=== PATIENT | male | born 1935 | race Caucasian/White ===

== ENCOUNTER 2019-06-21 18:09 | Inpatient (IN) | payer MEDICARE, OTHER ==
[2019-06-21] MEDS ORDERED: Cefepime 2 GM VIAL ONE (19:15)
[2019-06-21] MEDS ORDERED: Vancomycin 1 GM/200 ML BAG ONE (19:53)
--- NOTE | 2019-06-21 20:12 | PDOC.HHP ---
Hospitalist HPI - History of Present Illness Wound issues History of Present Illness: Patient is an 84 year old male with PMH hyperlipidemia, CHF, AICD, T2DM, HTN, CAD, atrial fibrillation, chronic kidney disease, chronic back pain, cardiac stents who presents as [facility] transfer for AICD wound dehiscence. Patient had pacemaker placed in February, today wound became exposed with part of the scar opening up with exposure of the device and part of device visible. Pt denies pain, fever, discharge, or other complaints. No alleviating or aggravating factors. Patient went to PCP today then was sent to specialist office and referred to ED. ED physician at [facility] attempted to transfer pt to [place], where the original procedure was performed in February of this year, but pt refused, stating he would only consent to be transferred here. On interview patient repors aicd began to poke through skin sometime this week, cannot remember name of doctor, on keflex currently, no fevers/chest pain/sob/ nausea/vomiting. on coumadin for afib and amio, dig, other meds per [facility] Hospitalist ROS - Review of Systems Constitutional: denies: fever, chills, sweats, weakness, malaise, other Eyes: denies: pain, vision change, conjunctivae inflammation, eyelid inflammation, redness, other ENT: denies: ear pain, ear discharge, nose pain, nose discharge, nose congestion , mouth pain, mouth swelling, throat pain, throat swelling, other Respiratory: denies: cough, dry, shortness of breath, hemoptysis, SOB with excertion, pleuritic pain, sputum, wheezing, other Cardiovascular: denies: chest pain, palpitations, orthopnea, paroxysmal noc. dyspnea, edema, light headedness, other Gastrointestinal: denies: nausea, vomiting, abdominal pain, diarrhea, constipation, melena, hematochezia, other Genitourinary: denies: dysuria, frequency, incontinence, hematuria, retention, other Musculoskeletal: denies: neck pain, shoulder pain, arm pain, back pain, hand pain, leg pain, foot pain, other Skin: reports: other (open pacemaker wound). denies: rash, lesions, maribel, bruising Neurological: denies: weakness, numbness, incoordination, change in speech, confusion, seizures, other All other systems reviewed; all pertinent +/- noted in HPI/Subj Hospitalist History - Past Medical History Other Medical History: hyperlipidemia, CHF, AICD, T2DM, HTN, CAD, atrial fibrillation, chronic kidney disease, chronic back pain, cardiac stents - Past Surgical History Past Surgical History: reports: Appendectomy, CABG, Hernia Repair, Tonsillectomy Other Surgical History: sbo repair pacemaker lumbar surgery stents L shoulder surgery appendectomy tonsillectomy hernia repair - Family History Family History: reports: no pertinent history (Patient drinks every day, less than 5 drinks per day, Patient denies drug use, Patient has no smoking history.) - Social History Drugs: reports: none Other Social History: drinks leszs than 5 drinks a day - Exam General Appearance: NAD, awake alert Eye: PERRL, anicteric sclera ENT: normocephalic atraumatic, no oropharyngeal lesions, moist mucosa Neck: supple, symmetric, no JVD, no thyromegaly, no lymphadenopathy, no carotid bruit Heart: RRR, no murmur, no gallops, no rubs, normal peripheral pulses Heart - other findings: chest wall - open pacemaker wound corner minimal erythema and jeri Respiratory: CTAB, no wheezes, no rales, no ronchi, normal chest expansion, no tachypnea, normal percussion Gastrointestinal: soft, non-tender, non-distended, normal bowel sounds, no palpable masses, no hepatomegaly, no splenomegaly, no bruit Extremities: no cyanosis, no clubbing, no edema Skin: normal turgor, no lesions, no rashes Skin - other findings: as above under cv section Neurological: cranial nerve grossly intact, normal sensation to touch, no weakness, no focal deficits, no new deficit Musculoskeletal: normal tone, normal strength, no muscle wasting Psychiatric: normal affect, normal behavior, A&O x 3 Hospitalist Results - Labs Lab results: outside records reviewed Additional comment: VITAL SIGNS Sat June 21, 2019 18:18 GLORIA Martinez Laine BP: 162/67 Pulse: 73 Resp: 20 Temp: 98.3 (Oral) Pain: 0 O2 sat: 96 on (Room Air) Time: 06/21/2019 18:18. VITAL SIGNS Sat June 21, 2019 19:19 GLORIA Martinez Laine BP: 166/65 Pulse: 69 Resp: 20 Temp: 98.6 Pain: 0 O2 sat: 96 Time: 06/21/2019 19:19. VITAL SIGNS Sat June 21, 2019 19:59 GLORIA Martinez Laine BP: 162/104 Pulse: 70 Resp: 20 Temp: 98.1 (Oral) Pain: 0 O2 sat: 95 on (Room Air) Time: 06/21/2019 19:59. Hospitalist H&P A/P - Plan Plan: Patient is an 84 year old male with PMH hyperlipidemia, CHF, AICD, T2DM, HTN, CAD, atrial fibrillation, chronic kidney disease, chronic back pain, cardiac stents who presents as [facility] transfer for AICD wound dehiscence. # AICD wound dehiscence - patient did not want to go to [facility], which is where previous helminthologist is, instead was transferred here at patient request, in ED the MD discussed with Dr Chamorro who has agreed to follow along with us - admit to telemetry - empiric vancomycin, unasyn for ppx given high risk of infx - follow blood cultures - npo past midnight - consult cardiology # hyperlipidemia # CHF # T2DM # HTN # CAD # atrial fibrillation # chronic kidney disease # chronic back pain # cardiac stents - resume home medications - on coumadin chronically, check INR and consult pharmacy for dosing, may need to delay procedure if INR comes back high
[2019-06-21] MEDS ORDERED: hydrALAZINE 20 MG/ML VIAL SLOW IVP PRN (21:58)
[2019-06-21] MEDS ORDERED: Acetaminophen 325 MG TAB PO PRN (21:58)
[2019-06-21] MEDS ORDERED: Morphine 2 MG/ML SYRINGE SLOW IVP PRN (21:58)
[2019-06-21] MEDS ORDERED: HYDROcodone/Acetaminophen 5/325 mg Tablet PO PRN (21:58)
[2019-06-21] MEDS ORDERED: Ondansetron PF 4 MG/2 ML Vial IVP PRN (21:58)
[2019-06-21] MEDS ORDERED: cloNIDine 0.1 MG TAB PO PRN (21:58)
[2019-06-21] MEDS ORDERED: Promethazine HCl 12.5 MG in Sodium Chloride 0.9% 50 ML IVPB PRN (21:58)
[2019-06-21] MEDS ORDERED: Guaifenesin DM 100-10/5 ML UDCUP PO PRN (21:58)
[2019-06-21] MEDS ORDERED: Labetalol HCl 100 MG/20 ML VIAL SLOW IVP PRN (21:58)
[2019-06-21 22:39] LABS: INR-International Normal Ratio 3.1; Prothrombin Time 31.9 sec (12.0-14.7)
[2019-06-21 22:40] VITALS: BMI 28.6
[2019-06-21] MEDS ORDERED: Vancomycin HCl 500 MG in Sodium Chloride 0.9% 100 ML IVPB SCH (23:00)
[2019-06-21] MEDS: Ampicillin/Sulbactam 3 GM in Sodium Chloride 0.9% 100 ML IVPB SCH (23:14)
[2019-06-22] MEDS ORDERED: Melatonin 3 MG TAB PO SCH (00:15)
[2019-06-22 04:18] LABS: #Eosinphils 0.3 thou/uL (0.0-0.7); #Lymphocytes 0.8 thou/uL (1.20-3.40); #Monocytes 0.8 thou/uL (0.11-0.59); #Neutrophils 4.9 thou/uL (1.40-6.50); %Basophils 0.1 % (0.0-1.0); %Eosinophils 4.1 % (0.0-10.0); %Lymphocytes 12.3 % (21.0-51.0); %Monocytes 11.3 % (0.0-10.0); %Neutrophils 72.2 % (42.0-75.0); Mean Corpuscular HGB CONC 31.3 g/dL (32.0-36.0); Mean Corpuscular Hemoglobin 29.1 pg (27.0-31.0); Mean Corpuscular Volume 92.9 fL (78.0-98.0); Mean Platelet Volume 7.3 fL (7.4-10.4); Platelet Count 183 thou/uL (130-400); RBC Distribution Width 13.4 % (11.5-14.5); Red Blood Cell (RBC) Count 3.77 mill/uL (4.70-6.10); White Blood Cell (WBC) Count 6.8 thou/uL (4.8-10.8)
[2019-06-22 04:24] LABS: INR-International Normal Ratio 3.2; Prothrombin Time 32.6 sec (12.0-14.7)
[2019-06-22 04:38] LABS: Anion Gap 15 mmol/L (10-20); BUN (Urea Nitrogen) 23 mg/dL (8.4-25.7); Calc. Creatinine Clearance 27 mL/min (70-130); Calcium 8.4 mg/dL (7.8-10.44); Carbon Dioxide 27 mmol/L (23-31); Chloride 100 mmol/L (98-107); Estimated GFR-MDRD 25; Glucose 266 mg/dL (83-110); Magnesium 2.4 mg/dL (1.6-2.6); Potassium 3.8 mmol/L (3.5-5.1); Sodium 138 mmol/L (136-145)
[2019-06-22] MEDS: Ampicillin/Sulbactam 3 GM in Sodium Chloride 0.9% 100 ML IVPB SCH ×4 (06:05→23:16)
[2019-06-22] MEDS: Amiodarone 200 MG TAB PO SCH ×2 (08:22→20:11)
[2019-06-22] MEDS: Digoxin 0.125 MG TAB PO SCH (08:22)
[2019-06-22] MEDS: Glimepiride 4 MG TAB PO SCH ×2 (08:22→17:03)
[2019-06-22] MEDS: Polyethylene Glycol 3350 17 GM Packet PO SCH (08:23)
[2019-06-22] MEDS: Rosuvastatin 20 MG TAB PO SCH (08:23)
[2019-06-22] MEDS: Furosemide 40 MG TAB PO SCH ×2 (08:23→20:11)
[2019-06-22] MEDS: Insulin Glargine 10 UNITS in Pre-Filled Syringe 1 EACH SC SCH ×2 (08:23→21:10)
[2019-06-22] MEDS: Famotidine 20 MG TAB PO SCH (08:23)
[2019-06-22] MEDS ORDERED: Non-Formulary Item 1 EACH (Insulin Detemir [Levemir] 10 UNIT) SQ SCH (09:00)
[2019-06-22 09:26] LABS: Hemoglobin 11.9 g/dL (14.0-18.0); Platelet Count 175 thou/uL (130-400)
[2019-06-22] MEDS ORDERED: Dextrose 5% in Water 1,000 ML IV PRN (10:32)
[2019-06-22] MEDS ORDERED: Dextrose 50% Abboject 50 ML SYRINGE SLOW IVP PRN (10:32)
[2019-06-22] MEDS: HumaLOG 300 UNITS/3 ML VIAL SC PRN (11:50)
--- NOTE | 2019-06-22 12:40 | CON ---
DATE OF CONSULTATION: CONSULTING DOCTOR: Dr. Prater. HISTORY OF PRESENT ILLNESS: The patient is an 84-year-old gentleman with a history of coronary artery disease, and atrial fibrillation, who presents when he noted that the skin over his defibrillator became red and tender and it started protruding. The patient has a long history of an ischemic cardiomyopathy. This gentleman underwent coronary artery bypass surgery x3 in 2001. In 2009, the patient underwent placement of automatic implantable cardiac defibrillator. The patient also has history of paroxysmal atrial fibrillation and has been treated with Amiodarone. The patient recently switched cardiologists and has been seen by Dr. Reggie Valadez. The patient recently had a change of the generator of his AICD in February of this year. A few days ago, the patient started noticing that he had developed redness over the generator. It became slightly painful. The defibrillator appeared to be protruding out of the skin. The patient denies having any fevers or chills. The patient denies having any dyspnea. PAST MEDICAL HISTORY: 1. Cardiomyopathy. 2. Hypertension. 3. Atrial fibrillation. 4. Diabetes mellitus. 5. Chronic renal insufficiency. PAST SURGICAL HISTORY: Coronary artery bypass surgery, back surgery, appendectomy, hernia surgery, tonsillectomy, and bowel surgery. SOCIAL HISTORY: Nonsmoker. ALLERGIES: MORPHINE. MEDICATIONS: 1. Keflex 250 t.i.d. 2. Crestor 40 at bedtime. 3. Levemir 10 b.i.d. 4. Lasix 40 p.o. b.i.d. 5. Digoxin 0.125 daily. 6. Amiodarone 200 daily. 7. Metoprolol 25 daily. 8. Coumadin. FAMILY HISTORY: Positive family history of heart disease. REVIEW OF SYSTEMS: Ten-point system otherwise unremarkable. No history of easy bleeding or bright red blood per rectum. PHYSICAL EXAMINATION: GENERAL: This is a well-developed gentleman, in no acute distress. VITAL SIGNS: Blood pressure is 152/67. NECK: No jugular venous distention. LUNGS: Clear to auscultation. HEART: Regular rate and rhythm. Normal S1 and S2. No murmurs. ABDOMEN: Distended. EXTREMITIES: Showed trace edema. VASCULAR: Radial pulses are 2+. SKIN: The pacemaker is bandaged. There appears to be some mild erythema. LABORATORY DATA: Sodium 138, potassium 3.8, chloride 100, bicarbonate 27, BUN 23, and creatinine was 2.48. His white blood cell count was 6.8, hemoglobin 11.0, hematocrit 35.0, and platelets 183. INR was 3.2. EKG :electronic ventricular pacemaker. IMPRESSION: 1. Status post AICD generator replacement with possible subcutaneous infection. 2. History of ischemic cardiomyopathy. 3. History of coronary artery bypass surgery x3. 4. History of PTCA and stent placement. 5. Permanent atrial fibrillation. 6. Diabetes mellitus. 7. Renal insufficiency. This gentleman presents with a possibly infected AICD. I would recommend holding the patient's Coumadin. The patient will undergo EP consultation for best management and recommendations. We will follow this patient with you through his hospitalization. We will obtain records from his primary furnishings conservator. We will obtain an echocardiogram to re-evaluate his left ventricular function. Job ID: [id number] MTDD
--- NOTE | 2019-06-22 14:42 | PDOC.HOSPP ---
- Subjective Encounter Date: 06/22/19 Encounter Time: 09:00 Subjective: no overnight events. this morning, feeling well and has no complaints. Pending evaluation by EP for pacemaker replacement - Objective Vital Signs & Weight: Vital Signs (12 hours) Temp Pulse Resp BP Pulse Ox 06/22/19 11:50 98.4 F 63 14 159/71 H 94 L 06/22/19 07:45 98.1 F 69 14 152/67 H 93 L 06/22/19 03:17 98.2 F 70 18 157/70 H 94 L Weight Weight 182 lb 14.4 oz I&O: 06/21/19 06/22/19 06/23/19 06:59 06:59 06:59 Intake Total 540 Output Total 475 Balance 65 Result Diagrams: 06/22/19 09:17 06/22/19 03:50 Additional Labs: Accuchecks 06/22/19 06/22/19 06/21/19 11:13 05:54 22:20 POC Glucose 361 H 251 H 184 H Hospitalist ROS - Review of Systems Constitutional: denies: fever, chills, sweats, weakness, malaise, other Respiratory: denies: cough, dry, shortness of breath, hemoptysis, SOB with excertion, pleuritic pain, sputum, wheezing, other Cardiovascular: denies: chest pain, palpitations, orthopnea, paroxysmal noc. dyspnea, edema, light headedness, other Gastrointestinal: denies: nausea, vomiting, abdominal pain, diarrhea, constipation, melena, hematochezia, other Genitourinary: denies: dysuria, frequency, incontinence, hematuria, retention, other - Medication Medications: Active Medications Generic Name Dose Route Start Last Admin Trade Name Freq PRN Reason Stop Dose Admin Amiodarone HCl 200 mg 06/22/19 09:00 06/22/19 08:22 Cordarone PO 200 mg BID ANIYAH Administration Digoxin 0.125 mg 06/22/19 09:00 06/22/19 08:22 Lanoxin PO 0.125 mg DAILY ANIYAH Administration Famotidine 20 mg 06/22/19 09:00 06/22/19 08:23 Pepcid PO 20 mg DAILY ANIYAH Administration Furosemide 40 mg 06/22/19 09:00 06/22/19 08:23 Lasix PO 40 mg BID ANIYAH Administration Glimepiride 4 mg 06/22/19 07:30 06/22/19 08:22 Amaryl PO 4 mg BID-AC ANIYAH Administration Ampicillin Sodium/Sulbactam 100 mls @ 200 mls/hr 06/21/19 23:00 06/22/19 11: 50 Sodium 3 gm/ Sodium Chloride IVPB 100 mls 0500,1100,1700,2300 ANIYAH Administration Insulin Glargine 10 units/ 0.1 mls @ 0 mls/hr 06/22/19 09:00 06/22/19 08:23 Miscellaneous Medication SC 0.1 mls BID ANIYAH Administration Insulin Human Lispro 0 units 06/22/19 10:32 06/22/19 11:50 Humalog SC 6 unit .MILD SLIDING SCALE PRN Administration Mild Correctional Scale Metoprolol Succinate 25 mg 06/22/19 09:00 06/22/19 08:23 Toprol Xl PO 25 mg DAILY ANIYAH Administration Polyethylene Glycol 17 gm 06/22/19 09:00 06/22/19 08:23 Miralax PO 17 gm DAILY ANIYAH Administration Rosuvastatin Calcium 40 mg 06/22/19 09:00 06/22/19 08:23 Crestor PO 40 mg DAILY ANIYAH Administration Sodium Chloride 10 ml 06/21/19 21:00 06/22/19 08:23 Flush - Normal Saline IVF 10 ml Q12HR ANIYAH Administration - Exam General Appearance: NAD, awake alert Heart: RRR, no murmur, no gallops, no rubs Heart - other findings: left pacemaker with overlying dry dressing, minimal erythema and swelling Respiratory: CTAB, no wheezes, no rales, no ronchi Gastrointestinal: soft, non-tender, non-distended, normal bowel sounds Extremities: no edema Hosp A/P - Plan #infected AICD -continue vanc and unasyn -pending EP evaluation -holding warfarin rest of management unchanged
[2019-06-22] MEDS ORDERED: Warfarin Sodium 2 MG TAB PO SCH (17:00)
[2019-06-22] MEDS: Melatonin 3 MG TAB PO PRN (20:11)
[2019-06-22 20:52] LABS: Vancomycin, Random 12.1 ug/mL (See Comment)
[2019-06-22] MEDS ORDERED: Vancomycin HCl 750 MG in Sodium Chloride 0.9% 250 ML 250 ML IVPB SCH (21:00)
[2019-06-22] MEDS: Vancomycin HCl 750 MG in Sodium Chloride 0.9% 250 ML 250 ML IVPB SCH (22:00)
[2019-06-23] MEDS: Ampicillin/Sulbactam 3 GM in Sodium Chloride 0.9% 100 ML IVPB SCH ×4 (04:05→23:46)
[2019-06-23 04:52] LABS: Anion Gap 11 mmol/L (10-20); BUN (Urea Nitrogen) 20 mg/dL (8.4-25.7); Calc. Creatinine Clearance 27 mL/min (70-130); Calcium 8.3 mg/dL (7.8-10.44); Carbon Dioxide 29 mmol/L (23-31); Chloride 101 mmol/L (98-107); Estimated GFR-MDRD 25; Glucose 114 mg/dL (83-110); Magnesium 2.4 mg/dL (1.6-2.6); Potassium 3.6 mmol/L (3.5-5.1); Sodium 137 mmol/L (136-145)
[2019-06-23] MEDS: Furosemide 40 MG TAB PO SCH ×2 (09:20→20:16)
[2019-06-23] MEDS: Rosuvastatin 20 MG TAB PO SCH (09:20)
[2019-06-23] MEDS: Glimepiride 4 MG TAB PO SCH ×2 (09:20→16:00)
[2019-06-23] MEDS: Amiodarone 200 MG TAB PO SCH ×2 (09:20→20:16)
[2019-06-23] MEDS: Digoxin 0.125 MG TAB PO SCH (09:21)
[2019-06-23] MEDS: Famotidine 20 MG TAB PO SCH (09:21)
[2019-06-23] MEDS: Polyethylene Glycol 3350 17 GM Packet PO SCH (09:26)
[2019-06-23] MEDS: Insulin Glargine 10 UNITS in Pre-Filled Syringe 1 EACH SC SCH ×2 (09:27→20:43)
[2019-06-23] MEDS: HumaLOG 300 UNITS/3 ML VIAL SC PRN (11:36)
--- NOTE | 2019-06-23 13:57 | CON ---
DATE OF CONSULTATION: 06/23/2019 Dictated by Ariane Mzt, nurse practitioner, as a scribe for Dr. Ramon Kiser. REASON FOR CONSULTATION: ICD erosion and management. HISTORY OF PRESENT ILLNESS: Mr. Rizvi is an 84-year-old gentleman with a history of coronary artery disease with prior bypass in addition to atrial fibrillation, requiring amiodarone. He is on warfarin chronically for anticoagulation regarding his atrial fibrillation. He also has a long history of ischemic cardiomyopathy. In 2009, he underwent ICD implant and had a generator change in February of this year. He recently established with a burglar alarm assembler, named Dr. Reggie Clarke. A few weeks ago, Mr. Rizvi noticed that his skin overlying his ICD implant began to itch, thin and become red. The defibrillator began to protrude out of the skin and eventually dehisced. He denied any fevers, chills, and has been started on vancomycin. EP consult has been requested for ICD management and consideration of extraction. Mr. Rizvi does not remember the name of the doctor who did the generator change. REVIEW OF SYSTEMS: A 12-point review of systems is unremarkable except that listed above in HPI. PAST MEDICAL HISTORY: 1. Atrial fibrillation. 2. Type 2 diabetes. 3. Chronic renal insufficiency. 4. Hypertension. 5. Ischemic cardiomyopathy. 6. Coronary artery disease with 3-vessel bypass in 2001. SOCIAL HISTORY: Nonsmoker. ALLERGIES: MORPHINE. HOME MEDICATIONS: Include: 1. Crestor 40 mg daily. 2. Levemir 10 units subcutaneous b.i.d. 3. Amaryl 4 mg b.i.d. 4. Lasix 40 mg b.i.d. 5. Digoxin 125 mcg daily. 6. Vitamin D daily. 7. Amiodarone 200 mg b.i.d. 8. Metoprolol succinate 25 mg daily. 9. Warfarin as directed. FAMILY HISTORY: Positive for heart disease. Negative for sudden cardiac . OBJECTIVE: VITAL SIGNS: Temperature 98.1, pulse 62, blood pressure 142/67, respirations 18, and oxygen 95% on room air. GENERAL: The patient is alert and oriented. Speech is clear. Affect is appropriate. He is a fair historian. HEENT: He is normocephalic and atraumatic. Sclerae anicteric. EOMs are intact. Oral mucosa is moist and pink with adequate dentition. NECK: Supple without jugular venous distention. Thyroid is nonpalpable and trachea is midline. LUNGS: Clear to auscultation throughout. Respirations are even and unlabored. HEART: Rate is irregularly irregular with crisp S1 and S2. No significant murmur, rub, or gallop is appreciated. ABDOMEN: Distended. Hepatojugular reflux is negative. EXTREMITIES: Warm and dry to touch with trace edema bilaterally to the lower extremities. There is no clubbing or cyanosis. NEUROLOGIC: Grossly intact and nonfocal. Gait was not assessed. SKIN: ICD is a left precordial implant. There is a bandage overlying the device, which was removed temporarily for the exam. There is some mild erythema. The device has dehisced and is coming out of the pocket. It does not appear to have any areas of induration or pockets of infection, but the device will require explant. DATABASE: LABORATORY DATA: Hematology is unremarkable. Chemistry: Potassium 3.6, creatinine 2.45, and magnesium 2.4. Echocardiogram is ordered, but not yet performed. EKG shows sinus rhythm with demand pacing. IMPRESSION: 1. Implantable cardiac defibrillator generator erosion without systemic infection symptoms or signs. 2. Recent implantable cardiac defibrillator generator change in 02/2019, dual-chamber [employer], performed in the [place]. 3. Chronic RV pacing. 4. Paroxysmal atrial fibrillation, on amiodarone and anticoagulation. 5. Hyperlipidemia. 6. Chronic kidney disease. 7. Ischemic cardiomyopathy. 8. Prior bypass, 3 vessels. PLAN AND RECOMMENDATIONS: Mr. Villanueva ICD unfortunately has eroded through his pocket and is requiring explant. Fortunately, he does not exhibit any systemic signs of infection or sepsis. As this is a chronic ICD placed 10 years ago, he will require lead extraction, and thus, will require transfer to a facility that is equipped to handle this procedure. I am contacting . [facility] in the [place] for possible transfer later today pending their acceptance. He may benefit from Bi- V pacing when he can be reimplanted due to his high-grade RV pacing seen on this check. Thank you for allowing me to participate in the care of this patient. Job ID: [id number] [facility]
[2019-06-23] MEDS ORDERED: Warfarin Sodium 3 MG TAB PO SCH (17:00)
[2019-06-23] MEDS: Melatonin 3 MG TAB PO PRN (21:37)
[2019-06-23] MEDS: Vancomycin HCl 750 MG in Sodium Chloride 0.9% 250 ML 250 ML IVPB SCH (21:38)
[2019-06-23 21:47] LABS: Vancomycin, Trough 13.7 ug/mL
--- NOTE | 2019-06-23 22:54 | PDOC.HOSPP ---
- Subjective Encounter Date: 06/23/19 Encounter Time: 09:00 Subjective: no overnight events. This morning, feeling well and has no complaints. - Objective Vital Signs & Weight: Vital Signs (12 hours) Temp Pulse Resp BP BP BP Pulse Ox 06/23/19 20:09 99.2 F 60 18 134/62 95 06/23/19 15:24 98.5 F 65 20 153/67 H 97 06/23/19 11:26 98.1 F 62 20 139/65 92 L Weight Weight 182 lb 1.6 oz I&O: 06/22/19 06/23/19 06/24/19 06:59 06:59 06:59 Intake Total 540 1400 920 Output Total 475 1850 Balance 65 -450 920 Result Diagrams: 06/22/19 09:17 06/23/19 04:08 Additional Labs: Accuchecks 06/23/19 06/23/19 06/23/19 20:34 16:29 10:39 POC Glucose 206 H 130 H 307 H 06/23/19 05:41 POC Glucose 150 H Hospitalist ROS - Review of Systems Constitutional: denies: fever, chills, sweats, weakness, malaise, other Respiratory: denies: cough, dry, shortness of breath, hemoptysis, SOB with excertion, pleuritic pain, sputum, wheezing, other Cardiovascular: denies: chest pain, palpitations, orthopnea, paroxysmal noc. dyspnea, edema, light headedness, other Gastrointestinal: denies: nausea, vomiting, abdominal pain, diarrhea, constipation, melena, hematochezia, other - Medication Medications: Active Medications Generic Name Dose Route Start Last Admin Trade Name Freq PRN Reason Stop Dose Admin Amiodarone HCl 200 mg 06/22/19 09:00 06/23/19 20:16 Cordarone PO 200 mg BID ANIYAH Administration Cholecalciferol 1,000 units 06/23/19 09:00 06/23/19 09:20 Vitamin D3 PO 1,000 units DAILY ANIYAH Administration Digoxin 0.125 mg 06/22/19 09:00 06/23/19 09:21 Lanoxin PO 0.125 mg DAILY ANIYAH Administration Famotidine 20 mg 06/22/19 09:00 06/23/19 09:21 Pepcid PO 20 mg DAILY ANIYAH Administration Furosemide 40 mg 06/22/19 09:00 06/23/19 20:16 Lasix PO 40 mg BID ANIYAH Administration Glimepiride 4 mg 06/22/19 07:30 06/23/19 16:00 Amaryl PO 4 mg BID-AC ANIYAH Administration Ampicillin Sodium/Sulbactam 100 mls @ 200 mls/hr 06/21/19 23:00 06/23/19 16: 00 Sodium 3 gm/ Sodium Chloride IVPB 100 mls 0500,1100,1700,2300 ANIYAH Administration Insulin Glargine 10 units/ 0.1 mls @ 0 mls/hr 06/22/19 09:00 06/23/19 20:43 Miscellaneous Medication SC 0.1 mls BID ANIYAH Administration Vancomycin HCl 750 mg/ Sodium 250 mls @ 250 mls/hr 06/22/19 22:00 06/23/19 21 :38 Chloride IVPB 06/28/19 23:59 250 mls 2200 ANIYAH Administration Insulin Human Lispro 0 units 06/22/19 10:32 06/23/19 11:36 Humalog SC 5 unit .MILD SLIDING SCALE PRN Administration Mild Correctional Scale Melatonin 3 mg 06/22/19 00:04 06/23/19 21:37 Melatonin PO 3 mg HS PRN Administration Insomnia Metoprolol Succinate 25 mg 06/22/19 09:00 06/23/19 09:22 Toprol Xl PO 25 mg DAILY ANIYAH Administration Polyethylene Glycol 17 gm 06/22/19 09:00 06/23/19 09:26 Miralax PO Not Given DAILY ANIYAH Rosuvastatin Calcium 40 mg 06/22/19 09:00 06/23/19 09:20 Crestor PO 40 mg DAILY ANIYAH Administration Sodium Chloride 10 ml 06/21/19 21:00 06/23/19 20:16 Flush - Normal Saline IVF 10 ml Q12HR ANIYAH Administration - Exam General Appearance: NAD, awake alert Heart: RRR, no murmur, no gallops, no rubs, normal peripheral pulses Heart - other findings: right thorax pacemaker with overlying clean dressing and mild erythema Respiratory: CTAB, no wheezes, no rales, no ronchi, normal chest expansion, no tachypnea, normal percussion Gastrointestinal: soft, non-tender, non-distended, normal bowel sounds, no palpable masses, no hepatomegaly, no splenomegaly, no bruit Extremities: 1+ LE edema Psychiatric: normal affect, normal behavior, A&O x 3 Hosp A/P - Plan #infected AICD -continue vanc and unasyn -pending EP evaluation -holding warfarin #SILVIO/CKD -may be new baseline -continue to follow Disposition: Pending transfer to [facility] for removal of leads
[2019-06-24] MEDS: Ampicillin/Sulbactam 3 GM in Sodium Chloride 0.9% 100 ML IVPB SCH ×2 (05:11→10:27)
[2019-06-24 05:41] LABS: #Eosinphils 0.4 thou/uL (0.0-0.7); #Lymphocytes 1.3 thou/uL (1.20-3.40); #Monocytes 0.8 thou/uL (0.11-0.59); #Neutrophils 6.3 thou/uL (1.40-6.50); %Basophils 0.2 % (0.0-1.0); %Eosinophils 4.5 % (0.0-10.0); %Lymphocytes 14.2 % (21.0-51.0); %Monocytes 9.3 % (0.0-10.0); %Neutrophils 71.9 % (42.0-75.0); Hemoglobin 12.4 g/dL (14.0-18.0); Mean Corpuscular HGB CONC 31.1 g/dL (32.0-36.0); Mean Corpuscular Hemoglobin 28.9 pg (27.0-31.0); Mean Corpuscular Volume 92.8 fL (78.0-98.0); Mean Platelet Volume 7.6 fL (7.4-10.4); Platelet Count 206 thou/uL (130-400); RBC Distribution Width 13.5 % (11.5-14.5); Red Blood Cell (RBC) Count 4.29 mill/uL (4.70-6.10); White Blood Cell (WBC) Count 8.8 thou/uL (4.8-10.8)
[2019-06-24 06:01] LABS: Anion Gap 15 mmol/L (10-20); BUN (Urea Nitrogen) 20 mg/dL (8.4-25.7); Calc. Creatinine Clearance 26 mL/min (70-130); Calcium 8.7 mg/dL (7.8-10.44); Carbon Dioxide 25 mmol/L (23-31); Chloride 101 mmol/L (98-107); Estimated GFR-MDRD 24; Glucose 111 mg/dL (83-110); Potassium 3.8 mmol/L (3.5-5.1); Sodium 137 mmol/L (136-145)
[2019-06-24] MEDS: Glimepiride 4 MG TAB PO SCH (07:42)
[2019-06-24] MEDS: Polyethylene Glycol 3350 17 GM Packet PO SCH (09:29)
[2019-06-24] MEDS: Famotidine 20 MG TAB PO SCH (09:30)
[2019-06-24] MEDS: Furosemide 40 MG TAB PO SCH (09:30)
[2019-06-24] MEDS: Rosuvastatin 20 MG TAB PO SCH (09:30)
[2019-06-24] MEDS: Amiodarone 200 MG TAB PO SCH (09:30)
[2019-06-24] MEDS: Digoxin 0.125 MG TAB PO SCH (09:30)
[2019-06-24] MEDS: Insulin Glargine 10 UNITS in Pre-Filled Syringe 1 EACH SC SCH (09:36)
[2019-06-24] MEDS ORDERED: Acetaminophen 325 MG TAB PO SCH (10:15)
--- NOTE | 2019-06-24 10:32 | RAD ---
EXAM: XR Abdomen 1 View/KUB PROVIDED CLINICAL HISTORY: Abdominal distention shortness of breath. 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 Increased density is seen at the left lung base probably laterally extending into the left midlung zone. Findings may be related to loculated pleural fluid on the left. This would be better evaluated with chest x-ray. Dilatation and gaseous distention of loops of small bowel are seen in the abdomen. Small amount of ga s is present in the expected location of the rectum. No suspicious calcifications are seen. Degenerative changes are seen in the visualized thoracic and lumbar spine with laminectomy defect see n at the L4-5 level. IMPRESSION: Dilated gas-filled loops of small bowel in the abdomen. Findings may be related to ileus or partial s mall bowel obstruction. Pleural density lateral left midlung zone and left lung base which may be related to loculated pleura l fluid. This would be better evaluated with chest x-ray.
[2019-06-24 11:12] VITALS: BP 151/66; TEMP 98.1
--- NOTE | 2019-06-24 17:05 | PDOC.EP ---
- Subjective Date: 06/24/19 Time: 08:00 Interval History: Follow-up for ICD management. transfer to [place] is pending for laser lead extraction of his dehisced ICD. Anticipating transfer later today. patient feels well voices no complaints no suspicion of systemic infection or fever. - Review of Systems Constitutional: denies: chills, fever, malaise, sweats, weakness, other Respiratory: denies: cough, dry, hemoptysis, pleuritic pain, shortness of breath , SOB with excertion, sputum, wheezing, other Cardiology: denies: chest pain, edema, heart racing, light headedness, paroxysmal noc. dyspnea, orthopnea, palpitations, passing out, pleuritic pain, pressure, swelling, other - Objective Allergies/Adverse Reactions: Allergies Allergy/AdvReac Type Severity Reaction Status Date / Time morphine AdvReac Unknown ITCHING Verified 06/21/19 23:50 Vital Signs & Weight: Vital Signs Temp Pulse Resp BP Pulse Ox 06/24/19 11:06 98.1 F 68 17 151/66 H 98 06/24/19 07:35 97.6 F 66 19 154/70 H 94 L Weight 181 lb 9.6 oz I/O: I/O 06/23/19 06/24/19 06/25/19 06:59 06:59 06:59 Intake Total 1400 1070 Output Total 1850 600 Balance -450 470 - Quality Measures Condition: Atrial Fibrillation/Flutter (hx or current) CV meds: Warfarin: Yes ( on hold) - Physical Exam General: alert & oriented x3, appears well, no apparent distress, speech clear, affect appropriate HEENT: mucus membranes moist, normocephaly Neck: supple neck, midline trachea, no JVD/HJR, no masses, no bruit, no lymphadenopathy, no thromegaly Cardiology: regular rate and rhythm, no murmur, regular rate, regular rhythm, PMI nondisplaced Lungs: clear to auscultation, normal breath sounds, normal exam, no wheeze, rales, rhonchi, no wheezes, no rales, no rhonchi Neurology: cranial nerve 2-12 intact, grossly intact, motor function intact, sensory function intact, negative rhomberg, coordination normal, no lateralizing findings Skin: right sided device, other ( eroded ICD with bandage for covering) - Labs Result Diagrams: 06/24/19 05:00 06/24/19 05:00 - EKG Interpretation EKG Method: Telemetry EKG shows: Sinus rhythm - Device Device: dual, defibrillator ( not in [employer] registry likely serrano) - Assessment/Plan Assessment/Plan: 1. Dual chamber ICD - erroded - requires laser lead extraction as device was placed in 2009. pending transfer to [place] for this procedure - per [employer] rep, not in their registry and device was not interrogated. 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 PAF - continue amiodarone - warfarin on hold, INR 3.2 on 06/[address] Donovan Parra yesterday about laser lead extraction. Transfer is pending to [facility]. Warfarin on hold as INR comes down in anticipation of CV surgery. Continue amiodarone for arrhythmia suppression. Patient does not recall the type of ICD he has a does not have a card on him. It was not able to be interrogated by [employer] prior to him transferring. Possibly an S[employer]/ [employer] versus [employer] Pix[employer]
--- NOTE | 2019-06-25 12:50 | DIS ---
DATE OF ADMISSION: 06/21/2019 DATE OF DISCHARGE: 06/24/2019 HOSPITAL COURSE: Mr. Rizvi is an 84-year-old male with medical history of CHF, AICD, type 2 diabetes, hypertension, coronary artery disease, atrial fibrillation, CKD who presented as a [facility] transfer for AICD wound dehiscence. He was diagnosed with implantable cardiac defibrillator generator erosion without systemic infection. Considering the AICD was placed in 2009, this patient required transfer for laser lead extraction which is available in [place]. Prior to discharge, the patient complained about abdominal distention and inability to pass gas. The abdominal x-ray was taken, which showed dilated gas-filled loops of small bowel in the abdomen that may be related to ileus or partial small bowel obstruction, thus report was included with discharge papers to inform the accepting hospital in regard to the these findings. He was discharged hemodynamically stable with no complaints with the exception of the above-mentioned. Warfarin was held in anticipation for his cardiac surgery. Job ID: [id number]
== END 2019-06-24 11:50 | disposition short-term general hospital (02) | DRG 920 ==
LOC: ERS 18:09 → 2NO 20:59
PROVIDERS: ADMIT Internal Medicine; ATTEND Internal Medicine
DX: T81.31XA Disruption of external operation (surgical) wound, not elsewhere classified, initial encounter (principal); I13.0 Hypertensive heart and chronic kidney disease with heart failure and stage 1 through stage 4 chronic kidney disease, or unspecified chronic kidney disease; T82.897A Other specified complication of cardiac prosthetic devices, implants and grafts, initial encounter; I48.21 Permanent atrial fibrillation; N17.9 Acute kidney failure, unspecified; E78.5 Hyperlipidemia, unspecified; I25.10 Atherosclerotic heart disease of native coronary artery without angina pectoris; N18.9 Chronic kidney disease, unspecified; G89.29 Other chronic pain; M54.9 Dorsalgia, unspecified; E78.00 Pure hypercholesterolemia, unspecified; E11.22 Type 2 diabetes mellitus with diabetic chronic kidney disease; I25.5 Ischemic cardiomyopathy; I50.9 Heart failure, unspecified; Y83.1 Surgical operation with implant of artificial internal device as the cause of abnormal reaction of the patient, or of later complication, without mention of misadventure at the time of the procedure; Z95.5 Presence of coronary angioplasty implant and graft; Z95.810 Presence of automatic (implantable) cardiac defibrillator; Z90.49 Acquired absence of other specified parts of digestive tract; Z95.1 Presence of aortocoronary bypass graft; I25.2 Old myocardial infarction; Z98.1 Arthrodesis status; Z88.5 Allergy status to narcotic agent; Z79.899 Other long term (current) drug therapy; Z79.84 Long term (current) use of oral hypoglycemic drugs; Z79.01 Long term (current) use of anticoagulants
CPT/HCPCS: 36415; 36416; 74018; 80048; 80202; 83735; 85014; 85018; 85025; 85049; 85610; 96365; 96366; J0295; J0692; J1815; J3370; J3490; J7050

== ENCOUNTER 2019-07-23 13:20 | Inpatient (IN) | payer MEDICARE, OTHER ==
[2019-07-23 14:17] LABS: PTT 60.4 sec (22.9-36.1); Prothrombin Time 50.9 sec (12.0-14.7)
[2019-07-23 14:30] LABS: INR-International Normal Ratio 5.7
[2019-07-23 14:51] LABS: BUN (Urea Nitrogen) 34 mg/dL (8.4-25.7); Calc. Creatinine Clearance 0 mL/min (70-130); Calcium 7.5 mg/dL (7.8-10.44); Carbon Dioxide 20 mmol/L (23-31); Chloride 104 mmol/L (98-107); Estimated GFR-MDRD 22; Glucose 86 mg/dL (83-110); Potassium 4.8 mmol/L (3.5-5.1); Sodium 134 mmol/L (136-145)
[2019-07-23] MEDS ORDERED: Ondansetron PF 4 MG/2 ML Vial IVP PRN (14:55)
[2019-07-23] MEDS ORDERED: Acetaminophen 325 MG TAB PO PRN (14:55)
[2019-07-23] MEDS ORDERED: Dextrose 5% in Water 1,000 ML IV PRN (14:55)
[2019-07-23] MEDS ORDERED: Acetaminophen 650 MG Suppository PR PRN (14:55)
[2019-07-23] MEDS ORDERED: Bisacodyl 10 MG SUPP PR PRN (14:55)
[2019-07-23] MEDS ORDERED: Dextrose 50% Abboject 50 ML SYRINGE SLOW IVP PRN (14:55)
--- NOTE | 2019-07-23 15:06 | CT ---
CT THORAX NONCONTRAST: DATE: 07/23/2019 HISTORY: 84-year-old male with dyspnea. Abnormalities found on lung bases on CT of abdomen earlier today. COMPARISON: none FINDINGS: Small right pleural effusion at the dependent portion of right hemithoracic cavity, occupying approxi mately 10-15% volume of right hemithoracic cavity. Adjacent layer of broad, thin passive atelectasis at posterior aspect of right lower lobe. Contralateral left pleural effusion appears loculated, with mildly thickened visceral and parietal pl eural surfaces. The left pleural effusion occupies approximately 25-60% volume of left hemithoracic cavity, and occupies not only the posterior dependent portion of the left hemithoracic cavity, but re aches anteriorly to the level of the cardiac apex, and superiorly to the level of the aortic arch. Multifocal, ill-defined nodular infiltrates scattered throughout the right upper lobe, and in the upp er portion of the right middle lobe. In the left lower lobe, extending from the left hilum to the left base, there is a 3.5 x 5.5 x 11 cm masslike consolidation. Associated distortion of left lower lobe bronchial branches, with or acute appearance is suggestive of round atelectasis. Anterior to that in the lingula, there is a somewhat smaller region of consolidation. It is difficult to completely rule out the possibility of neoplastic tumor mass in these locations of consolidations. No consolidation at the apical segment of left upper lobe. There is a small region of aerated lung in the left lower lobe. Ectasia, tortuosity, and heavy atherosclerotic calcification of thoracic aorta without aneurysm. Ster notomy wires. Coronary artery bypass grafts visualized. Cardiomegaly with four-chamber dilation. No pericardial effusion. No pneumothorax. Mild stenosis of right mainstem bronchus. No high-grade stenos is of trachea or ria. DISH and high-grade degenerative disc disease throughout the thoracic spine and visualized lower levels of cervical spine. No vertebral body collapse. IMPRESSION: 1) moderate sized loculated left pleural effusion. 2.) Small right pleural effusion. 3) numerous nodular infiltrates throughout right upper lobe consistent with infectious/inflammatory p rocess, such as bronchopneumonia. 4) 2 consolidations in the left lung. The larger one in the left lower lobe is suggestive of round at electasis. (This does not necessarily exclude the presence of any neoplasm within either of these consolidations). 5) cardiomegaly with four-chamber dilation. 6) status post coronary artery bypass graft surgery 7) high-grade cervical and thoracic spondylosis.
[2019-07-23 15:12] LABS: Anion Gap 15 mmol/L (10-20)
[2019-07-23] MEDS ORDERED: Vancomycin HCl 1 GM in Sodium Chloride 0.9% 250 ML 300 ML IVPB SCH ×2 (15:15→21:00)
[2019-07-23] MEDS ORDERED: Dextrose 10% in Water 1,000 ML IV SCH (15:15)
[2019-07-23] MEDS ORDERED: Dextrose 50% Abboject 50 ML SYRINGE ONE ×2 (15:16→18:42)
[2019-07-23 15:17] LABS: Troponin I 0.029 ng/mL (< 0.028)
[2019-07-23] MEDS ORDERED: Benzocaine 20% Spray 60 ML CAN ONE (15:22)
[2019-07-23] MEDS ORDERED: Phytonadione 10 MG/ML AMP PO SCH ×2 (16:00→18:15)
--- NOTE | 2019-07-23 16:24 | HP ---
REASON FOR ADMISSION: Sepsis, persistent hypoglycemia, coagulopathy, CHF exacerbation, recent pneumonia with possible empyema. HISTORY OF PRESENTING ILLNESS: The patient was found unconscious this morning by . She summoned EMS. When EMS arrived, the patient's fingerstick glucose was in the 30s. He was started on D10 drip and taken to [facility]. He has had multiple workups done at [facility]. He was later transferred here for higher level of care. The patient states he was recently diagnosed with pneumonia and has finished antibiotics. He is also developing lower extremity swelling, which has been gradually progressing from last 2 to 3 weeks now. He was hospitalized in June at [facility] for extraction of his AICD, which was extruding out of his skin spontaneously per the patient. He has known history of coronary artery disease and CHF. PAST MEDICAL AND SURGICAL HISTORY: Known history of CAD, hypertension, diabetes mellitus type 2, chronic atrial fibrillation, coronary artery disease, CKD, chronic back pain, prior cardiac stents, recent AICD removal from left infrascapular area, appendectomy, CABG, hernia repair, and tonsillectomy. The patient also has had small-bowel obstruction with prior repair, AICD placement with removal last month, lumbar spine surgery, and left shoulder surgery. PERSONAL HISTORY: Drinks on social occasion, does not smoke or abuse drugs. Lives with his . He ambulates by himself. FAMILY HISTORY: No significant history of any inheritable disease that he will acquire at this age. CURRENT MEDICATIONS: The patient is on; 1. Amiodarone 200 mg twice daily. 2. Toprol-XL 25 mg daily. 3. Levemir 10 units subcu twice daily. 4. Amaryl 4 mg twice daily. 5. Lasix 40 mg twice daily. 6. Coumadin 3 and 4 mg p.o. daily as before. 7. Crestor 40 mg p.o. daily. ALLERGIES: TO MORPHINE. CODE STATUS: Full. 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 REVIEW OF SYSTEMS: CONSTITUTIONAL: Negative for weight loss or gain, ability to conduct usual activities. SKIN: Negative for rash, itching. EYES: Negative for double vision, pain. ENT/MOUTH: Negative for nose bleeding, neck stiffness, pain, tenderness. CARDIOVASCULAR: Negative for palpitations, dyspnea on exertion, orthopnea. RESPIRATORY: Negative for shortness of breath, wheezing, cough, hemoptysis, fever or night sweats. GASTROINTESTINAL: Negative for poor appetite, abdominal pain, heartburn, nausea, vomiting, constipation, or diarrhea. GENITOURINARY: Negative for urgency, frequency, dysuria, nocturia. MUSCULOSKELETAL: Negative for pain, swelling. NEUROLOGIC/PSYCHIATRIC: Negative for anxiety, depression. ALLERGY/IMMUNOLOGIC: Negative for skin rash, bleeding tendency. PHYSICAL EXAMINATION: GENERAL: The patient is an 84-year-old male, who is currently not in any acute distress. VITAL SIGNS: Blood pressure 140/60, pulse 66 per minute, respiratory rate 18 per minute, temperature 98.1 degrees Fahrenheit, and saturating 92% on room air and 97% on 2 L nasal cannula. NECK: Supple. There is mild elevation in JVD. HEENT: Eyes; extraocular muscles intact. Pupils are reacting to light. Oral cavity, mucous membranes are dry. No exudates or congestion. CARDIOVASCULAR SYSTEM: S1 and S2 heard. Regular rhythm. RESPIRATORY SYSTEM: Air entry 1+ bilateral with scattered rales. Decreased air entry in the left infrascapular area. ABDOMEN: Mildly distended. Mild tenderness on deep palpation. No rigidity or guarding. EXTREMITIES: There is 2+ peripheral edema. No calf tenderness. VASCULAR SYSTEM: Peripheral pulses are 1+ bilateral. No ischemic ulcerations or gangrene. CENTRAL NERVOUS SYSTEM: No gross focal deficits noted. The patient is currently awake and fairly oriented, but he is very hard of hearing. PSYCHIATRIC SYSTEM: No obvious hallucinations or delusions. LABORATORY DATA: White count of 10, H and H 10 and 32, platelet count is 216, MCV is 89 with 86% neutrophils, PT/INR 50 and 5.7, PTT 60. BUN 34, creatinine 2.7, serum bicarb 20, serum glucose 48, AST 160, ALT 258, and alkaline phosphatase is 178. BNP 1388. CRP is 1.64. Albumin is 3.4. EKG done shows sinus bradycardia. Repeat EKG done shows normal sinus rhythm here. There is poor R-wave progression. There is Q-wave seen in leads II, III, and aVF. CLINICAL IMPRESSION AND PLAN: The patient will be admitted to the telemetry for persistent hypoglycemia, pneumonia with likely empyema, partial small-bowel obstruction, acute congestive heart failure with exacerbation, possible sepsis with recent lead extraction, which was exposed, recent AICD extracted after being exposed. We will obtain blood cultures, sputum and urine cultures. We will also obtain COVID-19 PCR. He will be on droplet and airborne precautions. He is on D10 drip and will continue the same. The patient is moving all 4 extremities and is slowly coming around from his initial acute encephalopathy due to hypoglycemia. We will place him on cefepime, Levaquin, and vancomycin for now. He will be on Lasix 40 mg IV at 6 a.m. and 2 p.m. We will continue aspirin, amiodarone, small dose of carvedilol, and Crestor. We will continue to closely monitor him for any hemodynamic compromise. Job ID: [id number]
--- NOTE | 2019-07-23 16:29 | RAD ---
Exam: 1 view abdomen HISTORY: NG tube placement FINDINGS: 1. View abdomen demonstrates a nasogastric tube terminating in the epigastric region. There are sternotomy wires. There are pleural and parenchymal changes in the left hemithorax. IMPRESSION: Nasogastric tube terminating in the epigastric region, felt to be within the stomach. The re are pleural and parenchymal changes left hemithorax. Refer to chest CT for further detail
[2019-07-23] MEDS ORDERED: traMADol HCl 50 MG TAB PO PRN (18:33)
[2019-07-23] MEDS ORDERED: traMADol HCl 50 MG TAB ONE (18:42)
[2019-07-23] MEDS ORDERED: Morphine 4 MG/ML VIAL ONE (18:55)
[2019-07-23] MEDS ORDERED: Sterile Water Injection 714 ML in Dextrose 70% in Water 286 ML IV SCH (19:00)
[2019-07-23 19:03] LABS: Troponin I 0.041 ng/mL (< 0.028)
[2019-07-23 20:11] LABS: ALT (SGPT) 224 U/L (8-55); AST (SGOT) 128 U/L (5-34); Albumin 3.2 g/dL (3.4-4.8); Alkaline Phosphatase 170 U/L (40-110); Anion Gap 13 mmol/L (10-20); BUN (Urea Nitrogen) 32 mg/dL (8.4-25.7); Bilirubin, Total 0.4 mg/dL (0.2-1.2); Calc. Creatinine Clearance 0 mL/min (70-130); Calcium 8.2 mg/dL (7.8-10.44); Carbon Dioxide 25 mmol/L (23-31); Chloride 102 mmol/L (98-107); Estimated GFR-MDRD 22; Globulin 3.9 g/dL (2.4-3.5); Glucose 97 mg/dL (83-110); Potassium 4.5 mmol/L (3.5-5.1); Protein, Total 7.1 g/dL (5.8-8.1); Sodium 135 mmol/L (136-145)
--- NOTE | 2019-07-23 20:35 | CON ---
DATE OF CONSULTATION: 07/23/2019 CONSULTING PHYSICIAN: Eva Robbins MD REASON FOR CONSULTATION: Left-sided pleural effusion. HISTORY OF PRESENT ILLNESS: The patient is a pleasant 84-year-old, who came to the emergency room with shortness of breath. Dry cough, night sweats, and generally feeling bad for the last week or so. He was discharged from [facility] last week after having a left lower lobe pneumonia. He was told by his primary care doctor earlier this week that his chest had cleared up. PAST MEDICAL HISTORY: 1. Atrial fibrillation requiring chronic anticoagulation with warfarin. 2. Type 2 diabetes mellitus. 3. Chronic renal insufficiency. 4. Hypertension. 5. Ischemic cardiomyopathy. 6. Coronary artery disease. 7. Recent pneumonia. 8. Recent wound dehiscence of a defibrillator that subsequently resulted in removal of defibrillator. PAST SURGICAL HISTORY: 1. Defibrillator placement and subsequent removal. 2. Small bowel obstruction. 3. Hernia repair. 4. Looks like he had some sort of median sternotomy in the past. ALLERGIES: NONE. MEDICATIONS: Prior to admission; 1. Warfarin. 2. Crestor. 3. Metoprolol. 4. Insulin. 5. Amaryl. 6. Lasix. 7. Lanoxin. 8. Cholecalciferol. 9. Amiodarone. SOCIAL HISTORY: Does not smoke. Does not drink alcohol. REVIEW OF SYSTEMS: Remarkable for night sweats, fever, or chills. No chest pain. No nausea or vomiting. No hemoptysis. No hematochezia, hematuria, or dysuria. PHYSICAL EXAMINATION: VITAL SIGNS: Temperature 98.1, pulse 66, blood pressure 141/61, O2 saturation 92% on room air, and respiratory rate 17. He sitting up, appears in no acute distress. HEENT: Pupils reactive. Sclerae anicteric. Oropharynx clear. NECK: No adenopathy or JVD. LUNGS: He has slightly diminished breath sounds left base compared to right. CARDIOVASCULAR: S1 and S2. Irregularly irregular. ABDOMEN: Soft. He has a midline hernia, protuberant, easily reducible. EXTREMITIES: No clubbing, cyanosis, or edema. LABORATORY DATA: INR is 5.7 and PTT 60.4. Sodium 134, potassium 4.8, chloride 104, CO2 of 20, BUN 34, creatinine 2.7, and glucose 86. Troponin 0.029. White blood cell count 10, hematocrit 32.3, and platelet count 216, with 3% bands. CT of the chest was reviewed personally. He has a loculated left pleural effusion. Small right pleural effusion, consolidated effects in the left lung consistent with previous pneumonia. ASSESSMENT: 1. Left empyema/complex effusion. 2. Recent pneumonia. 3. Excessively anticoagulated on warfarin. 4. Chronic atrial fibrillation. 5. Hypoglycemia, which is likely secondary to his diabetic medications. PLAN: 1. I will go ahead and reverse his warfarin with FFP and vitamin K. 2. We will consult Dr. Onofre, Cardiothoracic Surgery for possible decortication. 3. Because of his need to go to the OR, he will have to have a COVID test, although I do not suspect he has a COVID infection. 4. Agree with cefepime, Levaquin, and vancomycin. 5. Cardiac and blood sugar management per Internal Medicine and Cardiology. Above encompassed a 70 minutes time, of that time, greater than 50% spent with the patient and/or the patient's unit in the hospital. Job ID: [id number]
[2019-07-23] MEDS ORDERED: Cefepime 1 GM in Sodium Chloride 0.9% 100 ML IVPB SCH (21:00)
[2019-07-23] MEDS: Carvedilol 3.125 MG TAB PO SCH (22:53)
[2019-07-23] MEDS: Amiodarone 200 MG TAB PO SCH (22:53)
[2019-07-24] MEDS ORDERED: Cefepime 1 GM in Sodium Chloride 0.9% 100 ML IVPB SCH (00:15)
--- NOTE | 2019-07-24 00:53 | CON ---
DATE OF CONSULTATION: 07/23/2019 HISTORY OF PRESENT ILLNESS: Mr. Rizvi is a pleasant 84-year-old gentleman, who was found unconscious this morning by his . He was brought in by EMS. He recently was diagnosed with pneumonia and had finished his antibiotics. He was found on CT scan of his chest to have a loculated left pleural fluid collection consistent with empyema. I have been asked to see him for further therapy. PAST MEDICAL HISTORY: 1. Coronary artery disease. 2. Hypertension. 3. Diabetes mellitus. 4. Chronic atrial fibrillation, on Coumadin with an INR of 5 today. 5. Coronary artery disease. 6. Chronic renal insufficiency. 7. Recent AICD removal for infection. PAST SURGICAL HISTORY: 1. Appendectomy. 2. Coronary artery bypass grafting. 3. Hernia repair. 4. Tonsillectomy. 5. Abdominal surgery for small bowel obstruction. SOCIAL HISTORY: He drinks alcohol occasionally. He has not used tobacco. CURRENT MEDICATIONS: Noted. ALLERGIES: MORPHINE. PHYSICAL EXAMINATION: GENERAL: This is an elderly gentleman, resting comfortably in the emergency department. VITAL SIGNS: His temperature is 98.1, pulse is 70 and regular, blood pressure is 140/60. LUNGS: Clear bilaterally with diminished breath sounds over the left. HEART: Rhythm is regular. ABDOMEN: Distended and soft. He has an NG tube in place. EXTREMITIES: There is mild edema. LABORATORY DATA: His white blood cell count is 10.1, hemoglobin is 13, potassium is 4.8, creatinine is 2.79. His INR is 5.7. ASSESSMENT AND PLAN: This is an unfortunate gentleman with left-sided empyema. I have discussed left thoracoscopy with decortication with him and he is agreeable. We will make plans for tomorrow. He is going to get FFP and vitamin K this evening. We will recheck his INR in the morning and proceed as appropriate. Job ID: [id number]
[2019-07-24] MEDS ORDERED: Vancomycin 1.5 GRAM/300 ML BAG 1.5 GM in Premix Bag 1 BAG IVPB SCH (01:00)
[2019-07-24] MEDS: Furosemide 40 MG/4 ML VIAL SLOW IVP SCH ×2 (02:58→21:07)
[2019-07-24 04:26] LABS: #Eosinphils 0.5 thou/uL (0.0-0.7); #Monocytes 1.3 thou/uL (0.11-0.59); #Neutrophils 15.7 thou/uL (1.40-6.50); %Basophils 0.1 % (0.0-1.0); %Eosinophils 2.6 % (0.0-10.0); %Lymphocytes 5.1 % (21.0-51.0); %Monocytes 7.1 % (0.0-10.0); Hemoglobin 10.1 g/dL (14.0-18.0); Mean Corpuscular HGB CONC 30.8 g/dL (32.0-36.0); Mean Corpuscular Hemoglobin 27.8 pg (27.0-31.0); Mean Corpuscular Volume 90.4 fL (78.0-98.0); Mean Platelet Volume 7.3 fL (7.4-10.4); Platelet Count 268 thou/uL (130-400); RBC Distribution Width 14.4 % (11.5-14.5); Red Blood Cell (RBC) Count 3.64 mill/uL (4.70-6.10); White Blood Cell (WBC) Count 18.5 thou/uL (4.8-10.8)
[2019-07-24 04:30] LABS: INR-International Normal Ratio 2.6; PTT 51.4 sec (22.9-36.1); Prothrombin Time 27.4 sec (12.0-14.7)
[2019-07-24] MEDS ORDERED: Furosemide 20 MG/2 ML VIAL SLOW IVP SCH (04:30)
[2019-07-24 04:45] LABS: ALT (SGPT) 199 U/L (8-55); AST (SGOT) 114 U/L (5-34); Albumin 3.4 g/dL (3.4-4.8); Alkaline Phosphatase 162 U/L (40-110); Anion Gap 12 mmol/L (10-20); BUN (Urea Nitrogen) 30 mg/dL (8.4-25.7); Bilirubin, Total 0.4 mg/dL (0.2-1.2); Calc. Creatinine Clearance 25 mL/min (70-130); Calcium 8.4 mg/dL (7.8-10.44); Carbon Dioxide 27 mmol/L (23-31); Chloride 99 mmol/L (98-107); Estimated GFR-MDRD 23; Globulin 3.8 g/dL (2.4-3.5); Glucose 148 mg/dL (83-110); Potassium 4.6 mmol/L (3.5-5.1); Protein, Total 7.2 g/dL (5.8-8.1); Sodium 133 mmol/L (136-145)
[2019-07-24] MEDS: Amiodarone 200 MG TAB PO SCH ×3 (08:25→10:05)
[2019-07-24] MEDS: Carvedilol 3.125 MG TAB PO SCH ×3 (08:25→20:52)
--- NOTE | 2019-07-24 08:30 | RAD ---
PORTABLE CHEST: Date: 07/24/2019 PROVIDED CLINICAL HISTORY: Shortness of breath. FINDINGS: Comparison is made with the study dated 07/23/2019. Cardiac silhouette remains enlarged as visualized. Median sternotomy changes and atherosclerosis are again seen. Opacification of the inferior approximately 1/2 of the left hemithorax due to left pleura l fluid and adjacent atelectasis or infiltrate redemonstrated. There is interval increase in conspicu ity to patchy diffuse air space disease involving the right lung. A catheter/tube overlies the neck a nd superior chest, the caudal extent of which is not certain. There is no evidence for pneumothorax. IMPRESSION: Persistent left hemithoracic pleural parenchymal opacity and worsening right hemithoracic air space d isease. POS: GRACIA
[2019-07-24] MEDS ORDERED: Aspirin Chewable 81 MG TAB PO SCH (09:00)
[2019-07-24] MEDS ORDERED: Enoxaparin Sodium 40 MG/0.4 ML SYRINGE SC SCH (09:00)
[2019-07-24] MEDS ORDERED: Prevnar 13-Val Conj/PF 0.5 ML SYRINGE IM ONE (09:00)
[2019-07-24] MEDS ORDERED: Digoxin 0.125 MG TAB PO SCH (09:00)
[2019-07-24] MEDS ORDERED: Dextrose 5 %-0.45 % NaCl 1,000 ML IV SCH (09:30)
--- NOTE | 2019-07-24 09:39 | PRG ---
DATE OF SERVICE: 07/24/2019 SUBJECTIVE: Mr. Rizvi had a rough night and in terms getting fluid overloaded with his FFP that he was taken anticoagulation for surgery this morning. He is currently off the BiPAP, feels a little better. OBJECTIVE: VITAL SIGNS: On exam, temperature is 98.0, pulse 76, blood pressure 152/58, and O2 saturation 100%. A 24-hour intake 1568, output 1150. HEENT: Unremarkable. NECK: No JVD. LUNGS: Inspiratory crackles in both bases. CARDIAC: S1 and S2. Regular. ABDOMEN: Soft. EXTREMITIES: No edema. LABORATORY DATA: Sodium 133, potassium 4.6, chloride 99, CO2 of 27, BUN 30, creatinine 2.6, and glucose 148. White blood cell count 18.5, hematocrit 32.9, and platelet count 268. INR is down to 2.6. He is also receiving some more FFP this morning. ASSESSMENT: 1. Left-sided empyema. 2. Cardiomyopathy. 3. Hypoglycemia. 4. Supratherapeutic INR. PLAN: He will have decortication by thoracoscopy for the empyema later today. I have taken him off the D20, put on D5 since the blood sugar seems to be corrected. We will withhold his oral hypoglycemics. He may end up in the ICU on the ventilator after surgery. In such case, we will write out mechanical ventilation for as long as he needs it. Job ID: [id number]
--- NOTE | 2019-07-24 10:15 | CON ---
DATE OF CONSULTATION: HISTORY OF PRESENT ILLNESS: The patient is an 84-year-old gentleman, who presented with increasing weakness and dyspnea. The patient has a long history of coronary artery disease. The patient has a history of coronary artery bypass graft surgery x3 in 2001. He also has a history of cardiomyopathy and has had placement of an automatic implantable cardiac defibrillator. The patient presented recently and was admitted with infected pacemaker lead. He was transferred to [place], where the lead was extracted. The patient, who has been home for several days and he presented with increasing dyspnea and weakness. PAST MEDICAL HISTORY: 1. Cardiomyopathy. 2. Coronary artery disease. 3. Hypertension. 4. History of atrial fibrillation. 5. Diabetes mellitus. 6. Chronic renal insufficiency. PAST SURGICAL HISTORY: Back surgery, appendectomy, hernia surgery, tonsillectomy, bowel surgery, and coronary artery bypass graft surgery. SOCIAL HISTORY: Nonsmoker ALLERGIES: MORPHINE. MEDICATIONS: 1. Coumadin 3 at bedtime. 2. Klonopin 0.1 t.i.d. 3. Protonix 40 daily. 4. Coreg 25 b.i.d. 5. Crestor 40 at bedtime. 6. Amaryl 4 daily. 7. Lasix 40 daily. 8. Amiodarone 200 b.i.d. REVIEW OF SYSTEMS: Ten-point system otherwise unremarkable. PHYSICAL EXAMINATION: GENERAL: Ill-appearing gentleman, in mild respiratory distress. VITAL SIGNS: Blood pressure 152/58. NECK: Showed no jugular venous distention. LUNGS: Decreased breath sounds in both bases. HEART: Regular rate and rhythm with normal S1 and S2. EXTREMITIES: Showed no edema. VASCULAR: Radial pulse 2+. LABORATORY DATA: White blood cell count 18.5, hemoglobin 10.1, hematocrit 32.9 , and his platelets are 268. Sodium 133, potassium 4.6, chloride 99, bicarbonate 27, BUN 30, and creatinine was 0.265. His AST is 114, ALT 199. INR is 2.6. IMAGING DATA: EKG sinus rhythm with first-degree AV block. IMPRESSION: 1. Empyema. 2. History of ischemic cardiomyopathy. 3. History of coronary artery bypass graft surgery. 4. Congestive heart failure. 5. History of automatic implantable cardioverter-defibrillator placement. 6. Hypertension. PLAN: This gentleman presents with empyema. He will undergo surgery today. From a cardiac standpoint, he is on appropriate medication. We will continue amiodarone. We will follow this patient with you through his hospitalization. I would recommend he discontinue digoxin as he has a prolonged first-degree AV block and continue amiodarone unless his LFTs remain elevated. Job ID: [id number]
[2019-07-24] MEDS ORDERED: Bupivacaine PF 0.5% 30 ML VIAL ONE (11:31)
[2019-07-24] MEDS ORDERED: EPINEPHrine 1 MG/ML AMP ONE (11:31)
[2019-07-24] MEDS ORDERED: Fentanyl 250 MCG/5 ML VIAL ONE (11:49)
--- NOTE | 2019-07-24 14:48 | PDOC.HOSPP ---
- Subjective Encounter Date: 07/24/19 Encounter Time: 12:00 Subjective: awake, oriented well no sob or abd pain - Objective Vital Signs & Weight: Vital Signs (12 hours) Temp Pulse Resp Pulse Ox 07/24/19 08:00 100 07/24/19 07:35 98.0 F 07/24/19 04:31 69 29 H 93 L 07/24/19 04:10 97.6 F Weight Weight 183 lb Most Recent Monitor Data Heart Rate from ECG 75 NIBP 160/63 NIBP BP-Mean 95 Respiration from ECG 18 SpO2 100 I&O: 07/23/19 07/24/19 07/25/19 06:59 06:59 06:59 Intake Total 1568 240 Output Total 1150 500 Balance 418 -260 Result Diagrams: 07/24/19 04:15 07/24/19 04:15 Additional Labs: Accuchecks 07/24/19 07/24/19 07/24/19 09:11 06:03 04:08 POC Glucose 212 H 193 H 145 H 07/24/19 07/24/19 07/23/19 03:29 03:08 23:50 POC Glucose 174 H 59 L* 78 07/23/19 07/23/19 07/23/19 20:47 19:32 18:40 POC Glucose 92 100 36 L* 07/23/19 15:17 POC Glucose Less than 35 L* Hospitalist ROS - Medication Medications: Active Medications Generic Name Dose Route Start Last Admin Trade Name Freq PRN Reason Stop Dose Admin Amiodarone HCl 200 mg 07/24/19 09:00 07/24/19 10:05 Cordarone PO 200 mg DAILY ANIYAH Administration Carvedilol 3.125 mg 07/23/19 21:00 07/24/19 10:05 Coreg PO 3.125 mg BID ANIYAH Administration Dextrose/Water 25 gm 07/23/19 14:55 07/24/19 03:06 Dextrose 50% SLOW IVP 25 gm PRN PRN Administration Hypoglycemia Furosemide 40 mg 07/24/19 06:00 07/24/19 02:58 Lasix SLOW IVP 40 mg 0600,1400 ANIYAH Administration Levofloxacin 250 mg/ Device 50 mls @ 50 mls/hr 07/23/19 17:00 07/23/19 22:14 IVPB 50 mls 1700 ANIYAH Administration Dextrose/Sodium Chloride 1,000 mls @ 50 mls/hr 07/24/19 09:30 07/24/19 10:06 D5 1/2 Ns IV 1,000 mls .Q20H ANIYAH Administration Tramadol HCl 50 mg 07/23/19 18:33 07/23/19 22:53 Ultram PO 50 mg Q6H PRN Administration Moderate Pain (4-6) - Exam General Appearance: awake alert Eye: PERRL, anicteric sclera ENT: no oropharyngeal lesions, dry oral mucosa Neck: supple, symmetric Heart: RRR, no murmur Respiratory: no wheezes, no rales Gastrointestinal: soft, non-tender, non-distended, normal bowel sounds, no guarding, no rigidity Extremities: no cyanosis, no edema Neurological: cranial nerve grossly intact, no focal deficits Psychiatric: A&O x 3 Hosp A/P (1) Hypoglycemia Code(s): E16.2 - HYPOGLYCEMIA, UNSPECIFIED Status: Acute (2) SILVIO (acute kidney injury) Code(s): N17.9 - ACUTE KIDNEY FAILURE, UNSPECIFIED Status: Acute (3) Sepsis Code(s): A41.9 - SEPSIS, UNSPECIFIED ORGANISM Status: Acute Qualifiers: Sepsis type: sepsis due to unspecified organism Sepsis acute organ dysfunction status: with acute organ dysfunction Severe sepsis acute organ dysfunction type: acute renal failure Acute renal failure type: unspecified Severe sepsis shock status: without septic shock Qualified Code(s): A41.9 - Sepsis, unspecified organism; R65.20 - Severe sepsis without septic shock; N17.9 - Acute kidney failure, unspecified (4) Empyema lung Code(s): J86.9 - PYOTHORAX WITHOUT FISTULA Status: Suspected (5) CAD (coronary artery disease) Code(s): I25.10 - ATHSCL HEART DISEASE OF [place] CORONARY ARTERY W/O ANG PCTRS Status: Chronic Qualifiers: Coronary Disease-Associated Artery/Lesion type: bypass graft [place] vs. transplanted heart: [place] heart Associated angina: without angina Qualified Code(s): I25.810 - Atherosclerosis of coronary artery bypass graft(s) without angina pectoris (6) Afib Code(s): I48.91 - UNSPECIFIED ATRIAL FIBRILLATION Status: Chronic Qualifiers: Atrial fibrillation type: paroxysmal Qualified Code(s): I48.0 - Paroxysmal atrial fibrillation (7) DM type 2 (diabetes mellitus, type 2) Status: Chronic Qualifiers: Diabetes mellitus senior care insulin use: with senior care use Diabetes mellitus complication status: with other specified complication Qualified Code (s): E11.69 - Type 2 diabetes mellitus with other specified complication; Z79.4 - content strategy lead (current) use of insulin (8) Coagulopathy Status: Acute (9) HTN (hypertension) Code(s): I10 - ESSENTIAL (PRIMARY) HYPERTENSION Status: Chronic Qualifiers: Hypertension type: essential hypertension Qualified Code(s): I10 - Essential (primary) hypertension (10) Dyslipidemia Code(s): E78.5 - HYPERLIPIDEMIA, UNSPECIFIED Status: Chronic - Plan for decortication today covid 19 pcr was not done yesterday, he is being swabbed today on amiodarone, coreg, lasix, crestor, cefepime, levaquin and vanc await culture results may dc lasix, watch for renal function hypoglycemia is resolving, he is switched from D20 to D5ns now d/w , pt has post op distention of small bowel at prior surgical site and is normal, clinically no nausea or abd pain now Appreciate help from , prognosis guarded will need early ambulation post procedure
[2019-07-24] MEDS ORDERED: Fentanyl 100 MCG/2 ML VIAL ONE (15:27)
--- NOTE | 2019-07-24 15:41 | RAD ---
RADIOGRAPH CHEST 1 VIEW: DATE: 07/24/2019 TIME: 3:33 PM HISTORY: 84-year-old male in respiratory failure, status post thoracotomy COMPARISON: 07/24/2019 4:28 AM FINDINGS: Interval placement of left-sided chest tube with distal tip near apex. Interval drainage of significa nt volume component of the basilar component of the loculated left pleural effusion. Loculated left pleural effusion component remains at the lateral aspect of left hemithoracic cavity, from left midlu ng zone to almost the apex. Hyperlucency at left lateral base suggestive of pneumothorax. Interval development of airspace disease at apex of left upper lobe. Endotracheal tube distal tip 1.5 cm superior to ria. New right subclavian central venous catheter with distal tip deep in right atrium. No significant interval change in multifocal patchy moderately severe alveolar infiltrates throughout right upper, mid, and lower lung zones. IMPRESSION: 1) interval left thoracotomy with drainage of some of the loculated left pleural effusion. 2) loculated left basilar small pneumothorax component 3) new left-sided chest tube. 4.) Multifocal infiltrates throughout right lung represents right-sided pneumonia, unchanged 5) new airspace opacities at left apex
[2019-07-24] MEDS ORDERED: Lidocaine 1% PF 5 ML VIAL ONE (15:54)
[2019-07-24] MEDS ORDERED: EPHEDRINE 25 MG/5 ML SYRINGE ONE (15:54)
[2019-07-24] MEDS ORDERED: PROPOFOL 200 MG/20 ML VIAL ONE (15:54)
[2019-07-24] MEDS ORDERED: PHENYLEPHRINE-NS 100 MCG/ML 10 ML SYRINGE ONE (15:54)
[2019-07-24] MEDS ORDERED: Rocuronium Bromide 10 MG/ML (10ML VIAL) ONE (15:54)
[2019-07-24 16:06] LABS: Actual Bicarbonate (HCO3a) 24.2 mEq/L (22-28); Base Excess (BEa) -2.6 mEq/L (-2.0 to +3.0); CO2 Tension 51.4 mmHg (35.0-45.0); Calcium, Ionized (arterial) 1.11 mmol/L (1.12-1.30); Hemoglobin (Hb) 9.5 g/dL (14.0-18.0); Potassium - ABG Lab 4.97 mmol/L (3.70-5.30); pH, Arterial 7.29 (7.35-7.45)
[2019-07-24 16:23] LABS: Puncture Site LRA
[2019-07-24] MEDS ORDERED: Propofol 1,000 MG/100 ML VIAL IV ONE (16:32)
--- NOTE | 2019-07-24 16:57 | PRG ---
DATE OF SERVICE: 07/24/2019 SUBJECTIVE: The patient was seen this morning with Dr. Carter and myself after a consult was placed for possible partial small bowel obstruction. The patient originally was admitted earlier after being found down for sepsis, hypoglycemia , CHF exacerbation, and pneumonia. The patient going today to the OR with CT Surgery due to an empyema. At the time of our evaluation, the patient's NG tube output was low and clear. There was no bilious output. The patient had reported very minimal abdominal tenderness. No peritonitis. Reporting heavy bowel movement earlier yesterday, which was normal for him passing gas this morning. The patient reports no nausea or vomiting at the time MRI evaluation. Dr. Carter at bedside removed the NG tube. Reported to the nurse that the patient was ready to start a clear liquid diet and advance as tolerated in accordance with the patient's primary team and after surgery today that there was no concern for a small bowel obstruction. OBJECTIVE: VITAL SIGNS: Temperature 99.4, pulse 74, respirations 21, oxygen saturation 100% on Ventimask, blood pressure 164/69. GENERAL: Elderly male, sitting up in bed with some mild pulmonary distress on a Ventimask. PULMONARY: Equal chest rise and fall. No signs of acute respiratory distress. CARDIAC: Regular rate and rhythm. GI: Abdomen is soft, minimally tender throughout to palpation. Nondistended. EXTREMITIES: 2+ pulses in all extremities. Gross motor and sensation are intact. No significant swelling noted. NEURO: GCS is 15. LABORATORY FINDINGS: White count 18.5, hemoglobin 10.1, hematocrit 32.9, platelets 268. Sodium 133, potassium 4.6, chloride 99, bicarb 27, BUN 30, creatinine 2.69 , glucose 148, total bilirubin 0.4, AST 111, ALT 199, alkaline phosphatase 162. DIAGNOSTIC FINDINGS: X-ray of the abdomen completed yesterday demonstrates nasogastric in the epigastric region felt to be within the stomach. There are pleural and parenchymal changes in the left hemothorax. Referred to CT chest for further details. RECOMMENDATIONS: There is no concern for partial or complete small-bowel obstruction. There is no surgical indication at this time. Nursing can start the patient on a clear liquid diet and advance as tolerated once approved by the Primary Team. There is no surgical indication at this time. Surgery will sign off. If there is new concerns, please reconsult. The patient was seen and evaluated by Dr. Carter and myself this morning during rounds. Job ID: [id number] MTDD
--- NOTE | 2019-07-24 18:39 | OP ---
DATE OF PROCEDURE: 07/24/2019 PREOPERATIVE DIAGNOSIS: Left empyema. POSTOPERATIVE DIAGNOSIS: Left empyema. PROCEDURES PERFORMED: 1. Right subclavian central line. 2. Left thoracotomy with total pulmonary decortication. ANESTHESIA: General endotracheal. ESTIMATED BLOOD LOSS: 200. DRAINS: 32-Chinese chest tubes x2. SPECIMENS: 1. Pleura for pathology. 2. Pleural fluid for cytology and culture. DESCRIPTION OF PROCEDURE: After consent was obtained, the patient was brought to the operating room, placed in supine position on operating table. Appropriate central line and monitors were placed. General endotracheal anesthesia was induced. Right subclavian central line was placed by modified Seldinger technique. Sterile dressing was applied. The patient was placed in the right decubitus position. Joints were appropriately padded. SCDs were used. Left chest wall was prepped and draped in usual sterile fashion. Two port sites were made and the thoracoscope inserted. It was obvious initially that there was thick pleura peel both parietal and visceral. Therefore, we converted to thoracotomy. After performing thoracotomy through the 6th interspace, the ribs were spread. The parietal pleura easily was removed from the chest wall laterally. The visceral pleura was very difficult to dissect off the diaphragm and lung. Eventually, we were able to free up the upper lobe completely. The lower lobe was freed and expanded to about 75% of its usual volume. Chest was irrigated. 32-Chinese chest tubes x2 were placed. The ribs reapproximated with #1 Vicryl. Wounds were then irrigated and closed in layers. Dermabond was applied to the skin. The patient tolerated the procedure well and was transferred to the intensive care unit in stable, but critical condition. Needle, sponge, and instrument counts were all reported as correct. Job ID: [id number]
[2019-07-24] MEDS ORDERED: Morphine 2 MG/ML SYRINGE SLOW IVP PRN ×2 (19:48→19:57)
[2019-07-24] MEDS ORDERED: Morphine 4 MG/ML VIAL SLOW IVP PRN (19:48)
[2019-07-24] MEDS ORDERED: Ventilator Sedation Protocol 1 EACH FS ONE (19:48)
[2019-07-24] MEDS ORDERED: Promethazine HCl 25 MG/ML VIAL IM PRN (19:48)
[2019-07-24] MEDS ORDERED: Nitroglycerin 50 MG/250 ML BOT 250 ML IVPB PRN (19:48)
[2019-07-24] MEDS ORDERED: Ondansetron PF 4 MG/2 ML Vial IVP PRN (19:48)
[2019-07-24] MEDS ORDERED: DISCONTINUE PREVIOUS NARCOTIC PAIN MEDICATIONS AND BENZODIAZEPINES FS SCH (19:57)
[2019-07-24] MEDS ORDERED: Fentanyl BOLUS 250 ML IVPB PRN (19:57)
[2019-07-24] MEDS ORDERED: Propofol BOLUS 1,000 MG/100 ML VIAL IV PRN (19:57)
[2019-07-24] MEDS: Sodium Chloride 0.9% 1,000 ML IV SCH (20:45)
[2019-07-24] MEDS: Cefepime 0.5 GM, Admixture Fee 1 EACH in Sodium Chloride 0.9% 100 ML IVPB SCH (20:52)
[2019-07-24] MEDS: Rosuvastatin 20 MG TAB PO SCH (20:53)
[2019-07-25] MEDS: fentaNYL Citrate/PF 2,000 MCG in Sodium Chloride 0.9% 60 ML IV SCH ×2 (01:01→21:59)
[2019-07-25] MEDS: Norepinephrine 8 MG/0.9% NS 250 ML IVPB PRN (04:49)
[2019-07-25 04:51] LABS: INR-International Normal Ratio 2.5; Prothrombin Time 26.9 sec (12.0-14.7)
[2019-07-25 05:08] LABS: #Lymphocytes 0.6 thou/uL (1.20-3.40); #Monocytes 0.8 thou/uL (0.11-0.59); #Neutrophils 10.8 thou/uL (1.40-6.50); %Eosinophils 0.1 % (0.0-10.0); %Lymphocytes 4.6 % (21.0-51.0); %Monocytes 6.2 % (0.0-10.0); %Neutrophils 89.1 % (42.0-75.0); Hemoglobin 6.3 g/dL (14.0-18.0); Mean Corpuscular HGB CONC 31.2 g/dL (32.0-36.0); Mean Corpuscular Hemoglobin 28.2 pg (27.0-31.0); Mean Corpuscular Volume 90.3 fL (78.0-98.0); Mean Platelet Volume 7.9 fL (7.4-10.4); Platelet Count 153 thou/uL (130-400); RBC Distribution Width 14.6 % (11.5-14.5); Red Blood Cell (RBC) Count 2.23 mill/uL (4.70-6.10); White Blood Cell (WBC) Count 12.1 thou/uL (4.8-10.8)
[2019-07-25 05:36] LABS: Anion Gap 11 mmol/L (10-20); BUN (Urea Nitrogen) 42 mg/dL (8.4-25.7); Calc. Creatinine Clearance 21 mL/min (70-130); Calcium 7.5 mg/dL (7.8-10.44); Carbon Dioxide 26 mmol/L (23-31); Chloride 103 mmol/L (98-107); Estimated GFR-MDRD 18; Glucose 234 mg/dL (83-110); Sodium 135 mmol/L (136-145)
[2019-07-25] MEDS: Insulin Regular 300 UNITS/3 ML VIAL SC PRN ×2 (06:03→11:34)
--- NOTE | 2019-07-25 07:54 | RAD ---
XR Chest 1 View Portable History: Thoracotomy Comparison: Radiograph prior day Findings: Worsening left lung aeration with complete whiteout of the left hemithorax. Left-sided thor acostomy tube is similar. There is leftward mediastinal shift indicating volume loss. Endotracheal tube tip just above the ria 1.5 cm. Volume loss at the right lung with extensive multifocal airspace opacities. Left basilar thoracostomy tube is similar. Impression: 1. New near-complete whiteout left hemithorax with leftward mediastinal shift indicating volume loss and atelectasis which could be sequelae of mucus plugging. 2. Similar appearance of the multifocal airspace opacities of the right lung. 3. Endotracheal tube tip above the ria 1.5 cm.
--- NOTE | 2019-07-25 08:03 | RAD ---
Exam: Chest one view HISTORY:Status post thoracotomy Comparison: 07/24/2019 FINDINGS: Lines and tubes: Redemonstration of endotracheal tube, 2 left-sided chest tubes and a right-sided vas cular catheter. Interval placement of a nasogastric tube which extends beyond the diaphragm Cardiac silhouette:Cardiomegaly. Stable sternotomy wires Aorta: Atherosclerosis Pulmonary vessels: Normal Costophrenic angles: Persistent left-sided pleural effusion with probable component of loculated pleu ral fluid. LUNGS: Stable opacification of the lung parenchyma. Slightly improved aeration left lung. Pneumothorax: None Osseous abnormalities: None IMPRESSION: Findings compatible with a left sided thoracotomy.
--- NOTE | 2019-07-25 08:03 | OP ---
DATE OF PROCEDURE: 07/25/2019 PROCEDURE PERFORMED: Bronchoscopy. PREOPERATIVE DIAGNOSIS: Left lung atelectasis. POSTOPERATIVE DIAGNOSES: Left lung atelectasis, left mainstem bloody mucus plug. ANESTHESIA: The patient was on conscious sedation with propofol during the procedure and he was intubated on mechanical ventilation following yesterday's trip to the OR. DESCRIPTION OF PROCEDURE: The patient received a gentle bolus of propofol to achieve deep sedation. An Ambu bronchoscope size 2.7 was placed through adapter into the patient's size 8.5 endotracheal tube while he was on volume-cycled ventilation. The ET tube was clear down to the point of the ria and there was a large bloody mucus plug present in the left mainstem bronchus. With great deal of difficulty, this was suctioned and extracted to completion. The remainder of the airways were surveying bilaterally. There were some scant bloody secretions present in left lower lobe. Otherwise, airways were clear. He tolerated the procedure well. Job ID: [id number]
--- NOTE | 2019-07-25 08:12 | PRG ---
DATE OF SERVICE: 07/25/2019 TIME SPENT: 35 minutes of critical care time. SUBJECTIVE: The patient remains intubated post decortication yesterday for a left empyema. OBJECTIVE: VITAL SIGNS: Temperature 97.8, pulse 71, blood pressure 131/42, and O2 saturation 99%. A 24-hour intake 1457, output 1485. HEENT: Unremarkable. NECK: No adenopathy or JVD. LUNGS: Diminished breath sounds at left base, left compared to right. CARDIAC: S1 and S2. Regular. ABDOMEN: Soft. EXTREMITIES: No edema. LABORATORY DATA: INR is 2.5. White blood cell count 12, hemoglobin 6.3, hematocrit 20.2, and platelet count 153. ABG pending. Sodium 135, potassium 5, chloride 103, CO2 of 26, BUN 42, creatinine 3.2, and glucose 234. Chest x-ray showed left lung atelectasis. ASSESSMENT: 1. Left lung atelectasis from large mucus plug. 2. Significant anemia post surgery, possibly due to interoperative blood loss. 3. Chronic kidney disease with worsening creatinine. 4. Left lung empyema. 5. Cardiomyopathy. 6. Hypoglycemia at the time of admission. 7. Chronically anticoagulated. PLAN: 1. I will go ahead and give the patient some more fresh frozen plasma in addition to the blood Dr. Onofre is giving him. 2. Bronchoscopy was performed and large mucus plug was extracted from left mainstem bronchus. Previous x-ray afterwards and see if his x-ray is improved. If not, then he may require further operative therapy. 3. Hopefully, his urine output will improve with the transfusion of FFP. We will monitor that closely. 4. I am going to defer extubation until we have a better idea of how the patient is going to do. Job ID: [id number]
[2019-07-25] MEDS: Sodium Chloride 0.9% 1,000 ML IV SCH ×2 (09:51→12:00)
[2019-07-25] MEDS: Amiodarone 200 MG TAB PO SCH (09:51)
[2019-07-25] MEDS: Carvedilol 3.125 MG TAB PO SCH ×2 (09:52→20:50)
[2019-07-25] MEDS: diphenhydrAMINE 50 MG/ML VIAL IVP PRN (11:34)
[2019-07-25] MEDS: Propofol 1,000 MG/100 ML VIAL IV PRN ×2 (11:46→21:07)
[2019-07-25 14:26] LABS: SARS-CoV-2 MS2 Positive; SARS-CoV-2 N Gene Negative; SARS-CoV-2 S Gene Negative; SARS-CoV-2 orf1ab Negative
[2019-07-25] MEDS ORDERED: Furosemide 40 MG/4 ML VIAL SLOW IVP SCH (16:45)
--- NOTE | 2019-07-25 18:55 | PDOC.HOSPP ---
- Subjective Encounter Date: 07/25/19 non-verbal (Intubated.) - Objective Vital Signs & Weight: Vital Signs (12 hours) Temp Pulse Pulse Resp BP Pulse Ox 07/25/19 18:48 67 14 96 07/25/19 18:47 69 07/25/19 18:00 14 07/25/19 16:30 97.5 F L 58 L 14 119/46 L 95 07/25/19 16:00 97.1 F L 14 07/25/19 15:47 97.5 F L 59 L 14 116/46 L 96 07/25/19 14:57 59 L 07/25/19 14:00 14 07/25/19 12:00 98.5 F 14 07/25/19 11:31 62 14 100 07/25/19 10:00 14 07/25/19 08:15 75 07/25/19 08:00 98.1 F 14 Weight Admit Weight 188 lb Weight 188 lb 4.396 oz Most Recent Monitor Data Heart Rate from ECG 70 NIBP 129/48 NIBP BP-Mean 75 Respiration from ECG 10 SpO2 96 I&O: 07/24/19 07/25/19 07/26/19 06:59 06:59 06:59 Intake Total 1568 1457 2481 Output Total 1150 1485 262 Balance 418 -19 5523 Result Diagrams: 07/25/19 04:30 07/25/19 04:30 Additional Labs: Accuchecks 07/25/19 07/25/19 16:57 11:27 POC Glucose 108 192 H Hospitalist ROS - Medication Medications: Active Medications Generic Name Dose Route Start Last Admin Trade Name Freq PRN Reason Stop Dose Admin Albuterol/Ipratropium 3 ml 07/25/19 13:00 07/25/19 18:48 Duoneb NEB 3 ml [id number] ANIYAH Administration Amiodarone HCl 200 mg 07/24/19 09:00 07/25/19 09:51 Cordarone PO 200 mg DAILY ANIYAH Administration Carvedilol 3.125 mg 07/23/19 21:00 07/25/19 09:52 Coreg PO Not Given BID ANIYAH Diphenhydramine HCl 25 mg 07/25/19 11:29 07/25/19 11:34 Benadryl IVP 25 mg Q6H PRN Administration Itching Cefepime HCl 0.5 gm/ 100 mls @ 200 mls/hr 07/24/19 21:00 07/24/19 20:52 Miscellaneous Medication 1 IVPB 100 mls each/ Sodium Chloride HS ANIYAH Administration Norepinephrine Bitartrate 250 mls @ 0 mls/hr 07/24/19 19:48 07/25/19 04:49 Levophed IVPB 250 mls PRN PRN Administration To Keep SBP > 90 mmHG Protocol Titrate Sodium Chloride 1,000 mls @ 100 mls/hr 07/24/19 19:48 07/25/19 12:00 Normal Saline 0.9% IV 1,000 mls .Q10H ANIYAH Administration Fentanyl Citrate 2,000 mcg/ 100 mls @ 0 mls/hr 07/24/19 19:57 07/25/19 01:01 Sodium Chloride IV 08/23/19 19:57 100 mls INF ANIYAH Administration Protocol Per Protocol Insulin Human Regular 0 units 07/24/19 19:48 07/25/19 11:34 Humulin R SC 2 units .MILD SLIDING SCALE PRN Administration Mild Correctional Scale Propofol 1,000 mg 07/24/19 19:57 07/25/19 11:46 Diprivan IV 08/23/19 19:57 1,000 mg INF PRN Administration TO ACHIEVE GOAL RASS Protocol Rosuvastatin Calcium 40 mg 07/24/19 21:00 07/24/19 20:53 Crestor PO Not Given HS ANIYAH - Exam ENT: normocephalic atraumatic Neck: supple Heart: RRR Respiratory - other findings: Deminished breath sounds on the left Gastrointestinal: soft Hosp A/P - Plan Hosp A/P (1) Hypoglycemia Code(s): E16.2 - HYPOGLYCEMIA, UNSPECIFIED Status: Acute (2) SILVIO (acute kidney injury) Code(s): N17.9 - ACUTE KIDNEY FAILURE, UNSPECIFIED Status: Acute (3) Sepsis Code(s): A41.9 - SEPSIS, UNSPECIFIED ORGANISM Status: Acute Qualifiers: Sepsis type: sepsis due to unspecified organism Sepsis acute organ dysfunction status: with acute organ dysfunction Severe sepsis acute organ dysfunction type: acute renal failure Acute renal failure type: unspecified Severe sepsis shock status: without septic shock Qualified Code(s): A41.9 - Sepsis, unspecified organism; R65.20 - Severe sepsis without septic shock; N17.9 - Acute kidney failure, unspecified (4) Empyema lung Code(s): J86.9 - PYOTHORAX WITHOUT FISTULA Status: Suspected (5) CAD (coronary artery disease) Code(s): I25.10 - ATHSCL HEART DISEASE OF [place] CORONARY ARTERY W/O ANG PCTRS Status: Chronic Qualifiers: Coronary Disease-Associated Artery/Lesion type: bypass graft [place] vs. transplanted heart: [place] heart Associated angina: without angina Qualified Code(s): I25.810 - Atherosclerosis of coronary artery bypass graft(s) without angina pectoris (6) Afib Code(s): I48.91 - UNSPECIFIED ATRIAL FIBRILLATION Status: Chronic Qualifiers: Atrial fibrillation type: paroxysmal Qualified Code(s): I48.0 - Paroxysmal atrial fibrillation (7) DM type 2 (diabetes mellitus, type 2) Status: Chronic Qualifiers: Diabetes mellitus superintendent [employer] insulin use: with senior living use Diabetes mellitus complication status: with other specified complication Qualified Code (s): E11.69 - Type 2 diabetes mellitus with other specified complication; Z79.4 - intermodal customer service (current) use of insulin (8) Coagulopathy Status: Acute (9) HTN (hypertension) Code(s): I10 - ESSENTIAL (PRIMARY) HYPERTENSION Status: Chronic Qualifiers: Hypertension type: essential hypertension Qualified Code(s): I10 - Essential (primary) hypertension (10) Dyslipidemia Code(s): E78.5 - HYPERLIPIDEMIA, UNSPECIFIED Status: Chronic - Plan Status post decortication. Follow culture results. Continue IV Cefepime, Vancomycin, and Levofloxacin. Mucous plug: Causing hypoxia and atelectasis of the left lung status post bronchoscopy and removal of the blood. Continue management per pulmonology and cardiothoracic surgery.
[2019-07-25] MEDS: Rosuvastatin 20 MG TAB PO SCH (20:50)
[2019-07-25] MEDS: Cefepime 0.5 GM, Admixture Fee 1 EACH in Sodium Chloride 0.9% 100 ML IVPB SCH (20:50)
[2019-07-26] MEDS: Sodium Chloride 0.9% 1,000 ML IV SCH
[2019-07-26] MEDS: Vancomycin HCl 750 MG in Sodium Chloride 0.9% 250 ML 250 ML IVPB SCH (00:32)
[2019-07-26 04:28] LABS: #Basophils 0.1 thou/uL (0.0-0.2); #Eosinphils 0.5 thou/uL (0.0-0.7); #Lymphocytes 0.7 thou/uL (1.20-3.40); #Monocytes 1.1 thou/uL (0.11-0.59); %Basophils 0.4 % (0.0-1.0); %Eosinophils 3.7 % (0.0-10.0); %Monocytes 8.5 % (0.0-10.0); %Neutrophils 82.4 % (42.0-75.0); Hemoglobin 8.3 g/dL (14.0-18.0); Mean Corpuscular HGB CONC 33.4 g/dL (32.0-36.0); Mean Corpuscular Hemoglobin 30.1 pg (27.0-31.0); Mean Corpuscular Volume 90.3 fL (78.0-98.0); Mean Platelet Volume 7.3 fL (7.4-10.4); Platelet Count 123 thou/uL (130-400); RBC Distribution Width 14.2 % (11.5-14.5); Red Blood Cell (RBC) Count 2.75 mill/uL (4.70-6.10); White Blood Cell (WBC) Count 13.4 thou/uL (4.8-10.8)
[2019-07-26 04:39] LABS: INR-International Normal Ratio 1.8; Prothrombin Time 21.2 sec (12.0-14.7)
[2019-07-26 04:46] LABS: Anion Gap 13 mmol/L (10-20); BUN (Urea Nitrogen) 52 mg/dL (8.4-25.7); Calc. Creatinine Clearance 19 mL/min (70-130); Calcium 7.4 mg/dL (7.8-10.44); Carbon Dioxide 22 mmol/L (23-31); Chloride 107 mmol/L (98-107); Estimated GFR-MDRD 16; Potassium 4.5 mmol/L (3.5-5.1); Sodium 137 mmol/L (136-145)
[2019-07-26 04:49] LABS: Glucose 23 mg/dL (83-110)
[2019-07-26] MEDS ORDERED: Dextrose 5% in Water 1,000 ML IV PRN (05:10)
[2019-07-26] MEDS ORDERED: Dextrose 10% in Water 1,000 ML IV SCH (05:15)
[2019-07-26] MEDS: Propofol 1,000 MG/100 ML VIAL IV PRN ×3 (05:39→20:43)
[2019-07-26] MEDS ORDERED: Dextrose 50% Abboject 50 ML SYRINGE ONE ×2 (06:06→20:29)
[2019-07-26 07:07] LABS: Actual Bicarbonate (HCO3a) 20.4 mEq/L (22-28); Base Excess (BEa) -5.2 mEq/L (-2.0 to +3.0); CO2 Tension 40.5 mmHg (35.0-45.0); Calcium, Ionized (arterial) 1.06 mmol/L (1.12-1.30); Carboxyhemoglobin (COHb) 1.9 gm% (0.0-3.0); Hemoglobin (Hb) 8.6 g/dL (14.0-18.0); Potassium - ABG Lab 4.47 mmol/L (3.70-5.30); pH, Arterial 7.32 (7.35-7.45)
[2019-07-26 07:36] LABS: O2 Tension (PaO2), arterial 57.3 mmHg (> 60.0); Puncture Site RRAD
[2019-07-26 07:37] LABS: ALV-art Gradient 177.275 (0-20)
--- NOTE | 2019-07-26 07:51 | RAD ---
SINGLE VIEW CHEST: Date: 07/26/2019 COMPARISON: 07/25/2019. HISTORY: Status post thoracotomy. FINDINGS: Single view of the chest shows an enlarged but stable cardiomediastinal silhouette. The patient is st atus post sternotomy. Lines and tubes are unchanged in position. There is a left pleural effusion and pleural thickening along the lateral aspect of the left thorax, unchanged. IMPRESSION: Stable exam. POS: EAA
[2019-07-26] MEDS ORDERED: Furosemide 40 MG/4 ML VIAL SLOW IVP SCH (08:00)
--- NOTE | 2019-07-26 08:17 | PRG ---
DATE OF SERVICE: 07/26/2019 35 minutes of critical care time. SUBJECTIVE: This patient remains intubated on mechanical ventilation without acute change overnight. He will wake up, follow commands. OBJECTIVE: VITAL SIGNS: Temperature 97.5, pulse 59, blood pressure 114/40. Currently, Levophed drip at 5 mcg/minute. 24-hour intake 4135, output 602. HEENT: Unremarkable. NECK: No adenopathy or JVD. LUNGS: Fairly clear anteriorly. Chest tube in the left. CARDIAC: S1, S2 regular. ABDOMEN: Soft and nontender. EXTREMITIES: No edema. LABORATORY DATA: PH 7.32, pCO2 40, PO2 57 on SIMV rate 14, tidal volume 500, PEEP 5, pressure support 10, FiO2 40%. INR is 1.8. White blood count 13.4, hematocrit 24.8, and platelet count 123. Sodium 137, potassium 4.5, chloride 107, CO2 of 22, BUN 52, creatinine 3.6. Glucose was measured at 23 earlier today. I am not sure, if that has been rechecked. IMAGING DATA: Chest x-ray shows no acute changes. Left atelectasis is resolved. Still has parenchymal density on the left from decortication. ET tube is in good position. ASSESSMENT: 1. Status post decortication for left-sided empyema. 2. Acute respiratory failure, requiring mechanical ventilation. 3. Status post left lung atelectasis from a large mucus plug. 4. Chronic kidney disease with probable underlying acute tubular necrosis from extensive blood loss. 5. Anemia due to blood loss, corrected with transfusion. 6. Cardiomyopathy. 7. Hypoglycemia, which is still a problem despite oral hypoglycemics being stopped. PLAN: 1. He actually looks good enough to entertain a wean trial. I have placed him on CPAP pressure support ventilation. 2. I will give him another dose of diuretics and stop the normal saline since he is now on D10 drip for his . 3. We probably need to monitor his Accu-Cheks more closely. I will change them to every 2 hours. 4. Continuing antibiotics. Job ID: [id number]
[2019-07-26] MEDS: Amiodarone 200 MG TAB PO SCH (08:28)
[2019-07-26] MEDS: Carvedilol 3.125 MG TAB PO SCH ×2 (08:28→20:42)
[2019-07-26] MEDS: Dextrose 5 %-0.45 % NaCl 1,000 ML IV SCH ×2 (11:07→20:42)
[2019-07-26 12:04] LABS: Actual Bicarbonate (HCO3a) 20.4 mEq/L (22-28); Base Excess (BEa) -4.8 mEq/L (-2.0 to +3.0); CO2 Tension 38.1 mmHg (35.0-45.0); Calcium, Ionized (arterial) 1.05 mmol/L (1.12-1.30); Carboxyhemoglobin (COHb) 1.3 gm% (0.0-3.0); Hemoglobin (Hb) 8.8 g/dL (14.0-18.0); O2 Tension (PaO2), arterial 86.9 mmHg (> 60.0); Potassium - ABG Lab 4.42 mmol/L (3.70-5.30); pH, Arterial 7.35 (7.35-7.45)
[2019-07-26 12:05] LABS: ALV-art Gradient 293.275 (0-20); Puncture Site RBRACH
[2019-07-26] MEDS: Rosuvastatin 20 MG TAB PO SCH (20:42)
[2019-07-26] MEDS: Cefepime 0.5 GM, Admixture Fee 1 EACH in Sodium Chloride 0.9% 100 ML IVPB SCH (20:43)
--- NOTE | 2019-07-26 21:58 | PDOC.HOSPP ---
- Subjective Encounter Date: 07/26/19 Encounter Time: 10:00 non-verbal (intubated) - Objective Vital Signs & Weight: Vital Signs (12 hours) Temp Pulse Resp Pulse Ox 07/26/19 20:00 15 07/26/19 19:43 97 07/26/19 19:00 99.3 F 07/26/19 18:33 83 16 98 07/26/19 18:30 83 07/26/19 18:00 99.8 F H 17 07/26/19 17:38 99.8 F H 07/26/19 16:00 98.9 F 19 07/26/19 15:30 99.8 F H 07/26/19 15:15 100.1 F H 07/26/19 15:00 100.1 F H 07/26/19 14:46 86 07/26/19 14:00 10 L 07/26/19 13:18 76 13 100 07/26/19 12:00 99.5 F 14 07/26/19 10:28 70 Weight Admit Weight 188 lb Weight 190 lb 14.725 oz Most Recent Monitor Data Heart Rate from ECG 86 NIBP 106/42 NIBP BP-Mean 63 Respiration from ECG 20 SpO2 100 I&O: 07/25/19 07/26/19 07/27/19 06:59 06:59 06:59 Intake Total 1457 4135.2 1663.5 Output Total 1485 602 915 Balance -28 3533.2 748.5 Result Diagrams: 07/26/19 04:00 07/26/19 04:00 Additional Labs: Accuchecks 07/26/19 07/26/19 07/26/19 08:42 07:31 06:07 POC Glucose 156 H 138 H 54 L* 07/25/19 07/24/19 22:56 23:44 POC Glucose 72 268 H Hospitalist ROS - Medication Medications: Active Medications Generic Name Dose Route Start Last Admin Trade Name Freq PRN Reason Stop Dose Admin Albuterol/Ipratropium 3 ml 07/25/19 13:00 07/26/19 18:33 Duoneb NEB 3 ml [id number] ANIYAH Administration Amiodarone HCl 200 mg 07/24/19 09:00 07/26/19 08:28 Cordarone PO 200 mg DAILY ANIYAH Administration Carvedilol 3.125 mg 07/23/19 21:00 07/26/19 20:42 Coreg PO 3.125 mg BID ANIYAH Administration Diphenhydramine HCl 25 mg 07/25/19 11:29 07/25/19 11:34 Benadryl IVP 25 mg Q6H PRN Administration Itching Cefepime HCl 0.5 gm/ 100 mls @ 200 mls/hr 07/24/19 21:00 07/26/19 20:43 Miscellaneous Medication 1 IVPB 100 mls each/ Sodium Chloride HS ANIYAH Administration Vancomycin HCl 750 mg/ Sodium 250 mls @ 250 mls/hr 07/26/19 01:00 07/26/19 00 :32 Chloride IVPB 250 mls Q2D ANIYAH Administration Norepinephrine Bitartrate 250 mls @ 0 mls/hr 07/24/19 19:48 07/25/19 04:49 Levophed IVPB 250 mls PRN PRN Administration To Keep SBP > 90 mmHG Protocol Titrate Fentanyl Citrate 2,000 mcg/ 100 mls @ 0 mls/hr 07/24/19 19:57 07/25/19 21:59 Sodium Chloride IV 08/23/19 19:57 100 mls INF ANIYAH Administration Protocol Per Protocol Dextrose/Sodium Chloride 1,000 mls @ 125 mls/hr 07/26/19 10:30 07/26/19 20:42 D5 1/2 Ns IV 1,000 mls .Q8H ANIYAH Administration Insulin Human Regular 0 units 07/24/19 19:48 07/25/19 11:34 Humulin R SC 2 units .MILD SLIDING SCALE PRN Administration Mild Correctional Scale Propofol 1,000 mg 07/24/19 19:57 07/26/19 20:43 Diprivan IV 08/23/19 19:57 1,000 mg INF PRN Administration TO ACHIEVE GOAL RASS Protocol Rosuvastatin Calcium 40 mg 07/24/19 21:00 07/26/19 20:42 Crestor PO 40 mg HS ANIYAH Administration - Exam General - other findings: Intubated and sedated ENT: normocephalic atraumatic Neck: supple Heart: RRR Respiratory: normal chest expansion, no tachypnea Respiratory - other findings: Crackles bilaterally Neurological: cranial nerve grossly intact, no focal deficits Hosp A/P - Plan Hosp A/P (1) Hypoglycemia Code(s): E16.2 - HYPOGLYCEMIA, UNSPECIFIED Status: Acute (2) SILVIO (acute kidney injury) Code(s): N17.9 - ACUTE KIDNEY FAILURE, UNSPECIFIED Status: Acute (3) Sepsis Code(s): A41.9 - SEPSIS, UNSPECIFIED ORGANISM Status: Acute Qualifiers: Sepsis type: sepsis due to unspecified organism Sepsis acute organ dysfunction status: with acute organ dysfunction Severe sepsis acute organ dysfunction type: acute renal failure Acute renal failure type: unspecified Severe sepsis shock status: without septic shock Qualified Code(s): A41.9 - Sepsis, unspecified organism; R65.20 - Severe sepsis without septic shock; N17.9 - Acute kidney failure, unspecified (4) Empyema lung Code(s): J86.9 - PYOTHORAX WITHOUT FISTULA Status: Suspected (5) CAD (coronary artery disease) Code(s): I25.10 - ATHSCL HEART DISEASE OF [place] CORONARY ARTERY W/O ANG PCTRS Status: Chronic Qualifiers: Coronary Disease-Associated Artery/Lesion type: bypass graft [place] vs. transplanted heart: [place] heart Associated angina: without angina Qualified Code(s): I25.810 - Atherosclerosis of coronary artery bypass graft(s) without angina pectoris (6) Afib Code(s): I48.91 - UNSPECIFIED ATRIAL FIBRILLATION Status: Chronic Qualifiers: Atrial fibrillation type: paroxysmal Qualified Code(s): I48.0 - Paroxysmal atrial fibrillation (7) DM type 2 (diabetes mellitus, type 2) Status: Chronic Qualifiers: Diabetes mellitus assisted insulin use: with termite control technician use Diabetes mellitus complication status: with other specified complication Qualified Code (s): E11.69 - Type 2 diabetes mellitus with other specified complication; Z79.4 - correction (current) use of insulin (8) Coagulopathy Status: Acute (9) HTN (hypertension) Code(s): I10 - ESSENTIAL (PRIMARY) HYPERTENSION Status: Chronic Qualifiers: Hypertension type: essential hypertension Qualified Code(s): I10 - Essential (primary) hypertension (10) Dyslipidemia Code(s): E78.5 - HYPERLIPIDEMIA, UNSPECIFIED Status: Chronic - Plan Status post decortication. Follow culture results. Chest x-ray revealing better aeration of his left lung. Diuretics has been initiated. Continue IV Cefepime, Vancomycin, and Levofloxacin. Mucous plug: Causing hypoxia and atelectasis of the left lung status post bronchoscopy and removal of the blood. Continue management per pulmonology and cardiothoracic surgery.
[2019-07-27] MEDS: Norepinephrine 8 MG/0.9% NS 250 ML IVPB PRN ×3 (00:24→17:01)
[2019-07-27] MEDS ORDERED: Dextrose 50% Abboject 50 ML SYRINGE ONE ×3 (00:34→06:25)
[2019-07-27] MEDS: Dextrose 10% in Water 1,000 ML IV SCH ×2 (00:54→12:28)
[2019-07-27] MEDS: fentaNYL Citrate/PF 2,000 MCG in Sodium Chloride 0.9% 60 ML IV SCH (01:29)
[2019-07-27] MEDS: Dextrose 5 %-0.45 % NaCl 1,000 ML IV SCH (02:16)
[2019-07-27 04:08] LABS: #Eosinphils 0.5 thou/uL (0.0-0.7); #Lymphocytes 0.5 thou/uL (1.20-3.40); #Monocytes 0.8 thou/uL (0.11-0.59); #Neutrophils 9.2 thou/uL (1.40-6.50); %Basophils 0.2 % (0.0-1.0); %Eosinophils 4.2 % (0.0-10.0); %Lymphocytes 4.9 % (21.0-51.0); %Monocytes 6.9 % (0.0-10.0); %Neutrophils 83.8 % (42.0-75.0); Hemoglobin 9.6 g/dL (14.0-18.0); Mean Corpuscular HGB CONC 33.8 g/dL (32.0-36.0); Mean Corpuscular Hemoglobin 30.6 pg (27.0-31.0); Mean Corpuscular Volume 90.6 fL (78.0-98.0); Mean Platelet Volume 8.1 fL (7.4-10.4); Platelet Count 99 thou/uL (130-400); RBC Distribution Width 14.9 % (11.5-14.5); Red Blood Cell (RBC) Count 3.12 mill/uL (4.70-6.10)
[2019-07-27 04:19] LABS: INR-International Normal Ratio 1.8; Prothrombin Time 21.1 sec (12.0-14.7)
[2019-07-27 04:28] LABS: Anion Gap 12 mmol/L (10-20); BUN (Urea Nitrogen) 53 mg/dL (8.4-25.7); Calc. Creatinine Clearance 17 mL/min (70-130); Calcium 7.2 mg/dL (7.8-10.44); Carbon Dioxide 20 mmol/L (23-31); Chloride 104 mmol/L (98-107); Estimated GFR-MDRD 14; Potassium 4.4 mmol/L (3.5-5.1); Sodium 132 mmol/L (136-145)
[2019-07-27] MEDS: Propofol 1,000 MG/100 ML VIAL IV PRN ×3 (04:35→20:44)
[2019-07-27 04:43] LABS: Glucose 31 mg/dL (83-110)
[2019-07-27] MEDS: Dextrose 50% Abboject 50 ML SYRINGE IVP PRN ×2 (04:47→10:29)
[2019-07-27 07:10] LABS: Actual Bicarbonate (HCO3a) 18.9 mEq/L (22-28); Base Excess (BEa) -7.2 mEq/L (-2.0 to +3.0); CO2 Tension 40.1 mmHg (35.0-45.0); Calcium, Ionized (arterial) 1.03 mmol/L (1.12-1.30); Carboxyhemoglobin (COHb) 1.4 gm% (0.0-3.0); Hemoglobin (Hb) 11.1 g/dL (14.0-18.0); Potassium - ABG Lab 4.28 mmol/L (3.70-5.30); pH, Arterial 7.29 (7.35-7.45)
[2019-07-27 07:15] LABS: ALV-art Gradient 180.975 (0-20); O2 Tension (PaO2), arterial 54.1 mmHg (> 60.0); Puncture Site RBRACH
[2019-07-27] MEDS ORDERED: Hydrocortisone Sod Succ/PF 100 mg/2 ml Vial IVP STA (08:28)
[2019-07-27] MEDS ORDERED: Furosemide 40 MG/4 ML VIAL SLOW IVP SCH (08:30)
--- NOTE | 2019-07-27 09:00 | PRG ---
DATE OF SERVICE: 07/27/2019 TIME SPENT: 35 minutes of critical care time. SUBJECTIVE: The patient remains intubated on mechanical ventilation. There has been no improvement in his oxygenation overnight. OBJECTIVE: VITAL SIGNS: Temperature 98.8, pulse 71, blood pressure 119/41, and O2 saturations 97%. 24-hour intake 9 and output 1165. HEENT: Unremarkable. NECK: No JVD. LUNGS: Coarse rhonchi. CARDIOVASCULAR: S1 and S2. Regular. ABDOMEN: Soft. EXTREMITIES: No edema. LABORATORY DATA: INR is 1.8. White blood cell count 11, hematocrit 28.3, and platelet count 99. PH of 7.29, pCO2 of 40, pO2 of 54 on CPAP 5, pressure support 10, and FiO2 of 40%. Sodium 132, potassium 4.4, chloride 104, CO2 of 20, BUN 53, creatinine 4.1, and glucose 31. Cortisol is 11.9. ASSESSMENT: 1. This patient has worsening of his respiratory failure with bilateral pulmonary infiltrates, probably indicative of fluid overload. 2. Chronic kidney disease with probable acute tubular necrosis from extensive blood loss. 3. Status post left lung decortication for empyema. 4. History of cardiomyopathy. 5. Hypoglycemia with continued low blood sugars despite glucose being stopped. 6. Relative adrenal insufficiency. PLAN: 1. We will go ahead and start him on Solu-Cortef. 2. Try to diurese. 3. Likely, we will need a Nephrology consult soon. Job ID: [id number]
[2019-07-27] MEDS: Amiodarone 200 MG TAB PO SCH (10:08)
[2019-07-27] MEDS: Carvedilol 3.125 MG TAB PO SCH ×2 (10:09→20:43)
[2019-07-27] MEDS: Lorazepam 2 MG/ML VIAL SLOW IVP PRN ×2 (10:20→16:10)
--- NOTE | 2019-07-27 10:32 | RAD ---
EXAM: Single view of the abdomen HISTORY: NG tube placement COMPARISON: 07/23/2019 FINDINGS: Single view of the abdomen shows a nonspecific, nonobstructive bowel gas pattern. An NG tub e is seen in the stomach. Left-sided chest tubes are seen. No suspicious calcifications are seen. Degenerative changes are seen in the spine. IMPRESSION: NG tube located in the stomach
--- NOTE | 2019-07-27 11:27 | RAD ---
SINGLE VIEW CHEST: HISTORY: Status post thoracotomy. COMPARISON: 07/26/19 FINDINGS: A single view of the chest shows an enlarged but stable cardiomediastinal silhouette. The patient is status post sternotomy. Lines and tubes are unchanged in position. Peripheral opacities are still see n in the left thorax, which likely represent a left pleural effusion. Opacity in the right lung base may represent a pleural effusion and/or adjacent atelectasis versus infiltrate. IMPRESSION: Stable examination. POS: EAA
[2019-07-27] MEDS ORDERED: methylPREDNISolone Sod Succ 40 MG VIAL IVP SCH (12:00)
[2019-07-27] MEDS: Hydrocortisone Sod Succ/PF 100 mg/2 ml Vial IVP SCH ×3 (12:37→23:13)
[2019-07-27] MEDS: Warfarin Sodium 1 MG TAB PER TUBE SCH (17:01)
[2019-07-27] MEDS: Rosuvastatin 20 MG TAB PO SCH (20:43)
--- NOTE | 2019-07-27 21:05 | PDOC.HOSPP ---
- Subjective Encounter Date: 07/27/19 Subjective: Remains intubated. - Objective Vital Signs & Weight: Vital Signs (12 hours) Temp Pulse Resp Pulse Ox 07/27/19 20:00 19 07/27/19 19:45 100 07/27/19 18:55 59 L 07/27/19 18:54 59 L 13 100 07/27/19 18:00 13 07/27/19 16:00 99 F 18 07/27/19 14:52 71 07/27/19 14:00 14 07/27/19 13:20 66 22 H 98 07/27/19 12:00 98.9 F 14 07/27/19 11:38 67 07/27/19 10:00 15 Weight Admit Weight 188 lb Weight 192 lb 7.417 oz Most Recent Monitor Data Heart Rate from ECG 71 NIBP 132/61 NIBP BP-Mean 84 Respiration from ECG 22 SpO2 97 I&O: 07/26/19 07/27/19 07/28/19 06:59 06:59 06:59 Intake Total 4135.2 2899.5 1502.4 Output Total 602 1165 170 Balance 3533.2 1734.5 1332.4 Result Diagrams: 07/27/19 03:21 07/27/19 03:21 Additional Labs: Accuchecks 07/27/19 07/26/19 07/26/19 00:35 22:10 21:15 POC Glucose 35 L* 75 118 H 07/26/19 07/26/19 07/26/19 20:26 18:36 16:18 POC Glucose 50 L* 78 87 07/26/19 07/26/19 07/26/19 14:14 12:03 11:06 POC Glucose 105 147 H 137 H Hospitalist ROS - Medication Medications: Active Medications Generic Name Dose Route Start Last Admin Trade Name Freq PRN Reason Stop Dose Admin Albuterol/Ipratropium 3 ml 07/25/19 13:00 07/27/19 18:54 Duoneb NEB 3 ml [id number] ANIYAH Administration Amiodarone HCl 200 mg 07/24/19 09:00 07/27/19 10:08 Cordarone PO 200 mg DAILY ANIYAH Administration Carvedilol 3.125 mg 07/23/19 21:00 07/27/19 20:43 Coreg PO 3.125 mg BID ANIYAH Administration Dextrose/Water 25 gm 07/26/19 05:10 07/27/19 10:29 Dextrose 50% IVP 25 gm PRN PRN Administration HYPOGLYCEMIA PROTOCOL Diphenhydramine HCl 25 mg 07/25/19 11:29 07/25/19 11:34 Benadryl IVP 25 mg Q6H PRN Administration Itching Hydrocortisone Sodium Succinate 50 mg 07/27/19 12:00 07/27/19 17:02 Solu-Cortef IVP 08/03/19 12:01 50 mg Q6HR ANIYAH Administration Cefepime HCl 0.5 gm/ 100 mls @ 200 mls/hr 07/24/19 21:00 07/26/19 20:43 Miscellaneous Medication 1 IVPB 100 mls each/ Sodium Chloride HS ANIYAH Administration Vancomycin HCl 750 mg/ Sodium 250 mls @ 250 mls/hr 07/26/19 01:00 07/26/19 00 :32 Chloride IVPB 250 mls Q2D ANIYAH Administration Norepinephrine Bitartrate 250 mls @ 0 mls/hr 07/24/19 19:48 07/27/19 17:01 Levophed IVPB 250 mls PRN PRN Administration To Keep SBP > 90 mmHG Protocol Titrate Fentanyl Citrate 2,000 mcg/ 100 mls @ 0 mls/hr 07/24/19 19:57 07/27/19 01:29 Sodium Chloride IV 08/23/19 19:57 100 mls INF ANIYAH Administration Protocol Per Protocol Dextrose/Water 1,000 mls @ 50 mls/hr 07/27/19 01:00 07/27/19 12:28 Dextrose 10% In Water IV 1,000 mls .Q20H ANIYAH Administration Insulin Human Regular 0 units 07/24/19 19:48 07/25/19 11:34 Humulin R SC 2 units .MILD SLIDING SCALE PRN Administration Mild Correctional Scale Lorazepam 2 mg 07/24/19 19:57 07/27/19 16:10 Ativan SLOW IVP 08/23/19 19:57 2 mg Q1H PRN Administration Breakthrough agitation Propofol 1,000 mg 07/24/19 19:57 07/27/19 20:44 Diprivan IV 08/23/19 19:57 1,000 mg INF PRN Administration TO ACHIEVE GOAL RASS Protocol Rosuvastatin Calcium 40 mg 07/24/19 21:00 07/27/19 20:43 Crestor PO 40 mg HS ANIYAH Administration Warfarin Sodium 1 mg 07/27/19 17:00 07/27/19 17:01 Coumadin PER TUBE 1 mg 1700 ANIYAH Administration - Exam ENT: normocephalic atraumatic Neck: supple Heart: RRR Respiratory: normal chest expansion, no tachypnea Gastrointestinal: soft Hosp A/P - Plan Hosp A/P (1) Hypoglycemia Code(s): E16.2 - HYPOGLYCEMIA, UNSPECIFIED Status: Acute (2) SILVIO (acute kidney injury) Code(s): N17.9 - ACUTE KIDNEY FAILURE, UNSPECIFIED Status: Acute (3) Sepsis Code(s): A41.9 - SEPSIS, UNSPECIFIED ORGANISM Status: Acute Qualifiers: Sepsis type: sepsis due to unspecified organism Sepsis acute organ dysfunction status: with acute organ dysfunction Severe sepsis acute organ dysfunction type: acute renal failure Acute renal failure type: unspecified Severe sepsis shock status: without septic shock Qualified Code(s): A41.9 - Sepsis, unspecified organism; R65.20 - Severe sepsis without septic shock; N17.9 - Acute kidney failure, unspecified (4) Empyema lung Code(s): J86.9 - PYOTHORAX WITHOUT FISTULA Status: Suspected (5) CAD (coronary artery disease) Code(s): I25.10 - ATHSCL HEART DISEASE OF [place] CORONARY ARTERY W/O ANG PCTRS Status: Chronic Qualifiers: Coronary Disease-Associated Artery/Lesion type: bypass graft [place] vs. transplanted heart: [place] heart Associated angina: without angina Qualified Code(s): I25.810 - Atherosclerosis of coronary artery bypass graft(s) without angina pectoris (6) Afib Code(s): I48.91 - UNSPECIFIED ATRIAL FIBRILLATION Status: Chronic Qualifiers: Atrial fibrillation type: paroxysmal Qualified Code(s): I48.0 - Paroxysmal atrial fibrillation (7) DM type 2 (diabetes mellitus, type 2) Status: Chronic Qualifiers: Diabetes mellitus continuous churn buttermaker insulin use: with continuous churn buttermaker use Diabetes mellitus complication status: with other specified complication Qualified Code (s): E11.69 - Type 2 diabetes mellitus with other specified complication; Z79.4 - retirement (current) use of insulin (8) Coagulopathy Status: Acute (9) HTN (hypertension) Code(s): I10 - ESSENTIAL (PRIMARY) HYPERTENSION Status: Chronic Qualifiers: Hypertension type: essential hypertension Qualified Code(s): I10 - Essential (primary) hypertension (10) Dyslipidemia Code(s): E78.5 - HYPERLIPIDEMIA, UNSPECIFIED Status: Chronic - Plan Status post decortication. Follow final culture results. Chest x-ray revealing better aeration and bilateral infiltrates. Continue diuresis and broad spectrum antibiotics.. Mucous plug: Causing hypoxia and atelectasis of the left lung status post bronchoscopy. Persistent hypoglycemia noted overnight. Hydrocortisone initiated. Continue management per pulmonology and cardiothoracic surgery.
[2019-07-27] MEDS: Cefepime 0.5 GM, Admixture Fee 1 EACH in Sodium Chloride 0.9% 100 ML IVPB SCH (21:26)
[2019-07-28 00:35] LABS: Vancomycin, Trough 14.5 ug/mL
[2019-07-28] MEDS: Vancomycin HCl 750 MG in Sodium Chloride 0.9% 250 ML 250 ML IVPB SCH (01:13)
[2019-07-28 03:53] LABS: Prothrombin Time 22.3 sec (12.0-14.7)
[2019-07-28 04:05] LABS: Anion Gap 15 mmol/L (10-20); BUN (Urea Nitrogen) 63 mg/dL (8.4-25.7); Calc. Creatinine Clearance 14 mL/min (70-130); Calcium 7.1 mg/dL (7.8-10.44); Carbon Dioxide 18 mmol/L (23-31); Chloride 99 mmol/L (98-107); Estimated GFR-MDRD 11; Glucose 150 mg/dL (83-110); Potassium 5.2 mmol/L (3.5-5.1); Sodium 127 mmol/L (136-145)
[2019-07-28] MEDS: Norepinephrine 8 MG/0.9% NS 250 ML IVPB PRN ×3 (04:48→20:16)
[2019-07-28] MEDS: Propofol 1,000 MG/100 ML VIAL IV PRN ×2 (04:48→20:15)
[2019-07-28] MEDS: Hydrocortisone Sod Succ/PF 100 mg/2 ml Vial IVP SCH (05:29)
[2019-07-28 05:43] LABS: #Lymphocytes 0.1 thou/uL (1.20-3.40); #Monocytes 0.4 thou/uL (0.11-0.59); #Neutrophils 7.3 thou/uL (1.40-6.50); %Basophils 0.5 % (0.0-1.0); %Eosinophils 0.3 % (0.0-10.0); %Lymphocytes 1.8 % (21.0-51.0); %Monocytes 5.3 % (0.0-10.0); %Neutrophils 92.1 % (42.0-75.0); Hemoglobin 9.5 g/dL (14.0-18.0); Mean Corpuscular Hemoglobin 30.2 pg (27.0-31.0); Mean Corpuscular Volume 91.7 fL (78.0-98.0); Mean Platelet Volume 8.1 fL (7.4-10.4); Platelet Count 98 thou/uL (130-400); RBC Distribution Width 15.1 % (11.5-14.5); Red Blood Cell (RBC) Count 3.13 mill/uL (4.70-6.10); White Blood Cell (WBC) Count 7.9 thou/uL (4.8-10.8)
[2019-07-28 07:19] LABS: Actual Bicarbonate (HCO3a) 16.8 mEq/L (22-28); Analyzer IN Cardio OR; Base Excess (BEa) -9.6 mEq/L (-2.0 to +3.0); CO2 Tension 38.5 mmHg (35.0-45.0); Calcium, Ionized (arterial) 0.99 mmol/L (1.12-1.30); Carboxyhemoglobin (COHb) 0.7 gm% (0.0-3.0); Hemoglobin (Hb) 9.9 g/dL (14.0-18.0); O2 Tension (PaO2), arterial 79.1 mmHg (> 60.0); pH, Arterial 7.26 (7.35-7.45)
[2019-07-28 07:28] LABS: ALV-art Gradient 229.275 (0-20); Puncture Site RRA
[2019-07-28] MEDS ORDERED: Heparin 10,000 UNITS/ 10 ML VIAL ONE (09:03)
--- NOTE | 2019-07-28 09:19 | PDOC.HOSPP ---
- Subjective Encounter Date: 07/28/19 Encounter Time: 11:30 non-verbal Subjective: Patient without changes overnight. Dr. Martinez discussing dialysis with family. - Objective Vital Signs & Weight: Vital Signs (12 hours) Pulse Resp BP Pulse Ox 07/28/19 06:54 72 106/64 07/28/19 06:53 71 18 98 07/28/19 06:00 15 07/28/19 04:00 18 07/28/19 02:00 15 07/28/19 00:33 60 12 100 07/28/19 00:30 62 07/27/19 23:53 12 07/27/19 22:00 12 Weight Admit Weight 188 lb Weight 194 lb 0.108 oz Most Recent Monitor Data Heart Rate from ECG 72 NIBP 115/40 NIBP BP-Mean 65 Respiration from ECG 23 SpO2 100 I&O: 07/27/19 07/28/19 07/29/19 06:59 06:59 06:59 Intake Total 2899.5 2251.6 Output Total 1165 180 Balance 1734.5 2071.6 Result Diagrams: 07/28/19 03:00 07/28/19 03:00 Additional Labs: Accuchecks 07/28/19 07/28/19 07/27/19 06:10 02:52 23:53 POC Glucose 152 H 136 H 144 H 07/27/19 07/27/19 07/27/19 22:43 20:45 18:16 POC Glucose 159 H 136 H 126 H 07/27/19 07/27/19 07/27/19 16:23 14:17 12:44 POC Glucose 131 H 97 97 07/27/19 07/27/19 07/27/19 10:31 08:04 06:28 POC Glucose 55 L* 71 39 L* 07/27/19 02:18 POC Glucose 62 L Hospitalist ROS - Review of Systems ROS unobtainable: due to endotracheal tube - Medication Medications: Active Medications Generic Name Dose Route Start Last Admin Trade Name Freq PRN Reason Stop Dose Admin Albuterol/Ipratropium 3 ml 07/25/19 13:00 07/28/19 06:53 Duoneb NEB 3 ml [id number] ANIYAH Administration Amiodarone HCl 200 mg 07/24/19 09:00 07/27/19 10:08 Cordarone PO 200 mg DAILY ANIYAH Administration Carvedilol 3.125 mg 07/23/19 21:00 07/27/19 20:43 Coreg PO 3.125 mg BID ANIYAH Administration Dextrose/Water 25 gm 07/26/19 05:10 07/27/19 10:29 Dextrose 50% IVP 25 gm PRN PRN Administration HYPOGLYCEMIA PROTOCOL Diphenhydramine HCl 25 mg 07/25/19 11:29 07/25/19 11:34 Benadryl IVP 25 mg Q6H PRN Administration Itching Hydrocortisone Sodium Succinate 50 mg 07/27/19 12:00 07/28/19 05:29 Solu-Cortef IVP 08/03/19 12:01 50 mg Q6HR ANIYAH Administration Cefepime HCl 0.5 gm/ 100 mls @ 200 mls/hr 07/24/19 21:00 07/27/19 21:26 Miscellaneous Medication 1 IVPB 100 mls each/ Sodium Chloride HS ANIYAH Administration Vancomycin HCl 750 mg/ Sodium 250 mls @ 250 mls/hr 07/26/19 01:00 07/28/19 01 :13 Chloride IVPB 250 mls Q2D ANIYAH Administration Norepinephrine Bitartrate 250 mls @ 0 mls/hr 07/24/19 19:48 07/28/19 04:48 Levophed IVPB 250 mls PRN PRN Administration To Keep SBP > 90 mmHG Protocol Titrate Fentanyl Citrate 2,000 mcg/ 100 mls @ 0 mls/hr 07/24/19 19:57 07/27/19 01:29 Sodium Chloride IV 08/23/19 19:57 100 mls INF ANIYAH Administration Protocol Per Protocol Dextrose/Water 1,000 mls @ 50 mls/hr 07/27/19 01:00 07/27/19 12:28 Dextrose 10% In Water IV 1,000 mls .Q20H ANIYAH Administration Insulin Human Regular 0 units 07/24/19 19:48 07/25/19 11:34 Humulin R SC 2 units .MILD SLIDING SCALE PRN Administration Mild Correctional Scale Lorazepam 2 mg 07/24/19 19:57 07/27/19 16:10 Ativan SLOW IVP 08/23/19 19:57 2 mg Q1H PRN Administration Breakthrough agitation Propofol 1,000 mg 07/24/19 19:57 07/28/19 04:48 Diprivan IV 08/23/19 19:57 1,000 mg INF PRN Administration TO ACHIEVE GOAL RASS Protocol Rosuvastatin Calcium 40 mg 07/24/19 21:00 07/27/19 20:43 Crestor PO 40 mg HS ANIYAH Administration Warfarin Sodium 1 mg 07/27/19 17:00 07/27/19 17:01 Coumadin PER TUBE 1 mg 1700 ANIYAH Administration - Exam General - other findings: intubated and sedated ENT: moist mucosa Heart: RRR, no murmur, no gallops, no rubs Respiratory: no wheezes, no rales, no ronchi Respiratory - other findings: chest tubes in place Gastrointestinal: soft, non-distended, normal bowel sounds Psychiatric - other findings: sedated on vent Hosp A/P (1) Sepsis Code(s): A41.9 - SEPSIS, UNSPECIFIED ORGANISM Status: Acute Qualifiers: Sepsis type: sepsis due to unspecified organism Sepsis acute organ dysfunction status: with acute organ dysfunction Severe sepsis acute organ dysfunction type: acute renal failure Acute renal failure type: unspecified Severe sepsis shock status: without septic shock Qualified Code(s): A41.9 - Sepsis, unspecified organism; R65.20 - Severe sepsis without septic shock; N17.9 - Acute kidney failure, unspecified (2) Empyema lung Code(s): J86.9 - PYOTHORAX WITHOUT FISTULA Status: Suspected (3) Acute respiratory failure Code(s): J96.00 - ACUTE RESPIRATORY FAILURE, UNSP W HYPOXIA OR HYPERCAPNIA Status: Acute Qualifiers: Respiratory failure complication: hypoxia Qualified Code(s): J96.01 - Acute respiratory failure with hypoxia (4) SILVIO (acute kidney injury) Code(s): N17.9 - ACUTE KIDNEY FAILURE, UNSPECIFIED Status: Acute (5) Hypoglycemia Code(s): E16.2 - HYPOGLYCEMIA, UNSPECIFIED Status: Acute (6) Afib Code(s): I48.91 - UNSPECIFIED ATRIAL FIBRILLATION Status: Chronic Qualifiers: Atrial fibrillation type: paroxysmal Qualified Code(s): I48.0 - Paroxysmal atrial fibrillation (7) CAD (coronary artery disease) Code(s): I25.10 - ATHSCL HEART DISEASE OF [place] CORONARY ARTERY W/O ANG PCTRS Status: Chronic Qualifiers: Coronary Disease-Associated Artery/Lesion type: bypass graft [place] vs. transplanted heart: [place] heart Associated angina: without angina Qualified Code(s): I25.810 - Atherosclerosis of coronary artery bypass graft(s) without angina pectoris (8) DM type 2 (diabetes mellitus, type 2) Status: Chronic Qualifiers: Diabetes mellitus correction insulin use: with correction use Diabetes mellitus complication status: with other specified complication Qualified Code (s): E11.69 - Type 2 diabetes mellitus with other specified complication; Z79.4 - assistant terminal manager (current) use of insulin (9) Dyslipidemia Code(s): E78.5 - HYPERLIPIDEMIA, UNSPECIFIED Status: Chronic (10) HTN (hypertension) Code(s): I10 - ESSENTIAL (PRIMARY) HYPERTENSION Status: Chronic Qualifiers: Hypertension type: essential hypertension Qualified Code(s): I10 - Essential (primary) hypertension - Plan Status post decortication. Follow final culture results. Chest x-ray revealing better aeration and bilateral infiltrates. Continue diuresis and broad spectrum antibiotics. Mucous plug: Causing hypoxia and atelectasis of the left lung status post bronchoscopy. Persistent hypoglycemia noted overnight. Hydrocortisone initiated. Improved today. Mild Hyperkalemia today, will recheck. Continue management per pulmonology and cardiothoracic surgery. Plan to dialyze to allow weaning off the vent
[2019-07-28] MEDS: Carvedilol 3.125 MG TAB PO SCH ×2 (09:27→20:15)
[2019-07-28] MEDS: Amiodarone 200 MG TAB PO SCH (09:27)
[2019-07-28] MEDS: Dextrose 10% in Water 1,000 ML IV SCH (09:28)
--- NOTE | 2019-07-28 10:26 | PRG ---
DATE OF SERVICE: 07/28/2019 TIME SPENT: 35 minutes of critical care time. SUBJECTIVE: The patient remains intubated, on mechanical ventilation. He will wake up. His is at the bedside. OBJECTIVE: VITAL SIGNS: Temperature is 99.3, pulse 72, blood pressure 115/40, O2 saturation 100%. 24-hour intake . HEENT: Unremarkable. NECK: No adenopathy or JVD. CHEST: Fairly clear anteriorly. CARDIAC: S1 and S2, regular. ABDOMEN: Soft. EXTREMITIES: Edematous throughout. LABORATORY DATA: Sodium 127, potassium 5.2, chloride 99, CO2 of 18, BUN 63, creatinine 4.9, glucose 115. PH 7.26, pCO2 of 38, pO2 of 79, on SIMV rate of 12, tidal volume 550, PEEP 10, pressure support 10, and FiO2 of 50%. INR is 2.0. White blood cell count 7.9, hematocrit 28.6, and platelet count 98. ASSESSMENT: 1. Status post left lung decortication. 2. Acute tubular necrosis with [id number] renal failure. 3. Hypoglycemia, which I think is probably secondary to sulfonylurea use in the face of declining renal function. 4. Chronically anticoagulated. 5. Relative adrenal insufficiency. 6. Improved hypoglycemia with use of steroids. PLAN: 1. Decrease Solu-Cortef dose. 2. I have consulted Dr. Martinez from Nephrology as he has seen him in the past. I assume the patient will probably need temporary dialysis. 3. I will increase respiratory rate on the vent to help compensate for his metabolic acidosis. 4. Continue IV antibiotics with the exception of vancomycin, which will be stopped as nothing has grown out that warrants Staphylococcal coverage. Job ID: [id number]
--- NOTE | 2019-07-28 11:56 | RAD ---
CHEST 1 VIEW: INDICATION: History of thoracotomy. COMPARISON: Prior exam dated 07/27/2019. FINDINGS: The patient remains intubated with gastric catheter placement. There is left-sided thoracostomy tube that is stable-appearing. Right subclavian central venous catheter is similar-appearing. Cardiomeg espinoza persists. There is improvement in the central edema pattern. Bilateral airspace disease suspici ous for edema persists. Left-sided loculated pleural effusion is similar-appearing. No pneumothorax is evident. IMPRESSION: 1. Some interval improvement of the central edema pattern seen from the comparison examination. Vladislav ateral airspace disease remains, however. Continued followup is recommended. 2. Stable loculated left-sided pleural effusion. 3. Stable tubes and lines. POS: BH
[2019-07-28] MEDS: Insulin Regular 300 UNITS/3 ML VIAL SC PRN (12:06)
[2019-07-28] MEDS ORDERED: Lidocaine 1% (PF) 30 ML VIAL ONE (13:39)
--- NOTE | 2019-07-28 14:11 | CON ---
DATE OF CONSULTATION: HISTORY OF PRESENT ILLNESS: Mr. Rizvi is an 84-year-old white male, who was recently admitted for hypoglycemia/sepsis. He was found to have pneumonia with empyema. He has undergone a thoracotomy with pulmonary decortication under Dr. Onofre. This hospitalization has been marked by his acute respiratory failure, difficulty to be weaned off as well as progressive azotemia and currently hyperkalemia. We are now being consulted for further management of this worsening renal dysfunction. Please note, the patient was seen several years ago by the Renal Service for an acute kidney injury/chronic renal failure. Please note, this patient has underlying diabetic nephropathy. REVIEW OF SYSTEMS: Not obtainable since the patient is sedated and intubated. MEDICATIONS: 1. DuoNeb q.6. 2. Amiodarone 200 mg daily. 3. Coreg 3.125 mg p.o. b.i.d. 4. Cefepime 0.5 g IV at bedtime. 5. Fentanyl drip. 6. Solu-Cortef 50 mg IV q.12. 7. Levophed drip, titrating BP. 8. Diprivan drip. 9. Crestor 40 mg at bedtime. 10. Coumadin as directed. PAST MEDICAL HISTORY: 1. Chronic renal failure from diabetic nephropathy. 2. Type 2 diabetes mellitus. 3. Ischemic cardiomyopathy. 4. Atrial fibrillation, currently on chronic anticoagulation. 5. Hypertension. 6. Recently status post pneumonia with empyema. 7. Recent wound dehiscence from surgical site. PAST SURGICAL HISTORY: Status post decortication for the pulmonary empyema, status post AICD placement with subsequent removal, status post exploratory laparotomy for small bowel obstruction, status post hernia repair, status post colonoscopy, status post upper GI endoscopy, status post cardiac cath, status post CABG, and status post left shoulder surgery. SOCIAL HISTORY: The patient lives in [place]. He is , 3 children. 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 Education - some college. Alcohol, none. Currently, not smoking. Status post blood transfusion. ALLERGIES: NONE. TRAUMA: Status post left shoulder fracture with left rotator cuff injury and left clavicular fracture. IMMUNIZATIONS: Up-to-date. HOSPITALIZATIONS: Please see past medical history. FAMILY HISTORY: No family history of ESRD. PHYSICAL EXAMINATION: VITAL SIGNS: Blood pressure is noted at 83/31, heart rate 66, FiO2 of 50%. GENERAL: Sedated, intubated, on ventilator support. SKIN: Adequate turgor. HEENT: He has slightly pale conjunctivae. Anicteric sclerae. NECK: No neck mass. No carotid bruits. No JVD. CHEST: No deformities. LUNGS: Decreased breath sounds. HEART: Irregular. No murmur. No gallops. No rubs. ABDOMEN: Globular, soft, and nontender. No masses. EXTREMITIES: Positive for edema. LABORATORY DATA: Laboratories of July 28, 2019; sodium 127, potassium 5.2, chloride 99, carbon dioxide 18, BUN 63, creatinine 4.93, glucose 150, and calcium 7.1. Creatinine of July 27, 2019, 4.07; on July 26, 2019, 3.68; on July 25, 2019, 3.27; on July 23, 2019, 3.09. On June 24, 2019, creatinine 2.57. Urinalysis of July 23, 2019, specific gravity 1.020, protein is 100, no red cells, no white cells. ASSESSMENT AND PLAN: 1. Acute kidney injury on top of his chronic renal failure - in spite of optimization of his hemodynamics - fluid and pressor support, renal function continues to worsen. This makes me think that he may have a superimposed acute tubular necrosis. Due to the progressive azotemia and volume overload, we will proceed with dialysis. Case discussed at length with the and his daughter. They have agreed to proceed with dialysis. Surgical consult will be done for placement of a temporary femoral dialysis catheter. We will then do a 1-hour hemodialysis today and do daily dialysis with fluid removal only as tolerated. 2. Hypertension, on pressor support. Start albumin 25 g IV q.6 hours for 4 doses. 3. Hypertension. Supportive care. Continue pressor support. Overall, prognosis remains guarded. Job ID: [id number] MTDD
--- NOTE | 2019-07-28 14:45 | OP ---
DATE OF PROCEDURE: 07/28/2019 PREOPERATIVE DIAGNOSIS: Acute renal failure. POSTOPERATIVE DIAGNOSIS: Acute renal failure. PROCEDURE PERFORMED: Placement of left femoral Trialysis catheter for hemodialysis. INDICATIONS FOR PROCEDURE: An 84-year-old man admitted to intensive care unit. The patient developed worsening acute renal failure, requiring hemodialysis. I was asked to place a temporary dialysis access to facilitate this process. DESCRIPTION OF PROCEDURE: Informed consent was obtained from the patient's power of director medical. The patient was placed in supine position. The right femoral artery was not quite palpable. I turned my attention to the left groin, where the left femoral artery was readily palpable. The skin medial to this was anesthetized with 1% lidocaine. Left femoral vein was cannulated with an 18-gauge introducer needle, returning dark venous blood. Needle was passed through the needle and advanced into the left femoral vein without resistance. Needle was withdrawn over the guidewire. A stab incision was made adjacent to the guidewire using 11 scalpel. A dilator was passed over the guidewire, dilating the subcutaneous tissues. Dilator was removed and triple-lumen Trialysis catheter was advanced over the guidewire and placed in the left femoral vein without resistance down to the hub. The guidewire was removed. Dark venous blood was aspirated from all 3 ports, which were flushed with saline followed by heparin. The catheter was secured to the left groin using 3-0 nylon suture at 2 points. Sterile dressings were applied. The patient tolerated this procedure without any apparent complication and remained hemodynamically stable following completion of procedure. Job ID: [id number]
[2019-07-28] MEDS: fentaNYL Citrate/PF 2,000 MCG in Sodium Chloride 0.9% 60 ML IV SCH (17:43)
[2019-07-28] MEDS: Warfarin Sodium 1 MG TAB PER TUBE SCH (17:44)
[2019-07-28 19:31] LABS: HBSAg Index 0.22 S/CO (0-0.99); Hep B Surf Ag Non-Reactive S/CO (NonReactive)
[2019-07-28] MEDS: Cefepime 0.5 GM, Admixture Fee 1 EACH in Sodium Chloride 0.9% 100 ML IVPB SCH (20:14)
[2019-07-28] MEDS: Rosuvastatin 20 MG TAB PO SCH (20:15)
[2019-07-28] MEDS ORDERED: Hydrocortisone Sod Succ/PF 100 mg/2 ml Vial IVP SCH (21:00)
[2019-07-29] MEDS: Insulin Regular 300 UNITS/3 ML VIAL SC PRN ×2 (00:50→09:09)
[2019-07-29 04:42] LABS: #Lymphocytes 0.1 thou/uL (1.20-3.40); #Monocytes 0.3 thou/uL (0.11-0.59); %Basophils 0.6 % (0.0-1.0); %Eosinophils 0.5 % (0.0-10.0); %Lymphocytes 1.5 % (21.0-51.0); %Monocytes 4.2 % (0.0-10.0); %Neutrophils 93.3 % (42.0-75.0); Hemoglobin 9.1 g/dL (14.0-18.0); Mean Corpuscular HGB CONC 33.7 g/dL (32.0-36.0); Mean Corpuscular Hemoglobin 30.4 pg (27.0-31.0); Mean Corpuscular Volume 90.3 fL (78.0-98.0); Mean Platelet Volume 7.5 fL (7.4-10.4); Platelet Count 135 thou/uL (130-400); RBC Distribution Width 15.2 % (11.5-14.5); Red Blood Cell (RBC) Count 2.99 mill/uL (4.70-6.10); White Blood Cell (WBC) Count 7.6 thou/uL (4.8-10.8)
[2019-07-29 04:45] LABS: Prothrombin Time 22.9 sec (12.0-14.7)
[2019-07-29] MEDS: Dextrose 10% in Water 1,000 ML IV SCH (04:53)
[2019-07-29 05:18] LABS: Anion Gap 17 mmol/L (10-20); BUN (Urea Nitrogen) 68 mg/dL (8.4-25.7); Calc. Creatinine Clearance 14 mL/min (70-130); Calcium 7.1 mg/dL (7.8-10.44); Carbon Dioxide 17 mmol/L (23-31); Chloride 98 mmol/L (98-107); Estimated GFR-MDRD 11; Glucose 170 mg/dL (83-110); Sodium 127 mmol/L (136-145)
--- NOTE | 2019-07-29 07:56 | RAD ---
CHEST 1 VIEW: INDICATION: History of thoracotomy. COMPARISON: Prior exam dated 07/28/2019. IMPRESSION: Left-sided thoracostomy tube, right subclavian central venous catheter, endotracheal tube, gastric ca theter, and midline sternotomy changes are similar-appearing. The pulmonary vascular congestion and perihilar airspace disease persists. Bilateral pleural effusio ns with a loculated left-sided pleural effusion is similar-appearing. Osseous structures appear unchanged from the comparison. POS: BH
[2019-07-29 08:25] LABS: Actual Bicarbonate (HCO3a) 17.1 mEq/L (22-28); Base Excess (BEa) -6.1 mEq/L (-2.0 to +3.0); CO2 Tension 26.4 mmHg (35.0-45.0); Calcium, Ionized (arterial) 0.95 mmol/L (1.12-1.30); Hemoglobin (Hb) 9.6 g/dL (14.0-18.0); O2 Tension (PaO2), arterial 101.6 mmHg (> 60.0); Potassium - ABG Lab 4.83 mmol/L (3.70-5.30); pH, Arterial 7.43 (7.35-7.45)
--- NOTE | 2019-07-29 08:26 | PDOC.HOSPP ---
- Subjective Encounter Date: 07/29/19 Encounter Time: 10:00 Subjective: Patient without changes overnight. Blood pressure maintained on pressors. Sating well on the vent. Initiating hemodialysis to remove fluid. - Objective Vital Signs & Weight: Vital Signs (12 hours) Temp Pulse Resp Pulse Ox 07/29/19 07:00 98.7 F 07/29/19 06:00 22 H 07/29/19 05:00 98.5 F 07/29/19 04:00 20 07/29/19 02:00 20 07/29/19 01:00 98.2 F 07/29/19 00:00 22 H 07/28/19 23:20 71 20 100 07/28/19 22:00 20 07/28/19 21:00 98.6 F Weight Admit Weight 188 lb Weight 196 lb 3.382 oz Most Recent Monitor Data Heart Rate from ECG 75 NIBP 117/54 NIBP BP-Mean 75 Respiration from ECG 20 SpO2 98 I&O: 07/28/19 07/29/19 07/30/19 06:59 06:59 06:59 Intake Total 2251.6 984.9 Output Total 180 120 5 Balance 2071.6 864.9 -5 Result Diagrams: 07/29/19 04:00 07/29/19 04:00 Additional Labs: Accuchecks 07/29/19 07/28/19 07/28/19 00:53 20:59 14:45 POC Glucose 201 H 165 H 181 H 07/28/19 07/28/19 11:26 09:26 POC Glucose 221 H 197 H Hospitalist ROS - Review of Systems ROS unobtainable: due to endotracheal tube - Medication Medications: Active Medications Generic Name Dose Route Start Last Admin Trade Name Freq PRN Reason Stop Dose Admin Albuterol/Ipratropium 3 ml 07/25/19 13:00 07/29/19 08:23 Duoneb NEB 3 ml [id number] ANIYAH Administration Amiodarone HCl 200 mg 07/24/19 09:00 07/28/19 09:27 Cordarone PO 200 mg DAILY ANIYAH Administration Carvedilol 3.125 mg 07/23/19 21:00 07/28/19 20:15 Coreg PO 3.125 mg BID ANIYAH Administration Dextrose/Water 25 gm 07/26/19 05:10 07/27/19 10:29 Dextrose 50% IVP 25 gm PRN PRN Administration HYPOGLYCEMIA PROTOCOL Diphenhydramine HCl 25 mg 07/25/19 11:29 07/25/19 11:34 Benadryl IVP 25 mg Q6H PRN Administration Itching Hydrocortisone Sodium Succinate 50 mg 07/28/19 21:00 07/28/19 20:15 Solu-Cortef IVP 08/04/19 10:00 50 mg Q12HR ANIYAH Administration Cefepime HCl 0.5 gm/ 100 mls @ 200 mls/hr 07/24/19 21:00 07/28/19 20:14 Miscellaneous Medication 1 IVPB 100 mls each/ Sodium Chloride HS ANIYAH Administration Norepinephrine Bitartrate 250 mls @ 0 mls/hr 07/24/19 19:48 07/28/19 20:16 Levophed IVPB 250 mls PRN PRN Administration To Keep SBP > 90 mmHG Protocol Titrate Fentanyl Citrate 2,000 mcg/ 100 mls @ 0 mls/hr 07/24/19 19:57 07/28/19 17:43 Sodium Chloride IV 08/23/19 19:57 100 mls INF ANIYAH Administration Protocol Per Protocol Dextrose/Water 1,000 mls @ 50 mls/hr 07/27/19 01:00 07/29/19 04:53 Dextrose 10% In Water IV Not Given .Q20H ANIYAH Insulin Human Regular 0 units 07/24/19 19:48 07/29/19 00:50 Humulin R SC 3 units .MILD SLIDING SCALE PRN Administration Mild Correctional Scale Lorazepam 2 mg 07/24/19 19:57 07/27/19 16:10 Ativan SLOW IVP 08/23/19 19:57 2 mg Q1H PRN Administration Breakthrough agitation Propofol 1,000 mg 07/24/19 19:57 07/28/19 20:15 Diprivan IV 08/23/19 19:57 1,000 mg INF PRN Administration TO ACHIEVE GOAL RASS Protocol Rosuvastatin Calcium 40 mg 07/24/19 21:00 07/28/19 20:15 Crestor PO 40 mg HS ANIYAH Administration Warfarin Sodium 1 mg 07/27/19 17:00 07/28/19 17:44 Coumadin PER TUBE 1 mg 1700 ANIYAH Administration - Exam General Appearance: NAD ENT: moist mucosa Heart: RRR, no murmur, no gallops, no rubs Respiratory: no wheezes, no ronchi Respiratory - other findings: some coarse crackles in right lung Gastrointestinal: soft, non-tender, non-distended, normal bowel sounds Psychiatric - other findings: sedated on vent Hosp A/P (1) Sepsis Code(s): A41.9 - SEPSIS, UNSPECIFIED ORGANISM Status: Acute Qualifiers: Sepsis type: sepsis due to unspecified organism Sepsis acute organ dysfunction status: with acute organ dysfunction Severe sepsis acute organ dysfunction type: acute renal failure Acute renal failure type: unspecified Severe sepsis shock status: without septic shock Qualified Code(s): A41.9 - Sepsis, unspecified organism; R65.20 - Severe sepsis without septic shock; N17.9 - Acute kidney failure, unspecified (2) Empyema lung Code(s): J86.9 - PYOTHORAX WITHOUT FISTULA Status: Suspected (3) Acute respiratory failure Code(s): J96.00 - ACUTE RESPIRATORY FAILURE, UNSP W HYPOXIA OR HYPERCAPNIA Status: Acute Qualifiers: Respiratory failure complication: hypoxia Qualified Code(s): J96.01 - Acute respiratory failure with hypoxia (4) SILVIO (acute kidney injury) Code(s): N17.9 - ACUTE KIDNEY FAILURE, UNSPECIFIED Status: Acute Plan: due to acute tubular necrosis (5) Hypoglycemia Code(s): E16.2 - HYPOGLYCEMIA, UNSPECIFIED Status: Acute (6) Afib Code(s): I48.91 - UNSPECIFIED ATRIAL FIBRILLATION Status: Chronic Qualifiers: Atrial fibrillation type: paroxysmal Qualified Code(s): I48.0 - Paroxysmal atrial fibrillation (7) CAD (coronary artery disease) Code(s): I25.10 - ATHSCL HEART DISEASE OF [place] CORONARY ARTERY W/O ANG PCTRS Status: Chronic Qualifiers: Coronary Disease-Associated Artery/Lesion type: bypass graft [place] vs. 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 Follow final culture results- all no growth Chest x-ray revealing better aeration and bilateral infiltrates. Continue diuresis and broad spectrum antibiotics. Mucous plug: Causing hypoxia and atelectasis of the left lung status post bronchoscopy. Persistent hypoglycemia resolved with hydrocortisone. Continue management per pulmonology and cardiothoracic surgery. Plan to dialyze to allow weaning off the vent, trialysis catheter placed yesterday Per pharmacy recommendations will decrease patient's Crestor to 5mg daily until renal function improves
[2019-07-29 08:28] LABS: Puncture Site RRA
--- NOTE | 2019-07-29 08:53 | PRG ---
DATE OF SERVICE: 07/29/2019 TIME SPENT: This is 35 minutes of critical care time. SUBJECTIVE: This patient remains intubated on mechanical ventilation and did start dialysis yesterday. OBJECTIVE: VITAL SIGNS: His temperature is 98.5, pulse 75, blood pressure 117/54, currently on Levophed at 12 mcg/minute. He is also on propofol and fentanyl. 24-hour intake was 949, output almost no urine, I am not sure how much they got off by dialysis yesterday. HEENT: Unremarkable. NECK: No JVD. LUNGS: Coarse rhonchi. CARDIOVASCULAR: S1 and S2, regular. ABDOMEN: Soft and nontender. EXTREMITIES: Edematous throughout. LABORATORY DATA: White blood cell count 7.6, hematocrit 27, and platelet count 135. INR is 2.0. PH of 7.43, pCO2 of 26, PO2 101, SIMV rate 20, tidal volume 550, PEEP 10, pressure support 10, FiO2 40%. Sodium 127, potassium 5, chloride 98, CO2 of 17, BUN 68, creatinine 5.1, glucose 170. ASSESSMENT: 1. Acute renal failure. 2. Acute respiratory failure related to left empyema. 3. Status post decortication. 4. Chronically anticoagulated for valve. 5. Paroxysmal atrial fibrillation. 6. Relative adrenal insufficiency. 7. Hypoglycemia, which has been improved with steroids. I think most likely this was situation where sulfonylureas had not been metabolized adequately in his system. PLAN: 1. He is not weanable at this time. I have turned down his respiratory rate and his PEEP. 2. Needs several more sessions of dialysis. 3. Continue antibiotics. 4. Continue tube feeding. Job ID: [id number]
[2019-07-29] MEDS: Amiodarone 200 MG TAB PO SCH (09:09)
[2019-07-29] MEDS: Pantoprazole 40 MG VIAL IVP SCH (09:09)
--- NOTE | 2019-07-29 09:12 | PRG ---
DATE OF SERVICE: 07/29/2019 SUBJECTIVE: Mr. Rizvi is an 84-year-old white male, who was admitted for pneumonia with empyema and has undergone pulmonary decortication with left-sided thoracostomy tube placed. We are seeing him in for his worsening renal dysfunction secondary to a presumed acute tubular necrosis. Chest x-ray also suggests CHF. Hemodialysis was done yesterday for 1 hour. Our plan is to do another 2-hour hemodialysis due to the volume overload. OBJECTIVE: VITAL SIGNS: Blood pressure 119/43, heart rate 69, respiratory rate 17, O2 saturation 97%. GENERAL: The patient is sedated and intubated, on ventilator support. SKIN: Adequate turgor. HEENT: Pinkish conjunctivae. Anicteric sclerae. No neck mass. No carotid bruits. No JVD. CHEST: No deformities. LUNGS: Decreased breath sounds. HEART: Normal sinus rhythm. No murmurs. No gallops. No rubs. ABDOMEN: Globular, soft, and nontender. EXTREMITIES: No edema. No deformities. MEDICATIONS: Medications of July 29, 2019, were reviewed. LABORATORY DATA: Laboratories of July 29, 2019: White count 7.6, hemoglobin 9.1. Sodium 127, potassium 5, chloride 98, carbon dioxide 17, BUN 68, creatinine 5.14, glucose 170, and calcium 7.1. ASSESSMENT AND PLAN: 1. Acute kidney injury - secondary to a presumed acute tubular necrosis. Continue daily hemodialysis. Fluid removal as tolerated. He tolerated the first treatment yesterday. I have discussed the case with the dialysis nurse. A 2-hour dialysis will be done today. 2. Sepsis/status post empyema - the patient has undergone pulmonary decortication with chest tube placement. Continue supportive care. 3. The patient is currently receiving IV antibiotics. Agree with current management. Job ID: [id number]
[2019-07-29 11:19] LABS: Bilirubin Moderate (Negative); Blood, Urine Large (Negative); Glucose, Urine (Dipstick) Negative (Negative); Ketone, Urine Trace mg/dL (Negative); Leukocyte Small (Negative); Nitrite Negative (Negative); Protein, Urine (Dipstick) > or equal to 300 mg/dL (Neg-Trace); Specific Gravity, Urine 1.025 (1.005-1.030); Urobilinogen 0.2 mg/dL (Less than 2)
[2019-07-29 11:26] LABS: Clarity Turbid (Clear)
[2019-07-29 11:27] LABS: Bacteria/HPF 4+ HPF (None Seen); Yeast-Budding 3+ HPF (None Seen)
[2019-07-29 11:28] LABS: Squamous Epithelial 0-3 HPF (0-3)
[2019-07-29] MEDS ORDERED: Rosuvastatin 20 MG TAB PO SCH (11:37)
[2019-07-29] MEDS: Hydrocortisone Sod Succ/PF 100 mg/2 ml Vial IVP SCH ×3 (12:11→23:37)
[2019-07-29] MEDS: Norepinephrine 8 MG/0.9% NS 250 ML IVPB PRN (15:03)
--- NOTE | 2019-07-29 17:01 | PQF ---
DATE: 07-29-19 ATTN: DR. CHAIM GARZA Please exercise your independent, professional judgment in responding to the clarification form. Clinical indicators are provided on the bottom of this form for your review Please check appropriate box(s): HEART FAILURE: A. ACUITY [ ] Acute [ X ] Acute on Chronic [ ] Chronic B. TYPE [ ] Systolic / HFrEF [ ] Diastolic / HFpEF [ ] Combined Systolic / Diastolic [ ] Other diagnosis [ X ] Unable to determine In addition, please specify: Present on Admission (POA): [ X ] Yes [ ] No [ ] Unable to determine For continuity of documentation, please document condition throughout progress notes and discharge summary. Thank You. CLINICAL INDICATORS - SIGNS / SYMPTOMS / LABS / RESULTS AND LOCATION IN EMR: H&P: 07-23-19: REASON FOR ADMISSION: SEPSIS, PERSISTENT HYPOGLYCEMIA, COAGULOPATHY, CHF EXACERBATION, RECENT PNEUMONIA WITH POSSIBLE EMPYEMA H&P: 07-23-19: CLINICAL IMPRESSION AND PLAN: PERSISTENT HYPOGLYCEMIA, PNEUMONIA WITH POSSIBLE EMPYEMA, PARTIAL SMALL BOWEL OBSTRUCTION, ACUTE CONGESTIVE HEART FAILURE WITH EXACERBATION, POSSIBLE SEPSIS WITH LEAD EXTRACTION , WHICH WAS EXPOSED, RECENT AICD EXTRACTED AFTER BEING EXPOSED. H&P: 07-23-19: WE WILL BE ON LASIX 40MG IV AT 6AM AND 2PM. WE WILL CONTINUE ASA, AMIODARONE, SMALL DOSE OF CARVEDILOL AND CRESTOR. MAR: 07-24-19: COREG PN DR. MOORE 07-23-19: JUNE D/C LASIX, WATCH FOR RENAL FUNCTION CONSULT NOTE DR. ARGUELLO 07-24-19: EMPYEMA, HX ISCHEMIC SCREW DOWN, HX CABG, CONGESTIVE HEART FAILURE, HX AICD, HTN CONSULT NOTE DR. DOMINGO 07-29-19: CHEST XRAY ALSO SUGGEST CHF. RISKS FACTORS / RESULTS AND LOCATION IN EMR: ER NOTES 07-24-19: HX CHF, NM, CAD, AFIB, CKD, HTN TREATMENTS / RESULTS AND LOCATION IN EMR: H&P: 07-23-19: WE WILL BE ON LASIX 40MG IV AT 6AM AND 2PM. WE WILL CONTINUE ASA, AMIODARONE, SMALL DOSE OF CARVEDILOL AND CRESTOR. ICU MONITORING CARDIAC CONSULT 07-24-19 (This form is maintained as a part of the permanent medical record) 2014 [employer]. All Rights Reserved [email or web address]
[2019-07-29] MEDS: Warfarin Sodium 1 MG TAB PER TUBE SCH (17:16)
[2019-07-29] MEDS: Cefepime 0.5 GM, Admixture Fee 1 EACH in Sodium Chloride 0.9% 100 ML IVPB SCH (20:42)
[2019-07-29] MEDS: Rosuvastatin 5 MG TAB PO SCH (20:42)
[2019-07-29] MEDS: Propofol 1,000 MG/100 ML VIAL IV PRN (22:21)
[2019-07-30] MEDS: Dextrose 10% in Water 1,000 ML IV SCH ×2 (00:05→20:32)
[2019-07-30 04:36] LABS: INR-International Normal Ratio 2.1; Prothrombin Time 23.5 sec (12.0-14.7)
[2019-07-30 04:45] LABS: Anion Gap 15 mmol/L (10-20); BUN (Urea Nitrogen) 65 mg/dL (8.4-25.7); Calc. Creatinine Clearance 16 mL/min (70-130); Calcium 7.3 mg/dL (7.8-10.44); Carbon Dioxide 21 mmol/L (23-31); Chloride 97 mmol/L (98-107); Estimated GFR-MDRD 12; Glucose 181 mg/dL (83-110); Potassium 4.5 mmol/L (3.5-5.1); Sodium 128 mmol/L (136-145)
[2019-07-30] MEDS: fentaNYL Citrate/PF 2,000 MCG in Sodium Chloride 0.9% 60 ML IV SCH (05:02)
[2019-07-30 05:40] LABS: Band 11 % (5-11); Hemoglobin 8.8 g/dL (14.0-18.0); Lymphocytes 5 % (21-51); MDiff Complete? YES; Mean Corpuscular HGB CONC 36.1 g/dL (32.0-36.0); Mean Corpuscular Volume 88.5 fL (78.0-98.0); Mean Platelet Volume 7.7 fL (7.4-10.4); Monocytes 3 % (0-10); Neutrophil 81 % (42-75); Platelet Count 122 thou/uL (130-400); Red Blood Cell (RBC) Count 2.76 mill/uL (4.70-6.10); White Blood Cell (WBC) Count 4.6 thou/uL (4.8-10.8)
[2019-07-30] MEDS: Propofol 1,000 MG/100 ML VIAL IV PRN ×2 (06:24→15:11)
[2019-07-30] MEDS: Hydrocortisone Sod Succ/PF 100 mg/2 ml Vial IVP SCH (06:24)
--- NOTE | 2019-07-30 07:13 | RAD ---
CHEST 1 VIEW: INDICATION: History of thoracotomy. COMPARISON: Prior study dated 07/29/2019. FINDINGS: Left-sided thoracostomy tube unchanged. The patient remains intubated with gastric catheter placemen t. Right subclavian central venous catheter is unchanged. Cardiomegaly is similar-appearing. Pulmo nary vascular congestion and perihilar airspace opacities persist. Bilateral pleural effusions, left greater than right, are similar-appearing. Loculated left-sided effusion is similar-appearing. Oss eous structures unchanged. IMPRESSION: Stable exam. POS:
[2019-07-30 08:23] LABS: Analyzer IN Cardio OR; Base Excess (BEa) -4.2 mEq/L (-2.0 to +3.0); CO2 Tension 32.8 mmHg (35.0-45.0); Calcium, Ionized (arterial) 0.98 mmol/L (1.12-1.30); Carboxyhemoglobin (COHb) 0.1 gm% (0.0-3.0); Hemoglobin (Hb) 9.2 g/dL (14.0-18.0); Potassium - ABG Lab 4.46 mmol/L (3.70-5.30)
[2019-07-30 08:38] LABS: Puncture Site RB
--- NOTE | 2019-07-30 08:47 | PRG ---
DATE OF SERVICE: 07/30/2019 TIME SPENT: 35 minutes of critical care time. SUBJECTIVE: The patient remains in the CCU on mechanical ventilation. He is currently undergoing dialysis as I do this dictation. OBJECTIVE: VITAL SIGNS: Temperature 99.0, pulse 53, and blood pressure 118/46. Currently on norepinephrine at 2.5 mcg/minute. HEENT: Unremarkable. NECK: No adenopathy or JVD. CHEST: Coarse breath sounds. CARDIAC: S1 and S2. Regular. ABDOMEN: Soft and nontender. EXTREMITIES: No clubbing or cyanosis. Trace edema throughout. LABORATORY DATA: His chest radiograph demonstrates post decortication changes on the left, generalized pulmonary edema throughout. His white blood cell count is 4.6, hematocrit 24.4, and platelet count 122. INR 2.1. PH of 7.43, pCO2 of 26, pO2 of 101, SIMV rate 20, tidal volume 550, PEEP 10, pressure support 10, and FiO2 of 40%. Sodium 128, potassium 4.5, chloride 97, CO2 of 21, BUN 65, creatinine 4.5, and glucose 181. ASSESSMENT: 1. Acute respiratory failure, requiring mechanical ventilation. 2. Status post decortication for left empyema. 3. Acute renal failure. 4. Chronically anticoagulated for valve. 5. Paroxysmal atrial fibrillation. 6. Relative adrenal insufficiency. 7. Hypoglycemia that has improved with steroids and is probably secondary to the lasting effects of sulfonylureas in the phase of chronic renal failure. PLAN: 1. Decrease respiratory rate on vent. 2. Discontinue hydrocortisone. 3. Wean mechanical ventilation as tolerated. Job ID: [id number]
[2019-07-30] MEDS: Amiodarone 200 MG TAB PO SCH (08:59)
[2019-07-30] MEDS: Pantoprazole 40 MG VIAL IVP SCH (08:59)
--- NOTE | 2019-07-30 09:06 | PRG ---
DATE OF SERVICE: 07/30/2019 DISCUSSION: Mr. Rizvi is an 84-year-old white male, who was seen by the Renal Service for an acute kidney injury secondary to a presumed acute tubular necrosis. He has been initiated on dialysis. He is currently undergoing hemodialysis. We are attempting to remove 3 L as tolerated by the patient. Please note that a chest x-ray on July 30, 2019, was done. Pulmonary vascular congestion was noted. He had also bilateral pleural effusions. OBJECTIVE: VITAL SIGNS: Blood pressure 121/49, heart rate 56, respiratory rate 17, and O2 sat 100%. GENERAL: Sedated, intubated on ventilator support. SKIN: Adequate turgor. HEENT: Slightly pale conjunctivae. Anicteric sclerae. NECK: No neck mass. No carotid bruits. No JVD. CHEST: No deformities. LUNGS: Decreased breath sounds. HEART: Normal sinus rhythm. No murmur. No gallops. No rubs. ABDOMEN: Globular and soft. EXTREMITIES: Positive for edema. MEDICATIONS: Medications of July 30, 2019, were reviewed. LABORATORY DATA: July 30, 2019; sodium 128, potassium 4.5, chloride 97, carbon dioxide 21, BUN 65, creatinine 4.55, and calcium 7.3. White count 4.6 and hemoglobin 8.8. Urinalysis of July 29, 2019, showed protein greater than 300, rbc's 7 to 10, wbc's 7 to 10, and positive for yeast. ASSESSMENT AND PLAN: 1. Acute kidney injury - secondary to presumed acute tubular necrosis. Continuing current hemodialysis regimen. So far, he is tolerating said treatment. 2. Pneumonia - the patient is status post empyema - status post pulmonary decortication. Continue supportive care. Receiving IV antibiotics. 3. Overall prognosis remains guarded. Job ID: [id number]
[2019-07-30] MEDS ORDERED: Heparin 10,000 UNITS/ 10 ML VIAL ONE (10:07)
[2019-07-30] MEDS: Norepinephrine 8 MG/0.9% NS 250 ML IVPB PRN (11:41)
--- NOTE | 2019-07-30 14:41 | PDOC.HOSPP ---
- Subjective Encounter Date: 07/30/19 Encounter Time: 11:00 non-verbal Subjective: Levophed weaned down and steroids discontinued. Getting dialysis. No events overnight. - Objective Vital Signs & Weight: Vital Signs (12 hours) Temp Pulse Pulse Resp BP BP Pulse Ox 07/30/19 14:23 56 L 127/48 L 07/30/19 12:36 60 20 100 07/30/19 12:00 97.8 F 23 H 07/30/19 11:54 72 123/76 07/30/19 11:46 60 127/57 L 07/30/19 11:03 61 125/55 L 07/30/19 10:00 17 07/30/19 08:00 98.1 F 18 07/30/19 07:56 55 L 121/49 L 07/30/19 07:54 56 L 17 100 07/30/19 06:00 16 07/30/19 04:00 99.0 F 16 Pulse Ox 07/30/19 14:23 07/30/19 12:36 07/30/19 12:00 07/30/19 11:54 99 07/30/19 11:46 100 07/30/19 11:03 07/30/19 10:00 07/30/19 08:00 07/30/19 07:56 07/30/19 07:54 07/30/19 06:00 07/30/19 04:00 Weight Admit Weight 188 lb Weight 195 lb 5.273 oz Most Recent Monitor Data Heart Rate from ECG 56 NIBP 128/50 NIBP BP-Mean 76 Respiration from ECG 15 SpO2 100 I&O: 07/29/19 07/30/19 07/31/19 06:59 06:59 06:59 Intake Total 984.9 1450 Output Total 120 105 15 Balance 864.9 1345 -15 Result Diagrams: 07/30/19 04:02 07/30/19 04:02 Additional Labs: Accuchecks 07/30/19 07/30/19 07/29/19 13:22 04:11 23:42 POC Glucose 125 H 185 H 204 H 07/29/19 07/29/19 20:46 16:41 POC Glucose 176 H 136 H Hospitalist ROS - Review of Systems ROS unobtainable: due to endotracheal tube - Medication Medications: Active Medications Generic Name Dose Route Start Last Admin Trade Name Freq PRN Reason Stop Dose Admin Albuterol/Ipratropium 3 ml 07/25/19 13:00 07/30/19 12:36 Duoneb NEB 3 ml [id number] ANIYAH Administration Amiodarone HCl 200 mg 07/24/19 09:00 07/30/19 08:59 Cordarone PO 200 mg DAILY ANIYAH Administration Dextrose/Water 25 gm 07/26/19 05:10 07/27/19 10:29 Dextrose 50% IVP 25 gm PRN PRN Administration HYPOGLYCEMIA PROTOCOL Diphenhydramine HCl 25 mg 07/25/19 11:29 07/25/19 11:34 Benadryl IVP 25 mg Q6H PRN Administration Itching Cefepime HCl 0.5 gm/ 100 mls @ 200 mls/hr 07/24/19 21:00 07/29/19 20:42 Miscellaneous Medication 1 IVPB 100 mls each/ Sodium Chloride HS ANIYAH Administration Norepinephrine Bitartrate 250 mls @ 0 mls/hr 07/24/19 19:48 07/30/19 11:41 Levophed IVPB 250 mls PRN PRN Administration To Keep SBP > 90 mmHG Protocol Titrate Fentanyl Citrate 2,000 mcg/ 100 mls @ 0 mls/hr 07/24/19 19:57 07/30/19 05:02 Sodium Chloride IV 08/23/19 19:57 100 mls INF ANIYAH Administration Protocol Per Protocol Dextrose/Water 1,000 mls @ 50 mls/hr 07/27/19 01:00 07/30/19 00:05 Dextrose 10% In Water IV Not Given .Q20H ANIYAH Insulin Human Regular 0 units 07/24/19 19:48 07/29/19 09:09 Humulin R SC 2 units .MILD SLIDING SCALE PRN Administration Mild Correctional Scale Lorazepam 2 mg 07/24/19 19:57 07/27/19 16:10 Ativan SLOW IVP 08/23/19 19:57 2 mg Q1H PRN Administration Breakthrough agitation Pantoprazole Sodium 40 mg 07/29/19 09:00 07/30/19 08:59 Protonix IVP 40 mg DAILY ANIYAH Administration Propofol 1,000 mg 07/24/19 19:57 07/30/19 06:24 Diprivan IV 08/23/19 19:57 1,000 mg INF PRN Administration TO ACHIEVE GOAL RASS Protocol Rosuvastatin Calcium 5 mg 07/29/19 21:00 07/29/19 20:42 Crestor PO 5 mg HS ANIYAH Administration Warfarin Sodium 1 mg 07/27/19 17:00 07/29/19 17:16 Coumadin PER TUBE 1 mg 1700 ANIYAH Administration - Exam General Appearance: NAD ENT: moist mucosa Heart: RRR, no murmur, no gallops, no rubs Respiratory: CTAB, no wheezes, no rales, no ronchi Gastrointestinal: soft, non-tender, normal bowel sounds Psychiatric - other findings: sedated on the vent Hosp A/P (1) Sepsis Code(s): A41.9 - SEPSIS, UNSPECIFIED ORGANISM Status: Acute Qualifiers: Sepsis type: sepsis due to unspecified organism Sepsis acute organ dysfunction status: with acute organ dysfunction Severe sepsis acute organ dysfunction type: acute renal failure Acute renal failure type: unspecified Severe sepsis shock status: without septic shock Qualified Code(s): A41.9 - Sepsis, unspecified organism; R65.20 - Severe sepsis without septic shock; N17.9 - Acute kidney failure, unspecified (2) Empyema lung Code(s): J86.9 - PYOTHORAX WITHOUT FISTULA Status: Suspected (3) Acute respiratory failure Code(s): J96.00 - ACUTE RESPIRATORY FAILURE, UNSP W HYPOXIA OR HYPERCAPNIA Status: Acute Qualifiers: Respiratory failure complication: hypoxia Qualified Code(s): J96.01 - Acute respiratory failure with hypoxia (4) SILVIO (acute kidney injury) Code(s): N17.9 - ACUTE KIDNEY FAILURE, UNSPECIFIED Status: Acute (5) Hypoglycemia Code(s): E16.2 - HYPOGLYCEMIA, UNSPECIFIED Status: Acute (6) Afib Code(s): I48.91 - UNSPECIFIED ATRIAL FIBRILLATION Status: Chronic Qualifiers: Atrial fibrillation type: paroxysmal Qualified Code(s): I48.0 - Paroxysmal atrial fibrillation (7) CAD (coronary artery disease) Code(s): I25.10 - ATHSCL HEART DISEASE OF [place] CORONARY ARTERY W/O ANG PCTRS Status: Chronic Qualifiers: Coronary Disease-Associated Artery/Lesion type: bypass graft [place] vs. transplanted heart: [place] heart Associated angina: without angina Qualified Code(s): I25.810 - Atherosclerosis of coronary artery bypass graft(s) without angina pectoris (8) DM type 2 (diabetes mellitus, type 2) Status: Chronic Qualifiers: Diabetes mellitus medical terminologist insulin use: with snf use Diabetes mellitus complication status: with other specified complication Qualified Code (s): E11.69 - Type 2 diabetes mellitus with other specified complication; Z79.4 - termite exterminator (current) use of insulin (9) Dyslipidemia Code(s): E78.5 - HYPERLIPIDEMIA, UNSPECIFIED Status: Chronic (10) HTN (hypertension) Code(s): I10 - ESSENTIAL (PRIMARY) HYPERTENSION Status: Chronic Qualifiers: Hypertension type: essential hypertension Qualified Code(s): I10 - Essential (primary) hypertension - Plan Status post decortication. Follow final culture results- all no growth Chest x-ray revealing better aeration and bilateral infiltrates. Continue diuresis and broad spectrum antibiotics. Mucous plug: Causing hypoxia and atelectasis of the left lung status post bronchoscopy. Persistent hypoglycemia resolved with hydrocortisone. Continue management per pulmonology and cardiothoracic surgery. Plan to continue to dialyze to allow weaning off the vent Per pharmacy recommendations will decrease patient's Crestor to 5mg daily until renal function improves
[2019-07-30] MEDS: Warfarin Sodium 1 MG TAB PER TUBE SCH (17:30)
[2019-07-30] MEDS: Cefepime 0.5 GM, Admixture Fee 1 EACH in Sodium Chloride 0.9% 100 ML IVPB SCH (20:32)
[2019-07-30] MEDS: Rosuvastatin 5 MG TAB PO SCH (20:32)
[2019-07-31] MEDS: Propofol 1,000 MG/100 ML VIAL IV PRN (00:39)
[2019-07-31] MEDS: Dextrose 50% Abboject 50 ML SYRINGE IVP PRN (04:07)
[2019-07-31 04:47] LABS: #Eosinphils 0.2 thou/uL (0.0-0.7); #Lymphocytes 0.4 thou/uL (1.20-3.40); #Monocytes 0.6 thou/uL (0.11-0.59); #Neutrophils 4.9 thou/uL (1.40-6.50); %Eosinophils 2.8 % (0.0-10.0); %Lymphocytes 7.2 % (21.0-51.0); %Monocytes 9.9 % (0.0-10.0); %Neutrophils 80.1 % (42.0-75.0); Hemoglobin 9.3 g/dL (14.0-18.0); Mean Corpuscular HGB CONC 34.6 g/dL (32.0-36.0); Mean Corpuscular Hemoglobin 30.9 pg (27.0-31.0); Mean Corpuscular Volume 89.4 fL (78.0-98.0); Mean Platelet Volume 7.9 fL (7.4-10.4); Platelet Count 139 thou/uL (130-400); RBC Distribution Width 15.1 % (11.5-14.5); Red Blood Cell (RBC) Count 3.01 mill/uL (4.70-6.10); White Blood Cell (WBC) Count 6.2 thou/uL (4.8-10.8)
[2019-07-31 04:50] LABS: INR-International Normal Ratio 1.6; Prothrombin Time 19.3 sec (12.0-14.7)
[2019-07-31 05:06] LABS: Anion Gap 13 mmol/L (10-20); Calc. Creatinine Clearance 20 mL/min (70-130); Calcium 7.7 mg/dL (7.8-10.44); Carbon Dioxide 26 mmol/L (23-31); Chloride 98 mmol/L (98-107); Estimated GFR-MDRD 16; Potassium 3.6 mmol/L (3.5-5.1); Sodium 133 mmol/L (136-145)
[2019-07-31 05:10] LABS: Glucose 34 mg/dL (83-110)
[2019-07-31 05:12] LABS: BUN (Urea Nitrogen) 30 mg/dL (8.4-25.7)
--- NOTE | 2019-07-31 07:56 | RAD ---
RADIOGRAPH CHEST 1 VIEW: DATE: 07/31/2019 TIME: 5:04 AM HISTORY: 84-year-old male status post thoracotomy COMPARISON: 07/30/2019 FINDINGS: No change in life support lines. No change in loculated peripheral left pleural effusion. No pneumoth orax. Diffuse interstitial infiltrates throughout the right lung are slowly worsening compared to 07/29/2019 and 07/30/2019, developing into alveolar infiltrates in some regions. IMPRESSION: Interval worsening of diffuse infiltrates throughout the right lung.
[2019-07-31 08:26] LABS: Actual Bicarbonate (HCO3a) 23.7 mEq/L (22-28); Base Excess (BEa) 0.1 mEq/L (-2.0 to +3.0); CO2 Tension 34.6 mmHg (35.0-45.0); Calcium, Ionized (arterial) 1.07 mmol/L (1.12-1.30); Carboxyhemoglobin (COHb) 0.4 gm% (0.0-3.0); Hemoglobin (Hb) 10.3 g/dL (14.0-18.0); O2 Tension (PaO2), arterial 72.2 mmHg (> 60.0); Potassium - ABG Lab 3.73 mmol/L (3.70-5.30); Puncture Site LR; pH, Arterial 7.45 (7.35-7.45)
[2019-07-31] MEDS ORDERED: Warfarin Sodium 2 MG TAB PER TUBE SCH (08:28)
--- NOTE | 2019-07-31 08:53 | PRG ---
DATE OF SERVICE: 07/31/2019 A 35 minutes of critical care time. SUBJECTIVE: The patient remains intubated on mechanical ventilation. He will awake and follow commands. OBJECTIVE: VITAL SIGNS: Temperature 98.7, pulse 62, blood pressure 132/52. A 24-hour intake 1304 and output 65. He also had 2900 removed by dialysis yesterday. HEENT: Unremarkable. NECK: No JVD. LUNGS: Clear anteriorly. CARDIOVASCULAR: S1 and S2. Regular. ABDOMEN: Soft. EXTREMITIES: Less edema. LABORATORY DATA: ABG; pH of 7.45, pCO2 of 34, and pO2 of 72 on SIMV rate 12, tidal volume 550, PEEP 5, pressure support 10, and FiO2 of 40%. White blood cell count 6.2, hematocrit 26.9, and platelet count 139. INR 1.6. Sodium 133, potassium 3.6, chloride 98, CO2 of 26, BUN 30, creatinine 3.5, and glucose . X-ray shows stable changes. ASSESSMENT: 1. Status post decortication of left empyema. 2. Postop respiratory failure requiring mechanical ventilation. 3. Acute renal failure. 4. Chronically anticoagulated for a valve. 5. Paroxysmal atrial fibrillation. 6. Relative adrenal insufficiency. 7. Hypoglycemia that has returned after discontinuation of steroids yesterday. PLAN: 1. Spontaneous breathing trial. 2. Restart hydrocortisone. 3. Check C-peptide level. 4. Dialysis today. 5. Hopefully extubate if he passes his weaning trial. Job ID: [id number]
--- NOTE | 2019-07-31 09:07 | PRG ---
DATE OF SERVICE: 07/31/2019 SUBJECTIVE: Mr. Rizvi is an 84-year-old white male, who was initially admitted for pneumonia, developed empyema and has undergone pulmonary decortication. We are following up this patient for his acute kidney injury secondary to presumed acute tubular necrosis. Chest x-ray done on July 31, 2019, showed an interval worsening of diffuse infiltrates throughout the right lung. OBJECTIVE: VITAL SIGNS: Blood pressure is 132/52, heart rate 61, respiratory rate 20, O2 saturation 99%. GENERAL: The patient is arousable, intubated, and on ventilator support. SKIN: Adequate turgor. HEENT: Pinkish conjunctivae. Anicteric sclerae. NECK: No neck mass. No carotid bruits. No JVD. CHEST: Showed no deformities. LUNGS: Decreased breath sounds. No wheezing. Occasional crackles. HEART: Normal sinus rhythm. No murmurs. No gallops. No rubs. ABDOMEN: Globular, soft, and nontender. No masses. EXTREMITIES: Trace edema. MEDICATIONS: Medications of July 31, 2019, reviewed. LABORATORY STUDIES: Laboratories of July 31, 2019: White count 6.2, hemoglobin 9.3. Sodium 133, potassium 3.6, chloride 98, carbon dioxide 26, BUN 30, creatinine 3.58, calcium 7.7, and glucose 117. ASSESSMENT AND PLAN: 1. Acute kidney injury secondary to presumed ischemic acute tubular necrosis. Continuing supportive care. Continuing hemodialysis regimen. Again, fluid removal only as tolerated by the patient. 2. Status post empyema - the patient is status post pulmonary decortication, Surgery is following. 3. The patient's overall prognosis remains guarded. Continue supportive care. Job ID: [id number]
[2019-07-31] MEDS: Hydrocortisone Sod Succ/PF 100 mg/2 ml Vial IVP SCH ×2 (09:16→22:09)
[2019-07-31] MEDS: Amiodarone 200 MG TAB PO SCH (09:17)
[2019-07-31] MEDS: Pantoprazole 40 MG VIAL IVP SCH (09:17)
[2019-07-31] MEDS ORDERED: Heparin 10,000 UNITS/ 10 ML VIAL ONE (10:14)
[2019-07-31] MEDS: Norepinephrine 8 MG/0.9% NS 250 ML IVPB PRN (12:14)
--- NOTE | 2019-07-31 15:08 | PDOC.HOSPP ---
- Subjective Encounter Date: 07/31/19 Encounter Time: 11:20 Subjective: still on levophed, intubated, talk to RN; BG better. - Objective Vital Signs & Weight: Vital Signs (12 hours) Temp Pulse Resp BP Pulse Ox 07/31/19 14:42 59 L 142/54 H 07/31/19 14:00 17 07/31/19 13:13 57 L 20 94 L 07/31/19 12:00 16 07/31/19 11:00 98.7 F 07/31/19 10:52 64 123/60 07/31/19 10:00 24 H 07/31/19 08:00 16 98 07/31/19 07:33 61 20 99 07/31/19 07:29 61 132/52 L 07/31/19 07:00 98.7 F 07/31/19 06:00 14 07/31/19 04:00 98.1 F 20 Weight Admit Weight 188 lb Weight 194 lb 0.108 oz Most Recent Monitor Data Heart Rate from ECG 58 NIBP 142/54 NIBP BP-Mean 83 Respiration from ECG 22 SpO2 94 I&O: 07/30/19 07/31/19 08/01/19 06:59 06:59 06:59 Intake Total 1450 1304.1 128.8 Output Total 105 65 Balance 1345 1239.1 128.8 Result Diagrams: 07/31/19 03:56 07/31/19 03:56 Additional Labs: Accuchecks 07/31/19 07/31/19 07/31/19 12:10 08:54 04:37 POC Glucose 84 65 L 117 H 07/31/19 07/30/19 07/30/19 04:06 23:41 21:46 POC Glucose 38 L* 72 99 07/30/19 07/30/19 07/30/19 17:30 16:18 11:11 POC Glucose 270 H 114 H 114 H 07/29/19 07/29/19 07/28/19 12:22 08:45 16:07 POC Glucose 137 H 189 H 164 H Hospitalist ROS - Medication Medications: Active Medications Generic Name Dose Route Start Last Admin Trade Name Freq PRN Reason Stop Dose Admin Albuterol/Ipratropium 3 ml 07/25/19 13:00 07/31/19 13:13 Duoneb NEB 3 ml [id number] ANIYAH Administration Amiodarone HCl 200 mg 07/24/19 09:00 07/31/19 09:17 Cordarone PO 200 mg DAILY ANIYAH Administration Dextrose/Water 25 gm 07/26/19 05:10 07/31/19 04:07 Dextrose 50% IVP 25 gm PRN PRN Administration HYPOGLYCEMIA PROTOCOL Diphenhydramine HCl 25 mg 07/25/19 11:29 07/25/19 11:34 Benadryl IVP 25 mg Q6H PRN Administration Itching Hydrocortisone Sodium Succinate 50 mg 07/31/19 09:00 07/31/19 09:16 Solu-Cortef IVP 50 mg BID ANIYAH Administration Cefepime HCl 0.5 gm/ 100 mls @ 200 mls/hr 07/24/19 21:00 07/30/19 20:32 Miscellaneous Medication 1 IVPB 100 mls each/ Sodium Chloride HS ANIYAH Administration Norepinephrine Bitartrate 250 mls @ 0 mls/hr 07/24/19 19:48 07/31/19 12:14 Levophed IVPB 250 mls PRN PRN Administration To Keep SBP > 90 mmHG Protocol Titrate Fentanyl Citrate 2,000 mcg/ 100 mls @ 0 mls/hr 07/24/19 19:57 07/30/19 05:02 Sodium Chloride IV 08/23/19 19:57 100 mls INF ANIYAH Administration Protocol Per Protocol Dextrose/Water 1,000 mls @ 50 mls/hr 07/27/19 01:00 07/30/19 20:32 Dextrose 10% In Water IV Not Given .Q20H ANIYAH Insulin Human Regular 0 units 07/24/19 19:48 07/29/19 09:09 Humulin R SC 2 units .MILD SLIDING SCALE PRN Administration Mild Correctional Scale Lorazepam 2 mg 07/24/19 19:57 07/27/19 16:10 Ativan SLOW IVP 08/23/19 19:57 2 mg Q1H PRN Administration Breakthrough agitation Pantoprazole Sodium 40 mg 07/29/19 09:00 07/31/19 09:17 Protonix IVP 40 mg DAILY ANIYAH Administration Propofol 1,000 mg 07/24/19 19:57 07/31/19 00:39 Diprivan IV 08/23/19 19:57 1,000 mg INF PRN Administration TO ACHIEVE GOAL RASS Protocol Rosuvastatin Calcium 5 mg 07/29/19 21:00 07/30/19 20:32 Crestor PO 5 mg HS ANIYAH Administration - Exam General - other findings: on vent Eye: PERRL Heart: RRR Respiratory: normal chest expansion, rales, rhonchi Gastrointestinal: soft, normal bowel sounds Extremities: 1+ LE edema Neurological: no focal deficits Psychiatric: not oriented Hosp A/P - Plan (1) Sepsis Code(s): A41.9 - SEPSIS, UNSPECIFIED ORGANISM Status: Acute Qualifiers: Sepsis type: sepsis due to unspecified organism Sepsis acute organ dysfunction status: with acute organ dysfunction Severe sepsis acute organ dysfunction type: acute renal failure Acute renal failure type: unspecified Severe sepsis shock status: without septic shock Qualified Code(s): A41.9 - Sepsis, unspecified organism; R65.20 - Severe sepsis without septic shock; N17.9 - Acute kidney failure, unspecified (2) Code(s): J86.9 - PYOTHORAX WITHOUT FISTULA Status: Suspected (3) Acute respiratory failure Code(s): J96.00 - ACUTE RESPIRATORY FAILURE, UNSP W HYPOXIA OR HYPERCAPNIA Status: Acute Qualifiers: Respiratory failure complication: hypoxia Qualified Code(s): J96.01 - Acute respiratory failure with hypoxia (4) SILVIO (acute kidney injury) Code(s): N17.9 - ACUTE KIDNEY FAILURE, UNSPECIFIED Status: Acute (5) Hypoglycemia Code(s): E16.2 - HYPOGLYCEMIA, UNSPECIFIED Status: Acute (6) Afib Code(s): I48.91 - UNSPECIFIED ATRIAL FIBRILLATION Status: Chronic Qualifiers: Atrial fibrillation type: paroxysmal Qualified Code(s): I48.0 - Paroxysmal atrial fibrillation (7) CAD (coronary artery disease) Code(s): I25.10 - ATHSCL HEART DISEASE OF [place] CORONARY ARTERY W/O ANG PCTRS Status: Chronic Qualifiers: Coronary Disease-Associated Artery/Lesion type: bypass graft [place] vs. transplanted heart: [place] heart Associated angina: without angina Qualified Code(s): I25.810 - Atherosclerosis of coronary artery bypass graft(s) without angina pectoris (8) DM type 2 (diabetes mellitus, type 2) Status: Chronic Qualifiers: Diabetes mellitus fci insulin use: with fci use Diabetes mellitus complication status: with other specified complication Qualified Code (s): E11.69 - Type 2 diabetes mellitus with other specified complication; Z79.4 - care home (current) use of insulin (9) Dyslipidemia Code(s): E78.5 - HYPERLIPIDEMIA, UNSPECIFIED Status: Chronic (10) HTN (hypertension) Code(s): I10 - ESSENTIAL (PRIMARY) HYPERTENSION Status: Chronic Qualifiers: Hypertension type: essential hypertension Qualified Code(s): I10 - Essential (primary) hypertension relative adrenal insuff -on solu-cortef/ hydrocortisone Persistent hypoglycemia resolved with hydrocortisone. Empyema lung Status post decortication. Mucous plug: Causing hypoxia and atelectasis of the left lung status post bronchoscopy. - on cefepime - Follow final culture results- all no growth -Chest x-ray revealing better aeration and bilateral infiltrates. afib -rate cont'd w.. amiodarone and on courmain Full code
[2019-07-31] MEDS: Cefepime 0.5 GM, Admixture Fee 1 EACH in Sodium Chloride 0.9% 100 ML IVPB SCH (22:08)
[2019-07-31] MEDS: Insulin Regular 300 UNITS/3 ML VIAL SC PRN (22:09)
[2019-07-31] MEDS: Rosuvastatin 5 MG TAB PO SCH (22:16)
[2019-08-01 04:53] LABS: #Lymphocytes 0.4 thou/uL (1.20-3.40); #Monocytes 0.5 thou/uL (0.11-0.59); %Eosinophils 0.5 % (0.0-10.0); %Neutrophils 85.5 % (42.0-75.0); Hemoglobin 9.4 g/dL (14.0-18.0); Mean Corpuscular HGB CONC 32.6 g/dL (32.0-36.0); Mean Corpuscular Hemoglobin 29.3 pg (27.0-31.0); Mean Corpuscular Volume 89.8 fL (78.0-98.0); Mean Platelet Volume 8.3 fL (7.4-10.4); Platelet Count 98 thou/uL (130-400); RBC Distribution Width 15.1 % (11.5-14.5); Red Blood Cell (RBC) Count 3.21 mill/uL (4.70-6.10); White Blood Cell (WBC) Count 5.8 thou/uL (4.8-10.8)
[2019-08-01 05:00] LABS: INR-International Normal Ratio 1.8; Prothrombin Time 20.9 sec (12.0-14.7)
[2019-08-01 06:09] LABS: Calcium 7.6 mg/dL (7.8-10.44); Chloride 101 mmol/L (98-107); Potassium 4.5 mmol/L (3.5-5.1); Sodium 134 mmol/L (136-145)
[2019-08-01 06:10] LABS: Glucose 114 mg/dL (83-110)
[2019-08-01 06:11] LABS: Anion Gap 15 mmol/L (10-20); Carbon Dioxide 23 mmol/L (23-31)
[2019-08-01 06:13] LABS: Calc. Creatinine Clearance 22 mL/min (70-130); Estimated GFR-MDRD 20
[2019-08-01 06:14] LABS: BUN (Urea Nitrogen) 46 mg/dL (8.4-25.7)
[2019-08-01 06:15] LABS: Magnesium 2.3 mg/dL (1.6-2.6)
--- NOTE | 2019-08-01 07:50 | RAD ---
EXAM: Single view of the chest HISTORY: Status post thoracotomy with chest tubes COMPARISON: 07/31/2019 FINDINGS: Single view of the chest shows an enlarged but stable cardiomediastinal silhouette. The pa tient is status post sternotomy. The endotracheal tube is been removed. The left chest tube and central venous catheter are unchanged in position. There appears to be a small left pleural effusion with adjacent atelectasis. The bones are unremarkable. IMPRESSION: Stable exam status post extubation
[2019-08-01 07:58] LABS: Actual Bicarbonate (HCO3a) 26.4 mEq/L (22-28); Base Excess (BEa) 1.7 mEq/L (-2.0 to +3.0); Carboxyhemoglobin (COHb) 0.5 gm% (0.0-3.0); Hemoglobin (Hb) 11.5 g/dL (14.0-18.0); O2 Tension (PaO2), arterial 82.9 mmHg (> 60.0); Potassium - ABG Lab 3.97 mmol/L (3.70-5.30); pH, Arterial 7.42 (7.35-7.45)
--- NOTE | 2019-08-01 08:02 | PRG ---
DATE OF SERVICE: 35 minutes of critical care time. SUBJECTIVE: This patient was extubated yesterday afternoon. I made the decision to extubate him straight to a BiPAP and so far he has done well. He does complain of some left-sided pain today. PHYSICAL EXAMINATION: VITAL SIGNS: His temperature is 97.7, pulse 55, blood pressure 133/49, O2 saturation 98%. 24-hour intake 1304, output 2600 by dialysis. HEENT: Unremarkable. NECK: No adenopathy or JVD. LUNGS: Fairly good breath sounds bilaterally. He has a left chest tube in place. No air leak. CARDIOVASCULAR: S1 and S2. Slightly bradycardic. ABDOMEN: Soft and nontender. EXTREMITIES: No clubbing, cyanosis, or edema. LABORATORY DATA: Sodium 134, potassium 4.5, chloride 101, CO2 of 23, BUN 46, creatinine 3.1, and glucose 114. White blood cell count 5.8, hematocrit 28.9, and platelet count 98. His INR is 1.8. C-peptide is pending. His x-ray shows no acute changes. ASSESSMENT: 1. Status post decortication for left empyema. 2. Postoperative respiratory failure requiring prolonged mechanical ventilation, extubated 07/30 to BiPAP. So far, doing well. 3. Postoperative course complicated by acute renal failure, now requiring hemodialysis. 4. Chronically anticoagulated for heart valve. 5. Relative adrenal insufficiency. 6. Persistent hypoglycemia since admission. Initially thought due to sulfonylurea use in the phase of acute renal failure, but the problem has persisted and was evident again yesterday after trying to wean him off steroids. Steroids have been restarted and C-peptide level is pending to rule out insulinoma. 7. Paroxysmal atrial fibrillation. 8. Deconditioning. PLANS: 1. Up in chair as tolerated. 2. Try nasal cannula alternating with BiPAP. 3. Continue low-dose hydrocortisone. 4. Dialysis is indicated by Nephrology. 5. Try clear liquids. 6. We would keep in ICU for several more days. 7. I think we can go ahead and stop his antibiotics as he has had 7 days. 8. Warfarin dose was increased yesterday. It may need to be bumped up again tomorrow. Job ID: [id number]
[2019-08-01 08:11] LABS: Puncture Site LR
[2019-08-01] MEDS: Hydrocortisone Sod Succ/PF 100 mg/2 ml Vial IVP SCH ×2 (09:39→21:30)
[2019-08-01] MEDS: Amiodarone 200 MG TAB PO SCH (09:39)
[2019-08-01] MEDS: Pantoprazole 40 MG VIAL IVP SCH (09:40)
[2019-08-01] MEDS ORDERED: Heparin 10,000 UNITS/ 10 ML VIAL ONE (09:52)
--- NOTE | 2019-08-01 10:50 | PRG ---
DATE OF SERVICE: 08/01/2019 SUBJECTIVE: Mr. Rizvi is an 84-year-old white male, who was admitted for pneumonia/empyema. He has undergone pulmonary decortication. During this hospitalization, he developed acute kidney injury secondary to a presumed acute tubular necrosis. We have initiated dialysis with this patient. He is tolerating said treatment. He has been extubated. No other complaints today. OBJECTIVE: VITAL SIGNS: Blood pressure 134/55, heart rate 58, respiratory rate 16, O2 saturation 97%. GENERAL: The patient is awake, on BiPAP, sitting, not in distress. SKIN: Adequate turgor. HEENT: Pinkish conjunctivae. Anicteric sclerae. NECK: No neck mass. No carotid bruits. No JVD. CHEST: No deformities. He has a chest tube. LUNGS: Decreased breath sounds. HEART: Normal sinus rhythm. No murmur. No gallops. No rubs. ABDOMEN: Globular, soft, nontender. EXTREMITIES: Trace edema. MEDICATIONS: Of August 01, 2019, reviewed. LABORATORY DATA: August 01, 2019, white count 5.8, hemoglobin 9.4, sodium 134, potassium 4.5, chloride 101, carbon dioxide 23, BUN 46, creatinine 3.05, glucose 114, calcium 7.6, magnesium 2.3. ASSESSMENT AND PLAN: 1. Acute kidney injury - secondary to presumed acute tubular necrosis. Currently undergoing daily hemodialysis. We will plan to do another 3-hour hemodialysis with this patient with fluid removal. Our plan after this dialysis is to place him on a regular three times a week hemodialysis Sunday, Sunday, and Sunday. 2. Status post empyema - status post pulmonary decortication with chest tube placement, doing well. Surgery is following. 3. Overall agree with current management. Job ID: [id number]
[2019-08-01] MEDS ORDERED: Dextrose 5% in Water 1,000 ML IV PRN (12:26)
[2019-08-01] MEDS ORDERED: Dextrose 50% Abboject 50 ML SYRINGE SLOW IVP PRN (12:26)
--- NOTE | 2019-08-01 14:11 | PDOC.HOSPP ---
- Subjective Encounter Date: 08/01/19 Encounter Time: 12:00 Subjective: pt on bipap; looks quite fatigued. dialysis today. - Objective Vital Signs & Weight: Vital Signs (12 hours) Temp Pulse Pulse Pulse Resp BP BP 08/01/19 12:23 62 16 08/01/19 12:00 97.7 F 08/01/19 10:51 59 L 08/01/19 09:44 59 L 56 L 137/57 L 140/56 L 08/01/19 08:00 97.3 F L 08/01/19 07:32 56 L 08/01/19 07:31 56 L 20 08/01/19 04:00 97.7 F 08/01/19 02:16 57 L Pulse Ox Pulse Ox Pulse Ox 08/01/19 12:23 95 08/01/19 12:00 95 08/01/19 10:51 08/01/19 09:44 98 96 08/01/19 08:00 100 08/01/19 07:32 97 08/01/19 07:31 97 08/01/19 04:00 08/01/19 02:16 Weight Admit Weight 188 lb Weight 183 lb 10.321 oz Most Recent Monitor Data Heart Rate from ECG 58 NIBP 129/51 NIBP BP-Mean 77 Respiration from ECG 14 SpO2 96 I&O: 07/31/19 08/01/19 08/02/19 06:59 06:59 06:59 Intake Total 1304.1 591.8 Output Total 65 25 70 Balance 1239.1 566.8 -70 Result Diagrams: 08/01/19 04:40 08/01/19 05:44 Additional Labs: Accuchecks 08/01/19 08/01/19 08/01/19 11:54 09:02 04:39 POC Glucose 127 H 115 H 112 H 07/31/19 20:25 POC Glucose 165 H Hospitalist ROS - Medication Medications: Active Medications Generic Name Dose Route Start Last Admin Trade Name Freq PRN Reason Stop Dose Admin Albuterol/Ipratropium 3 ml 07/25/19 13:00 08/01/19 12:23 Duoneb NEB 3 ml [id number] ANIYAH Administration Amiodarone HCl 200 mg 07/24/19 09:00 08/01/19 09:39 Cordarone PO 200 mg DAILY ANIYAH Administration Diphenhydramine HCl 25 mg 07/25/19 11:29 07/25/19 11:34 Benadryl IVP 25 mg Q6H PRN Administration Itching Hydrocortisone Sodium Succinate 50 mg 07/31/19 09:00 08/01/19 09:39 Solu-Cortef IVP 50 mg BID ANIYAH Administration Norepinephrine Bitartrate 250 mls @ 0 mls/hr 07/24/19 19:48 07/31/19 12:14 Levophed IVPB 250 mls PRN PRN Administration To Keep SBP > 90 mmHG Protocol Titrate Dextrose/Water 1,000 mls @ 50 mls/hr 07/27/19 01:00 07/30/19 20:32 Dextrose 10% In Water IV Not Given .Q20H ANIYAH Insulin Human Regular 0 units 07/24/19 19:48 07/31/19 22:09 Humulin R SC 2 units .MILD SLIDING SCALE PRN Administration Mild Correctional Scale Pantoprazole Sodium 40 mg 07/29/19 09:00 08/01/19 09:40 Protonix IVP 40 mg DAILY ANIYAH Administration Rosuvastatin Calcium 5 mg 07/29/19 21:00 07/31/19 22:16 Crestor PO Not Given HS ANIYAH Warfarin Sodium 2 mg 07/31/19 08:28 07/31/19 15:07 Coumadin PER TUBE 2 mg 1700 ANIYAH Administration - Exam General Appearance: awake alert, ill appearing Eye: PERRL ENT: normocephalic atraumatic Neck: supple Heart: RRR Respiratory: CTAB, normal chest expansion Gastrointestinal: soft, normal bowel sounds Neurological: no focal deficits Psychiatric: normal affect, normal behavior, A&O x 3 Hosp A/P - Plan (1) Sepsis Code(s): A41.9 - SEPSIS, UNSPECIFIED ORGANISM Status: Acute Qualifiers: Sepsis type: sepsis due to unspecified organism Sepsis acute organ dysfunction status: with acute organ dysfunction Severe sepsis acute organ dysfunction type: acute renal failure Acute renal failure type: unspecified Severe sepsis shock status: without septic shock Qualified Code(s): A41.9 - Sepsis, unspecified organism; R65.20 - Severe sepsis without septic shock; N17.9 - Acute kidney failure, unspecified (2) Code(s): J86.9 - PYOTHORAX WITHOUT FISTULA Status: Suspected (3) Acute respiratory failure Code(s): J96.00 - ACUTE RESPIRATORY FAILURE, UNSP W HYPOXIA OR HYPERCAPNIA Status: Acute Qualifiers: Respiratory failure complication: hypoxia Qualified Code(s): J96.01 - Acute respiratory failure with hypoxia (4) SILVIO (acute kidney injury) Code(s): N17.9 - ACUTE KIDNEY FAILURE, UNSPECIFIED Status: Acute (5) Hypoglycemia Code(s): E16.2 - HYPOGLYCEMIA, UNSPECIFIED Status: Acute (6) Afib Code(s): I48.91 - UNSPECIFIED ATRIAL FIBRILLATION Status: Chronic Qualifiers: Atrial fibrillation type: paroxysmal Qualified Code(s): I48.0 - Paroxysmal atrial fibrillation (7) CAD (coronary artery disease) Code(s): I25.10 - ATHSCL HEART DISEASE OF [place] CORONARY ARTERY W/O ANG PCTRS Status: Chronic Qualifiers: Coronary Disease-Associated Artery/Lesion type: bypass graft [place] vs. transplanted heart: [place] heart Associated angina: without angina Qualified Code(s): I25.810 - Atherosclerosis of coronary artery bypass graft(s) without angina pectoris (8) DM type 2 (diabetes mellitus, type 2) Status: Chronic Qualifiers: Diabetes mellitus superintendent container terminal insulin use: with superintendent container terminal use Diabetes mellitus complication status: with other specified complication Qualified Code (s): E11.69 - Type 2 diabetes mellitus with other specified complication; Z79.4 - FPC (current) use of insulin (9) Dyslipidemia Code(s): E78.5 - HYPERLIPIDEMIA, UNSPECIFIED Status: Chronic (10) HTN (hypertension) Code(s): I10 - ESSENTIAL (PRIMARY) HYPERTENSION Status: Chronic Qualifiers: Hypertension type: essential hypertension Qualified Code(s): I10 - Essential (primary) hypertension relative adrenal insuff -on solu-cortef/ hydrocortisone Persistent hypoglycemia resolved with hydrocortisone. Empyema lung Status post decortication. Mucous plug: Causing hypoxia and atelectasis of the left lung status post bronchoscopy. - s/p cefepime - Follow final culture results- all no growth -Chest x-ray revealing better aeration and bilateral infiltrates. afib -rate cont'd w.. amiodarone and on coumadin--subtheraperutic--increased dose from 2 to 2.5 Full code
[2019-08-01] MEDS: Warfarin Sodium 2.5 MG TAB PER TUBE SCH (17:10)
[2019-08-01] MEDS ORDERED: Rosuvastatin 20 MG TAB PO SCH (21:00)
[2019-08-01] MEDS: Rosuvastatin 10 MG TAB PO SCH (21:30)
[2019-08-01] MEDS: Insulin Regular 300 UNITS/3 ML VIAL SC SCH ×2 (21:44→21:45)
[2019-08-02] MEDS: diphenhydrAMINE 50 MG/ML VIAL IVP PRN (03:27)
[2019-08-02] MEDS ORDERED: Morphine 2 MG/ML VIAL SLOW IVP PRN (03:30)
[2019-08-02 04:08] LABS: #Lymphocytes 0.9 thou/uL (1.20-3.40); #Monocytes 0.6 thou/uL (0.11-0.59); #Neutrophils 5.9 thou/uL (1.40-6.50); %Basophils 0.2 % (0.0-1.0); %Eosinophils 0.4 % (0.0-10.0); %Lymphocytes 12.3 % (21.0-51.0); %Monocytes 7.5 % (0.0-10.0); %Neutrophils 79.6 % (42.0-75.0); Hemoglobin 9.6 g/dL (14.0-18.0); Mean Corpuscular HGB CONC 32.2 g/dL (32.0-36.0); Mean Corpuscular Hemoglobin 29.1 pg (27.0-31.0); Mean Corpuscular Volume 90.2 fL (78.0-98.0); Mean Platelet Volume 8.3 fL (7.4-10.4); Platelet Count 121 thou/uL (130-400); RBC Distribution Width 15.3 % (11.5-14.5); Red Blood Cell (RBC) Count 3.28 mill/uL (4.70-6.10); White Blood Cell (WBC) Count 7.4 thou/uL (4.8-10.8)
[2019-08-02 04:10] LABS: INR-International Normal Ratio 1.7; Prothrombin Time 19.8 sec (12.0-14.7)
[2019-08-02 04:53] LABS: Anion Gap 13 mmol/L (10-20); BUN (Urea Nitrogen) 37 mg/dL (8.4-25.7); Calc. Creatinine Clearance 26 mL/min (70-130); Calcium 7.9 mg/dL (7.8-10.44); Carbon Dioxide 28 mmol/L (23-31); Chloride 99 mmol/L (98-107); Estimated GFR-MDRD 24; Glucose 156 mg/dL (83-110); Potassium 3.6 mmol/L (3.5-5.1); Sodium 136 mmol/L (136-145)
[2019-08-02] MEDS: Dextrose 10% in Water 1,000 ML IV SCH ×2 (07:16→07:17)
--- NOTE | 2019-08-02 08:10 | RAD ---
PORTABLE CHEST: HISTORY: Post thoracotomy followup. COMPARISON: 08/01/2019. FINDINGS: Left chest tube is unchanged. The left effusion an fluid along the peripheral left chest wall is unc hanged. Basilar atelectasis and/or consolidation again noted. Diffuse right lung interstitial hazy infiltrates are again noted. Central ling unchanged. IMPRESSION: The chest findings have not significantly changed from yesterday. POS: AGW
--- NOTE | 2019-08-02 10:21 | PRG ---
DATE OF SERVICE: 08/02/2019 SUBJECTIVE: Mr. Rizvi is an 84-year-old white male, who was initially admitted for pneumonia, developed empyema and subsequently had undergone pulmonary decortication with chest tube placement on the left. He also had worsening renal dysfunction, was placed on dialysis. He has received daily dialysis in the last several days. He has been extubated yesterday. This morning, he voices no new complaints. He is feeling better. OBJECTIVE: VITAL SIGNS: Blood pressure 149/59, heart rate 62, respiratory rate 16, O2 saturation 98%. GENERAL: The patient is awake, alert, and sitting comfortable. Decreased hearing. HEENT: He has pinkish conjunctivae. Anicteric sclerae. No neck mass. No carotid bruits. No JVD. CHEST: No deformities. LUNGS: Decreased breath sounds. Please note, there is a left-sided chest tube. HEART: Normal sinus rhythm. No murmurs, gallops, or rubs. ABDOMEN: Globular, soft, and nontender. No masses. EXTREMITIES: No edema. No deformities. MEDICATIONS: Medications of August 02, 2019, was reviewed. LABORATORY DATA: Laboratories of August 02, 2019; white count 7.4, hemoglobin 9.6. Sodium 136, potassium 3.6, chloride 99, carbon dioxide 28, BUN 37, creatinine 2.55, glucose 156, calcium 7.9. ASSESSMENT AND PLAN: 1. Acute kidney injury - presumptive acute tubular necrosis. The patient is still noted to be on the anuric side. We will continue current hemodialysis regimen. He is now scheduled for Sunday, Sunday, and Sunday hemodialysis. No indication for any emergent hemodialysis today. 2. Status post pneumonia/empyema - the patient is status post pulmonary decortication with chest tube placement. Doing well overall from respiratory point of view. He is off ventilator. Agree with current management. Job ID: [id number]
[2019-08-02] MEDS: Amiodarone 200 MG TAB PO SCH (10:28)
[2019-08-02] MEDS: Hydrocortisone Sod Succ/PF 100 mg/2 ml Vial IVP SCH ×2 (10:28→20:04)
[2019-08-02] MEDS: Insulin Regular 300 UNITS/3 ML VIAL SC SCH ×4 (10:31→20:06)
[2019-08-02] MEDS: Pantoprazole 40 MG VIAL IVP SCH (10:32)
--- NOTE | 2019-08-02 11:06 | PRG ---
DATE OF SERVICE: 08/02/2019 SUBJECTIVE: Mr. Rizvi has done well since extubation. He reports ongoing postprocedural pain on the left, although lessened today. He has been able to get to the chair. He has taken his diet. He has not had any fevers or chills. He has not had any cough or sputum. PHYSICAL EXAMINATION: VITAL SIGNS: Blood pressure today 149/59, heart rate is 62, saturation 98%. GENERAL: He is not in acute distress. He does have a slight hearing loss. He has no adenopathy. LUNGS: Rhonchi on the left. The chest tube shows minimal output and no leak is noted. HEART: Regular rate and rhythm. ABDOMEN: Soft. There is no organomegaly. EXTREMITIES: He has no edema. There are no cords or tenderness. LABORATORY DATA: White count 7400, hemoglobin is 9.6, platelet count 121,000. Electrolytes today notable for BUN of 37 and creatinine is 2.5. Potassium is 3.6. He is not acidemic. Pleural fluid cultures are negative. Chest x-ray today shows minimal residual fluid and/or thickening of the left chest. Tube placement is unchanged. IMPRESSION: 1. Pneumonia with associated empyema, now status post decortication. He is doing well. He had a significantly more prolonged postop ventilator case and is ordinarily seen, but is now successfully extubated. He appears to be making good progress in that perspective. 2. Acute tubular necrosis requiring initiation of hemodialysis. Volume electrolytes are stable today and decision regarding dialysis is deferred to Nephrology. 3. Diabetes. 4. History of atrial fibrillation. PLAN: The patient is doing quite well with expectation that his chest tube will be removed later today. From my perspective, he could probably be transferred to the medical unit for continued supportive care. Job ID: [id number]
--- NOTE | 2019-08-02 15:19 | PDOC.HOSPP ---
- Subjective Encounter Date: 08/02/19 Encounter Time: 10:20 Subjective: pt seen in IMCU. looks quite fatigued.Denies any cp or SOB. chest tube to be out. physical therapy consulted. - Objective Vital Signs & Weight: Vital Signs (12 hours) Temp Pulse Pulse Pulse Resp BP BP 08/02/19 13:16 08/02/19 13:15 66 18 08/02/19 11:26 63 59 L 149/61 H 148/53 H 08/02/19 11:05 96.8 F L 08/02/19 08:00 08/02/19 07:09 96.8 F L 08/02/19 03:30 97.2 F L Pulse Ox 08/02/19 13:16 93 L 08/02/19 13:15 94 L 08/02/19 11:26 08/02/19 11:05 08/02/19 08:00 98 08/02/19 07:09 08/02/19 03:30 Weight Admit Weight 188 lb Weight 188 lb 6.4 oz Most Recent Monitor Data Heart Rate from ECG 66 NIBP 158/64 NIBP BP-Mean 95 Respiration from ECG 24 SpO2 98 I&O: 08/01/19 08/02/19 08/03/19 06:59 06:59 06:59 Intake Total 591.8 240 Output Total 25 90 Balance 566.8 150 Result Diagrams: 08/02/19 03:40 08/02/19 03:40 Additional Labs: Accuchecks 08/02/19 08/02/19 08/01/19 13:57 12:46 21:42 POC Glucose 218 H 215 H 140 H 08/01/19 17:33 POC Glucose 126 H Hospitalist ROS - Medication Medications: Active Medications Generic Name Dose Route Start Last Admin Trade Name Freq PRN Reason Stop Dose Admin Albuterol/Ipratropium 3 ml 07/25/19 13:00 08/02/19 13:15 Duoneb NEB 3 ml [id number] ANIYAH Administration Amiodarone HCl 200 mg 07/24/19 09:00 08/02/19 10:28 Cordarone PO 200 mg DAILY ANIYAH Administration Diphenhydramine HCl 25 mg 07/25/19 11:29 08/02/19 03:27 Benadryl IVP 25 mg Q6H PRN Administration Itching Hydrocortisone Sodium Succinate 50 mg 07/31/19 09:00 08/02/19 10:28 Solu-Cortef IVP 50 mg BID ANIYAH Administration Norepinephrine Bitartrate 250 mls @ 0 mls/hr 07/24/19 19:48 07/31/19 12:14 Levophed IVPB 250 mls PRN PRN Administration To Keep SBP > 90 mmHG Protocol Titrate Insulin Human Regular 0 units 07/24/19 19:48 07/31/19 22:09 Humulin R SC 2 units .MILD SLIDING SCALE PRN Administration Mild Correctional Scale Insulin Human Regular 0 units 08/01/19 17:00 08/02/19 12:46 Humulin R SC 2 unit ACHS ANIYAH Administration Pantoprazole Sodium 40 mg 07/29/19 09:00 08/02/19 10:32 Protonix IVP 40 mg DAILY ANIYAH Administration Rosuvastatin Calcium 10 mg 08/01/19 21:00 08/01/19 21:30 Crestor PO 10 mg HS ANIYAH Administration Warfarin Sodium 2.5 mg 08/01/19 17:00 08/01/19 17:10 Coumadin PER TUBE 2.5 mg 1700 ANIYAH Administration - Exam General Appearance: NAD, awake alert, ill appearing Eye: PERRL ENT: normocephalic atraumatic Neck: supple Heart: RRR Respiratory: CTAB, normal chest expansion Gastrointestinal: soft, normal bowel sounds Neurological: no focal deficits Psychiatric: A&O x 3 Hosp A/P - Plan (1) Sepsis Code(s): A41.9 - SEPSIS, UNSPECIFIED ORGANISM Status: Acute Qualifiers: Sepsis type: sepsis due to unspecified organism Sepsis acute organ dysfunction status: with acute organ dysfunction Severe sepsis acute organ dysfunction type: acute renal failure Acute renal failure type: unspecified Severe sepsis shock status: without septic shock Qualified Code(s): A41.9 - Sepsis, unspecified organism; R65.20 - Severe sepsis without septic shock; N17.9 - Acute kidney failure, unspecified (2) Code(s): J86.9 - PYOTHORAX WITHOUT FISTULA Status: Suspected (3) Acute respiratory failure Code(s): J96.00 - ACUTE RESPIRATORY FAILURE, UNSP W HYPOXIA OR HYPERCAPNIA Status: Acute Qualifiers: Respiratory failure complication: hypoxia Qualified Code(s): J96.01 - Acute respiratory failure with hypoxia (4) SILVIO (acute kidney injury) Code(s): N17.9 - ACUTE KIDNEY FAILURE, UNSPECIFIED Status: Acute (5) Hypoglycemia Code(s): E16.2 - HYPOGLYCEMIA, UNSPECIFIED Status: Acute (6) Afib Code(s): I48.91 - UNSPECIFIED ATRIAL FIBRILLATION Status: Chronic Qualifiers: Atrial fibrillation type: paroxysmal Qualified Code(s): I48.0 - Paroxysmal atrial fibrillation (7) CAD (coronary artery disease) Code(s): I25.10 - ATHSCL HEART DISEASE OF [place] CORONARY ARTERY W/O ANG PCTRS Status: Chronic Qualifiers: Coronary Disease-Associated Artery/Lesion type: bypass graft [place] vs. transplanted heart: [place] heart Associated angina: without angina Qualified Code(s): I25.810 - Atherosclerosis of coronary artery bypass graft(s) without angina pectoris (8) DM type 2 (diabetes mellitus, type 2) Status: Chronic Qualifiers: Diabetes mellitus exterminator termite insulin use: with intermediate use Diabetes mellitus complication status: with other specified complication Qualified Code (s): E11.69 - Type 2 diabetes mellitus with other specified complication; Z79.4 - manager long term care (current) use of insulin (9) Dyslipidemia Code(s): E78.5 - HYPERLIPIDEMIA, UNSPECIFIED Status: Chronic (10) HTN (hypertension) Code(s): I10 - ESSENTIAL (PRIMARY) HYPERTENSION Status: Chronic Qualifiers: Hypertension type: essential hypertension Qualified Code(s): I10 - Essential (primary) hypertension relative adrenal insuff -on solu-cortef/ hydrocortisone Persistent hypoglycemia resolved with hydrocortisone. Empyema lung Status post decortication. Mucous plug: Causing hypoxia and atelectasis of the left lung status post bronchoscopy. - s/p cefepime - Follow final culture results- all no growth -Chest x-ray revealing better aeration and bilateral infiltrates. afib -rate cont'd w.. amiodarone and on coumadin--subtheraperutic--increased dose from 2 to 2.5 Full code Ok to transfer to [facility] bed today/.
[2019-08-02] MEDS: Insulin Regular 300 UNITS/3 ML VIAL SC PRN (18:08)
[2019-08-02] MEDS: Warfarin Sodium 2.5 MG TAB PER TUBE SCH (18:08)
[2019-08-02] MEDS: Rosuvastatin 10 MG TAB PO SCH (20:04)
[2019-08-03] MEDS: traMADol HCl 50 MG TAB PO PRN ×2 (00:31→16:55)
[2019-08-03 04:24] LABS: #Lymphocytes 0.5 thou/uL (1.20-3.40); #Monocytes 0.5 thou/uL (0.11-0.59); #Neutrophils 7.8 thou/uL (1.40-6.50); %Eosinophils 0.5 % (0.0-10.0); %Lymphocytes 5.4 % (21.0-51.0); %Monocytes 5.5 % (0.0-10.0); %Neutrophils 88.6 % (42.0-75.0); Hemoglobin 9.2 g/dL (14.0-18.0); Mean Corpuscular HGB CONC 32.6 g/dL (32.0-36.0); Mean Corpuscular Hemoglobin 29.3 pg (27.0-31.0); Mean Corpuscular Volume 89.9 fL (78.0-98.0); Mean Platelet Volume 7.9 fL (7.4-10.4); Platelet Count 141 thou/uL (130-400); RBC Distribution Width 15.2 % (11.5-14.5); Red Blood Cell (RBC) Count 3.14 mill/uL (4.70-6.10); White Blood Cell (WBC) Count 8.8 thou/uL (4.8-10.8)
[2019-08-03 04:32] LABS: INR-International Normal Ratio 2.2; Prothrombin Time 24.4 sec (12.0-14.7)
[2019-08-03 04:51] LABS: Anion Gap 14 mmol/L (10-20); BUN (Urea Nitrogen) 63 mg/dL (8.4-25.7); Calc. Creatinine Clearance 18 mL/min (70-130); Calcium 7.7 mg/dL (7.8-10.44); Carbon Dioxide 28 mmol/L (23-31); Chloride 98 mmol/L (98-107); Estimated GFR-MDRD 15; Glucose 182 mg/dL (83-110); Sodium 136 mmol/L (136-145)
--- NOTE | 2019-08-03 08:49 | RAD ---
AP CHEST: HISTORY: Postop thoracotomy. COMPARISON: 08/02/19 FINDINGS: Left chest tube unchanged. Cardiomegaly with postop sternotomy change. Vascular congestion. Interstit ial and diffuse hazy alveolar infiltrates throughout the right lung and left basilar opacification co nsistent with atelectasis and infiltrate again noted. The chest appears stable from yesterday. POS: AGW
[2019-08-03] MEDS: Insulin Regular 300 UNITS/3 ML VIAL SC SCH ×4 (09:22→21:26)
[2019-08-03] MEDS: Amiodarone 200 MG TAB PO SCH (09:23)
[2019-08-03] MEDS: Pantoprazole 40 MG VIAL IVP SCH (09:23)
[2019-08-03] MEDS: Hydrocortisone Sod Succ/PF 100 mg/2 ml Vial IVP SCH ×2 (09:23→21:25)
--- NOTE | 2019-08-03 10:09 | PRG ---
DATE OF SERVICE: 08/03/2019 SUBJECTIVE: Mr. Rizvi is an 84-year-old white male, who was seen by the Renal Service for his acute kidney injury. He has presumed acute tubular necrosis. He was initiated on dialysis due to volume overload as well as progressive azotemia. He is still noted to be on the anuric side. Chest x-ray done today showed some stability. No acute events noted last night. The patient voices no new complaints. Denies any chest pain or shortness of breath. OBJECTIVE: VITAL SIGNS: Blood pressure 153/62, heart rate 63, respiratory rate 23, O2 sats 93%. GENERAL: He is noted to be awake, supine, comfortable. Decreased hearing. Not in distress. SKIN: Adequate turgor. HEENT: He has slightly pale conjunctivae. Anicteric sclerae. No neck mass. No carotid bruits. No JVD. CHEST: No deformities. LUNGS: Decreased breath sounds. Positive for left-sided chest tube. HEART: Normal sinus rhythm. No murmurs, gallops, or rubs. ABDOMEN: Globular, soft, and nontender. No masses. EXTREMITIES: No edema. MEDICATIONS: Medications of July 26, 2019, was reviewed. LABORATORY DATA: July 26, 2019, white count 8.8, hemoglobin 9.2. Sodium 136, potassium 4, chloride 98, carbon dioxide 28, BUN 63, creatinine 3.84, glucose 182, calcium 7.7. ASSESSMENT AND PLAN: 1. Acute kidney injury - secondary to presumed acute tubular necrosis. Continuing 3 times a week hemodialysis. Again, fluid removal only as tolerated. I do not see any evidence of renal recovery. In addition, there is no indication for an emergent hemodialysis today. 2. Pneumonia with empyema - patient is status post pulmonary decortication and placement of chest tube. Stable. Pulmonary Surgery is following. 3. Agree with current management. Job ID: [id number]
--- NOTE | 2019-08-03 11:50 | PRG ---
DATE OF SERVICE: 08/03/2019 SUBJECTIVE: Mr. Rizvi states he is feeling a lot better today. His chest tube was removed earlier and he is having less discomfort. He denies any fevers or chills today. He has been seen by Nephrology and they do not anticipate dialysis today. OBJECTIVE: VITAL SIGNS: Blood pressure 153/62, heart rate is 63, afebrile, temperature 97.4, saturation 93% on 3 L. GENERAL: He has a hearing deficit, but otherwise in no distress. He denies significant pain at this time. NECK: No adenopathy or JVD. LUNGS: Rhonchi on the left. There is no wheezing. HEART: Regular rate and rhythm. ABDOMEN: Soft. No organomegaly. He has no edema. LABORATORY DATA: White count 8800; hemoglobin is 9.2, stable; platelet count 141,000. BUN is 63 and creatinine 3.8, increased from 2.5 yesterday. X-ray today showed some haziness in the base with some associated atelectasis, small effusion, but no pneumothorax. IMPRESSION: 1. Status post decortication for empyema, left. 2. Acute tubular necrosis. PLAN: Chest tube is removed today, and we will try to get him out of bed and begin mobilization. He will probably transfer to the medical floor either later today or tomorrow. Job ID: [id number]
--- NOTE | 2019-08-03 15:14 | PDOC.HOSPP ---
- Subjective Encounter Date: 08/03/19 Encounter Time: 12:45 Subjective: pt feeling ok, talk to RN, Reneeube removed today, ok for tele. low calcium. afebrile, 94% w.. 2li O2. - Objective Vital Signs & Weight: Vital Signs (12 hours) Temp Pulse Resp Pulse Ox 08/03/19 15:08 94 L 08/03/19 12:40 65 16 93 L 08/03/19 11:17 97.2 F L 08/03/19 07:27 93 L 08/03/19 07:12 97.4 F L 08/03/19 03:31 97.9 F Weight Admit Weight 188 lb Weight 189 lb 12.8 oz Most Recent Monitor Data Heart Rate from ECG 66 NIBP 155/67 NIBP BP-Mean 96 Respiration from ECG 23 SpO2 92 I&O: 08/02/19 08/03/19 08/04/19 06:59 06:59 06:59 Intake Total 240 650 Output Total 90 0 Balance 150 650 Result Diagrams: 08/03/19 04:01 08/03/19 04:01 Additional Labs: Accuchecks 08/03/19 08/03/19 08/02/19 10:51 05:56 20:06 POC Glucose 159 H 174 H 179 H 08/02/19 08/01/19 07/31/19 16:55 00:14 15:16 POC Glucose 237 H 117 H 108 Hospitalist ROS - Medication Medications: Active Medications Generic Name Dose Route Start Last Admin Trade Name Freq PRN Reason Stop Dose Admin Albuterol/Ipratropium 3 ml 07/25/19 13:00 08/03/19 12:40 Duoneb NEB 3 ml [id number] ANIYAH Administration Amiodarone HCl 200 mg 07/24/19 09:00 08/03/19 09:23 Cordarone PO 200 mg DAILY ANIYAH Administration Diphenhydramine HCl 25 mg 07/25/19 11:29 08/02/19 03:27 Benadryl IVP 25 mg Q6H PRN Administration Itching Hydrocortisone Sodium Succinate 50 mg 07/31/19 09:00 08/03/19 09:23 Solu-Cortef IVP 50 mg BID ANIYAH Administration Norepinephrine Bitartrate 250 mls @ 0 mls/hr 07/24/19 19:48 07/31/19 12:14 Levophed IVPB 250 mls PRN PRN Administration To Keep SBP > 90 mmHG Protocol Titrate Insulin Human Regular 0 units 07/24/19 19:48 08/02/19 18:08 Humulin R SC 3 units .MILD SLIDING SCALE PRN Administration Mild Correctional Scale Insulin Human Regular 0 units 08/01/19 17:00 08/03/19 12:32 Humulin R SC Not Given ACHS ANIYAH Pantoprazole Sodium 40 mg 07/29/19 09:00 08/03/19 09:23 Protonix IVP 40 mg DAILY ANIYAH Administration Rosuvastatin Calcium 10 mg 08/01/19 21:00 08/02/19 20:04 Crestor PO 10 mg HS ANIYAH Administration Tramadol HCl 25 mg 08/02/19 05:35 08/03/19 00:31 Ultram PO 25 mg QID PRN Administration Pain Warfarin Sodium 2.5 mg 08/01/19 17:00 08/02/19 18:08 Coumadin PER TUBE 2.5 mg 1700 ANIYAH Administration - Exam General Appearance: NAD, awake alert Eye: PERRL ENT: normocephalic atraumatic Neck: supple Heart: RRR Respiratory: CTAB, normal chest expansion Gastrointestinal: soft, normal bowel sounds, no palpable masses Neurological: no focal deficits Hosp A/P - Plan (1) Sepsis Code(s): A41.9 - SEPSIS, UNSPECIFIED ORGANISM Status: Acute Qualifiers: Sepsis type: sepsis due to unspecified organism Sepsis acute organ dysfunction status: with acute organ dysfunction Severe sepsis acute organ dysfunction type: acute renal failure Acute renal failure type: unspecified Severe sepsis shock status: without septic shock Qualified Code(s): A41.9 - Sepsis, unspecified organism; R65.20 - Severe sepsis without septic shock; N17.9 - Acute kidney failure, unspecified (2) Code(s): J86.9 - PYOTHORAX WITHOUT FISTULA Status: Suspected (3) Acute respiratory failure Code(s): J96.00 - ACUTE RESPIRATORY FAILURE, UNSP W HYPOXIA OR HYPERCAPNIA Status: Acute Qualifiers: Respiratory failure complication: hypoxia Qualified Code(s): J96.01 - Acute respiratory failure with hypoxia (4) SILVIO (acute kidney injury) Code(s): N17.9 - ACUTE KIDNEY FAILURE, UNSPECIFIED Status: Acute (5) Hypoglycemia Code(s): E16.2 - HYPOGLYCEMIA, UNSPECIFIED Status: Acute (6) Afib Code(s): I48.91 - UNSPECIFIED ATRIAL FIBRILLATION Status: Chronic Qualifiers: Atrial fibrillation type: paroxysmal Qualified Code(s): I48.0 - Paroxysmal atrial fibrillation (7) CAD (coronary artery disease) Code(s): I25.10 - ATHSCL HEART DISEASE OF [place] CORONARY ARTERY W/O ANG PCTRS Status: Chronic Qualifiers: Coronary Disease-Associated Artery/Lesion type: bypass graft [place] vs. transplanted heart: [place] heart Associated angina: without angina Qualified Code(s): I25.810 - Atherosclerosis of coronary artery bypass graft(s) without angina pectoris (8) DM type 2 (diabetes mellitus, type 2) Status: Chronic Qualifiers: Diabetes mellitus intermediate accountant insulin use: with intermediate accountant use Diabetes mellitus complication status: with other specified complication Qualified Code (s): E11.69 - Type 2 diabetes mellitus with other specified complication; Z79.4 - USP (current) use of insulin (9) Dyslipidemia Code(s): E78.5 - HYPERLIPIDEMIA, UNSPECIFIED Status: Chronic (10) HTN (hypertension) Code(s): I10 - ESSENTIAL (PRIMARY) HYPERTENSION Status: Chronic Qualifiers: Hypertension type: essential hypertension Qualified Code(s): I10 - Essential (primary) hypertension relative adrenal insuff -on solu-cortef/ hydrocortisone Persistent hypoglycemia resolved with hydrocortisone. Empyema lung Status post decortication. Mucous plug: Causing hypoxia and atelectasis of the left lung status post bronchoscopy. - s/p cefepime - Follow final culture results- all no growth -Chest x-ray revealing better aeration and bilateral infiltrates. -Ctube removed on afib -rate cont'd w.. amiodarone and on coumadin--subtheraperutic--increased dose from 2 to 2.5 -INR therapeutic on ma for tele bed. -Mobilization -PT/OT a nd CM c/s placed.
[2019-08-03] MEDS: Warfarin Sodium 2.5 MG TAB PER TUBE SCH (16:55)
[2019-08-03] MEDS: Insulin Regular 300 UNITS/3 ML VIAL SC PRN (16:58)
[2019-08-03] MEDS: Calcium Carbonate 500 MG ChewTAB PO SCH (21:25)
[2019-08-03] MEDS: Rosuvastatin 10 MG TAB PO SCH (21:25)
[2019-08-04 02:22] LABS: #Eosinphils 0.1 thou/uL (0.0-0.7); #Lymphocytes 0.4 thou/uL (1.20-3.40); #Monocytes 0.6 thou/uL (0.11-0.59); #Neutrophils 9.7 thou/uL (1.40-6.50); %Basophils 0.2 % (0.0-1.0); %Eosinophils 1.2 % (0.0-10.0); %Lymphocytes 3.3 % (21.0-51.0); %Monocytes 5.2 % (0.0-10.0); %Neutrophils 90.2 % (42.0-75.0); Hemoglobin 9.4 g/dL (14.0-18.0); Mean Corpuscular HGB CONC 32.9 g/dL (32.0-36.0); Mean Corpuscular Hemoglobin 29.5 pg (27.0-31.0); Mean Corpuscular Volume 89.6 fL (78.0-98.0); Mean Platelet Volume 8.1 fL (7.4-10.4); Platelet Count 160 thou/uL (130-400); RBC Distribution Width 15.4 % (11.5-14.5); Red Blood Cell (RBC) Count 3.21 mill/uL (4.70-6.10); White Blood Cell (WBC) Count 10.7 thou/uL (4.8-10.8)
[2019-08-04 02:37] LABS: INR-International Normal Ratio 2.5; Prothrombin Time 26.9 sec (12.0-14.7)
[2019-08-04 02:53] LABS: Anion Gap 14 mmol/L (10-20); BUN (Urea Nitrogen) 84 mg/dL (8.4-25.7); Calc. Creatinine Clearance 14 mL/min (70-130); Calcium 7.6 mg/dL (7.8-10.44); Carbon Dioxide 27 mmol/L (23-31); Chloride 96 mmol/L (98-107); Estimated GFR-MDRD 12; Glucose 168 mg/dL (83-110); Potassium 4.3 mmol/L (3.5-5.1); Sodium 133 mmol/L (136-145)
[2019-08-04] MEDS: diphenhydrAMINE 50 MG/ML VIAL IVP PRN (04:12)
[2019-08-04] MEDS ORDERED: ALPRAZolam 0.25 MG TAB PO PRN (06:18)
--- NOTE | 2019-08-04 08:55 | PRG ---
DATE OF SERVICE: 08/04/2019 SUBJECTIVE: Mr. Rizvi is an 84-year-old white male, who was initially admitted for pneumonia with empyema. He went to acute respiratory failure, was intubated. He underwent surgical intervention - pulmonary decortication and chest tube placement. He is now feeling better. His chest tube has been removed. He voices no new complaints today. Denies any chest pain or shortness of breath. OBJECTIVE: VITAL SIGNS: Blood pressure is 145/55, heart rate 65, respiratory rate 18, temperature 97.4, and O2 saturation is 92%. GENERAL: Noted to be awake, alert, comfortable, not in overt distress. SKIN: Adequate turgor. HEENT: Slightly pale conjunctivae. Anicteric sclerae. No neck mass. No carotid bruits. No JVD. CHEST: No deformities. LUNGS: Decreased breath sounds. HEART: Normal sinus rhythm. No murmurs, gallops, or rubs. ABDOMEN: Globular, soft, nontender. No masses. EXTREMITIES: Trace edema. No deformities. MEDICATIONS: Medications of August 04, 2019, were reviewed. LABORATORY DATA: Laboratories of August 04, 2019: White count 10.7, hemoglobin 9.4. Sodium 133, potassium 4.3, chloride 96, carbon dioxide 27, BUN 84, creatinine 4.85, glucose 168, and calcium 7.6. ASSESSMENT AND PLAN: 1. Acute kidney injury - secondary to presumed ischemic acute tubular necrosis. Continue supportive care. The patient is scheduled for hemodialysis today for a total of 4 hours with fluid removal as tolerated. 2. Status post pneumonia/empyema - the patient is status post pulmonary decortication with chest tube placement. Chest tube has been pulled out. 3. Borderline anemia. We will continue to observe. I do not see any evidence of renal recovery. Recheck basic metabolic panel and CBC in a.m. Agree with current management. Job ID: [id number]
[2019-08-04] MEDS: Insulin Regular 300 UNITS/3 ML VIAL SC SCH ×4 (09:05→20:59)
[2019-08-04] MEDS ORDERED: Heparin 10,000 UNITS/ 10 ML VIAL ONE (09:24)
[2019-08-04] MEDS: Calcium Carbonate 500 MG ChewTAB PO SCH ×2 (12:03→20:58)
[2019-08-04] MEDS: Hydrocortisone Sod Succ/PF 100 mg/2 ml Vial IVP SCH (12:04)
--- NOTE | 2019-08-04 12:38 | PDOC.HOSPP ---
- Subjective Encounter Date: 08/04/19 Encounter Time: 10:20 Subjective: pt seen in HD area. looks quite fatigued. Cr still trending up. low CAlcium. - Objective Vital Signs & Weight: Vital Signs (12 hours) Temp Pulse Resp BP Pulse Ox 08/04/19 07:52 97.4 F L 65 18 145/55 H 92 L 08/04/19 06:33 93 L 08/04/19 06:31 64 16 93 L 08/04/19 04:35 152/70 H 08/04/19 04:20 97.5 F L 66 18 93 L 08/04/19 00:50 97.9 F 67 18 132/58 L 94 L Weight Admit Weight 188 lb Weight 190 lb 6.4 oz Most Recent Monitor Data Heart Rate from ECG 64 NIBP 165/74 NIBP BP-Mean 104 Respiration from ECG 20 SpO2 95 I&O: 08/03/19 08/04/19 08/05/19 06:59 06:59 06:59 Intake Total 650 Output Total 0 Balance 650 Result Diagrams: 08/04/19 02:00 08/04/19 02:00 Additional Labs: Accuchecks 08/04/19 08/04/19 08/03/19 08:38 03:42 19:51 POC Glucose 188 H 183 H 163 H 08/03/19 16:40 POC Glucose 199 H Hospitalist ROS - Medication Medications: Active Medications Generic Name Dose Route Start Last Admin Trade Name Freq PRN Reason Stop Dose Admin Albuterol/Ipratropium 3 ml 07/25/19 13:00 08/04/19 12:24 Duoneb NEB Not Given [id number] ANIYAH Amiodarone HCl 200 mg 07/24/19 09:00 08/03/19 09:23 Cordarone PO 200 mg DAILY ANIYAH Administration Calcium Carbonate 500 mg 08/03/19 21:00 08/04/19 12:03 Tums PO Not Given BID ANIYAH Diphenhydramine HCl 25 mg 07/25/19 11:29 08/04/19 04:12 Benadryl IVP 25 mg Q6H PRN Administration Itching Hydrocortisone Sodium Succinate 50 mg 07/31/19 09:00 08/04/19 12:04 Solu-Cortef IVP Not Given BID [facility] Insulin Human Regular 0 units 07/24/19 19:48 08/03/19 16:58 Humulin R SC 2 units .MILD SLIDING SCALE PRN Administration Mild Correctional Scale Insulin Human Regular 0 units 08/01/19 17:00 08/04/19 12:04 Humulin R SC Not Given ACHS ANIYAH Pantoprazole Sodium 40 mg 07/29/19 09:00 08/03/19 09:23 Protonix IVP 40 mg DAILY ANIYAH Administration Rosuvastatin Calcium 10 mg 08/01/19 21:00 08/03/19 21:25 Crestor PO 10 mg HS ANIYAH Administration Sodium Chloride 10 ml 08/04/19 09:00 08/04/19 12:04 Flush - Normal Saline IVF Not Given Q12HR ANIYAH Tramadol HCl 25 mg 08/02/19 05:35 08/03/19 16:55 Ultram PO 25 mg QID PRN Administration Pain Warfarin Sodium 2.5 mg 08/01/19 17:00 08/03/19 16:55 Coumadin PER TUBE 2.5 mg 1700 ANIYAH Administration - Exam General Appearance: NAD, awake alert, ill appearing Eye: PERRL ENT: normocephalic atraumatic Neck: supple Heart: RRR Respiratory: CTAB, normal chest expansion Gastrointestinal: soft, normal bowel sounds, no palpable masses Neurological: no focal deficits Hosp A/P - Plan (1) Sepsis Code(s): A41.9 - SEPSIS, UNSPECIFIED ORGANISM Status: Acute Qualifiers: Sepsis type: sepsis due to unspecified organism Sepsis acute organ dysfunction status: with acute organ dysfunction Severe sepsis acute organ dysfunction type: acute renal failure Acute renal failure type: unspecified Severe sepsis shock status: without septic shock Qualified Code(s): A41.9 - Sepsis, unspecified organism; R65.20 - Severe sepsis without septic shock; N17.9 - Acute kidney failure, unspecified (2) Code(s): J86.9 - PYOTHORAX WITHOUT FISTULA Status: Suspected (3) Acute respiratory failure Code(s): J96.00 - ACUTE RESPIRATORY FAILURE, UNSP W HYPOXIA OR HYPERCAPNIA Status: Acute Qualifiers: Respiratory failure complication: hypoxia Qualified Code(s): J96.01 - Acute respiratory failure with hypoxia (4) SILVIO (acute kidney injury) Code(s): N17.9 - ACUTE KIDNEY FAILURE, UNSPECIFIED Status: Acute (5) Hypoglycemia Code(s): E16.2 - HYPOGLYCEMIA, UNSPECIFIED Status: Acute (6) Afib Code(s): I48.91 - UNSPECIFIED ATRIAL FIBRILLATION Status: Chronic Qualifiers: Atrial fibrillation type: paroxysmal Qualified Code(s): I48.0 - Paroxysmal atrial fibrillation (7) CAD (coronary artery disease) Code(s): I25.10 - ATHSCL HEART DISEASE OF [place] CORONARY ARTERY W/O ANG PCTRS Status: Chronic Qualifiers: Coronary Disease-Associated Artery/Lesion type: bypass graft [place] vs. 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 Empyema lung Status post decortication. Mucous plug: Causing hypoxia and atelectasis of the left lung status post bronchoscopy. - s/p cefepime - Follow final culture results- all no growth -Chest x-ray revealing better aeration and bilateral infiltrates. -Ctube removed on afib -rate cont'd w.. amiodarone and on coumadin--subtheraperutic--increased dose from 2 to 2.5 -INR therapeutic on transferred to [facility] hospital bed. -Mobilization -PT/OT a nd CM c/s placed. dc hydrocortisone Hypocalcemia -- ca supplemented. it appears that pt needs ongoing dialysis as renal recovery is not immenent talk to dr. Martinez -plan for tunnel cath - c/s'd Gen sux -c/s'd CM for outpt dialysis chair, in case if pt does not want to goto rehab.
--- NOTE | 2019-08-04 13:41 | RAD ---
Exam: Chest one view HISTORY:Status post thoracotomy Comparison: 07/26/2019 FINDINGS: Lines and tubes: Interval removal of left-sided chest tube. Stable right-sided central venous cathete r. Stable sternotomy wires. Cardiac silhouette:Cardiomegaly Aorta: Atherosclerotic Pulmonary vessels: Normal Costophrenic angles: Persistent left-sided pleural effusion. Trace right-sided pleural effusion. LUNGS: Persistent interstitial and alveolar changes. Pneumothorax: None Osseous abnormalities: None IMPRESSION: Interval removal of left-sided chest tube. Otherwise, no significant interval change.
[2019-08-04] MEDS: Pantoprazole 40 MG VIAL IVP SCH (14:51)
[2019-08-04] MEDS: Amiodarone 200 MG TAB PO SCH (14:51)
--- NOTE | 2019-08-04 16:47 | PDOC.FMACP ---
Advance Care Planning - Problem (1) Palliative care encounter Status: Acute Code(s): Z51.5 - ENCOUNTER FOR PALLIATIVE CARE (2) SILVIO (acute kidney injury) Status: Acute Code(s): N17.9 - ACUTE KIDNEY FAILURE, UNSPECIFIED (3) Acute respiratory failure Status: Acute Code(s): J96.00 - ACUTE RESPIRATORY FAILURE, UNSP W HYPOXIA OR HYPERCAPNIA Qualifiers: Respiratory failure complication: hypoxia Qualified Code(s): J96.01 - Acute respiratory failure with hypoxia (4) SBO (small bowel obstruction) Status: Acute Code(s): K56.69 - OTHER INTESTINAL OBSTRUCTION * DO NOT USE * - Note Participants: patient, family, palliative care Summary: Palliative Care introduced Advanced Care Planning, allowed an opportunity to decline. Initiated a conversation in relation to the diagnosis, prognosis and goals of care were discussed. Appropriate forms and documentation to accomplish the goals of care were discussed. Patient states that his is MPOA, will request for documentation to be given to the hospital. All questions were answered. Continue with aggressive measures, encouraged to discuss Directive to Physician with his family in the event they need to make decisions on his behalf. The Palliative Care Team will continue to assist with completion of any outstanding forms that the patient desires to revisit or change in the future. Time Spent (mins): 20
[2019-08-04] MEDS: Warfarin Sodium 2.5 MG TAB PER TUBE SCH (17:45)
[2019-08-04] MEDS: Rosuvastatin 10 MG TAB PO SCH (20:58)
[2019-08-04] MEDS ORDERED: Melatonin 3 MG TAB PO PRN (23:23)
[2019-08-04] MEDS: Zolpidem Tartrate 5 MG TAB PO PRN (23:50)
[2019-08-05 05:03] LABS: #Eosinphils 0.2 thou/uL (0.0-0.7); #Lymphocytes 0.5 thou/uL (1.20-3.40); #Neutrophils 11.8 thou/uL (1.40-6.50); %Basophils 0.1 % (0.0-1.0); %Eosinophils 1.4 % (0.0-10.0); %Lymphocytes 3.4 % (21.0-51.0); %Monocytes 7.5 % (0.0-10.0); %Neutrophils 87.6 % (42.0-75.0); Hemoglobin 10.8 g/dL (14.0-18.0); Mean Corpuscular HGB CONC 32.6 g/dL (32.0-36.0); Mean Corpuscular Hemoglobin 29.2 pg (27.0-31.0); Mean Corpuscular Volume 89.6 fL (78.0-98.0); Mean Platelet Volume 7.6 fL (7.4-10.4); Platelet Count 186 thou/uL (130-400); RBC Distribution Width 15.6 % (11.5-14.5); Red Blood Cell (RBC) Count 3.69 mill/uL (4.70-6.10); White Blood Cell (WBC) Count 13.5 thou/uL (4.8-10.8)
[2019-08-05 05:09] LABS: Prothrombin Time 31.1 sec (12.0-14.7)
[2019-08-05 05:25] LABS: Anion Gap 14 mmol/L (10-20); BUN (Urea Nitrogen) 39 mg/dL (8.4-25.7); Calc. Creatinine Clearance 21 mL/min (70-130); Carbon Dioxide 26 mmol/L (23-31); Chloride 99 mmol/L (98-107); Estimated GFR-MDRD 18; Glucose 148 mg/dL (83-110); Sodium 135 mmol/L (136-145)
[2019-08-05] MEDS: Insulin Regular 300 UNITS/3 ML VIAL SC SCH ×4 (08:05→21:23)
--- NOTE | 2019-08-05 08:18 | RAD ---
EXAM: CHEST ONE VIEW HISTORY: Post thoracotomy. COMPARISON: 08/04/2019 FINDINGS: Right-sided vascular catheter remains in place. Median sternotomy wires are again seen. Cardiac silho uette is magnified by projection but is probably enlarged. Vascular calcifications are again seen in the thoracic aorta. Trace right pleural effusion persists. Pleural and parenchymal changes at the left lung base are again seen and may represent left pleural effusion and volume loss. Interstitial and alveolar opacities in the right lung have improved some of which may related to improvement in de pth of inspiration. Pleural density along the left lateral hemithorax is again seen. Postoperative changes left shoulder are again seen. No other interval change. IMPRESSION: 1. Improvement in interstitial and alveolar opacities right hemithorax which could be secondary to be tter depth of inspiration on the current exam. Interstitial and mild alveolar opacities do persist. Continued follow-up recommended. 2. Persistent pleural-parenchymal changes left hemithorax which could be related to left pleural effu julia and volume loss. Pneumonia at the left lung base could not be excluded. Continued follow-up recommended.
[2019-08-05] MEDS ORDERED: Tuberculin PPD 0.1 ML VIAL I-DERMAL SCH (08:30)
--- NOTE | 2019-08-05 08:59 | PRG ---
DATE OF SERVICE: 08/05/2019 SUBJECTIVE: Mr. Rizvi is an 84-year-old white male, followed up by the Renal Service for his acute kidney injury secondary to presumed acute tubular necrosis. He was initially admitted for pneumonia with acute respiratory failure. He underwent a chest surgery/pulmonary decortication due to his empyema. Chest tube was placed and subsequently removed. We are following him up for his acute kidney injury. There is no evidence of renal recovery at the present time. We are continuing maintenance hemodialysis. He did undergo hemodialysis yesterday and tolerated said treatment. No other complaints today. OBJECTIVE: VITAL SIGNS: Blood pressure 138/64, heart rate 83, respiratory rate 16, temperature 97.4, and O2 saturation 96%. GENERAL: Noted to be awake, but not in distress, slightly confused. HEENT: Pinkish conjunctivae. Anicteric sclerae. NECK: No neck mass. No carotid bruits. No JVD. CHEST: No deformities. LUNGS: Clear breath sounds. HEART: Normal sinus rhythm. No murmur. No gallops. No rubs. ABDOMEN: Globular, soft, and nontender. No masses. EXTREMITIES: No edema. No deformities. MEDICATIONS: Medications of August 05, 2019, were reviewed. LABORATORY DATA: August 05, 2019; white count 13.5, hemoglobin 10.8, sodium 135, potassium 4.0, chloride 99, carbon dioxide 26, BUN 39, and creatinine 3.3. ASSESSMENT AND PLAN: Acute kidney injury - secondary to presumed ischemic acute tubular necrosis. Continue supportive hemodialysis. No evidence of renal recovery. No indication for an emergent hemodialysis today. Continue Sunday, Sunday, and Sunday dialysis. Overall, prognosis remains guarded. Recheck base met and CBC in a.m. Job ID: [id number]
[2019-08-05] MEDS: Amiodarone 200 MG TAB PO SCH (09:14)
[2019-08-05] MEDS: Pantoprazole 40 MG VIAL IVP SCH (09:14)
[2019-08-05] MEDS: Calcium Carbonate 500 MG ChewTAB PO SCH ×2 (09:14→21:22)
--- NOTE | 2019-08-05 13:10 | PDOC.HOSPP ---
- Subjective Encounter Date: 08/05/19 Encounter Time: 09:10 Subjective: pt is getting sponge bath. skin is intact, no press ulcers on the heels or butts. pending rehab. later RN called reg.. poss fall --will keep him on close obs, as plan for rehab placement. - Objective Vital Signs & Weight: Vital Signs (12 hours) Temp Pulse Resp BP Pulse Ox 08/05/19 12:41 77 16 94 L 08/05/19 12:00 97.4 F L 89 16 145/71 H 16 L 08/05/19 08:00 97.4 F L 83 16 162/73 H 96 08/05/19 07:03 97 08/05/19 07:02 79 16 97 08/05/19 04:00 97.7 F 85 16 138/64 94 L Weight Admit Weight 188 lb Weight 190 lb 6.4 oz Most Recent Monitor Data Heart Rate from ECG 64 NIBP 165/74 NIBP BP-Mean 104 Respiration from ECG 20 SpO2 95 Result Diagrams: 08/05/19 04:44 08/05/19 04:44 Additional Labs: Accuchecks 08/05/19 08/05/19 08/04/19 10:42 05:30 20:15 POC Glucose 235 H 144 H 194 H 08/04/19 08/04/19 08/04/19 16:08 13:43 13:43 POC Glucose 128 H 88 88 08/04/19 13:43 POC Glucose 88 Hospitalist ROS - Medication Medications: Active Medications Generic Name Dose Route Start Last Admin Trade Name Freq PRN Reason Stop Dose Admin Albuterol/Ipratropium 3 ml 07/25/19 13:00 08/05/19 12:41 Duoneb NEB 3 ml [id number] ANIYAH Administration Amiodarone HCl 200 mg 07/24/19 09:00 08/05/19 09:14 Cordarone PO 200 mg DAILY ANIYAH Administration Calcium Carbonate 500 mg 08/03/19 21:00 08/05/19 09:14 Tums PO 500 mg BID ANIYAH Administration Diphenhydramine HCl 25 mg 07/25/19 11:29 08/04/19 04:12 Benadryl IVP 25 mg Q6H PRN Administration Itching Insulin Human Regular 0 units 07/24/19 19:48 08/03/19 16:58 Humulin R SC 2 units .MILD SLIDING SCALE PRN Administration Mild Correctional Scale Insulin Human Regular 0 units 08/01/19 17:00 08/05/19 12:04 Humulin R SC 3 unit ACHS ANIYAH Administration Rosuvastatin Calcium 10 mg 08/01/19 21:00 08/04/19 20:58 Crestor PO 10 mg HS ANIYAH Administration Sodium Chloride 10 ml 08/04/19 09:00 08/05/19 09:15 Flush - Normal Saline IVF 10 ml Q12HR ANIYAH Administration Tramadol HCl 25 mg 08/02/19 05:35 08/03/19 16:55 Ultram PO 25 mg QID PRN Administration Pain Zolpidem Tartrate 5 mg 08/04/19 23:23 08/04/19 23:50 Ambien PO 5 mg HS PRN Administration Insomnia - Exam General Appearance: NAD, awake alert Eye: PERRL ENT: normocephalic atraumatic Neck: supple Heart: RRR Respiratory: CTAB, normal chest expansion Gastrointestinal: soft, normal bowel sounds Neurological: no focal deficits Psychiatric: normal affect, normal behavior, A&O x 3 Hosp A/P - Plan (1) Sepsis Code(s): A41.9 - SEPSIS, UNSPECIFIED ORGANISM Status: Acute Qualifiers: Sepsis type: sepsis due to unspecified organism Sepsis acute organ dysfunction status: with acute organ dysfunction Severe sepsis acute organ dysfunction type: acute renal failure Acute renal failure type: unspecified Severe sepsis shock status: without septic shock Qualified Code(s): A41.9 - Sepsis, unspecified organism; R65.20 - Severe sepsis without septic shock; N17.9 - Acute kidney failure, unspecified (2) Code(s): J86.9 - PYOTHORAX WITHOUT FISTULA Status: Suspected (3) Acute respiratory failure Code(s): J96.00 - ACUTE RESPIRATORY FAILURE, UNSP W HYPOXIA OR HYPERCAPNIA Status: Acute Qualifiers: Respiratory failure complication: hypoxia Qualified Code(s): J96.01 - Acute respiratory failure with hypoxia (4) SILVIO (acute kidney injury) Code(s): N17.9 - ACUTE KIDNEY FAILURE, UNSPECIFIED Status: Acute (5) Hypoglycemia Code(s): E16.2 - HYPOGLYCEMIA, UNSPECIFIED Status: Acute (6) Afib Code(s): I48.91 - UNSPECIFIED ATRIAL FIBRILLATION Status: Chronic Qualifiers: Atrial fibrillation type: paroxysmal Qualified Code(s): I48.0 - Paroxysmal atrial fibrillation (7) CAD (coronary artery disease) Code(s): I25.10 - ATHSCL HEART DISEASE OF [place] CORONARY ARTERY W/O ANG PCTRS Status: Chronic Qualifiers: Coronary Disease-Associated Artery/Lesion type: bypass graft [place] vs. 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 Empyema lung Status post decortication. Mucous plug: Causing hypoxia and atelectasis of the left lung status post bronchoscopy. - s/p cefepime - Follow final culture results- all no growth -Chest x-ray revealing better aeration and bilateral infiltrates. -Ctube removed on afib -rate cont'd w.. amiodarone and on coumadin--subtheraperutic--increased dose from 2 to 2.5 -INR therapeutic on transferred to [place] hospital bed. -Mobilization -PT/OT a nd CM c/s placed. dc hydrocortisone Hypocalcemia -- ca supplemented. it appears that pt needs ongoing dialysis as renal recovery is not immenent talk to dr. Martinez -plan for tunnel cath - c/s'd Gen sux -c/s'd CM for outpt dialysis chair, in case if pt does not want to goto rehab. Pending Dr. Garcia's eval for tunnel cath. once that is taken care off, then plan for rehab. close monitoring as pt is fall risk. Holding coumadin. --should be off for 3 to 5 days prior to cath placement.
--- NOTE | 2019-08-05 20:58 | PRG ---
DATE OF SERVICE: 08/05/2019 SUBJECTIVE: Titus Rizvi' events have been reviewed. OBJECTIVE: GENERAL: He is in no distress. VITAL SIGNS: Have been stable. He is afebrile, heart rate is in the 90s, respiratory rates in the teens, oximetry is 96% on 2 L, and blood pressure 142/ 60. LUNGS: Remarkable for distant breath sounds. HEART: Regular rhythm. ABDOMEN: Soft. IMAGING STUDIES: Chest x-ray was ordered for today. Chest x-ray is improved on the right. PLAN: Overall, he appears to be stable. He is stable for placement in my opinion. We will sign off. Job ID: [id number] MTDD
[2019-08-05] MEDS: Rosuvastatin 10 MG TAB PO SCH (21:22)
[2019-08-06] MEDS ORDERED: Melatonin 3 MG TAB PO SCH ×2 (02:30→21:00)
[2019-08-06] MEDS ORDERED: CEFAZOLIN 2 GM in Premix Bag 1 BAG IVPB SCH (06:00)
[2019-08-06] MEDS: Amiodarone 200 MG TAB PO SCH (08:53)
[2019-08-06] MEDS: Insulin Regular 300 UNITS/3 ML VIAL SC SCH ×4 (09:00→21:12)
[2019-08-06] MEDS ORDERED: Bupivacaine 0.25% HCL 30 ML VIAL ONE ×2 (09:03→11:10)
[2019-08-06] MEDS ORDERED: Sodium Chloride 0.9% 0 ML ONE (09:03)
[2019-08-06] MEDS ORDERED: Lidocaine 1% w/Epinephrine 1:100K 20 ML VIAL ONE ×2 (09:03→11:10)
[2019-08-06] MEDS ORDERED: Heparin 10,000 UNITS/1 ML VIAL ONE ×2 (09:03→11:10)
--- NOTE | 2019-08-06 09:40 | PRG ---
DATE OF SERVICE: 08/06/2019 SERVICE: Renal Medicine. SUBJECTIVE: Mr. Rizvi is an 84-year-old white male being followed up by the Renal Service for his acute kidney injury secondary to presumed ischemic ATN. He has been started on dialysis due to volume overload and progressive azotemia. This morning, a planned tunneled dialysis catheter will be placed. He will undergo dialysis after placement of this tunneled dialysis catheter. This morning, he voices no new complaints. Please note, the patient was initially admitted for acute respiratory failure/pneumonia. He has undergone pulmonary decortication with chest tube placement. Since that time, he has much improved. Chest tube is out. OBJECTIVE: VITAL SIGNS: Blood pressure is 156/72, heart rate 75, respiratory rate 20, temperature 97.8, and O2 saturation 94%. GENERAL: Noted to be awake, alert, comfortable, not in overt distress. SKIN: Adequate turgor. HEENT: Pinkish conjunctivae. Anicteric sclerae. NECK: No neck mass. No carotid bruits. No JVD. CHEST: No deformities. LUNGS: Clear breath sounds. HEART: Normal sinus rhythm. No murmurs. No gallops. No rubs. ABDOMEN: Globular, soft, and nontender. No masses. EXTREMITIES: No edema. No deformities. MEDICATIONS: Medications of August 06, 2019, were reviewed. LABORATORY DATA: Laboratories of August 05, 2019; BUN 39, creatinine 3.3, potassium 4. White count 13.5, hemoglobin 10.8. ASSESSMENT AND PLAN: 1. Acute kidney injury - secondary to presumed acute tubular necrosis. Continuing on Sunday, Sunday, and Sunday hemodialysis. Observe for any possible recovery. At the present time, no evidence of renal recovery. A tunneled dialysis catheter will be placed in anticipation of possible discharge to a long-term/rehab. 2. Status post acute respiratory failure/pneumonia, much improved. 3. Anemia. Continue to observe. We will recheck CBC and basic metabolic panel in a.m. Job ID: [id number]
[2019-08-06 10:02] LABS: #Eosinphils 0.3 thou/uL (0.0-0.7); #Lymphocytes 0.6 thou/uL (1.20-3.40); %Basophils 0.1 % (0.0-1.0); %Eosinophils 1.9 % (0.0-10.0); %Lymphocytes 3.9 % (21.0-51.0); %Monocytes 6.9 % (0.0-10.0); %Neutrophils 87.2 % (42.0-75.0); Hemoglobin 11.1 g/dL (14.0-18.0); Mean Corpuscular HGB CONC 32.3 g/dL (32.0-36.0); Mean Corpuscular Hemoglobin 29.4 pg (27.0-31.0); Mean Corpuscular Volume 90.8 fL (78.0-98.0); Mean Platelet Volume 7.6 fL (7.4-10.4); Platelet Count 198 thou/uL (130-400); RBC Distribution Width 15.7 % (11.5-14.5); Red Blood Cell (RBC) Count 3.77 mill/uL (4.70-6.10); White Blood Cell (WBC) Count 14.9 thou/uL (4.8-10.8)
[2019-08-06 10:19] LABS: INR-International Normal Ratio 2.4; PTT 54.7 sec (22.9-36.1); Prothrombin Time 26.2 sec (12.0-14.7)
[2019-08-06 10:32] LABS: ALT (SGPT) 150 U/L (8-55); AST (SGOT) 119 U/L (5-34); Albumin 2.5 g/dL (3.4-4.8); Alkaline Phosphatase 267 U/L (40-110); Anion Gap 14 mmol/L (10-20); BUN (Urea Nitrogen) 63 mg/dL (8.4-25.7); Bilirubin, Total 1.6 mg/dL (0.2-1.2); Calc. Creatinine Clearance 14 mL/min (70-130); Carbon Dioxide 25 mmol/L (23-31); Chloride 99 mmol/L (98-107); Estimated GFR-MDRD 12; Globulin 3.6 g/dL (2.4-3.5); Glucose 64 mg/dL (83-110); Potassium 4.3 mmol/L (3.5-5.1); Protein, Total 6.1 g/dL (5.8-8.1); Sodium 134 mmol/L (136-145)
[2019-08-06] MEDS ORDERED: Fentanyl 100 MCG/2 ML VIAL ONE (11:08)
[2019-08-06] MEDS ORDERED: Sodium Chloride 0.9% 30 ML ONE (11:09)
--- NOTE | 2019-08-06 11:52 | CON ---
DATE OF CONSULTATION: REASON FOR CONSULT: Dialysis access. HISTORY OF PRESENT ILLNESS: Mr. Rizvi is an 84-year-old male with multiple medical problems, who was admitted to the hospital on July 22 with sepsis, hypoglycemia, and mental status changes. He is in acute renal failure and on dialysis, but his change management lead is hopeful that his renal function may recover. He has a Trialysis catheter in place in the femoral position, but requires a tunneled dialysis catheter for ongoing short-term dialysis history. The patient was found unresponsive on the morning of July 22 and brought to the ER by EMS. His fingerstick was in the 30s on arrival and he was taken to his local ER and then transferred to [place] for further care. He had been recently diagnosed with pneumonia and was finishing up his course of antibiotics and had recently undergone removal of his AICD, which had eroded through the skin in the month prior to his admission. He had undergone a decortication by Dr. Onofre for suspected empyema, although the cultures returned back negative and he has been on dialysis during this admission only. He does not have any history of previous renal failure. He does have a history of heart failure and was having problems with fluid overload exacerbated by his acute renal failure leading to need for dialysis, which was begun on the . PAST MEDICAL HISTORY: Coronary artery disease, status post coronary artery bypass grafting in 1999 as well as stents, heart failure status post AICD placement and subsequent removal, hypertension, type 2 diabetes, chronic atrial fibrillation. PAST SURGICAL HISTORY: Coronary artery bypass grafting and stenting, AICD placement and removal, appendectomy, tonsillectomy, hernia repair, small bowel obstruction surgery, lumbar spine surgery, left shoulder surgery, and during this admission, a thoracoscopy and decortication. SOCIAL HISTORY: The patient is not a smoker and has never been a smoker. He does not use illicit drugs. He drinks only rarely. FAMILY HISTORY: Noncontributory. OUTPATIENT MEDICATIONS: 1. Amiodarone. 2. Toprol. 3. Levemir. 4. Amaryl. 5. Lasix. 6. Coumadin. 7. Crestor. CURRENT INPATIENT MEDICATIONS: 1. DuoNeb. 2. Amiodarone. 3. Calcium carbonate. 4. Sliding scale insulin. 5. Protonix. 6. Crestor. 7. Multiple p.r.n. His Coumadin was discontinued on the . REVIEW OF SYSTEMS: Ten system review of systems is significant for chronic shortness of breath, chronic numbness and weakness in both hands, he is right-handed, chronic orthopnea, chronic lower extremity swelling, but is otherwise negative. PHYSICAL EXAMINATION: VITAL SIGNS: The patient has been afebrile, heart rate 75, respirations 20, 94% saturated on 2 L nasal cannula, blood pressure 156/72. GENERAL: A frail, elderly man, in no acute distress. HEENT: Unremarkable. NECK: Supple without lymphadenopathy or thyroid nodules. HEART: Regular with occasional early beats. He does have a systolic murmur, which is audible over his entire precordium and radiates to his left axilla. Breath sounds are distant bilaterally and diminished in both bases, but without wheezes or crackles. ABDOMEN: Soft, nontender, nondistended. EXTREMITIES: Cool with slightly delayed capillary refill in both hands. He has ulnar dominant filling on Austen's testing. No palpable cephalic forearm veins. He does have palpable antecubital vein on the right. He has grossly normal motor strength, but subjective weakness and numbness. Moderate lower extremity edema bilaterally. PSYCHIATRIC: Alert, oriented, and appropriate. He is quite hard of hearing, but answers questions appropriately. LABORATORY DATA: White count is elevated at 14.9, hematocrit 34, platelets 198. BUN and creatinine 63 and 4.7, potassium is 4.3, bicarb is 25, bilirubin is slightly elevated at 1.6. AST and ALT are 119 and 150, alkaline phosphatase is 267. Glucose is a little low at 64. INR today is 2.4, this is down from 3 yesterday. ASSESSMENT: Acute renal failure with need for ongoing dialysis. A tunneled dialysis catheter has been requested for this. The patient does have heart failure and chronic atrial fibrillation and is chronically anticoagulated, but his Coumadin has been held since the . His INR today is 2.4, which is improving, but his white count is going up, which could be from his femoral catheter, which has been in place since the . I discussed with the patient the process of tunneled dialysis catheter placement. The inherent risks of this include, but are not limited to, bleeding, infection, risks of anesthesia, hemothorax, pneumothorax, DVT, and need for other procedures. He understands he is at increased risk for bleeding due to his INR being elevated at 2.4. We discussed the option of waiting until tomorrow to place the catheter. At that point, I expect that his INR would have fallen further. However, his white count is climbing and it is possible that his femoral catheter could be the source. The patient strongly prefers to proceed with surgery today. He does understand that he has an increased risk of bleeding due to his INR being slightly elevated. I did consider reversal of his anticoagulant that the risks likely are acceptable with INR of 2.4, and he has significant medical issues requiring ongoing coagulation. We will need to place a peripheral IV if he has any need for ongoing peripheral IV access, hopefully this can be left out and his Trialysis catheter can be removed postoperatively. All the patient's questions were answered. Antibiotics have been ordered on-call to the OR. Job ID: [id number]
[2019-08-06] MEDS ORDERED: Heparin 10,000 UNITS/ 10 ML VIAL ONE (12:42)
--- NOTE | 2019-08-06 13:17 | RAD ---
PORTABLE CHEST 1 VIEW: Date: 08/15/2019 Time: 1209 hours HISTORY: Status post thoracotomy. COMPARISON: Previous day. FINDINGS/IMPRESSION: There has been interval removal of the right-sided central venous catheter and placement of a dialysi s catheter with tips in the projection of the SVC. No pneumothorax is seen. The remainder of the exam is otherwise stable. POS: LIZETTE
[2019-08-06] MEDS: Calcium Carbonate 500 MG ChewTAB PO SCH ×2 (14:29→21:10)
[2019-08-06] MEDS: hydrALAZINE 25 MG TAB PO SCH ×3 (14:30→21:10)
--- NOTE | 2019-08-06 15:53 | PDOC.HOSPP ---
- Subjective Encounter Date: 08/06/19 Encounter Time: 15:30 Subjective: pt seen after he came from OR, s/p tunnel cath on r. IJ. pt sitting straight up on the bed, says wants to be 'slanted' adjusted the bed rails. comfortable. - Objective Vital Signs & Weight: Vital Signs (12 hours) Temp Pulse Resp BP Pulse Ox 08/06/19 14:30 70 08/06/19 13:00 97.5 F L 70 20 157/70 H 100 08/06/19 08:00 97.8 F 75 20 156/72 H 94 L 08/06/19 06:43 95 08/06/19 06:42 69 16 95 08/06/19 04:05 95 08/06/19 03:47 98.5 F 78 16 160/69 H 89 L Weight Admit Weight 188 lb Weight 184 lb 3.2 oz Most Recent Monitor Data Heart Rate from ECG 64 NIBP 165/74 NIBP BP-Mean 104 Respiration from ECG 20 SpO2 95 I&O: 08/05/19 08/06/19 08/07/19 06:59 06:59 06:59 Intake Total 240 Output Total 50 Balance -50 240 Result Diagrams: 08/06/19 08:54 08/06/19 08:54 Additional Labs: Accuchecks 08/06/19 08/05/19 08/05/19 05:41 21:04 16:47 POC Glucose 90 81 97 Hospitalist ROS - Medication Medications: Active Medications Generic Name Dose Route Start Last Admin Trade Name Freq PRN Reason Stop Dose Admin Albuterol/Ipratropium 3 ml 07/25/19 13:00 08/06/19 12:30 Duoneb NEB Not Given [id number] ANIYAH Calcium Carbonate 500 mg 08/03/19 21:00 08/06/19 14:29 Tums PO Not Given BID ANIYAH Diphenhydramine HCl 25 mg 07/25/19 11:29 08/04/19 04:12 Benadryl IVP 25 mg Q6H PRN Administration Itching Hydralazine HCl 25 mg 08/06/19 09:00 08/06/19 14:30 Apresoline PO Not Given TID ANIYAH Insulin Human Regular 0 units 07/24/19 19:48 08/03/19 16:58 Humulin R SC 2 units .MILD SLIDING SCALE PRN Administration Mild Correctional Scale Insulin Human Regular 0 units 08/01/19 17:00 08/06/19 14:30 Humulin R SC Not Given ACHS ANIYAH Sodium Chloride 10 ml 08/04/19 09:00 08/06/19 14:30 Flush - Normal Saline IVF Not Given Q12HR ANIYAH Tramadol HCl 25 mg 08/02/19 05:35 08/03/19 16:55 Ultram PO 25 mg QID PRN Administration Pain Zolpidem Tartrate 5 mg 08/04/19 23:23 08/04/19 23:50 Ambien PO 5 mg HS PRN Administration Insomnia - Exam General Appearance: NAD, awake alert General - other findings: R- IJ tunnal cath Eye: PERRL ENT: normocephalic atraumatic Neck: supple Heart: RRR Respiratory: CTAB, normal chest expansion Gastrointestinal: soft, normal bowel sounds Neurological: no focal deficits Psychiatric: A&O x 3 Hosp A/P - Plan (1) Sepsis Code(s): A41.9 - SEPSIS, UNSPECIFIED ORGANISM Status: Acute Qualifiers: Sepsis type: sepsis due to unspecified organism Sepsis acute organ dysfunction status: with acute organ dysfunction Severe sepsis acute organ dysfunction type: acute renal failure Acute renal failure type: unspecified Severe sepsis shock status: without septic shock Qualified Code(s): A41.9 - Sepsis, unspecified organism; R65.20 - Severe sepsis without septic shock; N17.9 - Acute kidney failure, unspecified (2) Code(s): J86.9 - PYOTHORAX WITHOUT FISTULA Status: Suspected (3) Acute respiratory failure Code(s): J96.00 - ACUTE RESPIRATORY FAILURE, UNSP W HYPOXIA OR HYPERCAPNIA Status: Acute Qualifiers: Respiratory failure complication: hypoxia Qualified Code(s): J96.01 - Acute respiratory failure with hypoxia (4) SILVIO (acute kidney injury) Code(s): N17.9 - ACUTE KIDNEY FAILURE, UNSPECIFIED Status: Acute (5) Hypoglycemia Code(s): E16.2 - HYPOGLYCEMIA, UNSPECIFIED Status: Acute (6) Afib Code(s): I48.91 - UNSPECIFIED ATRIAL FIBRILLATION Status: Chronic Qualifiers: Atrial fibrillation type: paroxysmal Qualified Code(s): I48.0 - Paroxysmal atrial fibrillation (7) CAD (coronary artery disease) Code(s): I25.10 - ATHSCL HEART DISEASE OF [place] CORONARY ARTERY W/O ANG PCTRS Status: Chronic Qualifiers: Coronary Disease-Associated Artery/Lesion type: bypass graft [place] vs. transplanted heart: [place] heart Associated angina: without angina Qualified Code(s): I25.810 - Atherosclerosis of coronary artery bypass graft(s) without angina pectoris (8) DM type 2 (diabetes mellitus, type 2) Status: Chronic Qualifiers: Diabetes mellitus intermediate frame tender insulin use: with senior care use Diabetes mellitus complication status: with other specified complication Qualified Code (s): E11.69 - Type 2 diabetes mellitus with other specified complication; Z79.4 - intermodal dispatcher (current) use of insulin (9) Dyslipidemia Code(s): E78.5 - HYPERLIPIDEMIA, UNSPECIFIED Status: Chronic (10) HTN (hypertension) Code(s): I10 - ESSENTIAL (PRIMARY) HYPERTENSION Status: Chronic Qualifiers: Hypertension type: essential hypertension Qualified Code(s): I10 - Essential (primary) hypertension relative adrenal insuff -on solu-cortef/ hydrocortisone Persistent hypoglycemia resolved with hydrocortisone. Empyema lung Status post decortication. Mucous plug: Causing hypoxia and atelectasis of the left lung status post bronchoscopy. - s/p cefepime - Follow final culture results- all no growth -Chest x-ray revealing better aeration and bilateral infiltrates. -Ctube removed on afib -rate cont'd w.. amiodarone and on coumadin--subtheraperutic--increased dose from 2 to 2.5 -INR therapeutic on transferred to [facility] bed. -Mobilization -PT/OT a nd CM c/s placed. dc hydrocortisone Hypocalcemia -- ca supplemented. it appears that pt needs ongoing dialysis as renal recovery is not immenent talk to dr. Martinez -plan for tunnel cath - c/s'd Gen sux -c/s'd CM for outpt dialysis chair, in case if pt does not want to goto rehab. Pending Dr. Garcia's eval for tunnel cath. once that is taken care off, then plan for rehab. close monitoring as pt is fall risk. Holding coumadin. --should be off for 3 to 5 days prior to cath placement. 1st s/p R. IJ tunnel cath Leukoctyosis -- will monitor the trend-q daily BMP -- ? femoral line off --if he spikes the fever, need to dell - -currently not on abx restartd the coumadin - will monitor the IJ site for swelling and/or worsening erythema -daily INR ordered.
[2019-08-06] MEDS ORDERED: Warfarin Sodium 2 MG TAB PO SCH (17:00)
[2019-08-06] MEDS: Warfarin Sodium 2 MG TAB PO SCH (18:49)
[2019-08-06] MEDS ORDERED: Guaifenesin DM 100-10/5 ML UDCUP PO PRN (20:03)
[2019-08-06] MEDS ORDERED: Diabetic Tussin DM 5 ML UDCUP PO PRN (20:40)
[2019-08-06] MEDS: Zolpidem Tartrate 5 MG TAB PO PRN (21:10)
[2019-08-07 00:40] LABS: Hemoglobin 9.9 g/dL (14.0-18.0); Platelet Count 202 thou/uL (130-400)
[2019-08-07 05:41] LABS: #Eosinphils 0.2 thou/uL (0.0-0.7); #Lymphocytes 0.6 thou/uL (1.20-3.40); #Monocytes 1.2 thou/uL (0.11-0.59); #Neutrophils 11.6 thou/uL (1.40-6.50); %Eosinophils 1.2 % (0.0-10.0); %Lymphocytes 4.3 % (21.0-51.0); %Neutrophils 85.6 % (42.0-75.0); Hemoglobin 9.7 g/dL (14.0-18.0); Mean Corpuscular HGB CONC 32.8 g/dL (32.0-36.0); Mean Corpuscular Hemoglobin 29.6 pg (27.0-31.0); Mean Corpuscular Volume 90.5 fL (78.0-98.0); Mean Platelet Volume 7.6 fL (7.4-10.4); Platelet Count 209 thou/uL (130-400); RBC Distribution Width 15.7 % (11.5-14.5); Red Blood Cell (RBC) Count 3.26 mill/uL (4.70-6.10); White Blood Cell (WBC) Count 13.5 thou/uL (4.8-10.8)
[2019-08-07 05:43] LABS: INR-International Normal Ratio 2.4; Prothrombin Time 26.1 sec (12.0-14.7)
[2019-08-07 05:54] LABS: Anion Gap 11 mmol/L (10-20); BUN (Urea Nitrogen) 31 mg/dL (8.4-25.7); Calc. Creatinine Clearance 22 mL/min (70-130); Calcium 7.7 mg/dL (7.8-10.44); Carbon Dioxide 30 mmol/L (23-31); Chloride 99 mmol/L (98-107); Estimated GFR-MDRD 20; Glucose 154 mg/dL (83-110); Potassium 4.1 mmol/L (3.5-5.1); Sodium 136 mmol/L (136-145)
--- NOTE | 2019-08-07 08:18 | RAD ---
EXAM: CHEST ONE VIEW HISTORY: Post thoracotomy COMPARISON: 08/06/2019 FINDINGS: Postoperative changes related to median sternotomy are again seen. Tunneled right internal jugular ve in hemodialysis catheter remains in place. Cardiac silhouette is magnified by projection but does appear enlarged. Mild increased interstitial densities are seen bilaterally greater on the right in a perihilar location. Pleural and parenchymal changes at the left lung base are again seen with pleural-based density along the left lateral chest. These findings are overall similar to the prior e xam. Lung apices are partially obscured due to patient's overlying mandible and jaw. No other interval change. IMPRESSION: Stable chest.
[2019-08-07] MEDS: Insulin Regular 300 UNITS/3 ML VIAL SC SCH ×4 (09:10→21:54)
[2019-08-07] MEDS: Calcium Carbonate 500 MG ChewTAB PO SCH ×2 (09:16→21:48)
[2019-08-07] MEDS: hydrALAZINE 25 MG TAB PO SCH ×3 (09:17→21:49)
--- NOTE | 2019-08-07 09:24 | PRG ---
DATE OF SERVICE: 08/07/2019 SUBJECTIVE: Mr. Rizvi is an 84-year-old white male, followed up by the Renal Service for his acute kidney injury secondary to a possible ischemic acute tubular necrosis. He was initiated on dialysis due to volume overload and progressive azotemia. Yesterday, a tunneled dialysis catheter was placed without any complications. We are going to continue to dialyze him 3 times a week on Sunday, Sunday, and Sunday. This morning, no new complaints. No chest pain or shortness of breath; however, the patient is still with decreased p.o. intake. OBJECTIVE: VITAL SIGNS: Blood pressure is 143/65, heart rate 98, respiratory rate 14, temperature 98.6, O2 saturation is 100%. GENERAL EXAM: Noted to be awake, supine, comfortable, not in overt distress. SKIN: Decreased turgor. HEENT: Slightly pale conjunctivae. Anicteric sclerae. NECK: No neck mass. No carotid bruits. No JVD. CHEST: No deformities. LUNGS: Clear breath sounds. HEART: Normal sinus rhythm. No murmur. No gallops. No rubs. ABDOMEN: Globular, soft. Nontender. No masses. EXTREMITIES: Trace edema. MEDICATIONS: Medications of August 07, 2019, was reviewed. LABORATORY DATA: Laboratories of August 07, 2019; sodium 136, potassium 4.1, chloride 99, carbon dioxide 30, BUN 31, creatinine 3.08, glucose 154, calcium 7.7. White count 13.5, hemoglobin 9.7. ASSESSMENT AND PLAN: 1. Acute kidney injury-secondary to presumed acute tubular necrosis. Continue supportive care. Continue Sunday, Sunday, and Sunday dialysis. Again, fluid removal only as tolerated. 2. Status post pneumonia/empyema, doing well. The patient is status post pulmonary decortication and chest tube placement. From a Pulmonary point of view, he is much better. 3. Awaiting possible rehab placement. Agree with current management. Recheck CBC and basic metabolic panel in a.m. Job ID: [id number]
[2019-08-07 10:42] VITALS: BMI 28.0
--- NOTE | 2019-08-07 11:25 | ULT ---
ULTRASOUND VASCULAR VESSEL MAPPING FOR DIALYSIS ACCESS: HISTORY: ESRD. FINDINGS: RIGHT CEPHALIC VEIN: Proximal humerus 1.1 mm Mid humerus 1.1 mm Distal 0.6 mm Elbow 1.1 mm Proximal forearm 0.7 mm Mid 0.7 mm Distal 0.7 mm RIGHT BASILIC VEIN: Proximal humerus 3.4 mm Mid humerus 3.3 mm Distal 2.4 mm Elbow 1.0 mm Proximal forearm 0.7 mm Mid 0.6 mm Distal 1.1 mm BRACHIAL ARTERY: 5.7 mm RADIAL ARTERY: 2.5 mm ULNAR ARTERY: 1.6 mm LEFT CEPHALIC VEIN: Proximal humerus 1.3 mm Mid humerus 0.7 mm Distal 1.1 mm Elbow 1.5 mm Proximal forearm 0.8 mm Mid 0.6 mm Distal 0.9 mm LEFT BASILIC VEIN: Proximal humerus 3.7 mm Mid humerus 5.2 mm Distal 5.6 mm Elbow 2.0 mm Proximal forearm 2.0 mm Mid 2.0 mm Distal 1.7 mm BRACHIAL ARTERY: 7.0 mm RADIAL ARTERY: 2.4 mm ULNAR ARTERY: 2.3 mm POS: RRE
[2019-08-07] MEDS ORDERED: Melatonin 3 MG TAB PO PRN (13:08)
[2019-08-07] MEDS: Insulin Regular 300 UNITS/3 ML VIAL SC PRN (13:17)
--- NOTE | 2019-08-07 13:45 | PDOC.HOSPP ---
- Subjective Encounter Date: 08/07/19 Encounter Time: 11:40 Subjective: pt is quite somnolent Chest tube removal site examined, no purulent discharge, granulation site at the tube insertion site, but some yellow crust nearby. talk to his , who saw her later, rehab plan agreed. she is concerned abt ' out of pocket' money. - Objective Vital Signs & Weight: Vital Signs (12 hours) Temp Pulse Resp BP Pulse Ox 08/07/19 13:34 80 16 08/07/19 11:17 97.9 F 60 14 164/71 H 94 L 08/07/19 09:23 95 08/07/19 09:17 79 08/07/19 07:50 98.6 F 90 14 143/65 H 91 L 08/07/19 06:44 94 L 08/07/19 06:43 94 16 94 L 08/07/19 04:12 98.7 F 84 22 H 140/86 94 L Weight Admit Weight 188 lb Weight 184 lb 3.2 oz Most Recent Monitor Data Heart Rate from ECG 64 NIBP 165/74 NIBP BP-Mean 104 Respiration from ECG 20 SpO2 95 I&O: 08/06/19 08/07/19 08/08/19 06:59 06:59 06:59 Intake Total 240 680 Output Total 50 1500 Balance -50 -1260 680 Result Diagrams: 08/07/19 05:11 08/07/19 05:11 Additional Labs: Accuchecks 08/07/19 08/07/19 08/06/19 11:27 05:26 20:30 POC Glucose 191 H 169 H 135 H 08/06/19 16:48 POC Glucose 83 Hospitalist ROS - Medication Medications: Active Medications Generic Name Dose Route Start Last Admin Trade Name Freq PRN Reason Stop Dose Admin Albuterol/Ipratropium 3 ml 07/25/19 13:00 08/07/19 13:34 Duoneb NEB 3 ml [id number] ANIYAH Administration Calcium Carbonate 500 mg 08/03/19 21:00 08/07/19 09:16 Tums PO 500 mg BID ANIYAH Administration Diphenhydramine HCl 25 mg 07/25/19 11:29 08/04/19 04:12 Benadryl IVP 25 mg Q6H PRN Administration Itching Guaifenesin/Dextromethorphan 15 ml 08/06/19 20:40 08/06/19 21:10 Diabetic Tussin Dm PO 15 ml Q4H PRN Administration Cough Hydralazine HCl 25 mg 08/06/19 09:00 08/07/19 09:17 Apresoline PO 25 mg TID ANIYAH Administration Insulin Human Regular 0 units 07/24/19 19:48 08/07/19 13:17 Humulin R SC 2 units .MILD SLIDING SCALE PRN Administration Mild Correctional Scale Insulin Human Regular 0 units 08/01/19 17:00 08/07/19 12:52 Humulin R SC Not Given ACHS ANIYAH Pantoprazole Sodium 40 mg 08/06/19 09:00 08/07/19 09:17 Protonix PO 40 mg DAILY ANIYAH Administration Sodium Chloride 10 ml 08/04/19 09:00 08/07/19 09:17 Flush - Normal Saline IVF Not Given Q12HR ANIYAH Tramadol HCl 25 mg 08/02/19 05:35 08/03/19 16:55 Ultram PO 25 mg QID PRN Administration Pain Warfarin Sodium 2 mg 08/06/19 17:00 08/06/19 18:49 Coumadin PO 2 mg 1700 ANIYAH Administration Zolpidem Tartrate 5 mg 08/04/19 23:23 08/06/19 21:10 Ambien PO 5 mg HS PRN Administration Insomnia - Exam General Appearance: NAD, awake alert General - other findings: hest tube removal site examined, no purulent discharge , granulation site at Eye: PERRL ENT: normocephalic atraumatic Neck: supple Heart: RRR Respiratory: CTAB, normal chest expansion Gastrointestinal: soft, normal bowel sounds Extremities: 2+ LE edema Neurological: no focal deficits Psychiatric: somnolent Hosp A/P - Plan (1) Sepsis Code(s): A41.9 - SEPSIS, UNSPECIFIED ORGANISM Status: Acute Qualifiers: Sepsis type: sepsis due to unspecified organism Sepsis acute organ dysfunction status: with acute organ dysfunction Severe sepsis acute organ dysfunction type: acute renal failure Acute renal failure type: unspecified Severe sepsis shock status: without septic shock Qualified Code(s): A41.9 - Sepsis, unspecified organism; R65.20 - Severe sepsis without septic shock; N17.9 - Acute kidney failure, unspecified (2) Code(s): J86.9 - PYOTHORAX WITHOUT FISTULA Status: Suspected (3) Acute respiratory failure Code(s): J96.00 - ACUTE RESPIRATORY FAILURE, UNSP W HYPOXIA OR HYPERCAPNIA Status: Acute Qualifiers: Respiratory failure complication: hypoxia Qualified Code(s): J96.01 - Acute respiratory failure with hypoxia (4) SILVIO (acute kidney injury) Code(s): N17.9 - ACUTE KIDNEY FAILURE, UNSPECIFIED Status: Acute (5) Hypoglycemia Code(s): E16.2 - HYPOGLYCEMIA, UNSPECIFIED Status: Acute (6) Afib Code(s): I48.91 - UNSPECIFIED ATRIAL FIBRILLATION Status: Chronic Qualifiers: Atrial fibrillation type: paroxysmal Qualified Code(s): I48.0 - Paroxysmal atrial fibrillation (7) CAD (coronary artery disease) Code(s): I25.10 - ATHSCL HEART DISEASE OF [place] CORONARY ARTERY W/O ANG PCTRS Status: Chronic Qualifiers: Coronary Disease-Associated Artery/Lesion type: bypass graft [place] vs. transplanted heart: [place] heart Associated angina: without angina Qualified Code(s): I25.810 - Atherosclerosis of coronary artery bypass graft(s) without angina pectoris (8) DM type 2 (diabetes mellitus, type 2) Status: Chronic Qualifiers: Diabetes mellitus [facility] insulin use: with [facility] use Diabetes mellitus complication status: with other specified complication Qualified Code (s): E11.69 - Type 2 diabetes mellitus with other specified complication; Z79.4 - care home (current) use of insulin (9) Dyslipidemia Code(s): E78.5 - HYPERLIPIDEMIA, UNSPECIFIED Status: Chronic (10) HTN (hypertension) Code(s): I10 - ESSENTIAL (PRIMARY) HYPERTENSION Status: Chronic Qualifiers: Hypertension type: essential hypertension Qualified Code(s): I10 - Essential (primary) hypertension relative adrenal insuff -on solu-cortef/ hydrocortisone Persistent hypoglycemia resolved with hydrocortisone. Empyema lung Status post decortication. Mucous plug: Causing hypoxia and atelectasis of the left lung status post bronchoscopy. - s/p cefepime - Follow final culture results- all no growth -Chest x-ray revealing better aeration and bilateral infiltrates. -Ctube removed on afib -rate cont'd w.. amiodarone and on coumadin--subtheraperutic--increased dose from 2 to 2.5 -INR therapeutic on transferred to tele bed. -Mobilization -PT/OT a nd CM c/s placed. dc hydrocortisone Hypocalcemia -- ca supplemented. it appears that pt needs ongoing dialysis as renal recovery is not immenent talk to dr. Martinez -plan for tunnel cath - c/s'd Gen sux -c/s'd CM for outpt dialysis chair, in case if pt does not want to goto rehab. Pending Dr. Garcia's eval for tunnel cath. once that is taken care off, then plan for rehab. close monitoring as pt is fall risk. Holding coumadin. --should be off for 3 to 5 days prior to cath placement. 1st s/p R. IJ tunnel cath Leukoctyosis -- will monitor the trend-q daily BMP -- ? femoral line off --if he spikes the fever, need to dell - -currently not on abx restartd the coumadin - will monitor the IJ site for swelling and/or worsening erythema -daily INR ordered. 2nd Chest tube removal wound site - looks healing, but need to be looked by wound care -consult placed --- d/w RN return the ST evaluation Insomnia --melatonin 6mg PRN ESRD on HD --new dx during this stay and tunnel cath, IJ. -M/w/f HD while he is here. - pt is going to rehab and outpt dialysis chair has to be arranged then. pending rehab placement, likely tomorrow.
[2019-08-07] MEDS: traMADol HCl 50 MG TAB PO PRN (16:00)
[2019-08-07] MEDS: Warfarin Sodium 2 MG TAB PO SCH (17:35)
[2019-08-07 19:43] LABS: Troponin I 0.133 ng/mL (< 0.028)
[2019-08-08 05:03] LABS: #Eosinphils 0.3 thou/uL (0.0-0.7); #Lymphocytes 0.8 thou/uL (1.20-3.40); #Monocytes 1.2 thou/uL (0.11-0.59); #Neutrophils 9.9 thou/uL (1.40-6.50); %Basophils 0.1 % (0.0-1.0); %Eosinophils 2.7 % (0.0-10.0); %Lymphocytes 6.8 % (21.0-51.0); %Monocytes 9.6 % (0.0-10.0); %Neutrophils 80.8 % (42.0-75.0); Hemoglobin 8.9 g/dL (14.0-18.0); Mean Corpuscular HGB CONC 31.7 g/dL (32.0-36.0); Mean Corpuscular Hemoglobin 28.6 pg (27.0-31.0); Mean Corpuscular Volume 90.4 fL (78.0-98.0); Mean Platelet Volume 7.6 fL (7.4-10.4); Platelet Count 221 thou/uL (130-400); Red Blood Cell (RBC) Count 3.13 mill/uL (4.70-6.10); White Blood Cell (WBC) Count 12.2 thou/uL (4.8-10.8)
[2019-08-08 05:12] LABS: INR-International Normal Ratio 2.3; Prothrombin Time 25.3 sec (12.0-14.7)
[2019-08-08 05:14] LABS: Anion Gap 9 mmol/L (10-20); BUN (Urea Nitrogen) 49 mg/dL (8.4-25.7); Calc. Creatinine Clearance 16 mL/min (70-130); Calcium 7.3 mg/dL (7.8-10.44); Carbon Dioxide 30 mmol/L (23-31); Chloride 98 mmol/L (98-107); Estimated GFR-MDRD 14; Glucose 78 mg/dL (83-110); Potassium 4.3 mmol/L (3.5-5.1); Sodium 133 mmol/L (136-145)
--- NOTE | 2019-08-08 07:16 | RAD ---
PORTABLE CHEST: Date: 08/08/2019 PROVIDED CLINICAL HISTORY: Status post thoracotomy. FINDINGS: Comparison with 08/07/2019. Interval increase in conspicuity of right mid lung zone air space disease. Additional significant int erval change with respect to the prior examination is not apparent. IMPRESSION: As above. POS: GRACIA
--- NOTE | 2019-08-08 09:36 | PRG ---
DATE OF SERVICE: 08/08/2019 SUBJECTIVE: Mr. Rizvi is an 84-year-old white male, followed up by the Renal Service for his acute kidney injury secondary to ATN. He was initiated on dialysis due to progressive azotemia and volume overload. He is currently undergoing dialysis. There is no evidence of renal recovery yet. Tunneled dialysis catheter was placed a few days ago. OBJECTIVE: VITAL SIGNS: Blood pressure 157/68, heart rate 75, respiratory rate 18, temperature 98.2, and O2 saturation 96%. GENERAL: The patient is awake, alert, comfortable, not in distress. SKIN: Adequate turgor. HEENT: He has slightly pale conjunctivae. Anicteric sclerae. No neck mass. No carotid bruits. No JVD. CHEST: No deformities. LUNGS: Clear breath sounds. HEART: Normal sinus rhythm. No murmurs. No gallops. No rubs. ABDOMEN: Globular, soft, and nontender. No masses. EXTREMITIES: No edema. No deformities. MEDICATIONS: Medications of August 08, 2019, reviewed. LABORATORY DATA: Laboratories of August 08, 2019: White count 12.2, hemoglobin 8.9. Sodium 133, potassium 4.3, chloride 98, carbon dioxide 30, BUN 49, creatinine 4.15, glucose 78, and calcium 7.3. ASSESSMENT AND PLAN: 1. Acute kidney injury secondary to acute tubular necrosis. Continuing Sunday, Sunday, and Sunday hemodialysis. Fluid removal as tolerated. 2. Status post pneumonia/empyema, doing well. He was status post pulmonary decortication. 3. Awaiting [facility] facility placement. Job ID: [id number]
[2019-08-08 10:25] LABS: HBSAB Concentration 1.82 mIU/mL; HBSAg Index 0.16 S/CO (0-0.99); Hep B Core Total Ab Non-Reactive (NonReactive); Hep B Core Total Index 0.08 S/CO (0-0.79); Hep B Surf AB Non-Reactive (NonReactive); Hep B Surf Ag Non-Reactive S/CO (NonReactive)
[2019-08-08 10:26] LABS: Hep C IgG Ab Non-Reactive (NonReactive); Hep C Index 0.12 S/CO (0-0.79)
[2019-08-08] MEDS: Insulin Regular 300 UNITS/3 ML VIAL SC SCH ×5 (10:48→21:03)
[2019-08-08] MEDS ORDERED: Heparin 10,000 UNITS/ 10 ML VIAL ONE (11:16)
--- NOTE | 2019-08-08 12:20 | PDOC.HOSPP ---
- Subjective Encounter Date: 08/08/19 Encounter Time: 11:00 Subjective: seen him in dialysis area. no acute events noted o/n. - Objective Vital Signs & Weight: Vital Signs (12 hours) Temp Pulse Resp BP Pulse Ox 08/08/19 08:35 96 18 75 L 08/08/19 07:34 98.2 F 75 18 157/68 H 96 08/08/19 04:00 97.8 F 68 16 132/64 98 Weight Admit Weight 188 lb Weight 184 lb 3.2 oz Most Recent Monitor Data Heart Rate from ECG 64 NIBP 165/74 NIBP BP-Mean 104 Respiration from ECG 20 SpO2 95 I&O: 08/07/19 08/08/19 08/09/19 06:59 06:59 06:59 Intake Total 240 730 Output Total 1500 Balance -1260 730 Result Diagrams: 08/08/19 04:38 08/08/19 04:38 Additional Labs: Accuchecks 08/08/19 08/07/19 08/07/19 10:54 21:13 16:55 POC Glucose 91 95 116 H Hospitalist ROS - Medication Medications: Active Medications Generic Name Dose Route Start Last Admin Trade Name Freq PRN Reason Stop Dose Admin Albuterol/Ipratropium 3 ml 07/25/19 13:00 08/08/19 08:35 Duoneb NEB 3 ml [id number] ANIYAH Administration Calcium Carbonate 500 mg 08/03/19 21:00 08/07/19 21:48 Tums PO 500 mg BID ANIYAH Administration Diphenhydramine HCl 25 mg 07/25/19 11:29 08/04/19 04:12 Benadryl IVP 25 mg Q6H PRN Administration Itching Guaifenesin/Dextromethorphan 15 ml 08/06/19 20:40 08/06/19 21:10 Diabetic Tussin Dm PO 15 ml Q4H PRN Administration Cough Hydralazine HCl 25 mg 08/06/19 09:00 08/07/19 21:49 Apresoline PO 25 mg TID ANIYAH Administration Insulin Human Regular 0 units 07/24/19 19:48 08/07/19 13:17 Humulin R SC 2 units .MILD SLIDING SCALE PRN Administration Mild Correctional Scale Insulin Human Regular 0 units 08/01/19 17:00 08/08/19 10:48 Humulin R SC Not Given ACHS ANIYAH Melatonin 6 mg 08/07/19 13:08 08/07/19 21:48 Melatonin PO 6 mg HS PRN Administration Insomnia Pantoprazole Sodium 40 mg 08/06/19 09:00 08/07/19 09:17 Protonix PO 40 mg DAILY ANIYAH Administration Sodium Chloride 10 ml 08/04/19 09:00 08/08/19 10:49 Flush - Normal Saline IVF Not Given Q12HR ANIYAH Tramadol HCl 25 mg 08/02/19 05:35 08/07/19 16:00 Ultram PO 25 mg QID PRN Administration Pain Warfarin Sodium 2 mg 08/06/19 17:00 08/07/19 17:35 Coumadin PO 2 mg 1700 ANIYAH Administration Zolpidem Tartrate 5 mg 08/04/19 23:23 08/06/19 21:10 Ambien PO 5 mg HS PRN Administration Insomnia - Exam General Appearance: NAD, awake alert Eye: PERRL ENT: normocephalic atraumatic Neck: supple Heart: RRR Respiratory: CTAB, normal chest expansion Gastrointestinal: soft, normal bowel sounds Neurological: no focal deficits Hosp A/P - Plan (1) Sepsis Code(s): A41.9 - SEPSIS, UNSPECIFIED ORGANISM Status: Acute Qualifiers: Sepsis type: sepsis due to unspecified organism Sepsis acute organ dysfunction status: with acute organ dysfunction Severe sepsis acute organ dysfunction type: acute renal failure Acute renal failure type: unspecified Severe sepsis shock status: without septic shock Qualified Code(s): A41.9 - Sepsis, unspecified organism; R65.20 - Severe sepsis without septic shock; N17.9 - Acute kidney failure, unspecified (2) Code(s): J86.9 - PYOTHORAX WITHOUT FISTULA Status: Suspected (3) Acute respiratory failure Code(s): J96.00 - ACUTE RESPIRATORY FAILURE, UNSP W HYPOXIA OR HYPERCAPNIA Status: Acute Qualifiers: Respiratory failure complication: hypoxia Qualified Code(s): J96.01 - Acute respiratory failure with hypoxia (4) SILVIO (acute kidney injury) Code(s): N17.9 - ACUTE KIDNEY FAILURE, UNSPECIFIED Status: Acute (5) Hypoglycemia Code(s): E16.2 - HYPOGLYCEMIA, UNSPECIFIED Status: Acute (6) Afib Code(s): I48.91 - UNSPECIFIED ATRIAL FIBRILLATION Status: Chronic Qualifiers: Atrial fibrillation type: paroxysmal Qualified Code(s): I48.0 - Paroxysmal atrial fibrillation (7) CAD (coronary artery disease) Code(s): I25.10 - ATHSCL HEART DISEASE OF [place] CORONARY ARTERY W/O ANG PCTRS Status: Chronic Qualifiers: Coronary Disease-Associated Artery/Lesion type: bypass graft [place] vs. transplanted heart: [place] heart Associated angina: without angina Qualified Code(s): I25.810 - Atherosclerosis of coronary artery bypass graft(s) without angina pectoris (8) DM type 2 (diabetes mellitus, type 2) Status: Chronic Qualifiers: Diabetes mellitus correction insulin use: with correction use Diabetes mellitus complication status: with other specified complication Qualified Code (s): E11.69 - Type 2 diabetes mellitus with other specified complication; Z79.4 - shelter (current) use of insulin (9) Dyslipidemia Code(s): E78.5 - HYPERLIPIDEMIA, UNSPECIFIED Status: Chronic (10) HTN (hypertension) Code(s): I10 - ESSENTIAL (PRIMARY) HYPERTENSION Status: Chronic Qualifiers: Hypertension type: essential hypertension Qualified Code(s): I10 - Essential (primary) hypertension relative adrenal insuff -on solu-cortef/ hydrocortisone Persistent hypoglycemia resolved with hydrocortisone. Empyema lung Status post decortication. Mucous plug: Causing hypoxia and atelectasis of the left lung status post bronchoscopy. - s/p cefepime - Follow final culture results- all no growth -Chest x-ray revealing better aeration and bilateral infiltrates. -Ctube removed on afib -rate cont'd w.. amiodarone and on coumadin--subtheraperutic--increased dose from 2 to 2.5 -INR therapeutic on transferred to [facility] bed. -Mobilization -PT/OT a nd CM c/s placed. dc hydrocortisone Hypocalcemia -- ca supplemented. it appears that pt needs ongoing dialysis as renal recovery is not immenent talk to dr. Martinez -plan for tunnel cath - c/s'd Gen sux -c/s'd CM for outpt dialysis chair, in case if pt does not want to goto rehab. Pending Dr. Garcia's eval for tunnel cath. once that is taken care off, then plan for rehab. close monitoring as pt is fall risk. Holding coumadin. --should be off for 3 to 5 days prior to cath placement. 1st s/p R. IJ tunnel cath Leukoctyosis -- will monitor the trend-q daily BMP -- ? femoral line off --if he spikes the fever, need to dell - -currently not on abx restartd the coumadin - will monitor the IJ site for swelling and/or worsening erythema -daily INR ordered. 2nd Chest tube removal wound site - looks healing, but need to be looked by wound care -consult placed --- d/w RN return the ST evaluation Insomnia --melatonin 6mg PRN ESRD on HD --new dx during this stay and tunnel cath, IJ. -M/w/f HD while he is here. - pt is going to rehab and outpt dialysis chair has to be arranged then. pending rehab placement, likely Sunday.
[2019-08-08] MEDS: hydrALAZINE 25 MG TAB PO SCH ×3 (13:45→21:06)
[2019-08-08] MEDS: Calcium Carbonate 500 MG ChewTAB PO SCH ×2 (13:46→21:06)
[2019-08-08] MEDS: Warfarin Sodium 2 MG TAB PO SCH (16:41)
[2019-08-09 05:08] LABS: #Eosinphils 0.2 thou/uL (0.0-0.7); #Lymphocytes 0.8 thou/uL (1.20-3.40); #Monocytes 1.2 thou/uL (0.11-0.59); #Neutrophils 9.5 thou/uL (1.40-6.50); %Basophils 0.1 % (0.0-1.0); %Eosinophils 1.8 % (0.0-10.0); %Lymphocytes 6.5 % (21.0-51.0); %Monocytes 10.6 % (0.0-10.0); %Neutrophils 81.1 % (42.0-75.0); Hemoglobin 8.8 g/dL (14.0-18.0); Mean Corpuscular HGB CONC 31.1 g/dL (32.0-36.0); Mean Corpuscular Hemoglobin 28.1 pg (27.0-31.0); Mean Corpuscular Volume 90.3 fL (78.0-98.0); Mean Platelet Volume 7.4 fL (7.4-10.4); Platelet Count 233 thou/uL (130-400); RBC Distribution Width 15.8 % (11.5-14.5); Red Blood Cell (RBC) Count 3.13 mill/uL (4.70-6.10); White Blood Cell (WBC) Count 11.7 thou/uL (4.8-10.8)
[2019-08-09 05:16] LABS: Prothrombin Time 22.3 sec (12.0-14.7)
[2019-08-09 05:26] LABS: Anion Gap 9 mmol/L (10-20); BUN (Urea Nitrogen) 29 mg/dL (8.4-25.7); Calc. Creatinine Clearance 22 mL/min (70-130); Calcium 7.6 mg/dL (7.8-10.44); Carbon Dioxide 29 mmol/L (23-31); Chloride 100 mmol/L (98-107); Estimated GFR-MDRD 19; Glucose 112 mg/dL (83-110); Potassium 4.2 mmol/L (3.5-5.1); Sodium 134 mmol/L (136-145)
[2019-08-09 05:29] LABS: ALT (SGPT) 94 U/L (8-55); AST (SGOT) 129 U/L (5-34); Albumin 2.2 g/dL (3.4-4.8); Alkaline Phosphatase 294 U/L (40-110); Bilirubin, Direct 0.9 mg/dL (0.1-0.3); Bilirubin, Total 1.1 mg/dL (0.2-1.2); Protein, Total 5.6 g/dL (5.8-8.1)
[2019-08-09] MEDS: Calcium Carbonate 500 MG ChewTAB PO SCH (08:55)
[2019-08-09] MEDS: hydrALAZINE 25 MG TAB PO SCH ×2 (08:55→15:29)
[2019-08-09] MEDS: Insulin Regular 300 UNITS/3 ML VIAL SC SCH ×3 (10:17→18:18)
--- NOTE | 2019-08-09 10:19 | RAD ---
CHEST 1 VIEW: HISTORY: Post thoracotomy. COMPARISON: 08/08/2019 exam. FINDINGS: Heart size is enlarged. There are postop sternotomy changes. The left-sided pleural and parenchymal changes and right mid lung field parenchymal changes are fairly similar given differences in techniq ue. IMPRESSION: Essentially stable exam. POS: EVE
--- NOTE | 2019-08-09 11:14 | PRG ---
DATE OF SERVICE: 08/09/2019 SUBJECTIVE: Mr. Rizvi is an 84-year-old white male with known history of acute kidney injury secondary to presumed ATN. He has been undergoing dialysis due to volume overload and progressive azotemia. A tunneled dialysis catheter has already been placed. No new complaints today. He was initially admitted for pneumonia/empyema. He has undergone pulmonary decortication as well as chest tube placement. He voices no new complaints today. OBJECTIVE: VITAL SIGNS: Blood pressure 159/67, heart rate 73, respiratory rate 17, temperature 98.6, O2 saturation 100%. GENERAL: Noted to be awake, alert, comfortable, not in overt distress. SKIN: Adequate turgor. HEENT: He has a slightly pale conjunctivae. Anicteric sclerae. NECK: No neck mass. No carotid bruits. No JVD. CHEST: No deformities. LUNGS: Decreased breath sounds. HEART: Normal sinus rhythm. No murmur. No gallops. No rubs. ABDOMEN: Globular, soft, nontender. No masses. EXTREMITIES: No edema. No deformities. MEDICATIONS: Medications of August 09, 2019, reviewed. LABORATORY DATA: Laboratories of August 09, 2019; white count 11.7, hemoglobin 8.8. Sodium 134, potassium 4.2, chloride 100, carbon dioxide 29, BUN 29, creatinine 3.13, glucose 112, calcium 7.6, AST 129, ALT 94, albumin 2.2. ASSESSMENT AND PLAN: 1. Acute kidney injury secondary to presumed acute tubular necrosis. No evidence of renal recovery. We will continue current Sunday, Sunday, and Sunday hemodialysis regimen with this patient. Again, fluid removal only as tolerated by the patient. 2. Anemia, continue to observe p.r.n. blood transfusion. 3. Status post pneumonia/empyema - doing well status post pulmonary decortication. Awaiting senior living placement/custodial facility. We will recheck basic metabolic panel and CBC in a.m. Job ID: [id number]
[2019-08-09 12:16] VITALS: TEMP 99.2
[2019-08-09 15:30] VITALS: BP 146/64
[2019-08-09] MEDS: Warfarin Sodium 2 MG TAB PO SCH (17:35)
--- NOTE | 2019-08-11 02:03 | DIS ---
DATE OF ADMISSION: 07/23/2019 DATE OF DISCHARGE: 08/09/2019 DISCHARGE DISPOSITION: Inpatient rehab. DISCHARGE DIAGNOSES: Include; 1. Left empyema. 2. Sepsis secondary to left empyema. 3. Hypoglycemia secondary to left empyema. 4. Acute respiratory failure due to sepsis and the empyema. 5. Acute on chronic kidney injury requiring dialysis. 6. Coronary artery disease. 7. Persistent atrial fibrillation. 8. Diabetes mellitus type 2. 9. Coronary artery disease. 10. Acute on chronic diastolic heart failure. DISCHARGE MEDICATIONS: Include; 1. Coumadin 2 mg daily. 2. Protonix 40 mg p.o. daily. 3. Melatonin 6 mg p.o. at bedtime. 4. Ipratropium/albuterol nebs q.6 as needed. 5. Hydralazine 25 mg t.i.d. 6. Carvedilol 6.25 mg twice daily. 7. Alprazolam 0.25 mg t.i.d. 8. Ambien 5 mg p.o. at bedtime. 9. Tramadol 25 mg q.i.d. 10. Protonix 40 mg daily. CODE STATUS: Full code. ALLERGIES: TO MORPHINE. HOSPITAL COURSE: Mr. Rizvi is an 84-year-old gentleman, who was sent to the hospital by his after she found him unconscious. EMS was called and he was found to be hypoglycemic. A D10 drip was started and he was brought to our hospital via the ER in [place]. He was found to have findings on chest x-ray consistent with pneumonia and he was started on IV antibiotics. This also discovered that he had a significant left pleural effusion. He was seen by Pulmonology and this was felt to be loculated. Thoracic Surgery was consulted and the patient underwent a left thoracotomy with total pulmonary decortication. He tolerated the procedure well. However, due to the severe sepsis and the infection, the patient developed an acute kidney injury, which required Surgery consultation. He was also seen by Nephrology as well. He had to have a temporary dialysis catheter placed due to the severity of his acute kidney injury. He received dialysis during his hospital stay. Also he developed a mucus plugging and required bronchoscopy with removal of the mucus plug. He also had an echocardiogram done, which showed an EF of 50% to 55% and some akinetic motion in the inferior wall as well as some moderate pulmonary hypertension. The patient had an extended hospital stay and as a result, was severely deconditioned. For this reason, arrangements were made for him to be transferred to the inpatient rehabilitation center for physical therapy in order to get him hopefully back on his feet again. Job ID: [id number]
--- NOTE | 2019-08-11 06:57 | PQF ---
ERICK PLATT [facility] [place] MD [id number] CLINICAL DOCUMENTATION CLARIFICATION FORM: POST DISCHARGE Addendum to original discharge summary date: ____ Late entry note date: __ DATE: 08/11/2019 ATTN:Lars Martinez Please exercise your independent, professional judgment in responding to the clarification form. Clinical indicators are provided on the bottom of this form for your review Please check appropriate box(s): [ ] Sepsis as a complication of recent AICD lead extraction [ ] Sepsis not a complication of recent AICD lead extraction [x ] Other diagnosis [ ] Unable to determine CLINICAL INDICATORS - SIGNS / SYMPTOMS / LABS ED Notes 07/22 "presents secondary to altered mental status" 07/22 "Reason for admission:sepsis" 07/22 "He was hospitalized in June for extraction of his AICD which was extruding out of his skin" 07/22 "possible sepsis with recent lead extraction" Consult 07/22 "recent AICD removal for infection" PN 07/24 "Sepsis with acute organ dysfunction: SILVIO" Vital Signs 07/22: Temp=98.6 Pulse=69 YI=549/45 Respi=29 Labs WBC: 07/23=18.5 08/05=14.9 Labs Lactate: 07/22=1.3 RISK FACTORS ED Notes 07/22-84 years old male HP 07/22-DM HP 07/22-PNA HP 07/22-recent AICD lead extraction Consult 07/22-Left empyema PN 08/08-ESRD TREATMENT: Collected 07/23-Chest Xray PN 07/28-Intubation with ventilation MAR 07/22-IVF Levaquin 250mg IV-APR 10 Maxipime 1gm IV-APR 10 Vancomycin 1gm IV-APR 10 Epinephrine 1mg IV-MAR 06/18 (This form is maintained as a part of the permanent medical record) 2014 [employer] All Rights Reserved [email or web address] [phone] MTDD
--- NOTE | 2019-08-11 07:06 | PQF ---
ERICK PLATT [facility] [place] MD [id number] [id number] CLINICAL DOCUMENTATION CLARIFICATION FORM: POST DISCHARGE Addendum to original discharge summary date: ____ Late entry note date: __ DATE: 08/11/2019 Attending:Lars Martinez Please exercise your independent, professional judgment in responding to the clarification form. Clinical indicators are provided on the bottom of this form for your review Please check appropriate box(s): [ ] Acute blood loss anemia [ ] Post-op anemia related to acute blood loss [x ] Other diagnosis [ ] Unable to determine In addition, please specify: Present on Admission (POA): [ ] Yes [ ] No [ x ] Unable to determine For continuity of documentation, please document condition throughout progress notes and discharge summary. Thank You. CLINICAL INDICATORS - SIGNS / SYMPTOMS / LABS OP Note 07/23 "estimated blood loss:200" PN 07/24 "significant anemia post srugery possibly due to intraoperative blood loss" PN 07/25 "Anemia due to blood loss" Labs RBC: 08/04=3.69 08/05=3.77 08/08=3.13 Labs Hgb: 08/04=10.8 08/05=11.1 08/08=8.8 Labs Hct: 08/04=33.1 08/05=34.2 08/08=28.3 Vital Signs BP: 07/2382=682/45 07/27=83/31 07/3091=287/52 RISK FACTORS ED Notes 07/22-84 years old male HP 07/22-DM HP 07/22-PNA HP 07/22-recent AICD lead extraction Consult 07/22-Left empyema PN 08/08-ESRD OP Note 07/23-s/p thoracotomy with decortication PN 07/24-Sepsis PN 07/24-Coagulopathy TREATMENTS: APR 10-IVF RBC transfusion-Blood bank 07/24 Plasma transfusion-Blood bank 07/22 Epinephrine 1mg IV-APR 10 (This form is maintained as a part of the permanent medical record) 2014 [employer] All Rights Reserved [email or web address]
--- NOTE | 2019-08-11 10:13 | EKG ---
Test Reason : STAT Blood Pressure : / mmHG Vent. Rate : 070 BPM Atrial Rate : 070 BPM P-R Int : 226 ms QRS Dur : 118 ms QT Int : 414 ms P-R-T Axes : 031 030 -82 degrees QTc Int : 447 ms Sinus rhythm with 1st degree A-V block Non-specific intra-ventricular conduction delay Nonspecific ST and T wave abnormality Abnormal ECG When compared with ECG of 23-JUL-2019 14:27, Non-specific change in ST segment in Inferior leads Nonspecific T wave abnormality has replaced inverted T waves in Lateral leads Confirmed by MALCOLM WHITTAKER (2) on 08/11/2019 10:13:08 AM Referred By: Blanca DHALIWAL Confirmed By:MALCOLM WHITTAKER
--- NOTE | 2019-08-12 13:20 | OP ---
DATE OF PROCEDURE: 08/06/2019 PROCEDURE PERFORMED: Right internal jugular tunneled hemodialysis catheter with ultrasound and fluoroscopic guidance. PREOPERATIVE DIAGNOSIS: Renal failure. POSTOPERATIVE DIAGNOSIS: Renal failure. HISTORY OF PRESENT ILLNESS: Mr. 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 DESCRIPTION OF PROCEDURE: After informed consent was obtained and appropriate preoperative antibiotics administered, the patient was taken to the operating room. He was placed in supine position and monitored anesthesia care was administered. He was prepped and draped in standard sterile fashion and local anesthesia was infused through the skin and subcutaneous tissues overlying the right internal jugular vein. A sterile ultrasound probe was used to identify the patent compressible vein, which was accessed under direct guidance with excellent flow of dark venous nonpulsatile blood. A wire was threaded and confirmed by ultrasound to be in the patent compressible vein in the neck and by fluoroscopy to be in the vena cava in the chest. Additional local anesthesia was infused through the skin and subcutaneous tissues of the chest and neck and infraclavicular incision was made and a tunneled catheter brought up from the infraclavicular incision to the right IJ access site. The tract was sequentially dilated over the wire, and a dilator and sheath placed over the wire. The dilator and wire were removed leaving the sheath in place. The catheter was tunneled through the sheath, which was split and removed. The catheter was confirmed to be in good position by fluoroscopy with no kinking of the catheter. Both ports easily aspirated and easily flushed without resistance. Heparin was instilled to the quantity specified on the hub and they were clamped and capped. The incision at the neck was closed in 2 layers with 4-0 Monocryl suture and the skin at the exit site snugged up around the catheter with 4-0 Monocryl suture. Dermabond dressings were placed and once this was dry, a chlorhexidine-impregnated dressing was placed at the exit site. The patient was taken to Recovery in good condition. Estimated blood loss was minimal. There were no complications. There were no specimens. Job ID: [id number]
== END 2019-08-09 19:04 | DRG 853 ==
LOC: ERS 13:20 → ERHOLD 14:27 → IMCU/EMU 21:15 → CCU 07-24 12:56 → IMCU/EMU 08-01 19:49 → 2SE 08-04 00:46
PROVIDERS: ADMIT Emergency Medicine; ATTEND Internal Medicine
PROC: 30233L1 Transfusion of Nonautologous Fresh Plasma into Peripheral Vein, Percutaneous Approach (ICD-10-PCS; 2019-07-23)
PROC: 0BNL0ZZ Release Left Lung, Open Approach (ICD-10-PCS; principal; 2019-07-24)
PROC: 0BJL4ZZ Inspection of Left Lung, Percutaneous Endoscopic Approach (ICD-10-PCS; 2019-07-24)
PROC: 02H633Z Insertion of Infusion Device into Right Atrium, Percutaneous Approach (ICD-10-PCS; 2019-07-24)
PROC: 3E033XZ Introduction of Vasopressor into Peripheral Vein, Percutaneous Approach (ICD-10-PCS; 2019-07-24)
PROC: 5A09357 Assistance with Respiratory Ventilation, Less than 24 Consecutive Hours, Continuous Positive Airway Pressure (ICD-10-PCS; 2019-07-24)
PROC: 5A1955Z Respiratory Ventilation, Greater than 96 Consecutive Hours (ICD-10-PCS; 2019-07-24)
PROC: 3E02340 Introduction of Influenza Vaccine into Muscle, Percutaneous Approach (ICD-10-PCS; 2019-07-24)
PROC: 0BC78ZZ Extirpation of Matter from Left Main Bronchus, Via Natural or Artificial Opening Endoscopic (ICD-10-PCS; 2019-07-25)
PROC: 30233N1 Transfusion of Nonautologous Red Blood Cells into Peripheral Vein, Percutaneous Approach (ICD-10-PCS; 2019-07-25)
PROC: 02HV33Z Insertion of Infusion Device into Superior Vena Cava, Percutaneous Approach (ICD-10-PCS; 2019-07-28)
PROC: 5A1D70Z Performance of Urinary Filtration, Intermittent, Less than 6 Hours Per Day (ICD-10-PCS; 2019-07-28)
PROC: 5A09457 Assistance with Respiratory Ventilation, 24-96 Consecutive Hours, Continuous Positive Airway Pressure (ICD-10-PCS; 2019-07-31)
PROC: 0JH63XZ Insertion of Tunneled Vascular Access Device into Chest Subcutaneous Tissue and Fascia, Percutaneous Approach (ICD-10-PCS; 2019-08-06)
PROC: 02HV33Z Insertion of Infusion Device into Superior Vena Cava, Percutaneous Approach (ICD-10-PCS; 2019-08-06)
PROC: B5181ZA Fluoroscopy of Superior Vena Cava using Low Osmolar Contrast, Guidance (ICD-10-PCS; 2019-08-06)
DX: A41.9 Sepsis, unspecified organism (principal); J86.9 Pyothorax without fistula; R65.21 Severe sepsis with septic shock; J18.9 Pneumonia, unspecified organism; J96.01 Acute respiratory failure with hypoxia; N17.0 Acute kidney failure with tubular necrosis; N18.6 End stage renal disease; G93.41 Metabolic encephalopathy; K56.600 Partial intestinal obstruction, unspecified as to cause; J98.11 Atelectasis; T17.890A Other foreign object in other parts of respiratory tract causing asphyxiation, initial encounter; E27.40 Unspecified adrenocortical insufficiency; I13.2 Hypertensive heart and chronic kidney disease with heart failure and with stage 5 chronic kidney disease, or end stage renal disease; D68.9 Coagulation defect, unspecified; Z51.5 Encounter for palliative care; Z20.828 Contact with and (suspected) exposure to other viral communicable diseases; G89.29 Other chronic pain; E11.22 Type 2 diabetes mellitus with diabetic chronic kidney disease; E78.5 Hyperlipidemia, unspecified; E78.00 Pure hypercholesterolemia, unspecified; I50.9 Heart failure, unspecified; I25.10 Atherosclerotic heart disease of native coronary artery without angina pectoris; E11.649 Type 2 diabetes mellitus with hypoglycemia without coma; I25.5 Ischemic cardiomyopathy; I48.0 Paroxysmal atrial fibrillation; D63.1 Anemia in chronic kidney disease; E87.5 Hyperkalemia; X58.XXXA Exposure to other specified factors, initial encounter; E83.51 Hypocalcemia; G47.30 Sleep apnea, unspecified; G47.00 Insomnia, unspecified; Z90.49 Acquired absence of other specified parts of digestive tract; I25.2 Old myocardial infarction; Z79.899 Other long term (current) drug therapy; Z95.1 Presence of aortocoronary bypass graft; Z95.5 Presence of coronary angioplasty implant and graft; Z88.5 Allergy status to narcotic agent; Z79.01 Long term (current) use of anticoagulants; Z53.31 Laparoscopic surgical procedure converted to open procedure; Z79.4 Long term (current) use of insulin; Z23 Encounter for immunization
CPT/HCPCS: 36415; 36416; 36430; 36556; 36600; 71045; 71250; 74018; 80048; 80053; 80076; 80202; 81001; 82533; 82805; 83605; 83735; 84443; 84484; 84681; 85025; 85610; 85730; 86140; 86704; 86706; 86803; 86850; 86900; 86901; 87070; 87086; 87205; 87340; 87635; 88112; 88305; 90935; 93005; 93010; 93306; 93970; 94002; 94003; 94640; 94660; 96360; 96361; 96374; 96376; 97139; A4217; C1752; C9113; G0257; G0365; J0171; J0692; J1200; J1642; J1644; J1720; J1815; J1940; J1956; J2001; J2060; J2270; J2704; J3010; J3370; J3430; J3490; J7050; J7620; P9016; P9059; S0020; U0003

== ENCOUNTER 2019-10-07 12:20 | Inpatient (IN) | payer MEDICARE, OTHER ==
[~2019-10-07 12:20] MED LIST: Heparin 10,000 UNITS/ 10 ML VIAL ONE
[2019-10-07] MEDS ORDERED: Fentanyl 100 MCG/2 ML VIAL ONE (12:41)
--- NOTE | 2019-10-07 13:21 | CT ---
CT HEAD WITHOUT CONTRAST: Date: 10/07/2019 INDICATION: Fall. Patient is on Coumadin. There are no comparison studies. FINDINGS: There is mild cortical atrophy. There is encephalomalacia in the left frontal lobe consistent with ol d frontal lobe infarct. There are chronic ischemic changes in the deep white matter with evidence of old lacunar infarcts in the basal ganglia regions. There is no evidence of acute hemorrhage. No evidence of acute infarct or mass. Sinuses and mastoids are clear. IMPRESSION: 1. No acute process. 2. Chronic changes as described. POS: RICHIE
[2019-10-07] MEDS ORDERED: Phytonadione 10 MG/ML AMP ONE (13:31)
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
[2019-10-07 15:09] LABS: HBSAB Concentration Less than 8.00 mIU/mL; Hep B Surf AB Non-Reactive (NonReactive)
[2019-10-07] MEDS ORDERED: Morphine 4 MG/ML VIAL ONE (15:34)
[2019-10-07] MEDS ORDERED: Ondansetron PF 4 MG/2 ML Vial ONE (15:34)
--- NOTE | 2019-10-07 15:35 | HP ---
REQUESTING PHYSICIAN: Dr. Knight. ATTENDING SURGEON: Dr. Carter. CONSULTATION: Orthopedics, Dr. Feldman. HISTORY OF PRESENT ILLNESS: The patient is an 84-year-old man, who resides in the [place] area, yesterday had gotten up out of bed and slipped and fell landing on his left hip. The patient was able to get back to his bed, where he stayed all day and this morning, he attempted to ambulate once again. His pain became too much, so his son brought him to the emergency department in [place], where he underwent evaluation and examination and was noted to have a left femoral neck fracture at which time he was transferred to our facility for admission and orthopedic consultation. Of note, the patient is a dialysis patient and he missed his dialysis yesterday. ALLERGIES: NONE, THOUGH [employer] SHOWS MORPHINE, THE PATIENT IS UNSURE OF WHY THAT IS THERE. CURRENT MEDICATIONS: The patient takes Coumadin, propranolol, iron, Ambien, hydralazine, Coreg, and Ventolin inhaler. PAST MEDICAL HISTORY: Coronary artery disease, end-stage renal disease, type 2 diabetes, hypertension, hypercholesterolemia, chronic back pain, and atrial fibrillation. PAST SURGICAL HISTORY: Pacemaker placement, left rotator cuff surgery, CABG x3, hernia repair, lumbar fusion, and appendectomy. SOCIAL HISTORY: The patient denies drug or tobacco use. Alcohol use, rarely once a week. The patient lives at home with family. REVIEW OF SYSTEMS: A 10-point review of systems is negative except otherwise stated. PHYSICAL EXAMINATION: VITAL SIGNS: Blood pressure 138/60, heart rate 67, respirations 14, temperature is 98.4, and oxygen saturation 95% on 2 L via nasal cannula. GENERAL: The patient is resting comfortably in bed. He is awake, alert, conversant, and appropriate. [place] Coma Scale is 15. HEENT: Head is normocephalic and atraumatic. Eyes; extraocular motion intact. PERRLA bilaterally. Ears are atraumatic without discharge. Nose is atraumatic without discharge. Oropharynx is clear. NECK: Nontender. Trachea is midline with no JVD. CHEST: Does have a hemodialysis catheter on the right side, midline incision consistent with his CABG and scar on his left anterior chest wall, consistent with pacemaker placement. ABDOMEN: Soft, flat, nontender with active bowel sounds. PELVIS: Stable with tenderness to palpation to the left hip, consistent with his fracture. EXTREMITIES: Neurovascularly intact x4. Right lower extremity has swelling at the right ankle, 2+ pitting edema, which the patient states is not uncommon for him, usually bilaterally. BACK: Atraumatic and nontender. LABORATORY FINDINGS: CBC; WBC 9.5, hemoglobin 9.5, hematocrit 30.2, and platelets 176. INR 2.3. Sodium 140, potassium 4.6, chloride 100, CO2 of 22, BUN 59, creatinine 5.59, and glucose 214. RADIOGRAPHIC FINDINGS: CT of the brain without contrast shows no acute process. Views of the left hip show left intertrochanteric femur fracture. Views of the lumbar spine show [id number] degenerative changes, no acute findings are found. ASSESSMENT: 1. Status post ground-level fall with delayed presentation. 2. Left femoral neck fracture. 3. History of coronary artery disease. 4. Hemodialysis due to end-stage renal disease. 5. Pacemaker placement. 6. Atrial fibrillation. 7. Coumadin use. 8. Type 2 diabetes. PLAN: Plan will be to admit the patient to surgical floor. We have contacted Dr. Martinez to see if the patient can get his dialysis today with plans for surgery tomorrow. The patient was given vitamin K in the emergency department for his elevated INR, which we will check in the morning along with his other morning labs. Postoperatively, we will do physical and occupational therapy and discuss placement at that time. The evaluation, examination, laboratory, and radiographic findings were discussed with Dr. Carter after this dictation. The patient was evaluated by Orthopedics in the emergency department. Job ID: [id number]
[2019-10-07 16:02] LABS: HBSAg Index 2.73 S/CO (0-0.99); Hep B Surf Ag Reflx Confirmation S/CO (NonReactive)
--- NOTE | 2019-10-07 17:50 | CON ---
DATE OF CONSULTATION: HISTORY OF PRESENT ILLNESS: Mr. Rzivi is an 84-year-old white male with ESRD and admitted due to his hip fracture. The patient slipped and fell down yesterday. The left hip was injured. X-rays of the left hip showed a left femoral neck fracture. He is scheduled for surgical intervention tomorrow. We are following up this patient for his maintenance hemodialysis and management of his ESRD. He missed dialysis yesterday. He is currently undergoing hemodialysis with no or minimal heparin use. He is tolerating the said treatment. REVIEW OF SYSTEMS: Positive for left hip joint pain. No nausea. No vomiting. No chest pain or shortness of breath. No productive cough. No syncopal episode. No fever or chills. No gross hematuria. No dysuria. No urinary frequency. HOME MEDICATIONS: Includes; 1. Tramadol 50 mg q.i.d. p.r.n. 2. Hydralazine 25 mg p.o. t.i.d. 3. Ambien 5 mg at bedtime p.r.n. 4. Coumadin 2 mg at bedtime - as directed. 5. Ventolin oral inhaler 2 puffs q.6. 6. Protonix 40 mg daily. 7. Pataday as directed. 8. DuoNeb neb treatment q.i.d. p.r.n. 9. Insulin detemir 100 units subcu b.i.d. 10. Carvedilol 3.125 mg p.o. b.i.d. PAST MEDICAL HISTORY: 1. Status post pneumonia, status post acute respiratory failure necessitating intubation. 2. ESRD from diabetic nephropathy. 3. Ischemic cardiomyopathy. 4. History of atrial fibrillation. 5. Status post pneumonia with empyema. 6. Hypertension. PAST SURGICAL HISTORY: Status post intubation, status post decortication for the pulmonary empyema, status post AICD placement with subsequent removal, status post exploratory laparotomy for small bowel obstruction, status post hernia repair, status post colonoscopy, status post upper GI endoscopy, status post cardiac cath, status post CABG, status post left shoulder surgery. SOCIAL HISTORY: The patient is , 3 children. Lives in [place]. 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 Education, some college courses. Alcohol, none. Currently, not smoking. Status post multiple blood transfusion. ALLERGIES: NONE. TRAUMA: Status post left shoulder fracture with left rotator cuff injury and left clavicular fracture, recently status post left femoral neck fracture. IMMUNIZATIONS: Up-to-date. HOSPITALIZATIONS: Please see past medical history. FAMILY HISTORY: No family history of ESRD. PHYSICAL EXAMINATION: VITAL SIGNS: Blood pressure is 159/61, heart rate 81. GENERAL: Awake, alert, comfortable, not in distress. SKIN: Adequate turgor. HEENT: Pinkish conjunctivae. Anicteric sclerae. No JVD. LUNGS: Clear breath sounds. HEART: Irregularly irregular. No murmur. No gallops. No rubs. ABDOMEN: Globular, soft, and nontender. No masses. EXTREMITIES: Trace edema. LABORATORY DATA: Laboratories of October 07, 2019; white count 9.5, hemoglobin 9.5. Sodium 137, potassium 4.6, chloride 100, carbon dioxide 22, BUN 59, creatinine 5.59, glucose 214, calcium 8.3, AST 14, and ALT 9. INR 2.3. On October 07, 2019, hip x-ray showed left femoral neck fracture with mild displacement. CT scan of the brain on October 07, 2019, showed no acute process. ASSESSMENT AND PLAN: 1. Left femoral neck fracture - the patient for planned hip surgery tomorrow. 2. End-stage renal disease, stable. We will continue current hemodialysis regimen of 3 times a week. He is undergoing hemodialysis due to the fact he missed dialysis yesterday. Fluid removal only as tolerated. Minimal to no heparin use with the current dialysis. Overall, agree with current management. We will re-evaluate tomorrow if he will need dialysis after surgery. If not, I will place him back on a Sunday, , and Sunday dialysis schedule. Recheck CBC and basic metabolic panel in a.m. Job ID: [id number]
[2019-10-07] MEDS ORDERED: Dextrose 5% in Water 1,000 ML IV PRN (19:26)
[2019-10-07] MEDS ORDERED: Dextrose 50% Abboject 50 ML SYRINGE SLOW IVP PRN (19:26)
[2019-10-07] MEDS ORDERED: Ondansetron ODT 4 MG TAB PO PRN (19:26)
[2019-10-07] MEDS ORDERED: Acetaminophen 500 MG TAB PO SCH (19:26)
[2019-10-07] MEDS ORDERED: Ondansetron PF 4 MG/2 ML Vial IVP PRN (19:26)
[2019-10-07] MEDS ORDERED: Insulin Regular 300 UNITS/3 ML VIAL SC PRN (19:26)
[2019-10-07 19:50] LABS: Magnesium 1.8 mg/dL (1.6-2.6)
[2019-10-07 19:54] LABS: Phosphorus 1.1 mg/dL (2.3-4.7)
[2019-10-07 20:09] VITALS: BMI 28.7
[2019-10-07] MEDS: traMADol HCl 50 MG TAB PO SCH (20:46)
[2019-10-07] MEDS: Acetaminophen 325 MG TAB PO SCH (20:46)
[2019-10-07] MEDS: Famotidine 20 MG TAB PO SCH (20:46)
[2019-10-07] MEDS: Sodium Chloride 0.9% 1,000 ML IV SCH (20:48)
[2019-10-07 21:35] LABS: Calcium 8.5 mg/dL (7.8-10.44); Chloride 99 mmol/L (98-107); Potassium 3.7 mmol/L (3.5-5.1); Sodium 138 mmol/L (136-145)
[2019-10-07 21:36] LABS: Glucose 138 mg/dL (83-110)
[2019-10-07 21:37] LABS: Anion Gap 18 mmol/L (10-20); Carbon Dioxide 25 mmol/L (23-31)
[2019-10-07 21:39] LABS: Calc. Creatinine Clearance 21 mL/min (70-130); Estimated GFR-MDRD 20
[2019-10-07 21:40] LABS: BUN (Urea Nitrogen) 25 mg/dL (8.4-25.7)
[2019-10-07 21:41] LABS: Magnesium 1.9 mg/dL (1.6-2.6)
[2019-10-07 21:44] LABS: Phosphorus 3.5 mg/dL (2.3-4.7)
--- NOTE | 2019-10-07 22:12 | ULT ---
EXAM: Bilateral lower extremity venous ultrasound HISTORY: Right lower extremity swelling, greater than left. COMPARISON: None TECHNIQUE: Multiplanar grayscale and color Doppler images were obtained in a bilateral lower extremit y venous ultrasound. Spectral analysis of the Doppler waveforms were performed. FINDINGS: Left lower extremity: There is compressibility, presence of flow and augmentation in the common femor al vein, femoral vein and popliteal vein. Flow in the greater saphenous vein, profunda femoral vein and posterior tibial vein Right lower extremity: There is compressibility and flow in the common femoral vein, greater saphenou s vein and profunda femoral vein. Proximal and mid femoral vein demonstrate compressibility, presence of flow and augmentation. Distal femoral vein does not completely compress. There is a parti al thrombus. There is compressibility and flow, along with augmentation in the popliteal vein. There is flow and augmentation in the posterior tibial vein. IMPRESSION: 1. Partial thrombus in the distal right femoral vein. 2. No evidence of thrombus in the left or from the deep venous system.
[2019-10-08] MEDS: Acetaminophen 325 MG TAB PO SCH ×4 (03:18→20:54)
[2019-10-08] MEDS: Sodium Chloride 0.9% 1,000 ML IV SCH (05:45)
[2019-10-08 06:28] LABS: #Basophils 0.1 thou/uL (0.0-0.2); #Eosinphils 0.4 thou/uL (0.0-0.7); #Lymphocytes 0.9 thou/uL (1.20-3.40); #Monocytes 0.5 thou/uL (0.11-0.59); %Eosinophils 5.2 % (0.0-10.0); %Lymphocytes 12.5 % (21.0-51.0); %Monocytes 7.8 % (0.0-10.0); %Neutrophils 73.5 % (42.0-75.0); Hemoglobin 8.9 g/dL (14.0-18.0); Mean Corpuscular HGB CONC 32.6 g/dL (32.0-36.0); Mean Corpuscular Volume 98.2 fL (78.0-98.0); Mean Platelet Volume 7.4 fL (7.4-10.4); Platelet Count 152 thou/uL (130-400); RBC Distribution Width 14.7 % (11.5-14.5); Red Blood Cell (RBC) Count 2.79 mill/uL (4.70-6.10); White Blood Cell (WBC) Count 6.8 thou/uL (4.8-10.8)
[2019-10-08 06:32] LABS: INR-International Normal Ratio 1.3; PTT 42.7 sec (22.9-36.1)
[2019-10-08] MEDS ORDERED: Magnesium 2 GM/50 ML 2 GM in Premix Bag 1 BAG IVPB SCH (06:45)
[2019-10-08 07:36] LABS: Anion Gap 14 mmol/L (10-20); BUN (Urea Nitrogen) 31 mg/dL (8.4-25.7); Calc. Creatinine Clearance 17 mL/min (70-130); Calcium 8.2 mg/dL (7.8-10.44); Carbon Dioxide 27 mmol/L (23-31); Chloride 100 mmol/L (98-107); Estimated GFR-MDRD 16; Glucose 138 mg/dL (83-110); Magnesium 2.1 mg/dL (1.6-2.6); Phosphorus 5.9 mg/dL (2.3-4.7); Potassium 4.1 mmol/L (3.5-5.1); Sodium 137 mmol/L (136-145)
[2019-10-08] MEDS: traMADol HCl 50 MG TAB PO SCH ×2 (08:29→20:53)
--- NOTE | 2019-10-08 09:33 | RAD ---
CHEST 1 VIEW PORTABLE: HISTORY: Followup deep venous thrombosis. Followup injury from a fall. COMPARISON: 09/08/2019. FINDINGS: Bilateral pleural effusions larger on the left side with some patchy linear, interstitial, and alveol ar parenchymal changes. No pneumothorax. Right venous access catheter. Postop midline sternotomy. IMPRESSION: Overall stable chest. Bilateral congestion and patchy linear interstitial parenchymal changes and pl eural effusions, worse on the left. Continued followup for clearing. POS: RRE
[2019-10-08] MEDS: Carvedilol 6.25 MG TAB PO SCH ×2 (09:59→20:55)
[2019-10-08] MEDS ORDERED: PROPOFOL 200 MG/20 ML VIAL ONE (10:25)
[2019-10-08] MEDS ORDERED: Dexamethasone 20 MG/5 ML VIAL ONE (10:25)
[2019-10-08] MEDS ORDERED: Lidocaine 1% PF 5 ML VIAL ONE (10:25)
[2019-10-08] MEDS ORDERED: EPHEDRINE 25 MG/5 ML SYRINGE ONE (10:25)
[2019-10-08] MEDS ORDERED: Ondansetron PF 4 MG/2 ML Vial ONE (10:25)
[2019-10-08] MEDS: Morphine 2 MG/ML VIAL SLOW IVP PRN (11:02)
[2019-10-08] MEDS ORDERED: Ondansetron HCl/PF 4 MG/2 ML Vial IVP PRN (12:46)
[2019-10-08 12:54] LABS: SARS-CoV-2 MS2 Positive; SARS-CoV-2 N Gene Negative; SARS-CoV-2 S Gene Negative; SARS-CoV-2 by NAA Not Detected (NotDetected); SARS-CoV-2 orf1ab Negative
[2019-10-08] MEDS ORDERED: Vancomycin 1 GM/200 ML BAG ONE (13:07)
[2019-10-08] MEDS ORDERED: Fentanyl 100 MCG/2 ML VIAL ONE ×4 (13:18→16:08)
--- NOTE | 2019-10-08 13:51 | PRG ---
DATE OF SERVICE: 10/08/2019 SUBJECTIVE: The patient was seen on surgical floor during morning rounds. He was sitting up in bed, in no acute distress. He had no acute events overnight. The patient received dialysis last night under the instruction of his drain cleaner, Dr. Martinez. He states his pain was well controlled this morning. The plan is for him to go to surgery today for a left hip hemiarthroplasty by Dr. Feldman. OBJECTIVE: VITAL SIGNS: Temperature 98.2, pulse 72, respirations 16, oxygen saturation 95% on room air, blood pressure 95/47. GENERAL: No acute distress, well-developed, well-nourished. PULMONARY: No respiratory distress. Equal chest rise and fall. CARDIAC: Irregularly irregular rhythm, sternotomy scar present, pacemaker placed. ABDOMEN: Soft and nontender. EXTREMITIES: Neurovascularly intact, right lower extremity with 2+ pitting edema. NEUROLOGIC: Awake, alert, and oriented x3. LABORATORY FINDINGS: WBC 6.8, hemoglobin 8.9, platelets 152. Sodium 137, potassium 4.1, BUN 31, creatinine 3.71, glucose 138, phosphorus 5.9, magnesium 2.1. RADIOGRAPHIC FINDINGS: Chest x-ray, overall stable chest. Bilateral congestion and patchy linear interstitial parenchymal changes and pleural effusions that are worse on the left. ASSESSMENT: 1. Status post ground level fall with delayed presentation. 2. Left femoral neck fracture, operative repairment planned for today. 3. History of coronary artery disease; end-stage renal disease, on hemodialysis; atrial fibrillation with pacemaker placement, on Coumadin; type 2 diabetes. PLAN: The patient is to be taken back to the OR by Dr. Feldman today for a left hip hemiarthroplasty. Dr. Martinez is following the patient's dialysis. His pain is well controlled today. We will continue to follow him after his surgery with management for this. We will resume diet after surgery and initiate physical and occupational therapy. The patient will likely need placement upon discharge. This patient was seen by Dr. Chilo Carter and rest of the Trauma Team on morning rounds. Job ID: [id number]
[2019-10-08] MEDS ORDERED: SUGAMMADEX SODIUM 200 MG/2 ML VIAL ONE (14:53)
[2019-10-08] MEDS ORDERED: Morphine 2 MG/ML VIAL ONE (15:36)
--- NOTE | 2019-10-08 17:27 | RAD ---
Exam: One view pelvis HISTORY: Left hip arthroplasty FINDINGS: Single view of the pelvis demonstrate a left hip arthroplasty. Expected postoperative isaacs es no acute abnormality in the visualized osseous structures IMPRESSION: Findings compatible with left hip arthroplasty.
--- NOTE | 2019-10-08 17:28 | RAD ---
Exam:2 views left hip HISTORY: Status post left hip arthroplasty. Left femoral neck fracture. COMPARISON: 10/07/2019 FINDINGS: Findings compatible with left hip arthroplasty. Alignment appears be. IMPRESSION: Findings compatible with recent left hip arthroplasty.
--- NOTE | 2019-10-08 20:02 | OP ---
DATE OF PROCEDURE: 10/08/2019 PREOPERATIVE DIAGNOSIS: Left femoral neck fracture. POSTOPERATIVE DIAGNOSIS: Left femoral neck fracture. PROCEDURE PERFORMED: Left hip hemiarthroplasty. ANESTHESIA: General. CONSTRUCTION FOREMAN: Aric. IMPLANTS: DePuy system was used with a size 5 [place] stem, a 28 x 50 bipolar cup and a +12 Articul/royal femoral head. COMPLICATIONS: None. DRAINS: None. SPECIMEN: None. ESTIMATED BLOOD LOSS: 200 mL. OUTCOME: Satisfactory. INDICATIONS FOR PROCEDURE: The patient is an 84-year-old gentleman, status post ground level fall sustaining a left femoral neck fracture. After discussion with the patient including risks and benefits, we decided to proceed with hemiarthroplasty. Risks include, but are not limited to bleeding, infection, nerve injury, DVT, PE, loss of limb or life, dislocation. The patient appears to understand and does wish to proceed. DESCRIPTION OF PROCEDURE: The patient was brought to the operating room and a time-out performed followed by induction of general anesthesia. Next, the patient was positioned in a right lateral decubitus position and a sterile prep and drape was performed of the left lower extremity. Next, a curvilinear incision was made centered over the tip of the greater trochanter. After skin was sharply incised, dissection was carried down with electrocautery to the level of the tensor fascia and fascia grady. This structure was incised in line with the skin incision with my assistants providing anterior and posterior retraction while the trochanteric bursa was swept off the short external rotators. Next, a Charnley retractor was placed in the wound. The abductors were elevated off the joint capsule and held with a Cobra elevator that my regulatory affairs assistant provided retraction with allowing me to visualize and reflect the piriformis, inferior and superior gemelli off the posterior aspect of the femur, tagging them and reflecting them posteriorly exposing the joint capsule. Next, a T capsulotomy was performed with edges of the leaflet of the capsule tagged for eventual repair. At this point, a T-handle awl was used to remove the femoral head. This was sized on the back table to a size 50. While my regulatory affairs assistant provided retraction of the sciatic nerve, the femoral neck was cut with oscillating saw. Next, the proximal femur was prepared first with a box chisel followed by a T-handle awl, then a lateralizing reamer. This was then followed by progressive T-handle awls up to a size 5, which gave good distal fit. Broaching was started at size 3 and carried up to size 5, which provided a good proximal fit and fill. A trial reduction was then performed on the size 5 stem. A +12 neck provided good stability. My regulatory affairs assistant was able to reduce the hip while I palpated the implant within the acetabulum to check for stability. The leg was brought into a 90-degree flexed posture by my regulatory affairs assistant with slow internal rotation applied and this provided good stability of the hip. Next, the hip was redislocated by my regulatory affairs assistant, and the trial implants were removed. The final size 5 stem was impacted into the femoral canal, followed by application of the appropriate size bipolar head. The final implant was then reduced. It should be noted the 5 L of normal saline was irrigated through the wound before the stem was introduced into the femur as well as afterwards. Once reduced, the joint capsule was reapproximated with #2 Vicryl followed by #2 Vicryl to reattach the short external rotators at the posterior aspect of the femur. #2 Vicryl was also used for the tensor fascia and fascia grady followed by 0 Vicryl for the subcutaneous tissue, 2-0 Vicryl subcutaneously, and then james for the skin. Xeroform gauze and tape dressing were applied to the lateral thigh, and then the patient was transferred to recovery room in stable condition. There were no complications. The patient tolerated the procedure well. Job ID: [id number]
[2019-10-08] MEDS: Famotidine 20 MG TAB PO SCH (20:54)
[2019-10-08] MEDS: Cyclobenzaprine 10 MG TAB PO PRN (20:55)
[2019-10-08] MEDS: CEFAZOLIN 2 GM in Premix Bag 1 BAG IVPB SCH (21:02)
[2019-10-09] MEDS: Morphine 2 MG/ML VIAL SLOW IVP PRN (01:20)
[2019-10-09] MEDS: Acetaminophen 325 MG TAB PO SCH ×2 (03:27→08:18)
[2019-10-09] MEDS: CEFAZOLIN 2 GM in Premix Bag 1 BAG IVPB SCH (05:10)
[2019-10-09 05:16] LABS: #Lymphocytes 0.3 thou/uL (1.20-3.40); #Monocytes 0.5 thou/uL (0.11-0.59); #Neutrophils 5.5 thou/uL (1.40-6.50); %Basophils 0.5 % (0.0-1.0); %Eosinophils 0.3 % (0.0-10.0); %Lymphocytes 4.8 % (21.0-51.0); %Monocytes 7.8 % (0.0-10.0); %Neutrophils 86.5 % (42.0-75.0); Mean Corpuscular HGB CONC 32.2 g/dL (32.0-36.0); Mean Corpuscular Volume 99.2 fL (78.0-98.0); Mean Platelet Volume 7.1 fL (7.4-10.4); Platelet Count 155 thou/uL (130-400); RBC Distribution Width 14.2 % (11.5-14.5); Red Blood Cell (RBC) Count 2.81 mill/uL (4.70-6.10); White Blood Cell (WBC) Count 6.4 thou/uL (4.8-10.8)
[2019-10-09 05:20] LABS: INR-International Normal Ratio 1.1; PTT 39.4 sec (22.9-36.1)
[2019-10-09 05:47] LABS: Anion Gap 18 mmol/L (10-20); BUN (Urea Nitrogen) 48 mg/dL (8.4-25.7); Calc. Creatinine Clearance 13 mL/min (70-130); Calcium 8.4 mg/dL (7.8-10.44); Carbon Dioxide 23 mmol/L (23-31); Chloride 100 mmol/L (98-107); Estimated GFR-MDRD 12; Glucose 197 mg/dL (83-110); Magnesium 2.7 mg/dL (1.6-2.6); Phosphorus 8.2 mg/dL (2.3-4.7); Potassium 4.7 mmol/L (3.5-5.1); Sodium 136 mmol/L (136-145)
[2019-10-09] MEDS: Insulin Regular 300 UNITS/3 ML VIAL SC PRN ×2 (06:06→15:43)
[2019-10-09] MEDS: Carvedilol 6.25 MG TAB PO SCH ×2 (08:19→19:57)
[2019-10-09] MEDS: traMADol HCl 50 MG TAB PO SCH ×2 (08:20→19:54)
[2019-10-09] MEDS ORDERED: WARFARIN IVPB PRN (09:02)
[2019-10-09] MEDS ORDERED: Epoetin (ESRD) 20,000 UNITS/ML SC SCH (10:00)
[2019-10-09] MEDS ORDERED: EPOETIN ALFA-EPBX (ESRD) 4,000 UNIT/ML VIAL SC SCH (10:00)
[2019-10-09] MEDS ORDERED: Acetaminophen/Codeine 30-300mg Tablet PO PRN ×2 (10:14)
--- NOTE | 2019-10-09 11:05 | PRG ---
DATE OF SERVICE: 10/09/2019 SUBJECTIVE: Mr. Rizvi is an 84-year-old white male with ESRD who was admitted for a left femoral neck fracture. The patient underwent an operative procedure on October 08, 2019. He had a left hip hemiarthroplasty. He is complaining of mild shortness of breath. I reviewed the chest x-ray and showed pleural effusion as well as increased lung markings. Our plan is to do hemodialysis today with maximal fluid removal as tolerated. OBJECTIVE: VITAL SIGNS: Blood pressure 126/67, heart rate 74, respiratory rate 14, . GENERAL: The patient is awake, comfortable, not in overt distress. SKIN: Adequate turgor. HEENT: He has slightly pale conjunctivae. Anicteric sclerae. NECK: No neck mass. No carotid bruits. No JVD. CHEST: No deformities. LUNGS: Clear breath sounds. HEART: Normal sinus rhythm. No murmur. No gallops. No rubs. ABDOMEN: Globular, soft, nontender. No masses. EXTREMITIES: No edema, no deformities. MEDICATIONS: Of October 09, 2019, reviewed. LABORATORY DATA: Of October 09, 2019; white count 6.4, hemoglobin 9. Sodium 136, potassium 4.7, chloride 100, carbon dioxide 23, BUN 48, creatinine 4.68, phosphorus is 8.2, and magnesium 2.7. ASSESSMENT AND PLAN: 1. Hyperphosphatemia. We will start Renvela 800 mg 2 tablets t.i.d. with meals. 2. Anemia. Initiate Epogen 7500 units subcu q.week. 3. End-stage renal disease. We will schedule him for his regular hemodialysis, maxing out fluid removal with dialysis as tolerated. 4. Status post left hemiarthroplasty - stable. Surgery is following. Job ID: [id number]
--- NOTE | 2019-10-09 12:25 | PRG ---
DATE OF SERVICE: 10/09/2019 SUBJECTIVE: The patient was seen on the surgical floor during morning rounds. He is postop day 1 following a left hip hemiarthroplasty. The patient states that his pain is pretty well controlled right now except for when he is up and moving around. He is getting tramadol b.i.d. and Tylenol. We discussed adjusting his pain regimen to help improve his tolerability during physical therapy, the patient was in agreement. The patient otherwise had no complaints today. OBJECTIVE: VITAL SIGNS: Temperature 97.9, pulse 74, respirations 14, oxygen saturation 95% on room air, and blood pressure 125/61. GENERAL: No acute distress, well-developed, well-nourished. PULMONARY: No respiratory distress. Equal chest rise and fall. CARDIAC: Paced rhythm, sternotomy scar present. ABDOMEN: Soft, nontender. EXTREMITIES: Neurovascularly intact, right lower extremity with pitting edema, left hip incision clean, dry, and intact. NEUROLOGIC: Awake, alert, and oriented x3. LABORATORY FINDINGS: WBC 6.4, hemoglobin 9, and platelets 155. Sodium 136, potassium 4.7, BUN 48, creatinine 4.68, glucose 200, phosphorus 8.2, and magnesium 2.7. ASSESSMENT: 1. Status post ground-level fall with delayed presentation. 2. Left femoral neck fracture, postop day 1 following left hip hemiarthroplasty. 3. History of coronary artery disease, end-stage renal disease - on hemodialysis , atrial fibrillation - with pacemaker placement, on Coumadin, diabetes type 2. PLAN: The patient is to receive hemodialysis today on his regular schedule. He is added on Tylenol 3s to the patient's pain regimen that will be available p.r.n. to better improve his tolerance with therapies. The patient is to be evaluated for needs placement upon discharge. He is tolerating his diet currently. We will begin bridging him back to Coumadin for his atrial fibrillation. The patient was seen with Dr. Chilo Carter on morning rounds with the rest of the trauma team. Job ID: [id number] [facility]
[2019-10-09] MEDS: Sevelamer Carbonate 800 MG TAB PO SCH ×2 (12:49→16:52)
[2019-10-09] MEDS ORDERED: Heparin 10,000 UNITS/ 10 ML VIAL ONE (13:16)
[2019-10-09] MEDS: Heparin 5,000 UNITS/ML VIAL SC SCH ×2 (15:07→19:54)
[2019-10-09] MEDS ORDERED: Warfarin Sodium 2 MG TAB PO SCH (17:00)
[2019-10-09] MEDS: Famotidine 20 MG TAB PO SCH (19:54)
[2019-10-10 05:25] LABS: #Eosinphils 0.3 thou/uL (0.0-0.7); #Lymphocytes 0.7 thou/uL (1.20-3.40); #Monocytes 0.6 thou/uL (0.11-0.59); #Neutrophils 3.5 thou/uL (1.40-6.50); %Basophils 0.2 % (0.0-1.0); %Eosinophils 5.3 % (0.0-10.0); %Lymphocytes 13.9 % (21.0-51.0); %Monocytes 11.6 % (0.0-10.0); Hemoglobin 8.7 g/dL (14.0-18.0); Mean Corpuscular HGB CONC 31.6 g/dL (32.0-36.0); Mean Corpuscular Hemoglobin 31.8 pg (27.0-31.0); Mean Platelet Volume 7.1 fL (7.4-10.4); Platelet Count 163 thou/uL (130-400); RBC Distribution Width 14.1 % (11.5-14.5); Red Blood Cell (RBC) Count 2.73 mill/uL (4.70-6.10); White Blood Cell (WBC) Count 5.1 thou/uL (4.8-10.8)
[2019-10-10 05:27] LABS: Prothrombin Time 13.2 sec (12.0-14.7)
[2019-10-10 05:54] LABS: Anion Gap 14 mmol/L (10-20); BUN (Urea Nitrogen) 24 mg/dL (8.4-25.7); Calc. Creatinine Clearance 20 mL/min (70-130); Carbon Dioxide 28 mmol/L (23-31); Chloride 99 mmol/L (98-107); Estimated GFR-MDRD 19; Glucose 133 mg/dL (83-110); Magnesium 2.1 mg/dL (1.6-2.6); Phosphorus 4.1 mg/dL (2.3-4.7); Potassium 3.8 mmol/L (3.5-5.1); Sodium 137 mmol/L (136-145)
[2019-10-10] MEDS: Insulin Regular 300 UNITS/3 ML VIAL SC PRN (06:14)
[2019-10-10] MEDS: traMADol HCl 50 MG TAB PO SCH (08:44)
[2019-10-10] MEDS: Sevelamer Carbonate 800 MG TAB PO SCH ×2 (08:44→11:36)
[2019-10-10] MEDS: Carvedilol 6.25 MG TAB PO SCH (08:45)
[2019-10-10] MEDS: Heparin 5,000 UNITS/ML VIAL SC SCH ×2 (08:45→14:30)
[2019-10-10] MEDS ORDERED: Polyethylene Glycol 3350 17 GM Packet PO SCH (09:00)
[2019-10-10] MEDS ORDERED: Senokot S 8.6-50 MG TAB PO SCH (09:00)
[2019-10-10] MEDS: Cyclobenzaprine 10 MG TAB PO PRN (10:31)
[2019-10-10 13:38] LABS: Hep B Surface AG-Rflx Sendout Confirm. indicated (Negative)
[2019-10-10 16:08] VITALS: BP 137/53; TEMP 98.1
== END 2019-10-10 15:55 | DRG 469 ==
LOC: ERS 12:20 → SURG B 13:49
PROVIDERS: ADMIT Surgery; ATTEND Surgery
PROC: 0SRB0JZ Replacement of Left Hip Joint with Synthetic Substitute, Open Approach (ICD-10-PCS; principal; 2019-10-08)
PROC: 5A1D70Z Performance of Urinary Filtration, Intermittent, Less than 6 Hours Per Day (ICD-10-PCS; 2019-10-09)
DX: S72.002A Fracture of unspecified part of neck of left femur, initial encounter for closed fracture (principal); N18.6 End stage renal disease; I12.0 Hypertensive chronic kidney disease with stage 5 chronic kidney disease or end stage renal disease; W19.XXXA Unspecified fall, initial encounter; I25.10 Atherosclerotic heart disease of native coronary artery without angina pectoris; I25.2 Old myocardial infarction; I48.91 Unspecified atrial fibrillation; E11.22 Type 2 diabetes mellitus with diabetic chronic kidney disease; G89.29 Other chronic pain; Z95.1 Presence of aortocoronary bypass graft; Z95.0 Presence of cardiac pacemaker; I25.5 Ischemic cardiomyopathy; E83.39 Other disorders of phosphorus metabolism
CPT/HCPCS: 36415; 36416; 70450; 71045; 72170; 80048; 83735; 84100; 85025; 85610; 85730; 86706; 87340; 87635; 90935; 93005; 93970; 96365; 96375; C1776; G0257; G0390; J0690; J1100; J1644; J1815; J2270; J2405; J2704; J3010; J3370; J3430; J3475; U0003

== ENCOUNTER 2019-10-20 12:28 | Inpatient (IN) | payer MEDICARE, OTHER ==
[2019-10-20 13:31] LABS: #Eosinphils 0.3 thou/uL (0.0-0.7); #Lymphocytes 1.1 thou/uL (1.20-3.40); #Monocytes 0.9 thou/uL (0.11-0.59); #Neutrophils 7.5 thou/uL (1.40-6.50); %Basophils 0.4 % (0.0-1.0); %Eosinophils 3.4 % (0.0-10.0); %Monocytes 9.1 % (0.0-10.0); %Neutrophils 76.1 % (42.0-75.0); Hemoglobin 9.2 g/dL (14.0-18.0); Mean Corpuscular HGB CONC 31.9 g/dL (32.0-36.0); Mean Corpuscular Hemoglobin 31.1 pg (27.0-31.0); Mean Corpuscular Volume 97.5 fL (78.0-98.0); Mean Platelet Volume 7.6 fL (7.4-10.4); Platelet Count 216 thou/uL (130-400); RBC Distribution Width 13.8 % (11.5-14.5); Red Blood Cell (RBC) Count 2.97 mill/uL (4.70-6.10); White Blood Cell (WBC) Count 9.9 thou/uL (4.8-10.8)
[2019-10-20 13:35] LABS: INR-International Normal Ratio 2.2; PTT 43.1 sec (22.9-36.1); Prothrombin Time 24.3 sec (12.0-14.7)
--- NOTE | 2019-10-20 13:40 | CT ---
CT Brain WO Con HISTORY: Altered mental status COMPARISON: 10/07/2019 FINDINGS: There is mild cortical atrophy. There is encephalomalacia in the left frontal lobe consistent with ol d frontal lobe infarct. There are chronic ischemic changes in the deep white matter with evidence of old lacunar infarcts in the basal ganglia regions. No evidence of acute infarct hemorrhage midline shift or abnormal extra-axial fluid collections is se en. The bony calvarium is intact. The visualized paranasal sinuses and mastoid air cells are well-aerated. IMPRESSION: Chronic changes. No CT evidence of acute intracranial process.
--- NOTE | 2019-10-20 13:53 | RAD ---
EXAM: CHEST ONE VIEW HISTORY: Altered mental status COMPARISON: 10/08/2019 FINDINGS: Right-sided tunneled hemodialysis catheter remains unchanged in position. Postoperative changes relat ed to median sternotomy are again seen. Cardiac silhouette remains enlarged. Pulmonary vasculature is within normal limits. Again noted are bilateral pleural effusions greater on the left. Parenchymal lung changes are also again seen at the left lung base which could be related to either volume loss or pneumonia. No other interval change. IMPRESSION: Persistent bilateral pleural effusions and parenchymal lung changes primarily at the left lung base. Presumed parenchymal lung changes left lung base could potentially represent pleural fluid within the region of the fissure with associated volume loss. However, pneumonia left lung base could not be entirely excluded. Continued follow-up to resolution is recommended.
[2019-10-20 14:06] LABS: ALT (SGPT) 7 U/L (8-55); AST (SGOT) 20 U/L (5-34); Albumin 3.2 g/dL (3.4-4.8); Alkaline Phosphatase 116 U/L (40-110); Anion Gap 16 mmol/L (10-20); BUN (Urea Nitrogen) 65 mg/dL (8.4-25.7); Bilirubin, Total 0.4 mg/dL (0.2-1.2); Calc. Creatinine Clearance 0 mL/min (70-130); Calcium 8.7 mg/dL (7.8-10.44); Carbon Dioxide 27 mmol/L (23-31); Chloride 93 mmol/L (98-107); Estimated GFR-MDRD 11; Globulin 3.9 g/dL (2.4-3.5); Glucose 122 mg/dL (83-110); Potassium 6.2 mmol/L (3.5-5.1); Protein, Total 7.1 g/dL (5.8-8.1); Sodium 130 mmol/L (136-145)
[2019-10-20] MEDS ORDERED: Cefepime 2 GM VIAL ONE (15:44)
[2019-10-20] MEDS ORDERED: Aspirin Chewable 81 MG TAB ONE (15:44)
[2019-10-20 15:47] LABS: CKMB 1.9 ng/mL (0-6.6)
[2019-10-20] MEDS ORDERED: Albuterol Sulfate 2.5 mg/3 ml Neb ONE (16:01)
[2019-10-20] MEDS ORDERED: Albuterol Sulfate 2.5 mg/0.5 ml Neb ONE (16:01)
--- NOTE | 2019-10-20 16:07 | PDOC.FPRHP ---
- History of Present Illness Chief Complaint: AMS History of Present Illness: This is an 84M who is not a good historian. He was sent from his rehab facility for altered mentation. Per the patient, he is here because of trembling in his hands that started a few weeks ago and has worsened "as the medication has increased". He describes it as involuntary shaking that presents him from feeding himself and causes him to drop things frequently. He is extremely slow to speak but is A&O x3. - Allergies/Adverse Reactions Allergies Allergy/AdvReac Type Severity Reaction Status Date / Time No Known Allergies Allergy Verified 10/08/19 11:23 - Home Medications Medication Instructions Recorded Confirmed Type Zolpidem Tartrate [Ambien] 5 mg PO HS PRN 07/24/19 10/08/19 History Pantoprazole [Protonix] 40 mg PO DAILY tab 08/09/19 10/08/19 Rx hydrALAZINE [Apresoline] 25 mg PO TID tab 08/09/19 10/08/19 Rx Carvedilol 3.125 mg PO BID 09/16/19 10/08/19 History Ferrous Sulfate [Iron] 325 mg PO DAILY 09/16/19 10/08/19 History Ipratropium/Albuterol Sulfate 3 ml NEB QID PRN 09/16/19 10/08/19 History [DuoNeb] Warfarin Sodium [Coumadin] 2 mg PO HS 09/16/19 10/08/19 History Acetaminophen W/ Codeine 1 tab PO Q6H PRN tab 10/10/19 Rx [Acetaminophen/Codeine #3] Acetaminophen W/ Codeine 2 tab PO Q6H PRN tab 10/10/19 Rx [Acetaminophen/Codeine #3] Cyclobenzaprine [Flexeril] 5 mg PO TID PRN tab 10/10/19 Rx Warfarin Sodium [Coumadin] 2 mg PO 1700 tab 10/10/19 Rx traMADol HCl [Ultram] 100 mg PO BID tab 10/10/19 Rx - History PMHx: CAD, ESRD, T2DM, HTN, HLD, AFib, chronic back pain PSHx: pacemaker placement, L rotator cuff surgery, CABG x3, hernia repair, lumbar fusion, appendectomy Social: Denies smoking, last drank EtOH prior to previous hosp, denies drugs - Review of Systems General: denies: fever/chills Eyes: denies: vision changes Respiratory: denies: shortness of breath Cardiovascular: denies: chest pain Gastrointestinal: denies: vomiting, diarrhea Skin: denies: rashes Neurological: reports: syncope (Questionable syncopal episode. Pt is poor historian) - Vital signs BP: 134/46, Pulse: 51, Resp: 15, Temp: 97.9 (Oral), Pain: 0, O2 sat: 98 on (2L Oxygen) - Physical Exam Constitutional: NAD, awake, alert and oriented (A&O x3) HEENT: normocephalic and atraumatic, EOMI, grossly normal vision Neck: supple Chest: no-tender to palpation, no lesions Heart: normal S1/S2, no murmurs/rubs/gallops, pulses present, no edema -Heart: Significant scar along sternum Lungs: no respiratory distress, good air movement -Lungs: Crackles audible in b/l lungs Abdomen: soft, non-tender, no masses/distention -Abdomen: Significant scar from superior to inferior Musculoskeletal: normal structure, normal tone Neurological: no focal deficit Skin: no rash/lesions Psychiatric: normal mood and affect FMR H&P: Results - Labs Result Diagrams: 10/20/19 13:16 10/20/19 13:16 Lab results: WBC 9.9 thou/uL (4.8-10.8) 10/20/19 13:16 Hgb 9.2 g/dL (14.0-18.0) L 10/20/19 13:16 Hct 28.9 % (42.0-52.0) L 10/20/19 13:16 MCV 97.5 fL (78.0-98.0) 10/20/19 13:16 Plt Count 216 thou/uL (130-400) 10/20/19 13:16 Neutrophils % 76.1 % (42.0-75.0) H 10/20/19 13:16 Sodium 130 mmol/L (136-145) L 10/20/19 13:16 Potassium 6.2 mmol/L (3.5-5.1) H 10/20/19 13:16 Chloride 93 mmol/L (98-107) L 10/20/19 13:16 Carbon Dioxide 27 mmol/L (23-31) 10/20/19 13:16 BUN 65 mg/dL (8.4-25.7) H 10/20/19 13:16 Creatinine 4.94 mg/dL (0.7-1.3) H 10/20/19 13:16 Glucose 122 mg/dL (83-110) H 10/20/19 13:16 Lactic Acid 1.5 mmol/L (0.5-2.2) 10/20/19 14:12 Calcium 8.7 mg/dL (7.8-10.44) 10/20/19 13:16 Total Bilirubin 0.4 mg/dL (0.2-1.2) 10/20/19 13:16 AST 20 U/L (5-34) 10/20/19 13:16 ALT 7 U/L (8-55) L 10/20/19 13:16 Alkaline Phosphatase 116 U/L (40-110) H 10/20/19 13:16 CK-MB (CK-2) 1.9 ng/mL (0-6.6) 10/20/19 14:12 B-Natriuretic Peptide 2927.7 pg/mL (0-100) H 10/20/19 14:12 Serum Total Protein 7.1 g/dL (5.8-8.1) 10/20/19 13:16 Albumin 3.2 g/dL (3.4-4.8) L 10/20/19 13:16 Additional comment: I reviewed these results - EKG Interpretation EKG: Slow atrial flutter. I reviewed the EKG FMR H&P: A/P - Problem List (1) End stage chronic kidney disease Current Visit: Yes Status: Chronic Code(s): N18.6 - END STAGE RENAL DISEASE (2) CHF (congestive heart failure) Current Visit: Yes Status: Chronic Code(s): I50.9 - HEART FAILURE, UNSPECIFIED (3) Onychomycosis Current Visit: Yes Status: Acute Code(s): B35.1 - TINEA UNGUIUM (4) Arrhythmia, atrial Current Visit: Yes Status: Chronic Code(s): I49.8 - OTHER SPECIFIED CARDIAC ARRHYTHMIAS (5) CAD (coronary artery disease) Current Visit: No Status: Chronic Code(s): I25.10 - ATHSCL HEART DISEASE OF [place] CORONARY ARTERY W/O ANG PCTRS Qualifiers: Coronary Disease-Associated Artery/Lesion type: bypass graft [place] vs. transplanted heart: [place] heart Associated angina: without angina Qualified Code(s): I25.810 - Atherosclerosis of coronary artery bypass graft(s) without angina pectoris (6) DM type 2 (diabetes mellitus, type 2) Current Visit: Yes Status: Chronic Qualifiers: Diabetes mellitus senior care insulin use: with senior care use Diabetes mellitus complication status: with other specified complication Qualified Code(s): E11.69 - Type 2 diabetes mellitus with other specified complication; Z79.4 - long term care social worker (current) use of insulin (7) Dyslipidemia Current Visit: No Status: Chronic Code(s): E78.5 - HYPERLIPIDEMIA, UNSPECIFIED (8) HTN (hypertension) Current Visit: No Status: Chronic Code(s): I10 - ESSENTIAL (PRIMARY) HYPERTENSION Qualifiers: Hypertension type: essential hypertension Qualified Code(s): I10 - Essential (primary) hypertension - Plan This is an 84yo M brought to the ED for AMS SILVIO on CKD - BUN 65. Cr 4.94 Baseline Cr has increased from about 2 to about 4 - Was scheduled for dialysis today, which he missed d/t being brought to the ED - Dr. Reis consulted in ED and organized emergent dialysis. Appreciate recs - Na 130, K 6.2, Cl 93. - Daily BMPs Metabolic encephalopathy likely 2/2 uremia - A&O x3 but altered, per rehab facility - BUN 65 - Very slow in speech. Unclear whether this is his baseline. Need to obtain b aseline per rehab and/or family Obtaining BIG DATA DEVELOPER eval. NPO until then - UA neg - CT brain w/o contrast shows chronic changes - UCx, BCx pending AFib vs Aflutter - Bradycardic atrial flutter on EKG on arrival - Hx of AFib and pacemaker placement that had to be extracted d/t infection. - No pacemaker currently - Home meds, per file from rehab: Lovenox, Warfarin - Seen by Electrophysiology in ED. Verbally, they said there are several options available if he has no concerns for infxn Appreciate recs - PT/PTT/INR = 24.3/43.1/2.2 CHF exacerbation - BNP 2928 - Trop 0.055. Repeat pending - CK-MB 1.9 - CXR: Persistent bilateral pleural effusions and parenchymal lung changes primarily at the left lung base Possible PNA but WBC 9.9, LA 1.5, vitals wnl therefore less convincing. Received one dose of Cefepime, which has been discontinued. PRocal pending - Echo in 07/2019 showed EF 50-55% with akinesia of base of inferior wall and mildly elevated pulm artery pressure - Strict I&Os. Daily weights. Akathisia - Per patient, started a few weeks ago and is assoc with a medication - Nurse in ED mentioned the patient possibly experiencing tactile hallucinations as the cause of the movements Anemia - H/H of 9., MCV normal - Per chart review, Hgb baseline is about 9 Elevated transaminase - Alk Phos 116 - Will monitor CAD - On Warfarin at home - Continue here as DVT Ppx T2DM - Insulin-dependent, on Humulin at home, per packet from rehab. - Ask about home dose to start here - Monitor BGs - Mild SSI here, in the meantime HTN - Normotensive on admission - Home meds, per packet from rehab, include Carvedilol 3.125 - Verify and then continue home meds. Monitor BPs Onychomycosis - Of L UE Chronic back pain - MD aware - Monitor and treat sxs Dispo: Inpt tele, LOS >48h DVT Ppx: Warfarin Diet: NPO pending BIG DATA DEVELOPER eval, then CC with fluid restriction IVF: None Code: Chemical resuscitation only FMR H&P: Upper Level - Plan Date/Time: 10/20/19 1607 IAinsley, have evaluated this patient and agree with findings/plan as outlined by operations intern resident. Pertinent changes/additions are listed here. HPI: 84 yo with ESRD presents from rehab for shaking per patient. Per ED, he presents for AMS, generalized weakness, and hyperkalemia. Pt had recent admission for hip fracture and has been in rehab. He missed dialysis today. In ED, labs significant for Na 130, K 6.2, Chloride 93. BUN/Cr 65/4.94, glucose 122. Trop 0.055-> 0.022. BNP 2927. PE: VSS. Satting 99% on 2L BNC. General: hard of hearing. Slow to respond to questions, speech clear. Neuro: PERRLA. CN 2-12 grossly intact. Strength 5/5 upper and lower extremities. Lungs: Crackles bilateral lower extremities, with mild expiratory rhonchi bilat. Cardiac: 3/6 systolic murmur, bradycardic A/P: Metabolic encephalopathy likely 2/2 uremia -Patient has missed dialysis, BUN elevated. CT head negative. -AOx3, Speech consulted, NPO for speech Hyperkalemia, ESRD -K 6.2. -EKG did not show peaked T waves. Dr. Reis consulted from ED -Dialyze today, appreciate nephro recs Nstemi type 2 2/2 Acute CHF exacerbation from ESRD -EKG afib vs flutter, bradycardia -Fluid overloaded on exam -BNP elevated, almost 3000; Trop indeterminate, continue to trend -Plan to dialyze now -Dr. Reis consulted, appreciate recs -Echo 07/2019 EF 50-55% with akinesia of inferior wall, moderately elevated PAP Afib vs Flutter -EKG shows Afib vs flutter, bradycardic to 48. Hx of AICD that has been removed. -EPS Dr. Kiser/Ariane Villanueva consulted from ED, appreciate recs. Pt has history of Afib on warfarin, INR is therapeutic -Unclear what rate control medication he is currently taking, is possibly on amiodarone but this is unclear from his medication list Possible Pneumonia -Cefepime given in ED, CXR showed possible pneumonia. WBC wnl. VSS. -This is likely fluid overload not pneumonia, will stop antibiotics -U Cx, Bl Cx pending -Procal pending, if very elevated will restart antibiotics See operations intern note for further details. William Shine MD PGY3
[2019-10-20 16:10] LABS: Bacteria/HPF None Seen HPF (None Seen); Bilirubin Negative (Negative); Blood, Urine Negative (Negative); Clarity Clear (Clear); Glucose, Urine (Dipstick) Normal (Negative); Ketone, Urine Negative (Negative); Leukocyte Negative Leu/uL (Negative); Nitrite Negative (Negative); Protein, Urine (Dipstick) 30 mg/dL (Neg-Trace); RBC/HPF 0-3 HPF (0-3); Specific Gravity, Urine 1.012 (1.002-1.036); Squamous Epithelial 0-3 HPF (0-3); Urobilinogen Normal mg/dL (Less than 2); WBC/HPF 0-3 HPF (0-3); pH, Urine 5.5 (5.0-9.0)
[2019-10-20 17:25] LABS: Troponin I 0.022 ng/mL (< 0.028)
[2019-10-20] MEDS ORDERED: Acetaminophen 325 MG TAB PO PRN (17:42)
[2019-10-20] MEDS ORDERED: Dextrose 5% in Water 1,000 ML IV PRN (18:43)
[2019-10-20] MEDS ORDERED: Dextrose 50% Abboject 50 ML SYRINGE SLOW IVP PRN (18:43)
[2019-10-20] MEDS ORDERED: hydrALAZINE 10 MG TAB PO PRN (18:47)
[2019-10-20] MEDS ORDERED: Warfarin Sodium 2 MG TAB PO SCH (19:15)
[2019-10-20] MEDS ORDERED: EPOETIN ALFA-EPBX (ESRD) 4,000 UNIT/ML VIAL SC SCH (20:00)
[2019-10-20 20:36] LABS: Troponin I 0.024 ng/mL (< 0.028)
--- NOTE | 2019-10-20 21:42 | PRG ---
DATE OF SERVICE: SUBJECTIVE: Mr. Rizvi is an 84-year-old white male with known history of ESRD - on maintenance hemodialysis on Sunday, Sunday, Sunday, recently status post left intertrochanteric fracture - status post left hemiarthroplasty, and admitted for mental status change. He was noted at the rehab to be quite confused and trembling with his hands. Over time, since then, he is mentating better. He has less shaking. He is currently undergoing hemodialysis. He underwent emergent hemodialysis due to an elevated potassium of 6.2. No other associated complaints with this patient except for generalized weakness. OBJECTIVE: VITAL SIGNS: Blood pressure is noted at 112/49, heart rate 57, respiratory rate 18, temperature 98.4, O2 saturation 99%. GENERAL: The patient is awake, alert, comfortable, not in overt distress. SKIN: Adequate turgor. HEENT: Slightly pale conjunctivae. Anicteric sclerae. No neck mass. No carotid bruits. No JVD. CHEST: No deformities. LUNGS: Clear breath sounds. HEART: Normal sinus rhythm. No murmur. No gallops. No rubs. ABDOMEN: Globular, soft, nontender. No masses. EXTREMITIES: No edema, no deformities. DIAGNOSTIC STUDIES: CT scan of the brain of October 20, 2019, showed no acute intracranial process. Chest x-ray of October 20, 2019, showed persistent bilateral pleural effusion. MEDICATIONS: Medications of October 20, 2019, reviewed. LABORATORY DATA: On October 20, 2019, white count 9.9, hemoglobin 9.2, sodium 130, potassium 6.2, chloride 93, carbon dioxide 27, BUN 65, creatinine 4.94, glucose 122. Troponin I 0.055. BNP is 2927. ASSESSMENT AND PLAN: 1. End-stage renal disease, stable, tolerating current hemodialysis regimen. Maxing out fluid removal. The patient has been undergoing dialysis for the last several months. Recent Kt/V suggests he is adequately dialyzed with the current dialysis regimen. As previously mentioned, fluid removal as tolerated. 2. Anemia, resume Epogen at 7500 units subcu q. week. 3. Mental status change - much improved. Consider the possibility of a metabolic encephalopathy. Job ID: [id number]
--- NOTE | 2019-10-21 02:19 | CON ---
DATE OF CONSULTATION: 10/20/2019 ADDITIONAL REFERRING PHYSICIAN: Jose Penaloza MD HISTORY OF PRESENT ILLNESS: [facility]. His problems are; 1. History of atrial arrhythmias. a. History of paroxysmal atrial fibrillation suppressed with amiodarone use in sinus rhythm in June. b. Currently in typical atrial flutter with bradycardia in the 40s and 50s on presentation. 2. History of systolic congestive heart failure with ischemic cardiomyopathy. a. Most recent echo on 07/25/2019 reveals LVEF 50% to 55%; mild MR, AI, and TR; and moderate pulmonary hypertension. b. Prior history of coronary artery bypass grafting surgery. 3. History of ICD implantation around 2009 with subsequent generator change in February [address] out of town. a. Subsequent erosion prompting a lead and device extraction in [place]. 4. End-stage renal disease on hemodialysis since July 2019. 5. History of empyema requiring decortication in July 2019. 6. Elevated CHADS-VASc score with age, coronary artery disease, hypertension, CHF at 5 on warfarin for anticoagulation. 7. History of left forearm AV graft placement. 8. History of hyperlipidemia. ALLERGIES: NONE NOTED. MEDICATIONS: At home included; 1. Cefepime. 2. Aspirin. 3. Albuterol. 4. Tylenol. 5. Dextrose. 6. Glucagon. 7. Humalog. 8. Hydralazine. 9. Warfarin. 10. Carvedilol. SUBJECTIVE: Mr. Rizvi is somewhat of a poor historian, but he mostly complains of symptoms of tremor and weakness. He was found to have markedly low blood pressures in the rehab and hence was transferred to our facility. He was noted to have elevated potassium levels and undergoing urgent dialysis here at the dialysis center. His lethargy seems to have resolved and overall, he is feeling good. Denies dyspnea or chest pains. No palpitations or no loss of consciousness are admitted by the patient. PAST MEDICAL HISTORY: As above. He has history of chronic back pain, diabetes type 2, hypertension, now renal disease, AV fistula placement, and empyema. PAST SURGICAL HISTORY: Significant for hip surgery on the left side, appendectomy, lumbar fusion, hernia repair, bypass grafting surgery x3 vessels, and left rotator cuff surgery in the past. Again, ICD placement and generator change and extraction as in the note. SOCIAL HISTORY: The patient denies smoking, EtOH, or drug abuse. Lives at home. FAMILY HISTORY: Not contributory. OBJECTIVE DATA: VITAL SIGNS: Blood pressure 112/49, heart rate 57, temperature 98.4, and respirations 18. GENERAL: Alert and oriented man x3. NECK: Supple. Jugular veins not distended. CHEST: Coarse without crackles. HEART: Sounds are regular to rate and rhythm. No murmur or gallop. ABDOMEN: Benign. Bowel sounds positive. EXTREMITIES: Lower extremity without edema, clubbing, or cyanosis. Pulses are adequate. NEUROLOGIC: The patient is nonfocal. MUSCULOSKELETAL: Without joint swelling or deformity. SKIN: Without rash. DATABASE: The EKG is reviewed, revealing typical appearing atrial flutter with ventricular rates of 45 beats per minute. The subsequent telemetry strips reveal improving heart rate on dialysis. LABORATORY DATA: White cell count is 9.9, hemoglobin 9.2, and platelet count is 216. INR 2.2. Sodium 138, potassium 6.2, BUN is 65, creatinine 4.94, and AST and ALT 20 and 7. Troponin I 0.055 and 0.022 and BNP is 2927. Chest x-ray report shows persistent bilateral pleural effusions and parenchymal lung changes at the left lung base. ASSESSMENT AND PLAN: Mr. Rizvi is a pleasant 84-year-old gentleman with history of coronary artery disease, bypass surgery, prior history of ischemic cardiomyopathy and ICD placement many years ago, recent device erosion occurred in June at which point, I evaluated him and transferred him to [place] for device extraction that was performed without issues. This seems to carried well from the prior extraction. At that point, he was in sinus rhythm. Atrial and ventricular pace now seems to be back in atrial flutter. Although in the past, he was on amiodarone that has recently stopped. I suspect to avoid further bradycardia. Currently, he is off amiodarone, but still on low-dose Coreg. Current presentation seems to be related to the lower blood pressures and heart rates. He is still on a low-dose beta-fide therapy, currently in atrial flutter, which appears to be typical isthmus dependent in nature. My plan is; 1. Regarding his bradycardia and hypertension since improving with dialysis, marked hyperkalemia could play a role. For now, I would hold Coreg. 2. Should the bradycardia persist, he could be considered for cardioversion or CTI flutter ablation. I will try to avoid pacing in this gentleman with prior pacemaker erosion and ongoing dialysis. 3. Elevated CHADS-VASc score on adequate anticoagulation, currently with therapeutic INR. 4. Prior history of cardiomyopathy since he has normalized LVEF on most recent echocardiogram. 5. History of empyema post decortication zero pleural effusions. No evidence of sepsis at this time. 6. End-stage renal disease on hemodialysis through a right IJ tunneled AV shunt. The shunt and also an AV fistula placed in the left upper arm recently. 7. We will follow up with you. Thank for the consult. Job ID: [id number]
[2019-10-21 04:57] LABS: #Eosinphils 0.3 thou/uL (0.0-0.7); #Monocytes 0.7 thou/uL (0.11-0.59); #Neutrophils 4.9 thou/uL (1.40-6.50); %Basophils 0.3 % (0.0-1.0); %Eosinophils 4.6 % (0.0-10.0); %Lymphocytes 14.3 % (21.0-51.0); %Monocytes 9.5 % (0.0-10.0); %Neutrophils 71.4 % (42.0-75.0); Hemoglobin 7.8 g/dL (14.0-18.0); Mean Corpuscular HGB CONC 31.3 g/dL (32.0-36.0); Mean Corpuscular Hemoglobin 30.8 pg (27.0-31.0); Mean Corpuscular Volume 98.3 fL (78.0-98.0); Mean Platelet Volume 7.6 fL (7.4-10.4); Platelet Count 181 thou/uL (130-400); RBC Distribution Width 13.7 % (11.5-14.5); Red Blood Cell (RBC) Count 2.52 mill/uL (4.70-6.10); White Blood Cell (WBC) Count 6.9 thou/uL (4.8-10.8)
[2019-10-21 05:01] LABS: INR-International Normal Ratio 2.6; Prothrombin Time 27.8 sec (12.0-14.7)
[2019-10-21 05:19] LABS: ALT (SGPT) 9 U/L (8-55); AST (SGOT) 22 U/L (5-34); Albumin 2.6 g/dL (3.4-4.8); Alkaline Phosphatase 100 U/L (40-110); Anion Gap 15 mmol/L (10-20); BUN (Urea Nitrogen) 31 mg/dL (8.4-25.7); Bilirubin, Total 0.3 mg/dL (0.2-1.2); Calc. Creatinine Clearance 23 mL/min (70-130); Carbon Dioxide 25 mmol/L (23-31); Chloride 99 mmol/L (98-107); Estimated GFR-MDRD 21; Globulin 3.1 g/dL (2.4-3.5); Glucose 183 mg/dL (83-110); Potassium 4.8 mmol/L (3.5-5.1); Protein, Total 5.7 g/dL (5.8-8.1); Sodium 134 mmol/L (136-145)
--- NOTE | 2019-10-21 05:41 | PDOC.FM ---
- Subjective Subjective: Titus is feeling better this morning. He endorses dyspnea but cannot qualify it. He fell asleep as I was listening to his heart and lungs which he says is "the first time that has happened today" and says "this has happened before" but is unable to tell me what he is referring to. He denies USMAN sxs. He denies CP/N/V/D/edema/lightheadedness/palpitations. - Objective Vital Signs & Weight: Vital Signs (12 hours) Temp Pulse Resp BP Pulse Ox 10/21/19 04:00 98.0 F 68 16 110/43 L 97 10/20/19 23:02 97.9 F 62 18 102/31 L 100 10/20/19 20:25 97.3 F L 69 16 137/49 L 100 10/20/19 17:45 57 L 112/49 L Weight Weight 81.329 kg Result Diagrams: 10/21/19 04:41 10/21/19 04:41 Phys Exam - Physical Examination Constitutional: NAD (Sleeping comfortably, easily arousable) Neck: supple Mild rales in L lung, difficult to auscultate d/t poor air movement Irregular rhythm. Systolic murmur loudest at L upper sternal border Gastrointestinal: soft, non-tender, no distention, positive bowel sounds Musculoskeletal: no edema, pulses present Neurological: moves all 4 limbs Still very slow in speech but much better than yesterday Psychiatric: normal affect Dx/Plan (1) End stage chronic kidney disease Code(s): N18.6 - END STAGE RENAL DISEASE Status: Chronic (2) CHF (congestive heart failure) Code(s): I50.9 - HEART FAILURE, UNSPECIFIED Status: Chronic (3) Onychomycosis Code(s): B35.1 - TINEA UNGUIUM Status: Acute (4) Arrhythmia, atrial Code(s): I49.8 - OTHER SPECIFIED CARDIAC ARRHYTHMIAS Status: Chronic (5) CAD (coronary artery disease) Code(s): I25.10 - ATHSCL HEART DISEASE OF [place] CORONARY ARTERY W/O ANG PCTRS Status: Chronic Qualifiers: Coronary Disease-Associated Artery/Lesion type: bypass graft [place] vs. transplanted heart: [place] heart Associated angina: without angina Qualified Code(s): I25.810 - Atherosclerosis of coronary artery bypass graft(s) without angina pectoris (6) DM type 2 (diabetes mellitus, type 2) Status: Chronic Qualifiers: Diabetes mellitus manager long term care insulin use: with manager long term care use Diabetes mellitus complication status: with other specified complication Qualified Code(s): E11.69 - Type 2 diabetes mellitus with other specified complication; Z79.4 - assisted (current) use of insulin (7) Dyslipidemia Code(s): E78.5 - HYPERLIPIDEMIA, UNSPECIFIED Status: Chronic (8) HTN (hypertension) Code(s): I10 - ESSENTIAL (PRIMARY) HYPERTENSION Status: Chronic Qualifiers: Hypertension type: essential hypertension Qualified Code(s): I10 - Essenti al (primary) hypertension - Plan Plan: This is an 84yo M brought to the ED for AMS SILVIO on CKD - BUN 65. Cr 4.94 Baseline Cr has increased from about 2 to about 4 - Was scheduled for dialysis today, which he missed d/t being brought to the ED - Nephro consulted in ED and organized emergent dialysis. Appreciate recs Emergent dialysis received. Nephro recommends continued dialysis and started Epogen - Normal electrolytes today - Daily BMPs Metabolic encephalopathy likely 2/2 uremia - A&O x3 but altered, per rehab facility - BUN 65 - Very slow in speech. Unclear whether this is his baseline. Need to obtain baseline per rehab and/or family Obtaining PADDING GLUER eval. NPO until then - UA neg - CT brain w/o contrast shows chronic changes - UCx, BCx pending AFib vs Aflutter - Bradycardic atrial flutter on EKG on arrival - Hx of AFib and pacemaker placement that had to be extracted d/t infection. - No pacemaker currently - Home meds, per file from rehab: Lovenox, Warfarin - Seen by Electrophysiology in ED. Verbally, they said there are several options available if he has no concerns for infxn Suspect hyperkalemia as source of atrial flutter. Recommend holding Carvedilol. Possible cardioversion or ablation if not resolved - PT/PTT/INR = 24.3/43.1/2.2 - Telemetry shows repetitive bradycardic A flutter CHF exacerbation - BNP 2928 - Trop 0.055. Repeat pending - CK-MB 1.9 - CXR: Persistent bilateral pleural effusions and parenchymal lung changes primarily at the left lung base Possible PNA but WBC 9.9, LA 1.5, vitals wnl therefore less convincing. Received one dose of Cefepime, which has been discontinued. PRocal pending - Echo in 07/2019 showed EF 50-55% with akinesia of base of inferior wall and mildly elevated pulm artery pressure - Strict I&Os. Daily weights. Elbow and sacral wounds - Documented by nurses - Wound care consulted, appreciate recs Akathisia - Per patient, started a few weeks ago and is assoc with a medication - Nurse in ED mentioned the patient possibly experiencing tactile hallucinations as the cause of the movements Anemia - H/H of 9., MCV normal - Per chart review, Hgb baseline is about 9 - Hgb dropped to 7.8 on 10/20 - Continue to monitor Elevated transaminase - Alk Phos 116, resolved - Will monitor CAD - On Warfarin at home - Continue here as DVT Ppx T2DM - Insulin-dependent, on Humulin at home, per packet from rehab. - Ask about home dose to start here - Monitor BGs - Mild SSI here, in the meantime HTN - Normotensive on admission - Home meds, per packet from rehab, include Carvedilol 3.125 - Hold Carvedilol per Margi recs Onychomycosis - Of L UE Chronic back pain - MD aware - Monitor and treat sxs Dispo: Inpt tele, LOS >48h DVT Ppx: Warfarin Diet: NPO pending PADDING GLUER eval, then CC with fluid restriction IVF: None Code: Chemical resuscitation only
[2019-10-21] MEDS ORDERED: Carvedilol 3.125 MG TAB PO SCH (08:00)
[2019-10-21] MEDS ORDERED: Enoxaparin Sodium 40 MG/0.4 ML SYRINGE SC SCH (09:00)
--- NOTE | 2019-10-21 09:36 | PRG ---
DATE OF SERVICE: 10/21/2019 SUBJECTIVE: Mr. Rizvi is an 84-year-old white male with ESRD, and followed up by the Renal Service for his maintenance hemodialysis. Due to his hyperkalemia yesterday, he underwent emergent hemodialysis. He voices no new complaints today. He is a little less tired today. No chest pain or shortness of breath. OBJECTIVE: VITAL SIGNS: Blood pressure 113/47, heart rate 69, respiratory rate 16, temperature 98.4, O2 saturation 99% on room air. GENERAL EXAM: The patient is awake, alert, comfortable, not in overt distress. SKIN: Adequate turgor. HEENT: Pinkish conjunctivae. Anicteric sclerae. NECK: No neck mass. No carotid bruits. No JVD. CHEST: No deformities. LUNGS: Clear breath sounds. HEART: Normal sinus rhythm. No murmur. No gallops. No rubs. ABDOMEN: Globular, soft, and nontender. No masses. EXTREMITIES: No edema, no deformities. MEDICATIONS: Medications of October 21, 2019, reviewed. LABORATORY DATA: October 21, 2019: White count 6.9, hemoglobin 7.8. Sodium 134, potassium 4.8, chloride 99, carbon dioxide 25, BUN 31, creatinine 2.91, glucose 183, AST 22, ALT 9, albumin 2.6. ASSESSMENT AND PLAN: 1. End-stage renal disease, stable, continuing Sunday, Sunday, and Sunday hemodialysis. There is no indication for any emergent hemodialysis. He is tolerating current dialysis regimen. 2. Hyperkalemia, resolved with dialysis. 3. Anemia. Continue weekly Epogen with this patient. We will recheck CBC, base met in a.m. Job ID: [id number]
--- NOTE | 2019-10-21 11:56 | HP ---
HISTORY OF PRESENT ILLNESS: Mr. Rizvi is a pleasant 84-year-old man, who is a dialysis patient. He presented yesterday to the ER having missed dialysis and noted to be in atrial flutter with approximately a 4:1 block. Cardiology was consulted as was Dr. Kiser of EP Service. PHYSICAL EXAMINATION: GENERAL: He is awake and alert, slow to speak, but otherwise no focal deficits. EARS, NOSE, AND THROAT: No erythema or exudate. NECK: Supple. CARDIAC: His heart rhythm is regular, but his monitor demonstrates atrial flutter with about a 4:1 block. LUNGS: Clear except a few moist rales at the left base. ABDOMEN: Flat and soft. EXTREMITIES: Trace edema. ASSESSMENT: Atrial flutter and dialysis. PLAN: Admit. Consult Dr. Kiser. Send for urgent dialysis. Dr. Reis also has already been consulted. Job ID: [id number]
--- NOTE | 2019-10-21 11:58 | PRG ---
DATE OF SERVICE: 10/21/2019 Mr. Rizvi is sitting in bed quietly today, in no distress. He has been seen in consultation by Dr. Kiser. He felt that the patient's bradycardia and hypertension have improved with dialysis, suggesting that the patient's uknaqh-gz-fjuobbir hyperkalemia of 6.2 could have played a role in his initial symptoms. He recommend that we hold the Coreg given his rather slow ventricular response to atrial flutter. He has stated that should the flutter and bradycardia persist, he would consider cardioversion or ablation. He is also currently on adequate anticoagulation. Job ID: [id number]
[2019-10-21] MEDS: HumaLOG 300 UNITS/3 ML VIAL SC PRN (12:59)
--- NOTE | 2019-10-21 13:30 | CON ---
DATE OF CONSULTATION: HISTORY OF PRESENT ILLNESS: The patient is an 84-year-old gentleman, who presented with weakness and was noted to have a slow heart rate. The patient has a long history of coronary artery disease. The patient was seen initially in June of 1999. The patient has a history of coronary artery bypass surgery x3 in 2001. He also has had placement of AICD. The patient was followed in [place], [place] by a trading analyst. He had also been treated previously with amiodarone for atrial fibrillation. He was admitted and found to have an infected AICD. The patient was transferred to [place]. He underwent removal of the AICD. The patient had an echocardiogram, which revealed normal left ventricular systolic function during this hospitalization. He was seen again in July of 2019 with an empyema. He has had a prolonged hospitalization. The patient was in rehab when he started to become weak and was noted to have a slow heart rate. The patient denied having any chest discomfort. PAST MEDICAL HISTORY: Significant for; 1. Coronary artery disease. 2. Hypertension. 3. Diabetes mellitus. 4. Empyema. 5. Chronic back pain. 6. End-stage renal disease. 7. History of atrial fibrillation. PAST SURGICAL HISTORY: Back surgery, hernia surgery, tonsillectomy, coronary artery bypass surgery, bowel surgery, appendectomy. ALLERGIES: HE IS ALLERGIC TO MORPHINE. SOCIAL HISTORY: Nonsmoker. MEDICATIONS: 1. Coreg 3.125 b.i.d. 2. Iron sulfate 325 daily. 3. Protonix 40 daily. 4. Hydralazine 25 t.i.d. 5. Warfarin 2 mg p.o. at bedtime. PHYSICAL EXAMINATION: GENERAL: This is a pale gentleman, in no acute distress. VITAL SIGNS: Blood pressure 113/47. NECK: No jugular venous distention. LUNGS: Clear to auscultation. HEART: Irregular rate and rhythm. Normal S1 and S2. ABDOMEN: Distended. EXTREMITIES: Showed no edema. LABORATORY RESULTS: Sodium 134, potassium 4.8, chloride 99, bicarbonate 25, BUN 31, creatinine 2.9, glucose 183. BNP was 2927. White blood cell count 6.9, hemoglobin 7.8, hematocrit 24.7, and platelets are 181. His EKG revealed him to have atrial flutter with a slow ventricular response. IMPRESSION: 1. Atrial flutter with slow ventricular response. 2. History of AICD removal. 3. History of coronary artery bypass surgery. 4. End-stage renal disease. 5. Hypertension. 6. Dyslipidemia. 7. Diabetes mellitus. This gentleman presents with atrial flutter with a slow ventricular response. His Coreg has been discontinued. From a cardiac standpoint, he needs to be on aspirin and lipid-lowering medication. We will start low-dose aspirin and Lipitor. We will follow this patient with you through his hospitalization. Job ID: [id number]
[2019-10-21 16:40] LABS: SARS-CoV-2 MS2 Positive; SARS-CoV-2 N Gene Negative; SARS-CoV-2 S Gene Negative; SARS-CoV-2 by NAA Not Detected (NotDetected); SARS-CoV-2 orf1ab Negative
[2019-10-21] MEDS ORDERED: Warfarin Sodium 2 MG TAB PO SCH (17:00)
[2019-10-21] MEDS: Warfarin Sodium 2 MG TAB PO SCH (17:28)
--- NOTE | 2019-10-21 17:48 | PDOC.EP ---
- Subjective Date: 10/21/19 Time: 08:00 Interval History: follow up for atrial arrhythmia management. Poor historian. Feels fair. No cardiac concerns or complaints. - Review of Systems Constitutional: reports: weakness. denies: chills, fever, malaise, sweats Respiratory: denies: cough, dry, hemoptysis, pleuritic pain, shortness of breath Cardiology: denies: chest pain, edema, heart racing, light headedness Gastrointestinal: denies: abdominal pain, constipation, diarrhea, hematochezia - Objective Allergies/Adverse Reactions: Allergies Allergy/AdvReac Type Severity Reaction Status Date / Time No Known Allergies Allergy Verified 10/20/19 22:23 Current Medications Aspirin (Ecotrin) 81 mg PO DAILY [facility] Atorvastatin Calcium (Lipitor) 20 mg PO HS [facility] Dextrose/Water (Dextrose 50%) 25 gm SLOW IVP PRN PRN PRN Reason: Hypoglycemia Epoetin Rosalino-epbx (Retacrit) 7,500 unit SC Q7D [facility] Last Admin: 10/20/19 22:54 Dose: 7,500 unit Glucagon (Glucagon) 1 mg IM PRN PRN PRN Reason: Hypoglycemia Hydralazine HCl (Apresoline) 10 mg PO Q4H PRN PRN Reason: SBP >= 180 Dextrose/Water (D5w) 1,000 mls @ 0 mls/hr IV .Q0M PRN PRN Reason: Hypoglycemia Insulin Human Lispro (Humalog) 0 units SC .MILD SLIDING SCALE PRN PRN Reason: Mild Correctional Scale Last Admin: 10/21/19 12:59 Dose: 3 unit Warfarin Sodium (Coumadin) 2 mg PO 1700 [facility] Last Admin: 10/21/19 17:28 Dose: 2 mg Vital Signs & Weight: Vital Signs Temp Pulse Pulse Pulse Pulse Resp BP 10/21/19 15:52 98.3 F 65 14 10/21/19 11:56 98.4 F 61 14 10/21/19 11:25 61 61 60 110/49 L 10/21/19 08:00 98.4 F 69 16 BP BP BP Pulse Ox 10/21/19 15:52 110/48 L 98 10/21/19 11:56 110/49 L 100 10/21/19 11:25 115/52 L 129/44 L 10/21/19 08:00 113/47 L 99 Weight 179 lb 1.6 oz - Quality Measures Condition: Atrial Fibrillation/Flutter (hx or current) - Physical Exam General: appears well, no apparent distress, speech clear HEENT: mucus membranes moist, normocephaly Neck: supple neck, midline trachea, no JVD/HJR Cardiology: regular rate and rhythm, no murmur Lungs: clear to auscultation, normal breath sounds Neurology: cranial nerve 2-12 intact, grossly intact, coordination normal Abdomen: unremarkable, active bowel sounds, HJR negative - Labs Result Diagrams: 10/21/19 04:41 10/21/19 04:41 - EKG Interpretation EKG Method: Telemetry EKG shows: Typical atrial flutter - Assessment/Plan Assessment/Plan: 1. History of atrial arrhythmias. a. History of paroxysmal atrial fibrillation suppressed with amiodarone use in sinus rhythm in June. b. Currently in typical atrial flutter with bradycardia in the 40s and 50s on presentation. 2. History of systolic congestive heart failure with ischemic cardiomyopathy. a. Most recent echo on 07/25/2019 reveals LVEF 50% to 55%; mild MR, AI, and TR; and moderate pulmonary hypertension. b. Prior history of coronary artery bypass grafting surgery. 3. History of ICD implantation around 2009 with subsequent generator change in February [address] out of town. a. Subsequent erosion prompting a lead and device extraction in [place]. 4. End-stage renal disease on hemodialysis since July 2019. 5. History of empyema requiring decortication in July 2019. 6. Elevated CHADS-VASc score with age, coronary artery disease, hypertension, CHF at 5 on warfarin for anticoagulation. 7. History of left forearm AV graft placement. 8. History of hyperlipidemia. Spoke with patient and daughter at length. They wish to proceed with EPS study and flutter ablation tomorrow. NPO after midnight. May need to coordinate with dialysis for timing. Monitor for bradycardia post ablation to see if PPM reimplant is warranted. EF is now normal so no ICD is indicated unless there is a history of VT, his prior records are unavailable and family is unsure. Will check inducibility for VT tomorrow during EPS
[2019-10-21] MEDS: Atorvastatin Calcium 20 MG TAB PO SCH (20:06)
[2019-10-21] MEDS ORDERED: hydrALAZINE 25 MG TAB PO SCH (21:00)
[2019-10-22 06:32] LABS: #Eosinphils 0.4 thou/uL (0.0-0.7); #Lymphocytes 1.2 thou/uL (1.20-3.40); #Monocytes 0.8 thou/uL (0.11-0.59); #Neutrophils 4.3 thou/uL (1.40-6.50); %Basophils 0.6 % (0.0-1.0); %Eosinophils 5.4 % (0.0-10.0); %Lymphocytes 17.3 % (21.0-51.0); %Monocytes 12.4 % (0.0-10.0); %Neutrophils 64.3 % (42.0-75.0); Hemoglobin 8.2 g/dL (14.0-18.0); Mean Corpuscular HGB CONC 31.4 g/dL (32.0-36.0); Mean Corpuscular Hemoglobin 31.4 pg (27.0-31.0); Mean Corpuscular Volume 99.9 fL (78.0-98.0); Platelet Count 197 thou/uL (130-400); RBC Distribution Width 13.5 % (11.5-14.5); White Blood Cell (WBC) Count 6.7 thou/uL (4.8-10.8)
[2019-10-22 07:04] LABS: Anion Gap 14 mmol/L (10-20); BUN (Urea Nitrogen) 43 mg/dL (8.4-25.7); Calc. Creatinine Clearance 17 mL/min (70-130); Calcium 8.3 mg/dL (7.8-10.44); Carbon Dioxide 26 mmol/L (23-31); Chloride 100 mmol/L (98-107); Estimated GFR-MDRD 15; Glucose 132 mg/dL (83-110); Potassium 4.4 mmol/L (3.5-5.1); Sodium 136 mmol/L (136-145)
[2019-10-22] MEDS ORDERED: Heparin 10,000 UNITS/ 10 ML VIAL ONE ×2 (07:08→10:01)
[2019-10-22] MEDS ORDERED: Lidocaine 1% (PF) 30 ML VIAL ONE (07:10)
[2019-10-22] MEDS ORDERED: Propofol 1,000 MG/100 ML VIAL IV ONE (07:12)
[2019-10-22] MEDS ORDERED: Ketamine 50 MG/ML (10ML VIAL) ONE (07:24)
[2019-10-22] MEDS ORDERED: DOPamine 400 MG/D5W 250 ML 250 ML ONE (08:12)
[2019-10-22] MEDS ORDERED: Morphine Sulfate 2 MG/ML SYRINGE SLOW IVP PRN (09:12)
[2019-10-22] MEDS ORDERED: Ondansetron HCl/PF 4 MG/2 ML Vial IVP PRN (09:12)
[2019-10-22] MEDS ORDERED: PACU-Morphine 4MG/ML VIAL SLOW IVP PRN (09:12)
[2019-10-22] MEDS ORDERED: Promethazine HCl 25 MG/ML VIAL SLOW IVP PRN (09:12)
[2019-10-22] MEDS ORDERED: Promethazine HCl 25 MG/ML VIAL IM PRN (09:12)
[2019-10-22] MEDS: Ferrous Sulfate 325 MG TAB PO SCH (09:14)
[2019-10-22] MEDS: Aspirin 81 mg Enteric Coated Tablet PO SCH (09:14)
--- NOTE | 2019-10-22 09:24 | OP ---
DATE OF PROCEDURE: 10/22/2019 PROCEDURE PERFORMED: Electrophysiology study and radiofrequency ablation. ADDITIONAL REFERRING PHYSICIAN: Dr. Hirsch. REASON FOR PROCEDURE: Mr. Rizvi is an 84-year-old gentleman with history of cardiomyopathy but normalizing LVEF, recent ICD erosion requiring extraction out of town. Prior history of atrial fibrillation suppressed with amiodarone, which was stopped due to bradycardia. Now he presented with sustained atrial flutter, anticoagulated on warfarin. He is here for atrial flutter ablation. DESCRIPTION OF PROCEDURE: The patient received deep sedation by Anesthesia specialist. After adequate level of sedation achieved, the right femoral venous area was prepped, draped, anesthetized with subcutaneous lidocaine. Under ultrasound guidance, the femoral vein was cannulated x2. Two 8-[place] short sheaths were introduced through which a [employer] SFST catheter was advanced to the right atrium where it was used to obtain a 3D map of the right atrium, His bundle, right ventricle, CS and cavotricuspid isthmus positions in detail. A decapolar catheter was advanced to the CS position. Following findings were noted. After pacing, mapping, and recording, each location including pacing left atrium from the CS. The baseline rhythm was atrial flutter with flutter cycle length 251 milliseconds. The CS activation map suggested right atrial origin, overdrive pacing entering the tachycardia from CS 3-4 position and also from the cavotricuspid isthmus. [place] post pacing interval measured on the cavotricuspid isthmus location then in the lateral CS. At the CTI position, the post pacing interval matched the tachycardia cycle length. This proved isthmus dependency. Radiofrequency ablation at the cavotricuspid isthmus was performed. A total of 9 lesions delivered. Total duration of 8 minutes 17 seconds at 40 grant. During the cavotricuspid isthmus ablation, the atrial flutter terminated. Further lesions were polaced with proximal CS pacing. The final trans-isthmus time was 160 milliseconds. Unilateral block was demonstrated with longest trans-isthmus time adjacent to the ablation line. Following that, IV dopamine was started and the maneuver was repeated. The burst atrial pacing down to 200 milliseconds did not reinduce atrial flutter or fibrillation. Sinus node recovery time was 1051, corrected to 300 milliseconds. AV Wenckebach cycle length was noted at 510 milliseconds. AV neo ERP at 600/400 milliseconds. The trans-isthmus block was rechecked on dopamine and any reconnections re- ablated. At the end of the case, cardiac silhouette did not change. The catheter was removed. The vascular access sites were closed with a Vascade closure. CONCLUSION: 1. Baseline typical atrial flutter. 2. Cavotricuspid isthmus ablation terminates atrial flutter and eliminated re-inducibility of atrial flutter. 3. No atrial fibrillation was inducible. 4. Normal sinus neo and His-Purkinje function noted. Borderline AV neo function. 5. No additional arrhythmias induced. No accessory pathway or dual AV neo physiology was present. PLAN: Continue oral anticoagulation and monitor for recurrent atrial arrhythmias or bradycardia. Job ID: [id number] [facility]
--- NOTE | 2019-10-22 10:51 | PRG ---
DATE OF SERVICE: 10/22/2019 Mr. Rizvi just returned from his ablation treatment. He is resting quietly in no acute distress. By physical exam, he seems to be in normal sinus rhythm. According to Dr. Kiser's note, he had ablation that terminated the atrial flutter and eliminated the re-inducibility of the atrial flutter. No atrial fibrillation was inducible. Seemed to tolerate the procedure well. We will continue to follow with the Cardiology and Electrophysiology Service. Job ID: [id number]
[2019-10-22 10:52] LABS: INR-International Normal Ratio 2.5; Prothrombin Time 26.5 sec (12.0-14.7)
[2019-10-22] MEDS ORDERED: EPHEDRINE 25 MG/5 ML SYRINGE ONE (11:25)
[2019-10-22] MEDS ORDERED: PHENYLEPHRINE-NS 100 MCG/ML 10 ML SYRINGE ONE (11:25)
--- NOTE | 2019-10-22 11:42 | EKG ---
Test Reason : POST ABLATION Blood Pressure : / mmHG Vent. Rate : 080 BPM Atrial Rate : 080 BPM P-R Int : 184 ms QRS Dur : 118 ms QT Int : 422 ms P-R-T Axes : 038 -27 106 degrees QTc Int : 486 ms Normal sinus rhythm Non-specific intra-ventricular conduction delay Prolonged QT Abnormal ECG When compared with ECG of 20-OCT-2019 12:35, (Unconfirmed) Significant changes have occurred Confirmed by JOSIAH GUERRERO M.D. ([id number]) on 10/22/2019 11:42:14 AM Referred By: [facility] Confirmed By:JOSIAH GUERRERO M.D.
--- NOTE | 2019-10-22 11:46 | PDOC.FM ---
- Subjective Subjective: Mr. Rizvi had just come back from his ablation when I saw him this morning and was doing well. Has no complaints. Denies dyspnea/SOB/CP/V/D. - Objective Vital Signs & Weight: Vital Signs (12 hours) Temp Pulse Resp BP Pulse Ox 10/22/19 10:04 98.3 F 78 18 158/65 H 100 Weight Admit Weight 81.238 kg Weight 81.238 kg I&O: 10/21/19 10/22/19 10/23/19 06:59 06:59 06:59 Intake Total 5 195 Balance 5 195 Result Diagrams: 10/22/19 04:01 10/22/19 03:30 Phys Exam - Physical Examination Constitutional: NAD (Sleeping comfortably, easily arousable. Hard of hearing. Slow in speech but this appears to be his baseline per grandson) Neck: supple Respiratory: no wheezing, no rales, clear to auscultation bilateral Cardiovascular: RRR, no significant murmur Musculoskeletal: no edema Neurological: non-focal, moves all 4 limbs Psychiatric: normal affect Skin: no rash Dx/Plan (1) End stage chronic kidney disease Code(s): N18.6 - END STAGE RENAL DISEASE Status: Chronic (2) CHF (congestive heart failure) Code(s): I50.9 - HEART FAILURE, UNSPECIFIED Status: Chronic (3) Onychomycosis Code(s): B35.1 - TINEA UNGUIUM Status: Acute (4) Arrhythmia, atrial Code(s): I49.8 - OTHER SPECIFIED CARDIAC ARRHYTHMIAS Status: Chronic (5) CAD (coronary artery disease) Code(s): I25.10 - ATHSCL HEART DISEASE OF [place] CORONARY ARTERY W/O ANG PCTRS Status: Chronic Qualifiers: Coronary Disease-Associated Artery/Lesion type: bypass graft [place] vs. transplanted heart: [place] heart Associated angina: without angina Qualified Code(s): I25.810 - Atherosclerosis of coronary artery bypass graft(s) without angina pectoris (6) DM type 2 (diabetes mellitus, type 2) Status: Chronic Qualifiers: Diabetes mellitus snf insulin use: with snf use Diabetes mellitus complication status: with other specified complication Qualified Code(s): E11.69 - Type 2 diabetes mellitus with other specified complication; Z79.4 - custodial (current) use of insulin (7) Dyslipidemia Code(s): E78.5 - HYPERLIPIDEMIA, UNSPECIFIED Status: Chronic (8) HTN (hypertension) Code(s): I10 - ESSENTIAL (PRIMARY) HYPERTENSION Status: Chronic Qualifiers: Hypertension type: essential hypertension Qualified Code(s): I10 - Essential (primary) hypertension - Plan Plan: This is an 84yo M brought to the ED for AMS SILVIO on CKD - BUN 65. Cr 4.94 Baseline Cr has increased from about 2 to about 4 - Was scheduled for dialysis today, which he missed d/t being brought to the ED - Nephro consulted in ED and organized emergent dialysis. Appreciate recs Emergent dialysis received. Nephro recommends continued MWF dialysis and s tarted Epogen - Normal electrolytes today - Daily BMPs Metabolic encephalopathy likely 2/2 uremia - A&O x3 but altered, per rehab facility - BUN 65 - Very slow in speech. Unclear whether this is his baseline. Need to obtain baseline per rehab and/or family Obtaining MEMS DEVICE SCIENTIST eval. NPO until then - UA neg - CT brain w/o contrast shows chronic changes - UCx pending - BCx NGTD - Mentation near baseline, per grandson AFib vs Aflutter - Bradycardic atrial flutter on EKG on arrival - Hx of AFib and pacemaker placement that had to be extracted d/t infection. - No pacemaker currently - Home meds, per file from rehab: Lovenox, Warfarin - Seen by Electrophysiology in ED. Verbally, they said there are several options available if he has no concerns for infxn Suspect hyperkalemia as source of atrial flutter. Recommend holding Carvedilol. Possible cardioversion or ablation if not resolved 10/21 ablation performed which, per operative note, "eliminated reinducibility of atrial flutter. No atrial fibrillation was inducible. No additional arrhythmi as induced. No accessory pathway or dual AV neo physiology was present." - RRR on exam post-operatively on 10/21 - PT/INR trending and appropriate so far - Will continue to monitor via telemetry CHF exacerbation - BNP 2928 - Trop 0.055. Repeat pending - CK-MB 1.9 - CXR: Persistent bilateral pleural effusions and parenchymal lung changes primarily at the left lung base Possible PNA but WBC 9.9, LA 1.5, vitals wnl therefore less convincing. Received one dose of Cefepime, which has been discontinued. PRocal pending - Echo in 07/2019 showed EF 50-55% with akinesia of base of inferior wall and mildly elevated pulm artery pressure - Strict I&Os. Daily weights. Elbow and sacral wounds - Documented by nurses - Wound care consulted, appreciate recs Akathisia - Per patient, started a few weeks ago and is assoc with a medication - Nurse in ED mentioned the patient possibly experiencing tactile hallucinations as the cause of the movements Anemia - H/H of 9., MCV normal - Per chart review, Hgb baseline is about 9 - Hgb dropped to 7.8 on 10/20 - Continue to monitor Elevated transaminase - Alk Phos 116, resolved - Will monitor CAD - On Warfarin at home - Continue here as DVT Ppx T2DM - Insulin-dependent, on Humulin at home, per packet from rehab. - Ask about home dose to start here - Monitor BGs - Mild SSI here, in the meantime HTN - Normotensive on admission - Home meds, per packet from rehab, include Carvedilol 3.125 - Hold Carvedilol per Margi recs Onychomycosis - Of L UE Chronic back pain - MD aware - Monitor and treat sxs Dispo: Inpt tele, LOS >48h DVT Ppx: Warfarin Diet: CC with fluid restriction IVF: None Code: Chemical resuscitation only
[2019-10-22] MEDS ORDERED: Warfarin Sodium 2 MG TAB PO SCH (17:00)
[2019-10-22] MEDS: Warfarin Sodium 2 MG TAB PO SCH (17:18)
--- NOTE | 2019-10-22 18:25 | PRG ---
DATE OF SERVICE: 10/22/2019 SUBJECTIVE: Mr. Rizvi is an 84-year-old white male with ESRD, currently on maintenance hemodialysis. We are following up this patient for management of his ESRD. Today, the patient underwent EP study with radiofrequency ablation done by Dr. Kiser. This afternoon, he voices no new complaints. He has no chest pain or shortness of breath. He did undergo dialysis without any difficulty. OBJECTIVE: VITAL SIGNS: Blood pressure 133/59, heart rate 98, respiratory rate 18, temperature 98.6, O2 saturation 93%. GENERAL: The patient is awake, alert, comfortable, not in distress. SKIN: Adequate turgor. HEENT: He has slightly pale conjunctivae. Anicteric sclerae. NECK: No neck mass. No carotid bruits. No JVD. CHEST: No deformities. LUNGS: Clear breath sounds. HEART: Normal sinus rhythm. No murmurs. No gallops. No rubs. ABDOMEN: Globular, soft, nontender. No masses. EXTREMITIES: No edema. No deformities. MEDICATIONS: Medications of October 22, 2019, reviewed. LABORATORY DATA: Laboratories of October 22, 2019; white count 6.7, hemoglobin 8.2. Sodium 136, potassium 4.4, chloride 100, carbon dioxide 26, BUN 43, creatinine 3.9, glucose 132, calcium 8.3. ASSESSMENT AND PLAN: 1. End-stage renal disease, stable, tolerating current hemodialysis regimen. He underwent for his regular dialysis treatment today. We were able to remove several L of fluid, which he tolerated. 2. Anemia. Continue iron supplementation. He is only on weekly Epogen. Consider blood transfusion for hemoglobin of less than 7. 3. Atrial fibrillation-status post EP study with cardiac ablation. Job ID: [id number]
[2019-10-22] MEDS: Atorvastatin Calcium 20 MG TAB PO SCH (20:06)
[2019-10-22] MEDS ORDERED: HumaLOG 300 UNITS/3 ML VIAL SC PRN (23:41)
[2019-10-23 04:16] LABS: INR-International Normal Ratio 2.3; Prothrombin Time 25.1 sec (12.0-14.7)
--- NOTE | 2019-10-23 05:47 | PDOC.FM ---
- Subjective Subjective: Titus is doing well this morning and has no complaints. He feels ready to go back to rehab. He denies V/D/dyspnea/SOB/CP/palpitations/edema. - Objective Vital Signs & Weight: Vital Signs (12 hours) Temp Pulse Resp BP Pulse Ox 10/23/19 04:02 98.6 F 91 20 159/67 H 96 10/22/19 20:24 98.8 F 92 18 156/70 H 97 10/22/19 20:02 97 Weight Admit Weight 81.238 kg Weight 81.238 kg I&O: 10/21/19 10/22/19 10/23/19 06:59 06:59 06:59 Intake Total 5 435 Output Total 1400 Balance 5 -965 Result Diagrams: 10/23/19 06:09 10/23/19 06:09 Phys Exam - Physical Examination Constitutional: NAD (Sitting up comfortably, eating breakfast) HEENT: moist MMs Neck: supple, full ROM Mild rales in bases, b/l Cardiovascular: RRR, no significant murmur Telemetry showed transient ST changes but NSR Musculoskeletal: no edema, pulses present (1+ radial and dp pulses b/l) Neurological: non-focal, moves all 4 limbs Psychiatric: normal affect, A&O x 3 Skin: no rash Dx/Plan (1) End stage chronic kidney disease Code(s): N18.6 - END STAGE RENAL DISEASE Status: Chronic (2) CHF (congestive heart failure) Code(s): I50.9 - HEART FAILURE, UNSPECIFIED Status: Chronic (3) Onychomycosis Code(s): B35.1 - TINEA UNGUIUM Status: Acute (4) Arrhythmia, atrial Code(s): I49.8 - OTHER SPECIFIED CARDIAC ARRHYTHMIAS Status: Chronic (5) CAD (coronary artery disease) Code(s): I25.10 - ATHSCL HEART DISEASE OF [place] CORONARY ARTERY W/O ANG PCTRS Status: Chronic Qualifiers: Coronary Disease-Associated Artery/Lesion type: bypass graft [place] vs. transplanted heart: [place] heart Associated angina: without angina Qualified Code(s): I25.810 - Atherosclerosis of coronary artery bypass graft(s) without angina pectoris (6) DM type 2 (diabetes mellitus, type 2) Status: Chronic Qualifiers: Diabetes mellitus intermediate accountant insulin use: with intermediate accountant use Diabetes mellitus complication status: with other specified complication Qualified Code(s): E11.69 - Type 2 diabetes mellitus with other specified complication; Z79.4 - marine oil terminal superintendent (current) use of insulin (7) Dyslipidemia Code(s): E78.5 - HYPERLIPIDEMIA, UNSPECIFIED Status: Chronic (8) HTN (hypertension) Code(s): I10 - ESSENTIAL (PRIMARY) HYPERTENSION Status: Chronic Qualifiers: Hypertension type: essential hypertension Qualified Code(s): I10 - Essential (primary) hypertension - Plan Plan: This is an 84yo M brought to the ED for AMS SILVIO on CKD - BUN 65. Cr 4.94 Baseline Cr has increased from about 2 to about 4 - Was scheduled for dialysis today, which he missed d/t being brought to the ED - Nephro consulted in ED and organized emergent dialysis. Appreciate recs Emergent dialysis received. Nephro recommends continued MWF dialysis and st arted Epogen - Normal electrolytes today - Daily BMPs Metabolic encephalopathy likely 2/2 uremia - A&O x3 but altered, per rehab facility - BUN 65 - Very slow in speech. Unclear whether this is his baseline. Need to obtain baseline per rehab and/or family Obtaining PARALEGAL ASSISTANT eval. NPO until then - UA neg - CT brain w/o contrast shows chronic changes - BCx neg x48h - Mentation near baseline, per grandson AFib vs Aflutter - Bradycardic atrial flutter on EKG on arrival - Hx of AFib and pacemaker placement that had to be extracted d/t infection. - No pacemaker currently - Home meds, per file from rehab: Lovenox, Warfarin - Seen by Electrophysiology in ED. Verbally, they said there are several options available if he has no concerns for infxn Suspect hyperkalemia as source of atrial flutter. Recommend holding Carvedilol. Possible cardioversion or ablation if not resolved 10/21 ablation performed which, per operative note, "eliminated reinducibility of atrial flutter. No atrial fibrillation was inducible. No additional arrhythmias induced. No accessory pathway or dual AV neo physiology was present." - RRR on exam post-operatively on 10/21 - PT/INR trending and appropriate so far - Will continue to monitor via telemetry - Plan for discharge tomorrow pending Dr. Kiser's recommendations and coordination for return to rehab with CM CHF exacerbation - BNP 2928 - Trop 0.055. Repeat pending - CK-MB 1.9 - CXR: Persistent bilateral pleural effusions and parenchymal lung changes primarily at the left lung base Possible PNA but WBC 9.9, LA 1.5, vitals wnl therefore less convincing. Received one dose of Cefepime, which has been discontinued. - Echo in 07/2019 showed EF 50-55% with akinesia of base of inferior wall and mildly elevated pulm artery pressure - Strict I&Os. Daily weights. Elbow and sacral wounds - Documented by nurses - Wound care consulted, appreciate recs Akathisia - Per patient, started a few weeks ago and is assoc with a medication - Nurse in ED mentioned the patient possibly experiencing tactile hallucinations as the cause of the movements Anemia - H/H of 9., MCV normal - Per chart review, Hgb baseline is about 9 - Hgb dropped to 7.8 on 10/20 - Continue to monitor Elevated transaminase - Alk Phos 116, resolved - Will monitor CAD - On Warfarin at home - Continue here as DVT Ppx T2DM - Insulin-dependent, on Humulin at home, per packet from rehab. - Ask about home dose to start here - Monitor BGs - Mild SSI here, in the meantime HTN - Normotensive on admission - Home meds, per packet from rehab, include Carvedilol 3.125 - Hold Carvedilol per Margi recs Onychomycosis - Of L UE Chronic back pain - aware - Monitor and treat sxs Dispo: Inpt tele, LOS <24h pending placement and Dr. Kiser's recs DVT Ppx: Warfarin Diet: CC with fluid restriction IVF: None Code: Chemical resuscitation only
[2019-10-23 06:19] LABS: #Eosinphils 0.3 thou/uL (0.0-0.7); #Lymphocytes 0.9 thou/uL (1.20-3.40); #Monocytes 0.7 thou/uL (0.11-0.59); #Neutrophils 5.9 thou/uL (1.40-6.50); %Basophils 0.1 % (0.0-1.0); %Eosinophils 3.4 % (0.0-10.0); %Lymphocytes 11.8 % (21.0-51.0); %Monocytes 9.3 % (0.0-10.0); %Neutrophils 75.3 % (42.0-75.0); Hemoglobin 9.1 g/dL (14.0-18.0); Mean Corpuscular HGB CONC 31.6 g/dL (32.0-36.0); Mean Corpuscular Hemoglobin 31.1 pg (27.0-31.0); Mean Corpuscular Volume 98.3 fL (78.0-98.0); Mean Platelet Volume 6.3 fL (7.4-10.4); Platelet Count 231 thou/uL (130-400); RBC Distribution Width 13.7 % (11.5-14.5); Red Blood Cell (RBC) Count 2.92 mill/uL (4.70-6.10); White Blood Cell (WBC) Count 7.9 thou/uL (4.8-10.8)
[2019-10-23 06:40] LABS: Anion Gap 14 mmol/L (10-20); BUN (Urea Nitrogen) 20 mg/dL (8.4-25.7); Calc. Creatinine Clearance 24 mL/min (70-130); Calcium 8.7 mg/dL (7.8-10.44); Carbon Dioxide 27 mmol/L (23-31); Chloride 100 mmol/L (98-107); Estimated GFR-MDRD 23; Glucose 115 mg/dL (83-110); Sodium 137 mmol/L (136-145)
--- NOTE | 2019-10-23 09:04 | PRG ---
DATE OF SERVICE: 10/23/2019 SUBJECTIVE: Mr. Rizvi is an 84-year-old white male with ESRD and followed up by the [facility] for management of his ESRD. He is on maintenance hemodialysis. He underwent hemodialysis yesterday without any difficulty. Fluid removal was done. In the interim, he underwent for a cardiac ablation. He is feeling better. No complaints of chest pain or shortness of breath. OBJECTIVE: VITAL SIGNS: Blood pressure 159/67, heart rate 91, respiratory rate 20, temperature 98.6, O2 saturation 96%. GENERAL: The patient is awake, alert, supine, comfortable, not in distress. SKIN: Adequate turgor. HEENT: Pinkish conjunctivae. Anicteric sclerae. NECK: No neck mass. No carotid bruits. No JVD. CHEST: No deformities. LUNGS: Clear breath sounds. No wheezing. No crackles. HEART: Normal sinus rhythm. No murmurs, gallops, or rubs. ABDOMEN: Globular, soft, nontender. No masses. Positive for bowel sounds. Negative for epigastric bruits. GROIN: No inguinal lymphadenopathy. No femoral artery bruits. RECTAL/GENITALIA: Deferred. EXTREMITIES: No edema. No deformities. LABORATORY DATA: October 23, 2019, white count 7.9, hemoglobin 9.1. Sodium 137, potassium 4, chloride 100, carbon dioxide 27, BUN 20, creatinine 2.72, glucose 115, calcium 8.7. ASSESSMENT AND PLAN: 1. End stage renal disease-stable. Continue current Sunday, Sunday, and Sunday hemodialysis. Tolerating hemodialysis regimen. Again, fluid removal only as tolerated. 2. Anemia-stable. The patient is currently on maintenance weekly Epogen at 7500 units subcu q.7 days. Continue ferrous sulfate. 3. Generalized malaise/atrial fibrillation-the patient is clinically improved. He is status post cardiac ablation. Cardiology is following. 4. Recheck basic metabolics, CBC in a.m. Job ID: [id number]
[2019-10-23] MEDS: Ferrous Sulfate 325 MG TAB PO SCH (09:27)
[2019-10-23] MEDS: hydrALAZINE 25 MG TAB PO SCH ×3 (09:28→20:35)
[2019-10-23] MEDS: Aspirin 81 mg Enteric Coated Tablet PO SCH (09:28)
[2019-10-23] MEDS: HumaLOG 300 UNITS/3 ML VIAL SC PRN (11:48)
--- NOTE | 2019-10-23 12:10 | PRG ---
DATE OF SERVICE: 10/23/2019 Mr. Rizvi remains in normal sinus rhythm at the rate of 80 to 86. He is sitting quietly in bed, in no distress. We will restart some type of anticoagulation in anticipation of discharging him to either home or senior care facility. He will need to be on anticoagulant for approximately 1 month post ablation. Job ID: [id number]
[2019-10-23 13:50] VITALS: BMI 24.7
--- NOTE | 2019-10-23 15:51 | PDOC.EP ---
- Subjective Date: 10/23/19 Time: 15:50 Interval History: Stable and feeling better post CTI ablation yesterday. - Review of Systems Constitutional: denies: chills, fever, malaise, sweats, weakness, other Respiratory: denies: cough, dry, hemoptysis, pleuritic pain, shortness of breath, SOB with excertion, sputum, wheezing, other Cardiology: denies: chest pain, edema, heart racing, light headedness, paro xysmal noc. dyspnea, orthopnea, palpitations, passing out, pleuritic pain, pressure, swelling, other Gastrointestinal: denies: abdominal pain, constipation, diarrhea, hematochezia, melena, nausea, vomitting, other Musculoskeletal: denies: unstable gait, falls, neck pain, shoulder pain, arm pain, hand pain, leg pain, foot pain, other Neurological: denies: headache, vision changes, other - Objective Allergies/Adverse Reactions: Allergies Allergy/AdvReac Type Severity Reaction Status Date / Time No Known Allergies Allergy Verified 10/20/19 22:23 Current Medications Albuterol/Ipratropium (Duoneb) 3 ml NEB QIDPRN PRN PRN Reason: Wheezing Aspirin (Ecotrin) 81 mg PO DAILY [facility] Last Admin: 10/23/19 09:28 Dose: 81 mg Documented by: Atorvastatin Calcium (Lipitor) 20 mg PO HS [facility] Last Admin: 10/22/19 20:06 Dose: 20 mg Documented by: Carvedilol (Carvedilol 3.125 Mg Tab) 3.125 mg PO BID-[facility] Dextrose/Water (Dextrose 50%) 25 gm SLOW IVP PRN PRN PRN Reason: Hypoglycemia Epoetin Rosalino-epbx (Retacrit) 7,500 unit SC Q7D [facility] Last Admin: 10/20/19 22:54 Dose: 7,500 unit Documented by: Ferrous Sulfate (Feosol) 325 mg PO QAM-[facility] Last Admin: 10/23/19 09:27 Dose: 325 mg Documented by: Glucagon (Glucagon) 1 mg IM PRN PRN PRN Reason: Hypoglycemia Hydralazine HCl (Apresoline) 10 mg PO Q4H PRN PRN Reason: SBP >= 180 Hydralazine HCl (Hydralazine 25 Mg Tab) 25 mg PO TID [facility] Last Admin: 10/23/19 09:28 Dose: 25 mg Documented by: Dextrose/Water (D5w) 1,000 mls @ 0 mls/hr IV .Q0M PRN PRN Reason: Hypoglycemia Insulin Human Lispro (Humalog) 0 units SC .MILD SLIDING SCALE PRN PRN Reason: Mild Correctional Scale Last Admin: 10/23/19 11:48 Dose: 2 unit Documented by: Insulin Human Lispro (Humalog 300 Units/3 Ml Vial) 0 units SC .BEDTIME SLIDING SC PRN PRN Reason: Bedtime Correctional Scale Last Admin: 10/23/19 00:31 Dose: 2 unit Documented by: Warfarin Sodium (Coumadin) 2 mg PO 1700 [facility] Last Admin: 10/22/19 17:18 Dose: 2 mg Documented by: Vital Signs & Weight: Vital Signs Temp Pulse Resp BP BP Pulse Ox 10/23/19 11:43 98.3 F 82 17 157/72 H 99 10/23/19 08:52 98.1 F 90 14 160/72 H 97 10/23/19 04:02 98.6 F 91 20 159/67 H 96 Admit Weight 179 lb 1.6 oz Weight 167 lb 5.294 oz I/O: I/O 10/22/19 10/23/19 10/24/19 06:59 06:59 06:59 Intake Total 5 435 200 Output Total 1400 200 Balance 5 -965 0 - Quality Measures Condition: Atrial Fibrillation/Flutter (hx or current) - Physical Exam General: alert & oriented x3, appears well Neck: supple neck, no JVD/HJR Cardiology: regular rate and rhythm, no murmur Lungs: clear to auscultation, no wheezes Neurology: grossly intact Abdomen: unremarkable, active bowel sounds, non-tender Extremities: warm Skin: groin sites stable Musculoskeletal: normal range of motion, no pain - Labs Result Diagrams: 10/23/19 06:09 10/23/19 06:09 - Assessment/Plan Assessment/Plan: 1. History of atrial arrhythmias. a. History of paroxysmal atrial fibrillation suppressed with amiodarone use in sinus rhythm in June. b. Currently in typical atrial flutter with bradycardia in the 40s and 50s on presentation. 2. History of systolic congestive heart failure with ischemic cardiomyopathy. a. Most recent echo on 07/25/2019 reveals LVEF 50% to 55%; mild MR, AI, and TR; and moderate pulmonary hypertension. b. Prior history of coronary artery bypass grafting surgery. 3. History of ICD implantation around 2009 with subsequent generator change in February [address] out of town. a. Subsequent erosion prompting a lead and device extraction in [place]. 4. End-stage renal disease on hemodialysis since July 2019. 5. History of empyema requiring decortication in July 2019. 6. Elevated CHADS-VASc score with age, coronary artery disease, hypertension, CHF at 5 on warfarin for anticoagulation. 7. History of left forearm AV graft placement. 8. History of hyperlipidemia. S/P CTI ablation 10/22/19. Maintaining SR. Feeling better in SR. During eps cSNRT appr 300, suggestive of adequate sinus nodla function, PPM Not recommended. Had no inducible atrial fib or flutter after ablation, but I would suggest continued warfarin, hence atrial fibrillation recurrence is possible after complete amiodarone washout. EF is now normal - no ICD is indicated. Would sign out Routine office follow up in 6 weeks.
[2019-10-23] MEDS: Warfarin Sodium 2 MG TAB PO SCH (16:00)
[2019-10-23] MEDS: Carvedilol 3.125 MG TAB PO SCH (17:06)
[2019-10-23] MEDS: Atorvastatin Calcium 20 MG TAB PO SCH (20:35)
[2019-10-24 04:59] LABS: INR-International Normal Ratio 2.4; Prothrombin Time 25.7 sec (12.0-14.7)
[2019-10-24 05:05] LABS: #Eosinphils 0.5 thou/uL (0.0-0.7); #Lymphocytes 1.3 thou/uL (1.20-3.40); #Monocytes 0.7 thou/uL (0.11-0.59); #Neutrophils 4.3 thou/uL (1.40-6.50); %Basophils 0.3 % (0.0-1.0); %Eosinophils 6.7 % (0.0-10.0); %Lymphocytes 18.5 % (21.0-51.0); %Monocytes 10.7 % (0.0-10.0); %Neutrophils 63.8 % (42.0-75.0); Hemoglobin 7.7 g/dL (14.0-18.0); Mean Corpuscular Hemoglobin 31.5 pg (27.0-31.0); Mean Corpuscular Volume 98.4 fL (78.0-98.0); Mean Platelet Volume 6.9 fL (7.4-10.4); Platelet Count 228 thou/uL (130-400); RBC Distribution Width 13.7 % (11.5-14.5); Red Blood Cell (RBC) Count 2.43 mill/uL (4.70-6.10); White Blood Cell (WBC) Count 6.8 thou/uL (4.8-10.8)
[2019-10-24 05:28] LABS: Anion Gap 14 mmol/L (10-20); BUN (Urea Nitrogen) 27 mg/dL (8.4-25.7); Calc. Creatinine Clearance 18 mL/min (70-130); Calcium 8.4 mg/dL (7.8-10.44); Carbon Dioxide 27 mmol/L (23-31); Chloride 101 mmol/L (98-107); Estimated GFR-MDRD 17; Glucose 126 mg/dL (83-110); Potassium 4.1 mmol/L (3.5-5.1); Sodium 138 mmol/L (136-145)
--- NOTE | 2019-10-24 05:44 | PDOC.FM ---
- Subjective Subjective: Titus is doing well today and feels ready to go back to rehab. He denies dyspnea/SOB/edema/CP/V/D. - Objective Vital Signs & Weight: Vital Signs (12 hours) Temp Pulse Resp BP BP Pulse Ox 10/24/19 04:00 98.2 F 83 20 144/66 H 98 10/23/19 20:30 98.1 F 82 20 149/64 H 98 Weight Admit Weight 81.238 kg Weight 75.9 kg I&O: 10/22/19 10/23/19 10/24/19 06:59 06:59 06:59 Intake Total 5 435 1160 Output Total 1400 200 Balance 5 965 960 Result Diagrams: 10/24/19 03:59 10/24/19 03:59 Phys Exam - Physical Examination Constitutional: NAD (Sitting up comfortably eating breakfast) HEENT: moist MMs Neck: supple, full ROM Respiratory: no wheezing, no rales, clear to auscultation bilateral Cardiovascular: RRR Systolic murmur loudest at L mid-clavicular Musculoskeletal: no edema Neurological: non-focal, moves all 4 limbs Psychiatric: normal affect Skin: no rash Dx/Plan (1) End stage chronic kidney disease Code(s): N18.6 - END STAGE RENAL DISEASE Status: Chronic (2) CHF (congestive heart failure) Code(s): I50.9 - HEART FAILURE, UNSPECIFIED Status: Chronic (3) Onychomycosis Code(s): B35.1 - TINEA UNGUIUM Status: Acute (4) Arrhythmia, atrial Code(s): I49.8 - OTHER SPECIFIED CARDIAC ARRHYTHMIAS Status: Chronic (5) CAD (coronary artery disease) Code(s): I25.10 - ATHSCL HEART DISEASE OF [place] CORONARY ARTERY W/O ANG PCTRS Status: Chronic Qualifiers: Coronary Disease-Associated Artery/Lesion type: bypass graft [place] vs. transplanted heart: [place] heart Associated angina: without angina Qualified Code(s): I25.810 - Atherosclerosis of coronary artery bypass graft(s) without angina pectoris (6) DM type 2 (diabetes mellitus, type 2) Status: Chronic Qualifiers: Diabetes mellitus terminal press operator insulin use: with terminal press operator use Diabetes mellitus complication status: with other specified complication Qualified Code(s): E11.69 - Type 2 diabetes mellitus with other specified complication; Z79.4 - senior care (current) use of insulin (7) Dyslipidemia Code(s): E78.5 - HYPERLIPIDEMIA, UNSPECIFIED Status: Chronic (8) HTN (hypertension) Code(s): I10 - ESSENTIAL (PRIMARY) HYPERTENSION Status: Chronic Qualifiers: Hypertension type: essential hypertension Qualified Code(s): I10 - Essential (primary) hypertension - Plan Plan: This is an 84yo M brought to the ED for AMS SILVIO on CKD - BUN 65. Cr 4.94 Baseline Cr has increased from about 2 to about 4 - Was scheduled for dialysis today, which he missed d/t being brought to the ED - Nephro consulted in ED and organized emergent dialysis. Appreciate recs Emergent dialysis received. Nephro recommends continued MWF dialysis and started Epogen - Normal electrolytes today - Daily BMPs - Plan on d/c today once accepted to go back to rehab Metabolic encephalopathy likely 2/2 uremia - A&O x3 but altered, per rehab facility - BUN 65 - Very slow in speech. Unclear whether this is his baseline. Need to obtain baseline per rehab and/or family Obtaining TRAUMA SURGEON eval. NPO until then - UA neg - CT brain w/o contrast shows chronic changes - BCx neg x48h - Mentation near baseline, per grandson AFib vs Aflutter - Bradycardic atrial flutter on EKG on arrival - Hx of AFib and pacemaker placement that had to be extracted d/t infection. - No pacemaker currently - Home meds, per file from rehab: Lovenox, Warfarin - Seen by Electrophysiology in ED. Verbally, they said there are several options available if he has no concerns for infxn Suspect hyperkalemia as source of atrial flutter. Recommend holding Carvedilol. Possible cardioversion or ablation if not resolved 10/21 ablation performed which, per operative note, "eliminated reinducibility of atrial flutter. No atrial fibrillation was inducible. No additional arrhythmias induced. No accessory pathway or dual AV neo physiology was present." - RRR on exam post-operatively on 10/21 - PT/INR trending and appropriate so far - Will continue to monitor via telemetry - Plan for discharge today CHF exacerbation - BNP 2928 - Trop 0.055. Repeat pending - CK-MB 1.9 - CXR: Persistent bilateral pleural effusions and parenchymal lung changes primarily at the left lung base Possible PNA but WBC 9.9, LA 1.5, vitals wnl therefore less convincing. Received one dose of Cefepime, which has been discontinued. - Echo in 07/2019 showed EF 50-55% with akinesia of base of inferior wall and mildly elevated pulm artery pressure - Strict I&Os. Daily weights. Elbow and sacral wounds - Documented by nurses - Wound care consulted, appreciate recs Akathisia - Per patient, started a few weeks ago and is assoc with a medication - Nurse in ED mentioned the patient possibly experiencing tactile hallucinations as the cause of the movements Anemia - H/H of 9., MCV normal - Per chart review, Hgb baseline is about 9 - Hgb dropped to 7.8 on 10/20 - Continue to monitor Elevated transaminase - Alk Phos 116, resolved - Will monitor CAD - On Warfarin at home - Continue here as DVT Ppx T2DM - Insulin-dependent, on Humulin at home, per packet from rehab. - Ask about home dose to start here - Monitor BGs - Mild SSI here, in the meantime HTN - Normotensive on admission - Home meds, per packet from rehab, include Carvedilol 3.125 - Hold Carvedilol per Margi recs Onychomycosis - Of L UE Chronic back pain - MD aware - Monitor and treat sxs Dispo: Inpt tele, LOS <24h pending placement DVT Ppx: Warfarin Diet: CC with fluid restriction IVF: None Code: Chemical resuscitation only
--- NOTE | 2019-10-24 08:55 | PRG ---
DATE OF SERVICE: 10/24/2019 SUBJECTIVE: Mr. Rizvi is an 84-year-old white male with ESRD and followed up by the Renal Service for his maintenance hemodialysis. He is currently undergoing hemodialysis today. He voices no new complaints. In the interim, he underwent a cardiac ablation study/EPS study with Dr. Kiser. He is doing well. No complaints of chest pain or shortness of breath. OBJECTIVE: VITAL SIGNS: Blood pressure 158/96, heart rate 78, respiratory rate 14, temperature 98.1, and O2 saturations 98%. GENERAL: The patient is awake, alert, comfortable, not in distress. SKIN: Adequate turgor. HEENT: He has slightly pale conjunctivae. Anicteric sclerae. NECK: No neck mass. No carotid bruits. No JVD. CHEST: No deformities. LUNGS: Clear breath sounds. No wheezing. No crackles. HEART: Normal sinus rhythm. No murmurs, gallops, or rubs. ABDOMEN: Globular, soft, and nontender. No masses. EXTREMITIES: No edema. No deformities. MEDICATIONS: 10/24/2019, reviewed. LABORATORY DATA: On 10/24/2019, white count 6.8 and hemoglobin 7.7. Sodium 138, potassium 4.1, chloride 101, carbon dioxide 27, BUN 27, creatinine 3.45, glucose 126, and calcium 8.4. ASSESSMENT AND PLAN: 1. Anemia. Continuing weekly Epogen. Continue iron supplementation. P.r.n. blood transfusion. 2. End-stage renal disease, stable, tolerating current hemodialysis regimen. Fluid removal as tolerated. No changes with the Sunday, Sunday, and Sunday hemodialysis regimen. 3. Atrial flutter - status post cardioversion. The patient is doing well. Heart rate is noted to be in sinus rhythm. 4. Recheck CBC and basic metabolics a.m. Job ID: [id number]
[2019-10-24] MEDS ORDERED: Heparin 10,000 UNITS/ 10 ML VIAL ONE (09:20)
--- NOTE | 2019-10-24 11:17 | PRG ---
DATE OF SERVICE: 10/24/2019 Mr. Rizvi is currently in dialysis and is in no distress. Placement has been arranged. I would recommend that we transition him to a DOAC, such as Eliquis. Given that he is 84 years old, an appropriate dose should be 2.5 mg p.o. b.i.d. In the event, placement has been arranged, so he can likely be discharged after dialysis. Job ID: [id number]
[2019-10-24] MEDS: Aspirin 81 mg Enteric Coated Tablet PO SCH (12:12)
[2019-10-24] MEDS: Ferrous Sulfate 325 MG TAB PO SCH (12:12)
[2019-10-24] MEDS: Carvedilol 3.125 MG TAB PO SCH (12:12)
[2019-10-24 12:14] VITALS: BP 143/65; TEMP 97.9
[2019-10-24] MEDS: hydrALAZINE 25 MG TAB PO SCH (12:37)
--- NOTE | 2019-10-25 07:41 | DIS ---
DATE OF ADMISSION: 10/20/2019 DATE OF DISCHARGE: 10/24/2019 RESIDENT: Dana Franco MD ADMITTING ATTENDING: Jose Penaloza MD DISCHARGE ATTENDING: Jose Penaloza MD CONSULTS: Nephrology (10/19), Electrophysiology (10/19), Cardiology (10/19). PROCEDURES: Emergent dialysis (10/19), ablation (10/21). PRIMARY DIAGNOSES: Acute kidney injury on chronic kidney disease; metabolic encephalopathy, likely secondary to uremia; bradycardic atrial flutter; congestive heart failure exacerbation; mild neurocognitive deficit () on SLUMS cognitive screener. SECONDARY DIAGNOSES: Coronary artery disease, end-stage renal disease, insulin-dependent diabetes, hypertension, hyperlipidemia, atrial fibrillation, chronic back pain, akathisia, normocytic anemia, onychomycosis of left upper extremity. DISCHARGE MEDICATIONS: 1. Aspirin 81 mg p.o. daily. 2. Atorvastatin 20 mg p.o. q.h.s. 3. Epoetin 7500 units subcu q.7 days. 4. Ambien 5 mg p.o. q.h.s. p.r.n. 5. Hydralazine 25 mg p.o. t.i.d. 6. Pantoprazole 40 mg p.o. daily. 7. Ferrous sulfate 325 mg p.o. daily. 8. DuoNeb p.r.n. 9. Coreg 3.125 mg p.o. b.i.d. 10. Tylenol 3 one tab p.o. q.6h p.r.n. 11. Tramadol 100 mg p.o. b.i.d. 12. Warfarin 2 mg p.o. at 1700. Discontinued medications: None. HISTORY OF PRESENT ILLNESS/HOSPITAL COURSE: This is an 84-year-old male who was sent from his inpatient rehab facility for altered mentation and low blood pressure. On admission, his BUN was 65 and creatinine was 4.94. He received emergent dialysis. It was suspected his altered mentation was likely secondary to uremia. Urinalysis was negative. CT brain without contrast showed chronic changes. Blood culture resulted negative at 48 hours. On arrival, he had atrial flutter with heart rate in the 40s. He has a history of AFib and pacemaker placement, but it had to be removed due to complications, so he did not have a pacemaker currently. He has a history of CHF and on arrival his BNP is 2928. Chest x-ray showed persistent bilateral pleural effusions and parenchymal lung changes consistent with CHF, but potentially suggestive of pneumonia. Normal white blood count, normal vitals, and normal lactic acid made us less concerned for pneumonia, but he received one dose of cefepime in the ED, which was then discontinued. Echo was reviewed, showed an EF of 50% to 55% with akinesia at the base of the inferior wall and mildly elevated pulmonary artery pressure. During all of this, the patient's main concern was worsening akathisia which he suspected was due to medication he was taking. Cardiology evaluated him and started him on low-dose aspirin and Lipitor. After dialysis, his mentation significantly improved and he was medically stable enough to receive flutter ablation. Dr. Kiser felt there was no indication for ICD placement at this time. Operative note from the ablation stated "eliminated re-inducibility of atrial flutter. No atrial fibrillation was inducible. No additional arrhythmias induced. No accessory pathway or dual AV neo physiology was present." On postoperative exam on 10/21, the patient was in normal sinus rhythm. His heart rate and rhythm were monitored on the telemetry floor for an additional 24 hours. The patient had timed out of his current inpatient rehab facility, so he had to be approved for placement at a new one, at which point he was discharged. DISPOSITION: Stable. DISCHARGE INSTRUCTIONS: Location: Inpatient rehab. Diet: Consistent carb, soft mechanical foods, and nectar thick liquids, fluid restriction. Activity: As tolerated, with assistance. Followup: Recommend follow up with PCP within 7 to 10 days. Job ID: [id number] [facility]
== END 2019-10-24 14:42 | DRG 273 ==
LOC: ERS 12:28 → 2SE 16:11 → 2NO 10-21 19:42
PROVIDERS: ADMIT Family Medicine; ATTEND Family Medicine
PROC: 5A1D70Z Performance of Urinary Filtration, Intermittent, Less than 6 Hours Per Day (ICD-10-PCS; 2019-10-20)
PROC: 02583ZZ Destruction of Conduction Mechanism, Percutaneous Approach (ICD-10-PCS; principal; 2019-10-22)
PROC: 4A023FZ Measurement of Cardiac Rhythm, Percutaneous Approach (ICD-10-PCS; 2019-10-22)
PROC: 4A0234Z Measurement of Cardiac Electrical Activity, Percutaneous Approach (ICD-10-PCS; 2019-10-22)
PROC: 02K83ZZ Map Conduction Mechanism, Percutaneous Approach (ICD-10-PCS; 2019-10-22)
PROC: 3E033XZ Introduction of Vasopressor into Peripheral Vein, Percutaneous Approach (ICD-10-PCS; 2019-10-22)
DX: I48.3 Typical atrial flutter (principal); G93.41 Metabolic encephalopathy; I21.A1 Myocardial infarction type 2; N18.6 End stage renal disease; I50.23 Acute on chronic systolic (congestive) heart failure; N17.9 Acute kidney failure, unspecified; I13.2 Hypertensive heart and chronic kidney disease with heart failure and with stage 5 chronic kidney disease, or end stage renal disease; Z20.828 Contact with and (suspected) exposure to other viral communicable diseases; R00.1 Bradycardia, unspecified; I25.10 Atherosclerotic heart disease of native coronary artery without angina pectoris; E11.22 Type 2 diabetes mellitus with diabetic chronic kidney disease; I08.3 Combined rheumatic disorders of mitral, aortic and tricuspid valves; E78.5 Hyperlipidemia, unspecified; D63.1 Anemia in chronic kidney disease; G89.29 Other chronic pain; M54.9 Dorsalgia, unspecified; G25.71 Drug induced akathisia; B35.1 Tinea unguium; E87.5 Hyperkalemia; E78.00 Pure hypercholesterolemia, unspecified; I25.5 Ischemic cardiomyopathy; S31.000A Unspecified open wound of lower back and pelvis without penetration into retroperitoneum, initial encounter; S51.009A Unspecified open wound of unspecified elbow, initial encounter; X58.XXXA Exposure to other specified factors, initial encounter; I48.0 Paroxysmal atrial fibrillation; Z88.5 Allergy status to narcotic agent; Z79.899 Other long term (current) drug therapy; Z95.1 Presence of aortocoronary bypass graft; Z79.01 Long term (current) use of anticoagulants; Z98.1 Arthrodesis status; Z90.49 Acquired absence of other specified parts of digestive tract; I25.2 Old myocardial infarction; Z99.2 Dependence on renal dialysis
CPT/HCPCS: 36415; 36416; 70450; 71045; 76942; 80048; 80053; 81003; 81015; 82553; 83605; 83880; 84145; 84484; 85025; 85610; 85730; 87040; 87635; 90935; 93005; 93010; 93613; 93623; 93653; 94640; 94760; 97139; C1732; G0257; J0692; J1265; J1644; J2001; J2704; J7611; Q5105; U0003

== ENCOUNTER 2019-11-05 01:47 | Inpatient (IN) | payer MEDICARE, OTHER ==
[2019-11-05 02:51] LABS: Bacteria/HPF None Seen HPF (None Seen); Bilirubin Negative (Negative); Blood, Urine Negative (Negative); Clarity Clear (Clear); Glucose, Urine (Dipstick) Normal (Negative); Ketone, Urine Negative (Negative); Leukocyte Negative Leu/uL (Negative); Nitrite Negative (Negative); Protein, Urine (Dipstick) 70 mg/dL (Neg-Trace); RBC/HPF 0-3 HPF (0-3); Specific Gravity, Urine 1.015 (1.002-1.036); Squamous Epithelial None Seen HPF (0-3); Urobilinogen Normal mg/dL (Less than 2); WBC/HPF 0-3 HPF (0-3); pH, Urine 7.5 (5.0-9.0)
--- NOTE | 2019-11-05 03:13 | PDOC.FPRHP ---
- History of Present Illness Chief Complaint: Drainage from AV fistula site History of Present Illness: 84YOM with a PMH notable for ESRD on MWF HD, DMII, HTN, CAD s/p CABG, and a flutter s/p ablation who was transferred from [facility] after being detertmined to be septic 2/2 a RUE infection. Reports his fistula site started draining a few days ago while still in rehab. Asked nurses to look at it and they told him it looked ok and "put a bandaid on it." Was discharged home yesterday & once home spiked a fever of 102F so went to the ER for evaluation. Reports associated nausea and chills. No cough, congestion, diarrhea, constipation. ED Course: Cefepime, Vanc 1.5 gm, 2 L NS - Allergies/Adverse Reactions Allergies Allergy/AdvReac Type Severity Reaction Status Date / Time No Known Allergies Allergy Verified 10/20/19 22:23 - Home Medications Medication Instructions Recorded Confirmed Type Zolpidem Tartrate [Ambien] 5 mg PO HS PRN 07/24/19 10/21/19 History Pantoprazole [Protonix] 40 mg PO DAILY tab 08/09/19 10/21/19 Rx hydrALAZINE [Apresoline] 25 mg PO TID tab 08/09/19 10/21/19 Rx Carvedilol 3.125 mg PO BID 09/16/19 10/21/19 History Ferrous Sulfate [Iron] 325 mg PO DAILY 09/16/19 10/21/19 History Ipratropium/Albuterol Sulfate 3 ml NEB QID PRN 09/16/19 10/21/19 History [DuoNeb] Acetaminophen W/ Codeine 1 tab PO Q6H PRN tab 10/10/19 10/21/19 Rx [Acetaminophen/Codeine #3] Acetaminophen W/ Codeine 2 tab PO Q6H PRN tab 10/10/19 10/21/19 Rx [Acetaminophen/Codeine #3] Warfarin Sodium [Coumadin] 2 mg PO 1700 tab 10/10/19 10/21/19 Rx traMADol HCl [Ultram] 100 mg PO BID tab 10/10/19 10/21/19 Rx Aspirin [Ecotrin Low Strength] 81 mg PO DAILY tab 10/23/19 Rx Atorvastatin Calcium [Lipitor] 20 mg PO HS 30 Days #30 tab 10/23/19 Rx Epoetin Rosalino-Epbx [Retacrit] 7,500 unit SC Q7D 30 Days #60 vial 10/23/19 Rx - History PMHx: CAD s/p CABG, ESRD on HD MWF, T2DM (not on meds), HTN, HLD, A flutter s/p ablation, chronic back pain PSHx: appe, L hip fx s/p ORIF, pacemaker placement, AV fistula placement, ablation, L rotator cuff surgery , hernia repair, lumbar fusion FHx: None Social: No TAD. Lives in with his and son. - Review of Systems General: reports: fever/chills Eyes: denies: vision changes ENT: denies: nasal congestion, rhinorrhea Respiratory: reports: shortness of breath. denies: cough Cardiovascular: denies: chest pain Gastrointestinal: reports: nausea. denies: vomiting, diarrhea, constipation, abdominal pain Skin: denies: rashes Musculoskeletal: reports: pain Neurological: denies: numbness, weakness Psychological: denies: anxiety, depression - Vital signs BP: 189/98 HR: 101 RR: 28 Tmax: Pox: 98% on 4L Wt: 78 kg - Physical Exam HEENT: normocephalic and atraumatic, grossly normal vision -HEENT: Hard of hearing Neck: supple, FROM Heart: RRR, normal S1/S2 Lungs: CTAB, no rales/rhonchi, no wheezing, no retractions Abdomen: soft, non-tender Musculoskeletal: normal structure, normal tone Neurological: no focal deficit, CN II-XII intact Skin: no jaundice -Skin: 2 cm x 1 cm ulceration of dorsal left forearm, purulent drainage, erythema noted Heme/Lymphatic: no unusual bruising or bleeding, no purpura, no petechia Psychiatric: normal mood and affect, good judgment and insight FMR H&P: Results - Labs Result Diagrams: 11/05/19 04:43 Lab results: Urine Ketones Negative mg/dL (Negative) 11/05/19 02:37 Urine Blood Negative (Negative) 11/05/19 02:37 Urine Nitrite Negative (Negative) 11/05/19 02:37 Ur Leukocyte Esterase Negative Trudy/uL (Negative) 11/05/19 02:37 Urine RBC 0-3 HPF (0-3) 11/05/19 02:37 Urine WBC 0-3 HPF (0-3) 11/05/19 02:37 Ur Squamous Epith Cells None Seen HPF (0-3) 11/05/19 02:37 Urine Bacteria None Seen HPF (None Seen) 11/05/19 02:37 - EKG Interpretation EKG: ST elevation in leads III and aVF FMR H&P: A/P - Problem List (1) Anemia Current Visit: Yes Status: Chronic Code(s): D64.9 - ANEMIA, UNSPECIFIED (2) Chronic back pain Current Visit: Yes Status: Chronic Code(s): M54.9 - DORSALGIA, UNSPECIFIED; G89.29 - OTHER CHRONIC PAIN (3) Atrial flutter Current Visit: Yes Status: Chronic Code(s): I48.92 - UNSPECIFIED ATRIAL FLUTTER (4) STEMI (ST elevation myocardial infarction) Current Visit: Yes Status: Acute (5) Sepsis Current Visit: No Status: Acute Code(s): A41.9 - SEPSIS, UNSPECIFIED ORGANISM Qualifiers: Sepsis type: sepsis due to unspecified organism (6) CAD (coronary artery disease) Current Visit: No Status: Chronic Code(s): I25.10 - ATHSCL HEART DISEASE OF [place] CORONARY ARTERY W/O ANG PCTRS Qualifiers: Coronary Disease-Associated Artery/Lesion type: bypass graft [place] vs. transplanted heart: [place] heart Associated angina: without angina Qualified Code(s): I25.810 - Atherosclerosis of coronary artery bypass graft(s) without angina pectoris (7) DM type 2 (diabetes mellitus, type 2) Current Visit: No Status: Chronic (8) Dyslipidemia Current Visit: No Status: Chronic Code(s): E78.5 - HYPERLIPIDEMIA, UN SPECIFIED (9) End stage chronic kidney disease Current Visit: No Status: Chronic Code(s): N18.6 - END STAGE RENAL DISEASE (10) HTN (hypertension) Current Visit: No Status: Chronic Code(s): I10 - ESSENTIAL (PRIMARY) HYPERTENSION Qualifiers: Hypertension type: essential hypertension Qualified Code(s): I10 - Essential (primary) hypertension - Plan Sepsis 2/2 to superficial skin ulceration - recent Left loop forearm AV graft by Dr. Guerrero on 09/17, reports drainage that began a couple of days ago - tachycardic, tachypneic, febrile - WBC: 8.1 - LA: 1.0 - Procal: 0.51, will trend - Given Vanc, Cefepime, 2 L NS in ED - will continue Vanc and Cefepime - LR @ 120 mls/hr - Bl cx and urine cx pending - will consult surgeon Dr. Guerrero today - wound care consulted for ulceration Possible STEMI - denies chest pain - EKG: ST elevation in III and aVF, repeat EKG later today - Trop: 0.044 > 0.052, continue to trend - Cardiology consulted from ED, recommended that patient be given aspirin and started on heparin, starting heparin drip - due to sepsis, will not take to cath lab radiological technologist at this time - will admit to tele for further monitor ESRD - HD MWF - will need HD later today - will consult front end loader operator Dr. Smiley bolanos - s/p ablation, pacemaker - Continue home coreg - holding home warfarin as patient is on heparin drip - on tele for further monitoring CAD s/p Stent - continue aspiring and atorvastatin Anemia - likely anemia of chronic disease 2/2 to ESRD - continue home ferrous sulfate and epoetin HTN - continue home coreg and hydralizine HLD - continue home atorvastatin Hx of DMII - reports that he used to take insulin, but was recently told to that he no longer needed it - Hbg A1C in Sep 2019 was 5 - SC insulin in place - hypoglycemic protocol in place Chronic Back Pain - home Tylenol 3 ordered - holding home tramadol PCP: Out of town PPx: Heparin, Protonix IVF: LR @ 120 mls/hr Abx: Cefepime and Vanc (11/04( Diet: HH, CC, Renal Code: Chemical only Dispo: Admit to tele for further evaluation and monitoring; likely LOS > 48 hrs. FMR H&P: Upper Level - Plan Date/Time: 11/05/19311 IMichelle, have evaluated this patient and agree with findings/plan as outlined by international nurse resident. Pertinent changes/additions are listed here. 84YOM with a PMH notable for CAD s/p CABG, ESRD on HD, diet-controlled DMII, and atrial flutter s/p ablation who was transferred from [facility] after presenting there for a draining site on his arm. Of note, the patient was recently discharged from [facility] after being admitted from rehab for AMS. He was just discharged home from rehab yesterday & reports his arm was draining prior to discharge. He brought it to the nurses attention there and states they just put a bandaid on it. After getting home he developed a fever of 102F and went to the ER for further evaluation. On evaluation there he was noted to be tachycardic and tachypneic with a purulent draining wound site on his LUE and was therefore determined to be septic from an infected AV fistula site. He was given IV vancomycin & cefepime and 2L of NS before being transferred for further evaluation. On arrival to [facility] the patient was still tachycardic and was on 3L of O2 for his tachypnea although he was never noted to be hypoxic in [facility] or in the [facility] ED. Workup including a CBC, CMP, troponin & CKMB level, CXR, PT/INR, and UA were all WNLs/baseline range with exception of an elevated troponin of 0.044. Blood cultures and a UA w/ culture were also collected prior to initiated abx therapy. On exam the patient had chills and was ill-appearing with tachycardia in the 100s and tachypnea in the 20s. He was noted to have an ~2x1cm ulcerated area on the distal dorsal aspect of his left forearm with purulent drainage and a small border of erythema and induration around it. Plan will be to admit to telemetry for continued IV Vancomycin & cefepime pending culture results. Will consult wound care & continue Tylenol PRN for fever. Will consult Dr. Guerrero in the AM since infection appears to possibly be related to recent surgical intervention site. Will also continue monitoring of his troponins as a repeat EKG on arrival to the ED in [facility] did show some minimal ST elevations in leads III & aVF & his troponin trended up to 0.052. Was also given ASA & Heparin in the ED & cardiology, Dr. Zimmerman, was consulted & is to see the patient in the AM. Regarding his chronic medical conditions, will consult nephrology, Dr. Reis, for continued HD while inpatient & renally dose meds PRN. Will resume home meds with exception of warfarin for all other chronic conditions. Anticipated LOS at least 2 midnights pending clinical course. CODE STATUS: CHEMICAL CODE ONLY.
[2019-11-05] MEDS ORDERED: Dextrose 50% Abboject 50 ML SYRINGE SLOW IVP PRN (03:35)
[2019-11-05] MEDS ORDERED: Ondansetron ODT 4 MG TAB PO PRN (03:35)
[2019-11-05] MEDS ORDERED: Ondansetron PF 4 MG/2 ML Vial IVP PRN (03:35)
[2019-11-05] MEDS ORDERED: Dextrose 5% in Water 1,000 ML IV PRN (03:35)
[2019-11-05 03:58] LABS: CKMB 1.1 ng/mL (0-6.6)
[2019-11-05] MEDS ORDERED: Labetalol HCl 100 MG/20 ML VIAL ONE (04:02)
[2019-11-05] MEDS ORDERED: Acetaminophen 500 MG TAB ONE (04:14)
[2019-11-05] MEDS ORDERED: Heparin 10,000 UNITS/ 10 ML VIAL ONE ×2 (04:14→11:41)
[2019-11-05] MEDS ORDERED: Aspirin Chewable 81 MG TAB ONE (04:14)
[2019-11-05] MEDS ORDERED: Heparin 25,000 units/D5W 500 ML IVPB SCH (04:30)
[2019-11-05] MEDS ORDERED: Heparin 10,000 UNITS/ 10 ML VIAL SLOW IVP SCH (04:30)
[2019-11-05 04:55] LABS: Platelet Count 158 thou/uL (130-400)
[2019-11-05] MEDS ORDERED: Vancomycin HCl 750 MG in Sodium Chloride 0.9% 250 ML 250 ML IVPB SCH (05:15)
[2019-11-05] MEDS ORDERED: Vancomycin HCl 1.25 GM in Sodium Chloride 0.9% 250 ML 250 ML IVPB SCH (05:15)
[2019-11-05] MEDS ORDERED: HOLD VANCOMYCIN FOR LEVEL >20 FS SCH (05:15)
[2019-11-05] MEDS ORDERED: Vancomycin HCl 500 MG in Sodium Chloride 0.9% 100 ML IVPB SCH (05:15)
[2019-11-05] MEDS ORDERED: Vancomycin 1 GM in Premix Bag 1 BAG IVPB SCH (05:15)
[2019-11-05 05:26] LABS: Troponin I 0.061 ng/mL (< 0.028)
[2019-11-05] MEDS ORDERED: Heparin 25,000 units/D5W 500 ML ONE (05:35)
[2019-11-05] MEDS ORDERED: Cefepime 2 GM in Sodium Chloride 0.9% 100 ML IVPB SCH (08:30)
[2019-11-05] MEDS ORDERED: Epoetin (ESRD) 20,000 UNITS/ML SC SCH (08:30)
[2019-11-05] MEDS ORDERED: Lidocaine 1% w/Epinephrine 1:100K 20 ML VIAL NERVE BLCK SCH (08:45)
--- NOTE | 2019-11-05 08:46 | PRG ---
DATE OF SERVICE: 11/05/2019 SUBJECTIVE: Mr. Rizvi is an 84-year-old white male with ESRD and was admitted for fever. He was found to have an exposed AV fistula site with discharge. He was noted to be febrile. Surgery has evaluated this patient and the plan is to try to save these access. IV antibiotics have been started. We are now following this patient for his maintenance hemodialysis. He is due for dialysis today. This morning, he feels lethargic, but not in distress. He denies any chest pain or shortness of breath. He has been started on cefepime and vancomycin. OBJECTIVE: VITAL SIGNS: Blood pressure 104/49, heart rate 75, respiratory rate 18, temperature 98.4, and O2 saturation is 94%. GENERAL: He is noted to be awake, somewhat drowsy, decreased hearing. HEENT: He has slightly pale conjunctivae. Anicteric sclerae. NECK: No neck mass. No carotid bruits. No JVD. CHEST: No deformities. LUNGS: Clear breath sounds. No wheezing. No crackles. HEART: Normal sinus rhythm. No murmur. No gallops. No rubs. ABDOMEN: Globular, soft, and nontender. No masses. EXTREMITIES: No edema. No deformities. Positive for ulceration on the right forearm, where the AV fistula is. MEDICATIONS: Medications of November 05, 2019, were reviewed. LABORATORY DATA: Laboratories of November 05, 2019; hemoglobin 8, hematocrit 24.5. Troponin I 0.061. On November 04, 2019, sodium 136, potassium 4.4, chloride 97, carbon dioxide 26, BUN 30, creatinine 3.73, glucose 157, and calcium 8.2. ASSESSMENT AND PLAN: 1. Infected AV graft-conservative management. Empiric IV antibiotics will be given. Surgery is following. 2. End-stage renal disease. We will continue current Sunday, Sunday, and Sunday hemodialysis regimen. Case discussed with the dialysis staff. I have scheduled him for a 3-hour hemodialysis regimen using a standard bath. Fluid removal as tolerated. 3. Anemia. We will restart Epogen with this patient. Overall prognosis remains guarded. Job ID: [id number]
[2019-11-05] MEDS ORDERED: EPOETIN ALFA-EPBX (ESRD) 4,000 UNIT/ML VIAL SC SCH (09:00)
--- NOTE | 2019-11-05 09:04 | CON ---
DATE OF CONSULTATION: REASON FOR CONSULT: Exposed graft. HISTORY OF PRESENT ILLNESS: Mr. Rizvi is an 84-year-old man with multiple medical issues who had a left forearm AV graft placed on September 19. He did not follow up with me as an outpatient due to several intervening medical episodes. He fell and broke his hip and had to go to rehab and then was readmitted with atrial fibrillation or atrial flutter and had to undergo ablation. He was apparently at rehab until yesterday and according to his phone circuit operator when he is on rehab, he seemed to be doing well, but he did not realize there was an issue with the graft. The patient was discharged home, but immediately spiked a fever of 102, so went to his local emergency room for evaluation. When they examined his arm, they noticed that he had exposed graft with some purulence and they sent him to [facility] for further care. He has since defervesced. He was initially hypertensive and tachycardic. He received some fluids and his tachycardia improved. His blood pressure has come down with management. He did receive cefepime and vancomycin in the emergency room. PAST MEDICAL HISTORY: Coronary artery disease, status post CABG; pneumonia with empyema, status post decortication; end-stage renal disease, on hemodialysis through a right-sided hemodialysis catheter. He has a left forearm graft, but this has not been used. Type 2 diabetes, hypertension, hyperlipidemia, atrial flutter, status post ablation. PAST SURGICAL HISTORY: Appendectomy, repair of left hip fracture, pacemaker, AV fistula, ablation, rotator cuff surgery, hernia repair, and back surgery. FAMILY HISTORY: Noncontributory. SOCIAL HISTORY: The patient lives with his and son and is fairly functional. He does not smoke, drink, or use illicit drugs. REVIEW OF SYSTEMS: 10 system review of systems is negative except for fevers, chills, and lethargy. He does report some mild shortness of breath and nausea. PHYSICAL EXAMINATION: VITAL SIGNS: Temperature 98.4, heart rate 75, respirations 18, 94% saturated on room air, blood pressure 104/49. GENERAL: A frail, elderly gentleman, in no acute distress. He is not flushed or toxic. He is not jaundiced or icteric. HEENT: Unremarkable. NECK: Supple without lymphadenopathy. There is no tenderness over his right internal jugular dialysis catheter. There is no redness or fluctuance. HEART: Regular in its rate and rhythm without murmurs, rubs, or gallops. LUNGS: He has some basilar crackles on lung examination, but is otherwise clear to auscultation without wheezing and with good air entry. ABDOMEN: Soft, nontender, and nondistended. No palpable masses or hernias. EXTREMITIES: Warm, well perfused. His left forearm has moderate edema. There is an excellent thrill and bruit in his left loop forearm graft, most of the graft is nontender and there is no generalized cellulitis, but the distal loop of the graft is exposed with a small amount of purulence and redness just along the edges of the open wound. There is no fluctuance or tenderness along the rest of the graft, however. His hand is warm and well perfused with normal capillary refill. NEUROLOGIC: No focal deficits, but he is somewhat lethargic. However, he is able to answer questions appropriately and give a good history. PSYCHIATRIC: He is alert and oriented and has a normal affect. LABORATORY DATA: White count is normal, but he does have a left shift. INR is 1.5 but he is now on heparin drip. Troponins have been in the indeterminate range, most recent one was 0.06, which is up from admit. Procalcitonin is 0.51, which is also in the low indeterminate range. Urine is unremarkable. ASSESSMENT: Exposed, contaminated loop forearm graft, which is the likely source of his fever. He appears to have mild sepsis with fever. His blood pressure is a little on the low side now, but he was initially hypertensive and actually received labetalol in the emergency room, which may be the origin of his current low blood pressure. He is on a heparin drip due to his recent ablation and indeterminate troponins and nonspecific ST changes. Cardiology is going to see him soon. He is not floridly septic and the infection appears to be confined to the distal portion of his loop graft. This is well away from the anastomosis. There is no real concern for anastomotic blowout or bleeding. The graft is potentially salvageable, but I cannot really do an extension of the graft through an uninfected field while he is on a heparin drip and I would rather not subject him to anesthesia if he is in the process of having an acute IA. I have discussed this case with Dr. Garcia. At this point, the better course of valonel seems to be to locally debride the graft and place a VAC dressing to it to temporize and continue with antibiotics. Occasionally, these can be salvaged with wound care and antibiotics alone. If this is not possible, then we may take him to the operating room at a later date for excision of the infected segment and bypass through an uninfected field when he is more medically stable. The Medicine team is managing his other medical problems. He is due for dialysis today and his hemodialysis catheter can be used for that. I do not suspect that this is infected. I believe that the exposed graft is the source of his fever. If the patient becomes more floridly septic, then sacrifice of the graft and excision of the infected segment may be necessary, but hopefully this can be avoided. Job ID: [id number]
--- NOTE | 2019-11-05 09:38 | CON ---
DATE OF CONSULTATION: HISTORY OF PRESENT ILLNESS: The patient is an unfortunate 84-year-old gentleman, who presents with fevers and chills. The patient has a previous history of coronary artery disease including coronary artery bypass graft surgery. The patient was recently in the hospital with infected defibrillator wires. The patient had this removed in [place]. The patient subsequently developed renal failure and has been on chronic dialysis. The patient was in his usual state of health when he developed fevers and chills. The patient denied to have any chest discomfort. He reports feeling dyspneic. PAST MEDICAL HISTORY: 1. Coronary artery disease. 2. Hypertension. 3. Diabetes mellitus. 4. End-stage renal disease. 5. History of an empyema. 6. History of atrial fibrillation. PAST SURGICAL HISTORY: Hernia surgery, back surgery, tonsillectomy, coronary artery bypass surgery, bowel surgery, appendectomy. ALLERGIES: MORPHINE. SOCIAL HISTORY: Nonsmoker. MEDICATIONS: See nursing list. PHYSICAL EXAMINATION: GENERAL: Well-developed gentleman, in mild distress. VITAL SIGNS: Blood pressure 104/49. NECK: No jugular venous distention. LUNGS: Clear to auscultation. HEART: Regular rate and rhythm. Normal S1 and S2 with a 1/6 systolic murmur. ABDOMEN: Nondistended. EXTREMITIES: Show an infected AV fistula. LABORATORY RESULTS: White blood cell count is 8.1, hemoglobin 8.0, hematocrit 24.5, platelets 203. Sodium 136, potassium 4.4, chloride 97, bicarbonate 26, BUN 30, creatinine 3.7. Troponin was 0.052. IMPRESSION: 1. Sepsis. 2. History of coronary artery bypass surgery. 3. History of AICD placement and removal. 4. End-stage renal disease. 5. Empyema. 6. Hypertension. 7. Diabetes mellitus. This gentleman presents with an infected AV fistula. He is to undergo I and D of the fistula. He is on appropriate antibiotics. The patient's troponin is elevated. There is no evidence of an acute coronary syndrome. We will follow this patient with you through his hospitalization. Job ID: [id number] MTDD
[2019-11-05 09:39] LABS: Troponin I 0.087 ng/mL (< 0.028)
[2019-11-05 10:07] LABS: Hep B Surf Ag Non-Reactive S/CO (NonReactive)
[2019-11-05] MEDS: Lactated Ringer's 1,000 ML IV SCH ×3 (10:37→17:05)
[2019-11-05] MEDS: HumaLOG 300 UNITS/3 ML VIAL SC PRN (12:01)
[2019-11-05 13:18] LABS: SARS-CoV-2 MS2 Positive; SARS-CoV-2 N Gene Negative; SARS-CoV-2 S Gene Negative; SARS-CoV-2 by NAA Not Detected (NotDetected); SARS-CoV-2 orf1ab Negative
--- NOTE | 2019-11-05 13:43 | HP ---
CHIEF COMPLAINT: Infection of left forearm. HISTORY OF PRESENT ILLNESS: Mr. Titus Rizvi is an 84-year-old man with multiple medical comorbidities, who presented to the ER with an infection near his PICC site of the left forearm. He had been draining pus, and the patient had developed fever to greater than 102 degrees. He was admitted for further evaluation and IV antibiotics. PHYSICAL EXAMINATION: VITAL SIGNS: His blood pressure was 180/90, his heart rate was 100, and respirations were 28. He had an initial temperature of 102 to 103 degrees, and his pulse ox on 4 L is 98%. GENERAL: This morning, in general, he appears much more comfortable. HEENT: Ears, nose, and throat show no erythema or exudate. NECK: Supple. CARDIAC: Heart rhythm is regular. S4 gallop. No murmur or rub noted. LUNGS: Breath sounds were diminished, but clear without rales or wheezes. ABDOMEN: Flat and soft. NEUROLOGIC: No focal deficits. LABORATORY DATA: Hemoglobin 8, hematocrit 24.5. I am told that the initial white count was normal. He had a very slight elevation of his troponins, likely related to demand ischemia. Glucose is 172. ASSESSMENT: Wound infection/cellulitis of the left forearm. PLAN: Continue broad-spectrum antibiotics. We will have Surgery re-look at the site. Sent for wound culture with sensitivities still pending. For now, we will continue with broad spectrum coverage. Job ID: [id number]
[2019-11-05 13:50] LABS: PTT Greater than 250.0 sec (22.9-36.1)
[2019-11-05] MEDS: Ferrous Sulfate 325 MG TAB PO SCH (17:03)
[2019-11-05] MEDS: Carvedilol 3.125 MG TAB PO SCH ×2 (17:03→17:08)
[2019-11-05] MEDS: Aspirin 81 mg Enteric Coated Tablet PO SCH (17:04)
[2019-11-05] MEDS: hydrALAZINE 25 MG TAB PO SCH ×3 (17:04→20:18)
[2019-11-05] MEDS: EPOETIN ALFA-EPBX (ESRD) 4,000 UNIT/ML VIAL SC SCH (17:04)
[2019-11-05] MEDS: Cefepime 1 GM in Sodium Chloride 0.9% 100 ML IVPB SCH ×2 (17:08→18:05)
[2019-11-05] MEDS: Acetaminophen 325 MG TAB PO PRN (17:08)
[2019-11-05] MEDS: Atorvastatin Calcium 20 MG TAB PO SCH (20:18)
[2019-11-05 23:44] LABS: PTT 126.1 sec (22.9-36.1)
[2019-11-06] MEDS: Lactated Ringer's 1,000 ML IV SCH ×2 (00:01→04:00)
[2019-11-06 04:53] LABS: ALT (SGPT) 61 U/L (8-55); AST (SGOT) 98 U/L (5-34); Albumin 2.6 g/dL (3.4-4.8); Alkaline Phosphatase 91 U/L (40-110); Anion Gap 14 mmol/L (10-20); BUN (Urea Nitrogen) 21 mg/dL (8.4-25.7); Bilirubin, Total 0.4 mg/dL (0.2-1.2); Calc. Creatinine Clearance 23 mL/min (70-130); Calcium 7.9 mg/dL (7.8-10.44); Carbon Dioxide 25 mmol/L (23-31); Chloride 98 mmol/L (98-107); Estimated GFR-MDRD 22; Glucose 118 mg/dL (83-110); Potassium 3.9 mmol/L (3.5-5.1); Protein, Total 5.6 g/dL (5.8-8.1); Sodium 133 mmol/L (136-145)
[2019-11-06 05:33] LABS: Band 28 % (5-11); Hemoglobin 7.8 g/dL (14.0-18.0); Lymphocytes 14 % (21-51); MDiff Complete? YES; Mean Corpuscular HGB CONC 32.4 g/dL (32.0-36.0); Mean Corpuscular Hemoglobin 31.4 pg (27.0-31.0); Mean Corpuscular Volume 96.8 fL (78.0-98.0); Mean Platelet Volume 7.5 fL (7.4-10.4); Monocytes 11 % (0-10); Neutrophil 47 % (42-75); Platelet Count 108 thou/uL (130-400); Platelet Morphology Comment Appears Decreased; RBC Distribution Width 13.4 % (11.5-14.5); Red Blood Cell (RBC) Count 2.47 mill/uL (4.70-6.10); White Blood Cell (WBC) Count 3.2 thou/uL (4.8-10.8)
--- NOTE | 2019-11-06 06:14 | PDOC.FM ---
- Subjective Subjective: Pt in bed this AM. No acute events overnight. Remained afebrile after having temp of 100.1 at 4PM yesterday. States that he has some nagging arm pain this morning but otherwise is feeling okay. Is tired this AM. Did not have much appetite yesterday, but is hungry today. Does like to drink ensure and protein shakes and will try drinking these today. - Objective Vital Signs & Weight: Vital Signs (12 hours) Temp Pulse Resp BP BP BP Pulse Ox 11/06/19 03:29 98.7 F 71 20 140/61 95 11/06/19 00:00 98.7 F 66 18 132/64 100 11/05/19 20:18 95 11/05/19 20:00 98 11/05/19 19:45 98.6 F 95 16 133/61 98 Weight Admit Weight 76.093 kg Weight 77 kg Result Diagrams: 11/06/19 03:47 11/06/19 03:47 Phys Exam - Physical Examination Constitutional: NAD HEENT: PERRLA Neck: no nodes Respiratory: no wheezing, no rales, no rhonchi, clear to auscultation bilateral Cardiovascular: RRR, no significant murmur, no rub Gastrointestinal: soft, non-tender, no distention, positive bowel sounds Musculoskeletal: no edema, pulses present L arm wrapped and wound vac in place Neurological: non-focal, normal sensation, moves all 4 limbs Lymphatic: no nodes Psychiatric: normal affect, A&O x 3 Skin: no rash, normal turgor, cap refill <2 seconds Dx/Plan - Plan Plan: Sepsis 2/2 to superficial skin ulceration - recent left loop forearm AV graft by Dr. Guerrero on 09/17, reports drainage that began a couple of days ago - presented tachycardic, tachypneic, febrile - Given Vanc, Cefepime, 2 L NS in ED; dc/d cefepime 11/04 and cotinued with vancomycin 11/04 - WBC: 8.1 - LA: 1.0 - Procal: 0.5 --> 14 (11/05) - Bl cx: 2+ positive s. aureus MSSA and gram + cocci - wound clx: grew many gram + cocci in clusters and few gram + rods - 11/04: Dr. Guerrero consulted, appreciate recs; s/p bed side debridement and wound vac placement - 11/05: patient will need to be continued on antibiotics and possibly with need ECHO and repeat blood cultures within 48 hours will change abx from vancomycin to cefazolin for MSSA bacteremia and cefepime to cover for pseudomonas found in wound culture. will consult ID as well. Most likely NSTEMI, type 2 - denies chest pain - EKG had shown ST elevation in III and aVF initially, telemetry has been SR, HR 60s, with 1 degree AVB - Trop: 0.044 > 0.052 > 0.087 - 11/04: Cardiology consulted from ED, recommended that patient be given aspirin and started on heparin, appreciate recommendations ESRD - HD MWF - s/p 3 hour dialysis session 11/04 - 11/04: consulted Dr. Martinez, pt's retort feeder ground bone, appreciate recs A flutter - s/p ablation, pacemaker - Continue home coreg - holding home warfarin as patient is on heparin drip - on tele for further monitoring CAD s/p Stent - continue ASA and atorvastatin Anemia - likely anemia of chronic disease 2/2 to ESRD - continue home ferrous sulfate and epoetin HTN - continue home coreg and hydralizine HLD - continue home atorvastatin Hx of DMII - reports that he used to take insulin, but was recently told to that he no longer needed it - Hbg A1C in Sep 2019 was 5 - SC insulin in place - hypoglycemic protocol in place Chronic Back Pain - home Tylenol 3 ordered - holding home tramadol PPx: Heparin, Protonix IVF: LR @ 120 mls/hr Diet: HH, CC, Renal Code: Chemical only PCP: Out of town Dispo as of 11/05: pt's blood cultures grew MSSA in both cultures and wound culture grew gram + cocci and gram + rods, one colony of psuedomonas was found as well. changing his abx regimen today and will consult ID as well. will order echo today. he will need repeat cultures in 48 hours. will keep in mind that patient has dialysis via tunneled catheter and that given his bacteremia this will need to be addressed/changed.
[2019-11-06] MEDS: Acetaminophen/Codeine 30-300mg Tablet PO PRN ×2 (07:24→19:19)
[2019-11-06] MEDS: hydrALAZINE 25 MG TAB PO SCH ×3 (09:09→21:38)
[2019-11-06] MEDS: Ferrous Sulfate 325 MG TAB PO SCH (09:09)
[2019-11-06] MEDS: Carvedilol 3.125 MG TAB PO SCH ×2 (09:09→16:50)
[2019-11-06] MEDS: Aspirin 81 mg Enteric Coated Tablet PO SCH (09:10)
--- NOTE | 2019-11-06 09:27 | PRG ---
DATE OF SERVICE: 11/06/2019 SUBJECTIVE: Mr. Rizvi is an 84-year-old white male with known history of chronic renal failure-currently on maintenance hemodialysis and was admitted for fever and chills. He was found to have an exposed and probably contaminated loop forearm graft. He has been empirically treated with IV antibiotics. This morning, he is feeling much better. Surgery has evaluated the patient and has opted for conservative management. Wound VAC has been placed and debridement of the wound has been done. The patient voices no new complaints. No chest pain or shortness of breath. He did undergo dialysis without any difficulty yesterday. OBJECTIVE: VITAL SIGNS: Blood pressure is 136/63, heart rate 71, respiratory rate 16, temperature 98.7. GENERAL: Awake, alert, and comfortable, not in distress. SKIN: Adequate turgor. HEENT: He has a slightly pale conjunctivae. Anicteric sclerae. No neck mass. No carotid bruits. No JVD. CHEST: No deformities. LUNGS: Clear breath sounds. HEART: Normal sinus rhythm. No murmurs, no gallops, no rubs. ABDOMEN: Globular, soft, nontender. No masses. EXTREMITIES: No edema. He has left forearm dressing with a wound VAC. MEDICATIONS: Medications of November 06, 2019, was reviewed. LABORATORY DATA: Laboratories of November 06, 2019; white count 3.2, hemoglobin 7.8, hematocrit 23.9. Sodium 133, potassium 3.9, chloride 98, carbon dioxide 25, BUN 21, creatinine 2.73, glucose 118, AST 98, ALT 61, albumin 2.6. Procalcitonin 14.5. ASSESSMENT AND PLAN: 1. Fever and chills-secondary to exposed AV graft/contamination of AV graft-clinically much improved. Continue IV antibiotics. Surgery is following. Wound VAC has been applied to the left exposed wound. 2. End-stage renal disease, stable. We will continue current Sunday, Sunday, and Sunday hemodialysis. Fluid removal only as tolerated by this patient. No indication for an emergent hemodialysis today. 3. Anemia. Continuing weekly Epogen with this patient, p.r.n. blood transfusion only for hemoglobin less than 7. Overall, prognosis remains guarded. Recheck CBC and basic metabolic profile in a.m. Job ID: [id number] [facility]
[2019-11-06] MEDS ORDERED: Cefepime 1 GM in Sodium Chloride 0.9% 100 ML IVPB SCH ×2 (09:45→15:00)
--- NOTE | 2019-11-06 11:27 | PRG ---
DATE OF SERVICE: 11/06/2019 Mr. Rizvi is resting comfortably in bed. Evidently, he has grown an Staph methicillin sensitive organism from his blood. We will switch him to cefazolin. He is also growing a Pseudomonas from the wound and we will continue with cefepime. We will consult with Dr. Maldonado. We will order an echo. Job ID: [id number]
--- NOTE | 2019-11-06 16:04 | PDOC.GSPN ---
Surgery Progress Note: Subj - Subjective Narrative: Patient is feeling much better today. He has not having any pain in his arm and he has not had any fevers or chills today. VAC dressing is in place. Vital signs are okay. White count is low but does have a bandemia and procalcitonin is elevated. T-max yesterday 100.1, afebrile today. Blood cultures from [place] are growing MSSA and he has staph and gram-negative david from his wound culture. He is on appropriate antibiotics for this and Dr. Maldonado has been consulted and an echo has been ordered. Assessment/plan: Wound breakdown with short segment infected exposed AV graft, status post debridement at bedside yesterday. Attempting graft salvage with antibiotics and VAC dressing. Clinically much improved. We will continue with this treatment. If unsuccessful may need to bypass with more distal loop and remove the exposed segment. Surgery Progress Note: Obj - Vital signs Vital signs: Vital Signs - Most Recent Temp Pulse Resp BP Pulse Ox 98.6 F 68 20 118/54 L 100 11/06/19 12:35 11/06/19 12:35 11/06/19 12:35 11/06/19 12:35 11/06/19 12:35 Surgery Progress Note: Results - Labs Result Diagrams: 11/06/19 03:47 11/06/19 03:47 Lab results: Laboratory Results - last 24 hr 11/06/19 11/06/19 11/06/19 03:47 03:47 03:47 WBC 3.2 L RBC 2.47 L Hgb 7.8 L Hct 23.9 L MCV 96.8 MCH 31.4 H MCHC 32.4 RDW 13.4 Plt Count 108 L MPV 7.5 Neutrophils % (Manual) 47 Band Neuts % (Manual) 28 H Lymphocytes % (Manual) 14 L Monocytes % (Manual) 11 H Plt Morphology Comment Appears Decreased L APTT Sodium 133 L Potassium 3.9 Chloride 98 Carbon Dioxide 25 Anion Gap 14 BUN 21 Creatinine 2.73 H Estimated GFR (MDRD) 22 Glucose 118 H POC Glucose Calcium 7.9 Total Bilirubin 0.4 AST 98 H ALT 61 H Alkaline Phosphatase 91 Serum Total Protein 5.6 L Albumin 2.6 L Globulin 3.0 Albumin/Globulin Ratio 0.9 L Procalcitonin 14.53 11/06/19 11/06/19 11/06/19 05:40 08:22 12:17 WBC RBC Hgb Hct MCV MCH MCHC RDW Plt Count MPV Neutrophils % (Manual) Band Neuts % (Manual) Lymphocytes % (Manual) Monocytes % (Manual) Plt Morphology Comment APTT 92.5 H Sodium Potassium Chloride Carbon Dioxide Anion Gap BUN Creatinine Estimated GFR (MDRD) Glucose POC Glucose 114 H 130 H Calcium Total Bilirubin AST ALT Alkaline Phosphatase Serum Total Protein Albumin Globulin Albumin/Globulin Ratio Procalcitonin
--- NOTE | 2019-11-06 16:07 | PDOC.OP ---
Operative Note - Operative Note Operative Note: DATE OF PROCEDURE: 11/05/2019 PROCEDURE: Debridement open wound to left forearm DIAGNOSIS: Infected exposed AV graft of left forearm SURGEON: Adalgisa Guerrero MD PROCEDURE IN DETAIL: After informed consent was obtained the arm was prepped with Betadine and sterilely draped. Local anesthesia was infused circumferentially and the infected none healthy appearing fatty tissue in the wound was sharply excised with scissors. The graft was incorporated inferiorly but exposed superiorly and there was a small amount of purulence from along the radial limb of the loop graft which was sent for Gram stain and culture. The skin incision was extended in this direction and all infected and unhealthy appearing tissue sharply excised. An irrigating wound VAC was placed by the wound care team. The patient tolerated procedure well. Estimated blood loss was minimal. There were no complications.
[2019-11-06] MEDS: HumaLOG 300 UNITS/3 ML VIAL SC PRN (18:06)
[2019-11-06] MEDS ORDERED: HumaLOG 300 UNITS/3 ML VIAL SC PRN (19:25)
[2019-11-06] MEDS ORDERED: Cefepime 2 GM in Sodium Chloride 0.9% 100 ML IVPB SCH (21:00)
[2019-11-06] MEDS: Atorvastatin Calcium 20 MG TAB PO SCH (21:38)
[2019-11-07] MEDS: Acetaminophen/Codeine 30-300mg Tablet PO PRN ×2 (03:30→08:50)
[2019-11-07 04:24] LABS: #Eosinphils 0.2 thou/uL (0.0-0.7); #Lymphocytes 0.6 thou/uL (1.20-3.40); #Monocytes 0.4 thou/uL (0.11-0.59); %Basophils 0.1 % (0.0-1.0); %Eosinophils 7.2 % (0.0-10.0); %Lymphocytes 18.1 % (21.0-51.0); %Monocytes 12.2 % (0.0-10.0); %Neutrophils 62.4 % (42.0-75.0); Hemoglobin 7.4 g/dL (14.0-18.0); Hemoglobin 7.6 g/dL (14.0-18.0); Mean Corpuscular HGB CONC 33.2 g/dL (32.0-36.0); Mean Corpuscular Hemoglobin 31.7 pg (27.0-31.0); Mean Corpuscular Volume 95.4 fL (78.0-98.0); Mean Platelet Volume 7.8 fL (7.4-10.4); Platelet Count 110 thou/uL (130-400); Platelet Count 113 thou/uL (130-400); White Blood Cell (WBC) Count 3.2 thou/uL (4.8-10.8)
[2019-11-07 04:46] LABS: ALT (SGPT) 48 U/L (8-55); AST (SGOT) 49 U/L (5-34); Albumin 2.8 g/dL (3.4-4.8); Alkaline Phosphatase 99 U/L (40-110); Anion Gap 13 mmol/L (10-20); BUN (Urea Nitrogen) 32 mg/dL (8.4-25.7); Bilirubin, Total 0.4 mg/dL (0.2-1.2); Calc. Creatinine Clearance 17 mL/min (70-130); Carbon Dioxide 25 mmol/L (23-31); Chloride 98 mmol/L (98-107); Estimated GFR-MDRD 16; Globulin 2.9 g/dL (2.4-3.5); Glucose 144 mg/dL (83-110); Potassium 3.7 mmol/L (3.5-5.1); Protein, Total 5.7 g/dL (5.8-8.1); Sodium 132 mmol/L (136-145)
--- NOTE | 2019-11-07 05:40 | CON ---
DATE OF CONSULTATION: 11/06/2019 REASON FOR CONSULTATION: AV graft dialysis access infection with bacteremia. HISTORY OF PRESENT ILLNESS: An 84-year-old gentleman with history of coronary artery disease, CHF, AFib, hypertension, and type 2 diabetes with end-stage renal disease, who has required hemodialysis starting in August, had a tunneled hemodialysis catheter placed on 08/[address] Guerrero. On 09/19, he had a graft placed in the left forearm due to inadequacy of [place] left upper extremity veins. The patient developed a scab at the surgical site it then broke down and developed purulent drainage with fever. He was brought in on 11/03. He had pain at the site. No headaches. No visual symptoms. No back pain. No problems at the tunneled catheter site. No cough or sputum production or chest pain. No abdominal pain. No diarrhea. No bleeding. No joint symptoms outside the involved area. PAST MEDICAL HISTORY: 1. Coronary artery disease. 2. CHF. 3. Prior pacemaker, which got infected, was removed. 4. AFib. 5. Stents. 6. Hypertension. 7. What appears to be a lumbosacral spine infection a few years ago, treated with protracted antimicrobial therapy. 8. History of type 2 diabetes. 9. CKD with end-stage renal disease, on hemodialysis since August of this year. ALLERGIES: MORPHINE. SOCIAL HISTORY: He lives in [place] with family members. Never smoker. 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 CURRENT MEDICATIONS: 1. DuoNeb. 2. Ecotrin. 3. Lipitor. 4. Coreg. 5. Cefepime. 6. Dextrose. 7. Feosol. 8. Hydralazine. 9. Insulin. 10. Zofran. FAMILY HISTORY: Noncontributory. PHYSICAL EXAMINATION: VITAL SIGNS: T-max 100.1 and is currently 98.6, BP 118/54, heart rate 68, respiratory rate 20, and O2 saturation 100 on 2 L. SKIN: Remarkable for the AV graft exposure one segment at the distal left forearm, sort of a rectangular-shaped wound, fresh base. No erythema. Some swelling noted. Negative pressure dressing has been placed on top. The patient has a tunneled catheter in the right IJ position. No lymphadenopathy. HEENT: Ocular movements conjugate. Oral cavity not remarkable. NECK: Supple. No back tenderness. No neck tenderness. LUNGS: Clear to auscultation and percussion. HEART: The patient has an irregular rate. There is a soft apex murmur and a soft murmur at the pulmonic area as well as systolic 2/6 to 3/6. ABDOMEN: Soft, not distended or tender. Somewhat globose. No ascites. No bladder distention. No organomegaly. EXTREMITIES: No joint inflammatory activity. No edema. Pulses 1+ in dorsalis pedis. Plantar responses are flexor. Moves extremities equally. Cognitive function appears to be intact. A little bit of difficulty with recollection of events, but is oriented. Speech is normal. Follows commands. LABORATORY DATA: White cell count 3.2, hemoglobin 11.8, platelets 108, and 28% bands. Chemistry with a creatinine 2.73. AST 98, ALT 61, and albumin 2.6. Urinalysis was normal. COVID serology negative. Microbiology, have 2 sets of blood cultures positive for methicillin-sensitive Staph aureus. The site from the arm, there is a gram-negative david and Staph aureus isolated, pending susceptibilities. IMAGING STUDIES: Chest x-ray with stable exam, sternotomy, pleural effusions. ASSESSMENT: 1. Type 2 diabetes. 2. Hypertension. 3. Coronary artery disease. 4. Chronic kidney disease with end-stage renal disease, AV graft for dialysis access placed in September of this year. Tunneled hemodialysis catheter breakdown of the AV graft with evidence of infection and bacteremia. DISCUSSION: Dr. Guerrero in discussions that we had about this case, stated that she is going to try to salvage the graft with wound management and antimicrobial therapy since it is a short segment that seems to be involved. The other issues that might be participating in this presentation include potential colonization of the current tunneled hemodialysis catheter as well as the possibility of endocarditis. He had his last echocardiogram in July and it was not particularly remarkable. EF was normal. No obvious valvular abnormality noted. Depending on clinical progress, he may need a BENY to evaluate the valve; for example, if there is persistence of bacteremia, so we will repeat the blood cultures in a few days. If they are still positive, then may end up losing the graft or we may be dealing with dialysis access catheter colonization. These type of cases are difficult because you have multiple possible sources of the bacteremia. In his case, it is obvious that the graft is involved, but additional sites are not ruled out. There is no evidence of spinal or left hip arthroplasty infection at this point in time. The treatment will involve administration of antimicrobial therapy at dialysis. The cefazolin given 3 g after each dialysis plus oral quinolone as long as the organism is shown to be susceptible to quinolones, adjustment for renal function. The duration of therapy will be around 6 weeks. Job ID: [id number] [facility]
[2019-11-07] MEDS: HumaLOG 300 UNITS/3 ML VIAL SC PRN ×2 (06:03→11:23)
--- NOTE | 2019-11-07 06:21 | PDOC.FM ---
- Subjective Subjective: Pt resting comfortably at bedside this AM. No acute events overnight. States that he was not able to sleep last night very well. States that his arm pain is controlled and is hungry for breakfast this AM. - Objective Vital Signs & Weight: Vital Signs (12 hours) Temp Pulse Resp BP Pulse Ox 11/07/19 03:33 98.4 F 77 16 147/66 H 98 11/07/19 00:00 68 11/06/19 19:12 98.3 F 74 16 163/72 H 98 Weight Admit Weight 76.093 kg Weight 78.9 kg Result Diagrams: 11/07/19 04:04 11/07/19 04:04 Phys Exam - Physical Examination Constitutional: NAD HEENT: PERRLA Neck: no nodes Respiratory: no wheezing, no rales, no rhonchi, clear to auscultation bilateral Cardiovascular: RRR, no significant murmur, no rub Gastrointestinal: soft, non-tender, no distention, positive bowel sounds Musculoskeletal: no edema, pulses present Neurological: non-focal, normal sensation, moves all 4 limbs Lymphatic: no nodes Psychiatric: normal affect, A&O x 3 Skin: no rash, normal turgor, cap refill <2 seconds Dx/Plan - Plan Plan: Sepsis 2/2 to superficial skin ulceration 2/2 AV graft infection - recent left loop forearm AV graft by Dr. Guerrero on 09/17, reported drainage - presented tachycardic, tachypneic, febrile - Given Vanc, Cefepime, 2 L NS in ED; dc/d cefepime 11/04 and cotinued with vancomycin 11/04 - WBC: 8.1 - LA: 1.0 - Procal: 0.5 --> 14 (11/05) - Bl cx: 2+ positive s. aureus MSSA and gram + cocci - wound clx: grew many gram + cocci in clusters and few gram + rods - 11/04: Dr. Guerrero consulted, appreciate recs; s/p bed side debridement and wound vac placement - 11/05: patient will need to be continued on antibiotics and possibly with need ECHO and repeat blood cultures within 48 hours will change abx from vancomycin to cefazolin for MSSA bacteremia and cefepime to cover for pseudomonas found in wound culture. will consult ID as well. - 10/2: ID recommendations: pt will perhaps need BENY depending on clinical course; will repeat blood cultures in a few days. suggestion to give cefezolin 3g after dialysis and oral quinolone and will need treatment for 6 weeks. Gen surg recommendations: following, continuing to assess if AV bypass graft will be salvageable Most likely NSTEMI, type 2 - denies chest pain - EKG had shown ST elevation in III and aVF initially, telemetry has been SR, HR 60s, with 1 degree AVB - Trop: 0.044 > 0.052 > 0.087 - 11/04: Cardiology consulted from ED, recommended that patient be given aspirin and started on heparin, appreciate recommendations ESRD - HD MWF - s/p 3 hour dialysis session 11/04 - 11/04: consulted Dr. Martinez, pt's hospital aides and assistants teacher, appreciate recs - renally dosing medications Chronic Conditions: A flutter s/p ablation - states that he had pacemaker removed - telemetry monitoring has showed SR, 1 AVB, HR in the 70s-80s - Continue home coreg - holding home warfarin as patient is on heparin drip CAD s/p Stent - continue ASA and atorvastatin Anemia - likely anemia of chronic disease 2/2 to ESRD - continue home ferrous sulfate and epoetin HTN - continue home coreg and hydralizine HLD - continue home atorvastatin Hx of DMII - reports that he used to take insulin, but was recently told to that he no longer needed it - Hbg A1C in Sep 2019 was 5 - SC insulin in place - hypoglycemic protocol in place Chronic Back Pain - home Tylenol 3 ordered - holding home tramadol PPx: Heparin, Protonix IVF: LR @ 120 mls/hr Diet: HH, CC, Renal Code: Chemical only PCP: Out of town Dispo as of 11/06: with Dr. Maldonado on board, changing abx regimen to cefazolin 3g and oral quinolone renally dosing. echo stated cannot rule out endocarditis, will order BENY and will repeat blood cultures. continuing to assess salvage-ability of AV graft will keep in mind that patient has dialysis via tunneled catheter and that given his bacteremia this will need to be addressed/changed.
[2019-11-07] MEDS: hydrALAZINE 25 MG TAB PO SCH ×3 (08:47→21:25)
[2019-11-07] MEDS: Carvedilol 3.125 MG TAB PO SCH ×2 (08:47→17:05)
[2019-11-07] MEDS: Aspirin 81 mg Enteric Coated Tablet PO SCH (08:47)
[2019-11-07] MEDS: Ferrous Sulfate 325 MG TAB PO SCH (08:48)
[2019-11-07] MEDS: CEFAZOLIN 3 GM in Sodium Chloride 0.9% 100 ML IVPB SCH (08:48)
--- NOTE | 2019-11-07 08:56 | PRG ---
DATE OF SERVICE: 11/07/2019 SUBJECTIVE: Mr. Rizvi is an 84-year-old white male with ESRD, was admitted for contaminated/exposed AV graft. Conservative management is being done. IV antibiotics is being given to the patient. Wound VAC has been placed around the wound. Surgery is also following. We are following him up for his ESRD as well as maintenance hemodialysis. I have scheduled him for his regular dialysis today. OBJECTIVE: VITAL SIGNS: Blood pressure is 144/65, heart rate 76, respiratory rate 16, temperature 98.5, O2 saturation 99%. GENERAL: The patient is awake, alert, comfortable, not in distress. SKIN: Adequate turgor. HEENT: He has pale conjunctivae. Anicteric sclerae. No neck mass. No carotid bruits. No JVD. CHEST: No deformities. LUNGS: Clear breath sounds. No wheezing. No crackles. HEART: Normal sinus rhythm. No murmurs, no gallops, no rubs. ABDOMEN: Globular, soft, nontender. No masses. EXTREMITIES: No edema. No deformities. He has a left forearm dressing with a wound VAC. MEDICATIONS: Medications of November 07, 2019, were reviewed. LABORATORY DATA: Laboratories of November 07, 2019; hemoglobin 7.4. Sodium 132, potassium 3.7, chloride 98, carbon dioxide 25, BUN 32, creatinine 3.66, AST 49, ALT 48, albumin 2.8. Wound culture of the left forearm showed Staphylococcus aureus, moderate Pseudomonas aeruginosa. ASSESSMENT AND PLAN: 1. End-stage renal disease, stable. Continue current Sunday, Sunday, and Sunday hemodialysis regimen. Fluid removal only as tolerated. 2. Exposed AV graft - currently on empiric antibiotics. Doxycycline at 100 mg p.o. b.i.d. has been added in addition to the cephalosporin with this patient. 3. Anemia, stable. Continuing weekly Epogen regimen with this patient. Job ID: [id number] [facility]
[2019-11-07] MEDS ORDERED: ceFAZolin 1 GM/D5W 1 GM in Premix Bag 1 BAG IVPB SCH (09:00)
[2019-11-07] MEDS ORDERED: Doxycycline 100 MG CAP PO SCH (09:00)
[2019-11-07] MEDS ORDERED: Cefepime 0.5 GM in Sodium Chloride 0.9% 100 ML IVPB SCH (09:00)
--- NOTE | 2019-11-07 09:26 | PRG ---
DATE OF SERVICE: 11/07/2019 SUBJECTIVE: Mr. Rizvi is doing well. No current complaints. He has not had a fever overnight. No chest pain, pressure, or shortness of breath. OBJECTIVE: VITAL SIGNS: Blood pressure 160/70, pulse 76, and temperature 98.5. LUNGS: Clear to auscultation. HEART: Regular rate and rhythm. ABDOMEN: Soft, nontender, and nondistended. EXTREMITIES: Show no edema. PERTINENT LABORATORY DATA: Hemoglobin 7.4, down from 8.0. Creatinine 3.66, GFR 16. IMPRESSION: 1. Pseudomonas sepsis. 2. End-stage renal disease. 3. Anemia. 4. Coronary artery disease. RECOMMENDATIONS: Etiology to current sepsis unknown. There is concern for the graft being infected. Dr. Maldonado was consulted with some concern about potential endocarditis. We will continue to treat with antibiotics currently. His overall LVEF does appear normal. He has no current symptoms suggesting angina. If not felt to be from graft, we will consider BENY. Otherwise, at this point, we will continue current treatment as prescribed. He is currently on aspirin in addition to atorvastatin and carvedilol. Job ID: [id number]
[2019-11-07] MEDS ORDERED: Heparin 10,000 UNITS/ 10 ML VIAL ONE (12:14)
--- NOTE | 2019-11-07 12:16 | PRG ---
DATE OF SERVICE: 11/07/2019 Mr. Rizvi is resting quietly in bed. We are still working up his bacteremia. He did have an echocardiogram that showed a thickened anterior mitral valve leaflet, from which we could not rule out endocarditis. We will consider a BENY as Cardiology is already on board with the patient. We will await further results of testing and clinical course. Job ID: [id number]
--- NOTE | 2019-11-07 14:01 | PDOC.GSPN ---
Surgery Progress Note: Subj - Subjective Narrative: Patient is feeling good. No pain and no fevers. Afebrile with normal vital signs except for some hypertension. No leukocytosis. His wound looks clean. There is no expressible purulence and there is some beginning granulation tissue. VAC was replaced. Assessment/plan: Exposed graft with attempted salvage with VAC dressing and antibiotics. Clinically improved. Possible endocarditis is being worked up. He had some possible thickening of 1 of his valves on transthoracic echocardiogram and BENY is being considered. Surgery Progress Note: Obj - Vital signs Vital signs: Vital Signs - Most Recent Temp Pulse Resp BP Pulse Ox 98.4 F 81 16 174/77 H 93 L 11/07/19 11:20 11/07/19 11:20 11/07/19 11:20 11/07/19 11:20 11/07/19 11:20 Surgery Progress Note: Results - Labs Result Diagrams: 11/07/19 04:04 11/07/19 04:04 Lab results: Laboratory Results - last 24 hr 11/07/19 11/07/19 11/07/19 04:04 04:04 04:04 WBC 3.2 L RBC 2.40 L Hgb 7.6 L 7.4 L Hct 22.9 L 22.6 L MCV 95.4 MCH 31.7 H MCHC 33.2 RDW 13.0 Plt Count 110 L 113 L MPV 7.8 Neutrophils % 62.4 Lymphocytes % 18.1 L Monocytes % 12.2 H Eosinophils % 7.2 Basophils % 0.1 Neutrophils # 2.0 Lymphocytes # 0.6 L Monocytes # 0.4 Eosinophils # 0.2 Basophils # 0.0 Sodium 132 L Potassium 3.7 Chloride 98 Carbon Dioxide 25 Anion Gap 13 BUN 32 H Creatinine 3.66 H Estimated GFR (MDRD) 16 Glucose 144 H POC Glucose Calcium 8.0 Total Bilirubin 0.4 AST 49 H ALT 48 Alkaline Phosphatase 99 Serum Total Protein 5.7 L Albumin 2.8 L Globulin 2.9 Albumin/Globulin Ratio 1.0 L 11/07/19 11/07/19 05:41 10:48 WBC RBC Hgb Hct MCV MCH MCHC RDW Plt Count MPV Neutrophils % Lymphocytes % Monocytes % Eosinophils % Basophils % Neutrophils # Lymphocytes # Monocytes # Eosinophils # Basophils # Sodium Potassium Chloride Carbon Dioxide Anion Gap BUN Creatinine Estimated GFR (MDRD) Glucose POC Glucose 163 H 180 H Calcium Total Bilirubin AST ALT Alkaline Phosphatase Serum Total Protein Albumin Globulin Albumin/Globulin Ratio
[2019-11-07] MEDS: Heparin 5,000 UNITS/ML VIAL SC SCH (21:26)
[2019-11-07] MEDS: Atorvastatin Calcium 20 MG TAB PO SCH (21:26)
[2019-11-07] MEDS: Zolpidem Tartrate 5 MG TAB PO PRN (21:28)
[2019-11-08] MEDS: Melatonin 3 MG TAB PO PRN (00:57)
[2019-11-08 05:13] LABS: ALT (SGPT) 22 U/L (8-55); AST (SGOT) 25 U/L (5-34); Albumin 2.7 g/dL (3.4-4.8); Alkaline Phosphatase 94 U/L (40-110); Anion Gap 11 mmol/L (10-20); BUN (Urea Nitrogen) 19 mg/dL (8.4-25.7); Bilirubin, Total 0.4 mg/dL (0.2-1.2); Calc. Creatinine Clearance 25 mL/min (70-130); Carbon Dioxide 28 mmol/L (23-31); Chloride 99 mmol/L (98-107); Estimated GFR-MDRD 25; Glucose 200 mg/dL (83-110); Potassium 3.7 mmol/L (3.5-5.1); Protein, Total 5.7 g/dL (5.8-8.1); Sodium 134 mmol/L (136-145)
[2019-11-08 05:17] LABS: Band 6 % (5-11); Eosinophils 3 % (0-10); Hemoglobin 7.5 g/dL (14.0-18.0); Lymphocytes 19 % (21-51); MDiff Complete? YES; Mean Corpuscular HGB CONC 32.8 g/dL (32.0-36.0); Mean Corpuscular Hemoglobin 31.3 pg (27.0-31.0); Mean Corpuscular Volume 95.5 fL (78.0-98.0); Mean Platelet Volume 8.4 fL (7.4-10.4); Monocytes 16 % (0-10); Neutrophil 56 % (42-75); Platelet Count 101 thou/uL (130-400); Platelet Morphology Comment Appears Decreased; RBC Morphology Normal; Red Blood Cell (RBC) Count 2.41 mill/uL (4.70-6.10)
--- NOTE | 2019-11-08 06:13 | PDOC.FM ---
- Subjective Subjective: Patient is resting comfortably in bed. Denies chest pain, shortness of breath, abdominal pain or leg swelling. States he has no pain in his left arm, only when it is being worked on. Denies fever/chills. - Objective MAR Reviewed: Yes Vital Signs & Weight: Vital Signs (12 hours) Temp Pulse Resp BP BP Pulse Ox 11/08/19 04:00 98.5 F 86 16 123/56 L 93 L 11/07/19 21:25 96 134/71 11/07/19 19:45 99.5 F 81 20 134/71 94 L Weight Admit Weight 76.093 kg Weight 78.9 kg Result Diagrams: 11/08/19 04:18 11/08/19 04:18 Phys Exam - Physical Examination Constitutional: NAD HEENT: PERRLA, moist MMs Respiratory: no wheezing, clear to auscultation bilateral 2/6 CED heard best at RUSB Gastrointestinal: soft, non-tender, positive bowel sounds Musculoskeletal: no edema Neurological: non-focal, moves all 4 limbs Psychiatric: normal affect, A&O x 3 Skin: no rash Dx/Plan - Plan Plan: Sepsis 2/2 to superficial skin ulceration 2/2 AV graft infection Recent left loop forearm AV graft by Dr. Guerrero on 09/17, reported drainage Presented tachycardic, tachypneic, febrile WBC: 3 LA: 1.0, Procal: 0.5 --> 14 (11/05) Bl cx: MSSA Wound clx: MSSA, Pseudomonas - Continue cefazolin, will change Levoquin to Meropenem based on sensitivities of Pseudomonas - Dr. Guerrero (gen surg) consulted: 11/06: Exposed graft with attempted salvage with VAC dressing and antibiotics, possible thickening of 1 of his valves on TTE, consider BENY - 11/06 Dr. Avila: give cefazolin after dialysis & levaquin, will need treatment x 6 weeks, possible BENY, repeat cultures in a few days - continued management Gen Surg and ID, appreciate recs - am CBCs - will continue to monitor vitals Most likely NSTEMI, type 2 Denies chest pain EKG had shown ST elevation in III and aVF initially, telemetry has been SR, HR 60s, with 1 degree AVB Trop: 0.044 > 0.052 > 0.087 - 11/04: Cardiology consulted from ED, started heparin per recs, continued recs include consideration of BENY, appreciate recommendations ESRD - HD MWF - s/p 3 hour dialysis session 11/04 - 11/04: consulted Dr. Martinez, pt's senior management consultant, appreciate recs - renally dosing medications A flutter s/p ablation States he had a pacemaker removed - telemetry monitoring has showed rate controled afib last night, resolved this morning - Continue home coreg - holding home warfarin as patient is on heparin drip CAD s/p Stent - continue ASA and atorvastatin Anemia - likely anemia of chronic disease 2/2 to ESRD - continue home ferrous sulfate and epoetin HTN - continue home coreg and hydralizine HLD - continue home atorvastatin Hx of DMII Reports that he used to take insulin, but was recently told to that he no longer needed it Hbg A1C in Sep 2019 was 5 - SC insulin in place - hypoglycemic protocol in place Chronic Back Pain - home Tylenol 3 ordered - holding home tramadol PPx: Heparin, Protonix IVF: LR @ 120 mls/hr Diet: HH, CC, Renal Code: Chemical only PCP: Out of town Dispo as of 11/07: Following recommendations from general surgery, ID, Cardiology and Nephrology. Continue Abx, consideration of BENY, repeat cultures on 11/09 Will keep in mind that patient has dialysis via tunneled catheter and that given his bacteremia this will need to be addressed/changed. Addendum - Attending - Attending Attestation Date/Time: 11/08/19 8255 I personally evaluated the patient and discussed the management with Dr. Snyder. I agree with the History, Examination, Assessment and Plan documented above with any addition or exceptions noted below. Patient stable. Continue IV abx. ID on board. Will change levaquin to meropenem based on sensitivities of pseudomonas. Awaiting further recs from specialists.
[2019-11-08] MEDS: HumaLOG 300 UNITS/3 ML VIAL SC PRN ×2 (08:28→12:00)
[2019-11-08] MEDS: Aspirin 81 mg Enteric Coated Tablet PO SCH (08:29)
[2019-11-08] MEDS: Heparin 5,000 UNITS/ML VIAL SC SCH ×2 (08:29→21:11)
[2019-11-08] MEDS: Carvedilol 3.125 MG TAB PO SCH ×2 (08:29→17:27)
[2019-11-08] MEDS: hydrALAZINE 25 MG TAB PO SCH ×3 (08:29→21:08)
[2019-11-08] MEDS: Ferrous Sulfate 325 MG TAB PO SCH (08:30)
[2019-11-08] MEDS ORDERED: Meropenem 1 GM in Sodium Chloride 0.9% 100 ML IVPB SCH (09:00)
[2019-11-08] MEDS: MEROPENEM 1 GM/50 ML 1 GM in Premix Bag 1 BAG IVPB SCH (10:06)
--- NOTE | 2019-11-08 10:20 | PRG ---
DATE OF SERVICE: 11/08/2019 SUBJECTIVE: Mr. Rizvi is an 84-year-old white male with ESRD and followed up by the Renal Service for management of his ESRD as well as maintenance hemodialysis. He underwent hemodialysis without any difficulty yesterday and tolerated said treatment. The patient was initially admitted for fever and chills. He was found to have an exposed graft and possible contamination infection of the graft. Currently on IV antibiotics. Conservative management is being done with wound VAC and IV antibiotics. No new complaints today. Possibility of infective endocarditis is considered and workup is being done. The patient is feeling better this morning. OBJECTIVE: VITAL SIGNS: Blood pressure is 141/65, heart rate 81, respiratory rate 17, temperature 98.5, O2 saturation 93%. GENERAL: The patient is awake, alert, comfortable, not in distress. SKIN: Adequate turgor. HEENT: Slightly pale conjunctivae. Anicteric sclerae. NECK: No neck mass. No carotid bruits. No JVD. CHEST: No deformities. LUNGS: Clear breath sounds. No wheezing. No crackles. HEART: Normal sinus rhythm. No murmurs, gallops, or rubs. ABDOMEN: Globular, soft, nontender. No masses. EXTREMITIES: No edema. Left forearm positive for dressing and wound VAC. MEDICATIONS: Medications of November 08, 2019, were reviewed. LABORATORY DATA: Laboratories of November 08, 2019; white count 3, hemoglobin 7.5. Sodium 134, potassium 3.7, chloride 99, carbon dioxide 28, BUN 19, creatinine 2.53, glucose 200, AST 25, ALT 22, albumin is 2.7. ASSESSMENT AND PLAN: 1. End-stage renal disease, stable. We will continue current Sunday, Sunday, and Sunday hemodialysis. Again, fluid removal only as tolerated. 2. Chronic anemia, currently on weekly Epogen. 3. Exposed AV graft/contamination - currently on IV antibiotics, for a possible transesophageal echo to rule out any underlying infective endocarditis. 4. Agree with current management. Job ID: [id number]
--- NOTE | 2019-11-08 10:48 | PDOC.CPN ---
- Subjective Date: 11/08/19 Time: 09:45 Interval history: Patient without complaints. Groggy and does not respond/engage much. Wants to sleep. Tele reviewed. Overnight had AFib. - Review of Systems ROS unobtainable: due to mental status - Objective Allergies/Adverse Reactions: Allergies Allergy/AdvReac Type Severity Reaction Status Date / Time morphine Allergy Verified 11/05/19 15:32 Visit Medications: Current Medications Acetaminophen (Acetaminophen 325 Mg Tab) 650 mg PO Q4H PRN PRN Reason: Headache/Fever/Mild Pain (1-3) Last Admin: 11/05/19 17:08 Dose: 650 mg Documented by: Acetaminophen/Codeine Phosphate (Acetaminophen/Codeine 30-300mg Tablet) 1 tab PO Q6H PRN PRN Reason: Moderate to Severe Pain (6-10) Last Admin: 11/07/19 08:50 Dose: 1 tab Documented by: Albuterol/Ipratropium (Ipratropium/Albuterol Sulfate 3 Ml Neb) 3 ml NEB QIDPRN PRN PRN Reason: Wheezing Aspirin (Aspirin 81 Mg Enteric Coated Tablet) 81 mg PO DAILY [facility] Last Admin: 11/08/19 08:29 Dose: 81 mg Documented by: Atorvastatin Calcium (Atorvastatin Calcium 20 Mg Tab) 20 mg PO HS [facility] Last Admin: 11/07/19 21:26 Dose: 20 mg Documented by: Carvedilol (Carvedilol 3.125 Mg Tab) 3.125 mg PO BID[facility] Last Admin: 11/08/19 08:29 Dose: 3.125 mg Documented by: Dextrose/Water (Dextrose 50% Abboject 50 Ml Syringe) 25 gm SLOW IVP PRN PRN PRN Reason: Hypoglycemia Epoetin Rosalino-epbx (Epoetin Rosalino-Epbx (Esrd) 4,000 Unit/Ml Vial) 7,500 unit SC Q7D [facility] Last Admin: 11/05/19 17:04 Dose: Not Given Documented by: Ferrous Sulfate (Ferrous Sulfate 325 Mg Tab) 325 mg PO QAM[facility] Last Admin: 11/08/19 08:30 Dose: 325 mg Documented by: Glucagon (Glucagon 1 Mg/Ml Vial) 1 mg IM PRN PRN PRN Reason: Hypoglycemia Heparin Sodium (Porcine) (Heparin 5,000 Units/Ml Vial) 5,000 units SC BID [facility] Last Admin: 11/08/19 08:29 Dose: Not Given Documented by: Hydralazine HCl (Hydralazine 25 Mg Tab) 25 mg PO TID [facility] Last Admin: 11/08/19 08:29 Dose: 25 mg Documented by: Dextrose/Water (D5w) 1,000 mls @ 0 mls/hr IV .Q0M PRN PRN Reason: Hypoglycemia Cefazolin Sodium 3 gm/ Sodium (Chloride) 100 mls @ 200 mls/hr IVPB MWF [facility] Last Admin: 11/07/19 08:48 Dose: 100 mls Documented by: Meropenem 1 gm/ Device 50 mls @ 200 mls/hr IVPB Q24HR [facility] Last Admin: 11/08/19 10:06 Dose: 50 mls Documented by: Insulin Human Lispro (Humalog 300 Units/3 Ml Vial) 0 units SC .MILD SLIDING SCALE PRN PRN Reason: Mild Correctional Scale Last Admin: 11/08/19 08:28 Dose: 2 units Documented by: Insulin Human Lispro (Humalog 300 Units/3 Ml Vial) 0 units SC .BEDTIME SLIDING SC PRN PRN Reason: Bedtime Correctional Scale Lidocaine/Epinephrine (Lidocaine 1% W/Epinephrine 1:100k 20 Ml Vial) 20 ml NERVE BLCK WILLCALL [facility] Last Admin: 11/05/19 18:22 Dose: 10 ml Documented by: Melatonin (Melatonin 3 Mg Tab) 5 mg PO HS PRN PRN Reason: Insomnia Last Admin: 11/08/19 00:57 Dose: 5 mg Documented by: Miscellaneous Medication (Pharmacy To Dose 1 Each: Renally Dose All Meds) 1 each IVPB PRN PRN PRN Reason: Pharmacy to dose Ondansetron HCl (Ondansetron Odt 4 Mg Tab) 4 mg PO Q6H PRN PRN Reason: Nausea/Vomiting Ondansetron HCl (Ondansetron Pf 4 Mg/2 Ml Vial) 4 mg IVP Q6H PRN PRN Reason: Nausea/Vomiting Pantoprazole Sodium (Pantoprazole 40 Mg Tab) 40 mg PO DAILY [facility] Last Admin: 11/08/19 08:30 Dose: 40 mg Documented by: Sodium Chloride (Flush - Normal Saline 10 Ml Syringe) 10 ml IVF PRN PRN PRN Reason: Saline Flush Zolpidem Tartrate (Zolpidem Tartrate 5 Mg Tab) 5 mg PO HSPRN PRN PRN Reason: Insomnia Last Admin: 11/07/19 21:28 Dose: 5 mg Documented by: Vital Signs & Weight: Vital Signs Temp Pulse Resp BP Pulse Ox 11/08/19 08:15 98.5 F 80 17 141/65 H 93 L 11/08/19 04:00 98.5 F 86 16 123/56 L 93 L Admit Weight 167 lb 12.096 oz Weight 77 lb 8 oz - Physical Exam General: no apparent distress HEENT: mucus membranes moist Neck: supple neck Cardiac: regular rate, regular rhythm Lungs: no wheeze, rales, rhonchi Abdomen: soft, non-tender Extremities: no cyanosis, no edema Musculoskeletal: no pain - Labs Result Diagrams: 11/08/19 04:18 11/08/19 04:18 Troponin/CKMB CK-MB (CK-2) 1.1 ng/mL (0-6.6) 11/05/19 02:31 Troponin I 0.087 ng/mL (< 0.028) H 11/05/19 08:58 - Assessment/Plan Assessment/Plan: 1. Psuedomonas Sepsis 2. Paroxysmal AFib 3. CAD 4. ESRD Continue current meds and supportive care/ABX. No changes at this time. AF most likely result of sepsis. Patient on bblockers. No long-term ACT at this time. 11/08/2019 RG-Pt seen and examined. Agree with the above assessment. Dicsuss with ID on need for BENY for Sunday Keep NPO after MN if BENY recommended
[2019-11-08] MEDS: Atorvastatin Calcium 20 MG TAB PO SCH (21:09)
[2019-11-08] MEDS: Zolpidem Tartrate 5 MG TAB PO PRN (21:09)
[2019-11-09 05:55] LABS: ALT (SGPT) 11 U/L (8-55); AST (SGOT) 24 U/L (5-34); Albumin 2.5 g/dL (3.4-4.8); Alkaline Phosphatase 94 U/L (40-110); Anion Gap 16 mmol/L (10-20); BUN (Urea Nitrogen) 27 mg/dL (8.4-25.7); Bilirubin, Total 0.4 mg/dL (0.2-1.2); Calc. Creatinine Clearance 8 mL/min (70-130); Carbon Dioxide 22 mmol/L (23-31); Chloride 99 mmol/L (98-107); Estimated GFR-MDRD 18; Globulin 3.3 g/dL (2.4-3.5); Glucose 158 mg/dL (83-110); Protein, Total 5.8 g/dL (5.8-8.1); Sodium 133 mmol/L (136-145)
[2019-11-09 06:02] LABS: Band 1 % (5-11); Blister Cells SLIGHT = 2-5 cells (100X) (0-1/hpf); Eosinophils 1 % (0-10); Hemoglobin 7.9 g/dL (14.0-18.0); Lymphocytes 15 % (21-51); MDiff Complete? YES; Mean Corpuscular HGB CONC 32.2 g/dL (32.0-36.0); Mean Corpuscular Volume 96.1 fL (78.0-98.0); Mean Platelet Volume 8.2 fL (7.4-10.4); Metamyelocyte 1 % (0-0); Monocytes 12 % (0-10); Neutrophil 70 % (42-75); Platelet Count 119 thou/uL (130-400); Platelet Morphology Comment Appears Decreased; RBC Distribution Width 13.1 % (11.5-14.5); RBC Morphology Normal; Red Blood Cell (RBC) Count 2.56 mill/uL (4.70-6.10); White Blood Cell (WBC) Count 3.7 thou/uL (4.8-10.8)
[2019-11-09] MEDS: HumaLOG 300 UNITS/3 ML VIAL SC PRN ×2 (06:27→11:54)
--- NOTE | 2019-11-09 06:32 | PDOC.FM ---
- Subjective Subjective: Patient is sitting up eating breakfast. Denies chest pain, SOB, abdominal complaints, arm pain. Patient states he is starting to feel very anxious and claustrophobic in his hospital room. - Objective MAR Reviewed: Yes Vital Signs & Weight: Vital Signs (12 hours) Temp Pulse Resp BP BP BP Pulse Ox 11/09/19 03:00 98.3 F 83 16 140/63 94 L 11/08/19 21:08 80 145/63 H 11/08/19 19:42 98.6 F 80 16 145/63 H 94 L 11/08/19 19:40 94 L Weight Admit Weight 76.093 kg Weight 35.788 kg I&O: 11/07/19 11/08/19 11/09/19 06:59 06:59 06:59 Intake Total 1200 Output Total 70 Balance 1130 Result Diagrams: 11/09/19 04:51 11/09/19 04:51 Phys Exam - Physical Examination Constitutional: NAD HEENT: PERRLA, moist MMs Respiratory: no wheezing, clear to auscultation bilateral Cardiovascular: RRR Gastrointestinal: soft, non-tender, positive bowel sounds Musculoskeletal: no edema, pulses present Neurological: non-focal, normal sensation Psychiatric: normal affect Skin: no rash Dx/Plan - Plan Plan: Sepsis 2/2 to superficial skin ulceration 2/2 AV graft infection Recent left loop forearm AV graft by Dr. Guerrero on 09/17, reported drainage Presented tachycardic, tachypneic, febrile WBC: 3 LA: 1.0, Procal: 0.5 --> 14 (11/05) Bl cx: MSSA Wound clx: MSSA, Pseudomonas - Continue cefazolin, will change Levoquin to Meropenem based on sensitivities of Pseudomonas - Dr. Guerrero (gen surg) consulted: 11/06: Exposed graft with attempted salvage with VAC dressing and antibiotics, possible thickening of 1 of his valves on TTE, consider BENY - 11/06 Dr. Avila: give cefazolin after dialysis & levaquin, will need treatment x 6 weeks, possible BENY Mon., repeat cultures in a few days - 11/[address] Guerra: continue current management, will discuss with ID on need for BENY on Sunday, keep NPO after MN if BENY recomended - continued management Gen Surg and ID,cards appreciate recs - am CBCs - will continue to monitor vitals Most likely NSTEMI, type 2 Denies chest pain EKG had shown ST elevation in III and aVF initially, telemetry has been SR, HR 60s, with 1 degree AVB Trop: 0.044 > 0.052 > 0.087 - 11/04: Cardiology consulted from ED, started heparin per recs, continued recs i nclude consideration of BENY, appreciate recommendations ESRD - HD MWF - s/p 3 hour dialysis session 11/04 - 11/04: consulted Dr. Martinez, pt's phone manager, he will schedule dialysis for MWF, appreciate recs - renally dosing medications A flutter s/p ablation States he had a pacemaker removed - telemetry monitoring - Continue home coreg - holding home warfarin as patient is on heparin drip CAD s/p Stent - continue ASA and atorvastatin Anemia - likely anemia of chronic disease 2/2 to ESRD - continue home ferrous sulfate and epoetin HTN - continue home coreg and hydralizine HLD - continue home atorvastatin Hx of DMII Reports that he used to take insulin, but was recently told to that he no longer needed it Hbg A1C in Sep 2019 was 5 - SC insulin in place - hypoglycemic protocol in place Chronic Back Pain - home Tylenol 3 ordered - holding home tramadol PPx: Heparin, Protonix IVF: LR @ 120 mls/hr Diet: HH, CC, Renal Code: Chemical only PCP: Out of town Dispo as of 11/08: Following recommendations from general surgery, ID, Cardiology and Nephrology. Continue Abx, likely BENY Thursday 11/09, repeat cultures on 11/09 Will keep in mind that patient has dialysis via tunneled catheter and that given his bacteremia this will need to be addressed/changed. Addendum - Attending - Attending Attestation Date/Time: 11/09/19 9028 I personally evaluated the patient and discussed the management with Dr. Snyder. I agree with the History, Examination, Assessment and Plan documented above with any addition or exceptions noted below. Continue antibiotics for pseudomonas and MSSA sepsis. Working with ID and Cardiology to see if patient warrants BENY. Will need shelter antibiotic therapy set up. He is having some anxiety that we should work to control. Continue HD per Nephro recs.
[2019-11-09] MEDS: Ferrous Sulfate 325 MG TAB PO SCH (08:39)
[2019-11-09] MEDS: Aspirin 81 mg Enteric Coated Tablet PO SCH (08:39)
[2019-11-09] MEDS: Carvedilol 3.125 MG TAB PO SCH ×2 (08:39→17:04)
[2019-11-09] MEDS: hydrALAZINE 25 MG TAB PO SCH ×3 (08:39→21:53)
[2019-11-09] MEDS: Heparin 5,000 UNITS/ML VIAL SC SCH ×2 (08:39→21:54)
[2019-11-09] MEDS: MEROPENEM 1 GM/50 ML 1 GM in Premix Bag 1 BAG IVPB SCH (10:10)
[2019-11-09] MEDS: Lorazepam 0.5 MG TAB PO PRN ×2 (10:11→22:00)
--- NOTE | 2019-11-09 11:26 | PRG ---
DATE OF SERVICE: 11/09/2019 SUBJECTIVE: Mr. Rizvi is an 84-year-old white male, admitted for fever and chills. He was found to have an exposed AV graft and possible contamination. He is currently being treated with IV antibiotics. ID consult has been done. We are following up this patient for management of his ESRD. He underwent hemodialysis Sunday without any difficulty. The patient voices no new complaints today. No chest pain or shortness of breath. OBJECTIVE: VITAL SIGNS: Blood pressure is noted at 182/80, heart rate 77, respiratory rate 17, temperature 98.6, and O2 saturation 93%. GENERAL: The patient is awake, alert, ambulatory, comfortable, not in overt distress. SKIN: Adequate turgor. HEENT: He has a pinkish conjunctivae. Anicteric sclerae. NECK: No neck mass. No carotid bruits. No JVD. CHEST: No deformities. LUNGS: Clear breath sounds. HEART: Normal sinus rhythm. No murmur. No gallops. No rubs. ABDOMEN: Globular, soft, and nontender. No masses. EXTREMITIES: No edema. He has a left forearm dressing. MEDICATIONS: Of November 09, 2019, reviewed. LABORATORY DATA: Laboratories of November 09, 2019; white count 3.7, hemoglobin 7.9. Sodium 133, potassium 4, chloride 99, carbon dioxide 22, BUN 27, creatinine 3.37, AST 24, ALT 11, and albumin 2.5. ASSESSMENT AND PLAN: 1. Infected arteriovenous graft/contamination - on IV antibiotics. Currently, on Ancef at 3 g IV every hemodialysis. In addition, the patient is being followed up by the Infectious Disease Service. He is currently on meropenem. A planned transesophageal echo will be done to rule out any infective endocarditis. 2. End-stage renal disease, stable, continuing Sunday, Sunday, and Sunday hemodialysis. There is no indication for any emergent hemodialysis today. The patient is euvolemic as well as the potassium that is acceptable. 3. Anemia. Continue weekly Epogen with the patient. Recheck CBC and basic metabolic panel in a.m. Job ID: [id number]
--- NOTE | 2019-11-09 11:35 | PDOC.CPN ---
- Subjective Date: 11/09/19 Time: 11:30 Interval history: no overnight events. Tele, labs and vitals reviewed. Patient denies new complaint. - Review of Systems General: denies: fever/chills, weight/appetite/sleep changes, night sweats, fatigue Cardiovascular: denies: chest pain, palpitation, edema, paroxysmal nocturnal dyspnea, orthopnea Gastrointestinal: denies: nausea, vomiting, diarrhea, constipation, abd pain, GI bleeding Musculoskeletal: reports: pain Neurological: reports: weakness. denies: numbness, syncope, seizure - Objective Allergies/Adverse Reactions: Allergies Allergy/AdvReac Type Severity Reaction Status Date / Time morphine Allergy Verified 11/05/19 15:32 Visit Medications: Current Medications Acetaminophen (Acetaminophen 325 Mg Tab) 650 mg PO Q4H PRN PRN Reason: Headache/Fever/Mild Pain (1-3) Last Admin: 11/05/19 17:08 Dose: 650 mg Documented by: Acetaminophen/Codeine Phosphate (Acetaminophen/Codeine 30-300mg Tablet) 1 tab PO Q6H PRN PRN Reason: Moderate to Severe Pain (6-10) Last Admin: 11/07/19 08:50 Dose: 1 tab Documented by: Albuterol/Ipratropium (Ipratropium/Albuterol Sulfate 3 Ml Neb) 3 ml NEB QIDPRN PRN PRN Reason: Wheezing Aspirin (Aspirin 81 Mg Enteric Coated Tablet) 81 mg PO DAILY [facility] Last Admin: 11/09/19 08:39 Dose: 81 mg Documented by: Atorvastatin Calcium (Atorvastatin Calcium 20 Mg Tab) 20 mg PO [facility] Last Admin: 11/08/19 21:09 Dose: 20 mg Documented by: Carvedilol (Carvedilol 3.125 Mg Tab) 3.125 mg PO BID-[facility] Last Admin: 11/09/19 08:39 Dose: 3.125 mg Documented by: Dextrose/Water (Dextrose 50% Abboject 50 Ml Syringe) 25 gm SLOW IVP PRN PRN PRN Reason: Hypoglycemia Epoetin Rosalino-epbx (Epoetin Rosalino-Epbx (Esrd) 4,000 Unit/Ml Vial) 7,500 unit SC Q7D [facility] Last Admin: 11/05/19 17:04 Dose: Not Given Documented by: Ferrous Sulfate (Ferrous Sulfate 325 Mg Tab) 325 mg PO QAM-[facility] Last Admin: 11/09/19 08:39 Dose: 325 mg Documented by: Glucagon (Glucagon 1 Mg/Ml Vial) 1 mg IM PRN PRN PRN Reason: Hypoglycemia Heparin Sodium (Porcine) (Heparin 5,000 Units/Ml Vial) 5,000 units SC BID [facility] Last Admin: 11/09/19 08:39 Dose: 5,000 units Documented by: Hydralazine HCl (Hydralazine 25 Mg Tab) 25 mg PO TID [facility] Last Admin: 11/09/19 08:39 Dose: 25 mg Documented by: Dextrose/Water (D5w) 1,000 mls @ 0 mls/hr IV .Q0M PRN PRN Reason: Hypoglycemia Cefazolin Sodium 3 gm/ Sodium (Chloride) 100 mls @ 200 mls/hr IVPB MWF [facility] Last Admin: 11/07/19 08:48 Dose: 100 mls Documented by: Meropenem 1 gm/ Device 50 mls @ 200 mls/hr IVPB Q24HR [facility] Last Admin: 11/09/19 10:10 Dose: 50 mls Documented by: Insulin Human Lispro (Humalog 300 Units/3 Ml Vial) 0 units SC .MILD SLIDING SCALE PRN PRN Reason: Mild Correctional Scale Last Admin: 11/09/19 06:27 Dose: 2 units Documented by: Insulin Human Lispro (Humalog 300 Units/3 Ml Vial) 0 units SC .BEDTIME SLIDING SC PRN PRN Reason: Bedtime Correctional Scale Lidocaine/Epinephrine (Lidocaine 1% W/Epinephrine 1:100k 20 Ml Vial) 20 ml NERVE BLCK WILLCALL [facility] Last Admin: 11/05/19 18:22 Dose: 10 ml Documented by: Lorazepam (Lorazepam 0.5 Mg Tab) 0.5 mg PO Q6H PRN PRN Reason: Anxiety Last Admin: 11/09/19 10:11 Dose: 0.5 mg Documented by: Melatonin (Melatonin 3 Mg Tab) 5 mg PO HS PRN PRN Reason: Insomnia Last Admin: 11/08/19 00:57 Dose: 5 mg Documented by: Miscellaneous Medication (Pharmacy To Dose 1 Each: Renally Dose All Meds) 1 each IVPB PRN PRN PRN Reason: Pharmacy to dose Ondansetron HCl (Ondansetron Odt 4 Mg Tab) 4 mg PO Q6H PRN PRN Reason: Nausea/Vomiting Ondansetron HCl (Ondansetron Pf 4 Mg/2 Ml Vial) 4 mg IVP Q6H PRN PRN Reason: Nausea/Vomiting Pantoprazole Sodium (Pantoprazole 40 Mg Tab) 40 mg PO DAILY [facility] Last Admin: 11/09/19 08:39 Dose: 40 mg Documented by: Sodium Chloride (Flush - Normal Saline 10 Ml Syringe) 10 ml IVF PRN PRN PRN Reason: Saline Flush Zolpidem Tartrate (Zolpidem Tartrate 5 Mg Tab) 5 mg PO HSPRN PRN PRN Reason: Insomnia Last Admin: 11/08/19 21:09 Dose: 5 mg Documented by: Vital Signs & Weight: Vital Signs Temp Pulse Resp BP BP Pulse Ox 11/09/19 07:15 98.6 F 77 17 182/80 H 93 L 11/09/19 03:00 98.3 F 83 16 140/63 94 L Admit Weight 167 lb 12.096 oz Weight 78 lb 14.4 oz - Physical Exam General: alert & oriented x3, no apparent distress, other (frail) HEENT: mucus membranes moist Neck: supple neck Cardiac: regular rate and rhythm Lungs: clear to auscultation Abdomen: soft, non-tender Skin: clear Musculoskeletal: no pain - Labs Result Diagrams: 11/09/19 04:51 11/09/19 04:51 Troponin/CKMB CK-MB (CK-2) 1.1 ng/mL (0-6.6) 11/05/19 02:31 Troponin I 0.087 ng/mL (< 0.028) H 11/05/19 08:58 - Assessment/Plan Assessment/Plan: 1. Psuedomonas Sepsis 2. Paroxysmal AFib 3. CAD 4. ESRD 5. Chronic anemia Continue current meds and supportive care/ABX. No changes at this time. AF most likely result of sepsis. Patient on bblockers. BP labile. Will increase Coreg.
[2019-11-09] MEDS: Acetaminophen/Codeine 30-300mg Tablet PO PRN (21:53)
[2019-11-09] MEDS: Atorvastatin Calcium 20 MG TAB PO SCH (21:53)
[2019-11-10 04:18] LABS: #Eosinphils 0.4 thou/uL (0.0-0.7); #Lymphocytes 1.1 thou/uL (1.20-3.40); #Monocytes 0.6 thou/uL (0.11-0.59); %Basophils 0.5 % (0.0-1.0); %Lymphocytes 20.9 % (21.0-51.0); %Neutrophils 58.6 % (42.0-75.0); Hemoglobin 7.9 g/dL (14.0-18.0); Mean Corpuscular HGB CONC 32.1 g/dL (32.0-36.0); Mean Corpuscular Hemoglobin 30.7 pg (27.0-31.0); Mean Corpuscular Volume 95.6 fL (78.0-98.0); Mean Platelet Volume 7.9 fL (7.4-10.4); Platelet Count 134 thou/uL (130-400); RBC Distribution Width 13.1 % (11.5-14.5); Red Blood Cell (RBC) Count 2.57 mill/uL (4.70-6.10); White Blood Cell (WBC) Count 5.1 thou/uL (4.8-10.8)
[2019-11-10 04:42] LABS: ALT (SGPT) 7 U/L (8-55); AST (SGOT) 20 U/L (5-34); Albumin 2.6 g/dL (3.4-4.8); Alkaline Phosphatase 91 U/L (40-110); Anion Gap 15 mmol/L (10-20); BUN (Urea Nitrogen) 37 mg/dL (8.4-25.7); Bilirubin, Total 0.4 mg/dL (0.2-1.2); Calc. Creatinine Clearance 7 mL/min (70-130); Calcium 8.1 mg/dL (7.8-10.44); Carbon Dioxide 22 mmol/L (23-31); Chloride 101 mmol/L (98-107); Estimated GFR-MDRD 15; Globulin 3.1 g/dL (2.4-3.5); Glucose 143 mg/dL (83-110); Potassium 4.2 mmol/L (3.5-5.1); Protein, Total 5.7 g/dL (5.8-8.1); Sodium 134 mmol/L (136-145)
--- NOTE | 2019-11-10 06:11 | PDOC.FM ---
- Subjective Subjective: Mr. Rizvi is anxious this morning. He is requesting a dose of his prn ativan expressing that he feels "trapped" and will leave if things don't "move along." He denies any other problems. - Objective Vital Signs & Weight: Vital Signs (12 hours) Temp Pulse Resp BP BP Pulse Ox 11/10/19 04:00 97.8 F 77 169/72 H 100 11/09/19 21:53 77 11/09/19 20:00 99.1 F 73 18 155/70 H 99 Weight Admit Weight 76.093 kg Weight 80.3 kg I&O: 11/08/19 11/09/19 11/10/19 06:59 06:59 06:59 Intake Total 1200 770 Output Total 70 440 Balance 1130 330 Result Diagrams: 11/10/19 03:37 11/10/19 03:37 EKG Reviewed by me: Yes (tele: sinus rhythm, PACs, PVCs) Phys Exam - Physical Examination anxious, well-appearing HEENT: moist MMs, sclera anicteric Neck: full ROM Respiratory: no wheezing, clear to auscultation bilateral Cardiovascular: RRR, no significant murmur Gastrointestinal: soft, non-tender, no distention, positive bowel sounds Musculoskeletal: no edema, pulses present Neurological: moves all 4 limbs Psychiatric: normal affect, A&O x 3 Dx/Plan - Plan Plan: Sepsis 2/2 to superficial skin ulceration 2/2 AV graft infection Recent left loop forearm AV graft by Dr. Guerrero on 09/17, reported drainage Presented tachycardic, tachypneic, febrile LA: 1.0, Procal: 0.5 --> 14 (11/05) WBC: 3 --> 5.1 (11/09) Bl cx: MSSA Wound clx: MSSA, Pseudomonas - Dr. Guerrero (gen surg) consulted: 11/06: Exposed graft with attempted salvage with VAC dressing and antibiotics - 11/06 Dr. Avila: Continue cefazolin and meropenem for 6 weeks post discharge. Repeat cultures on 11/09. - 11/[address] Guerra: increased Coreg - continued management Gen Surg and ID, Cards appreciate recs - am CBCs - Possible thickening of 1 of his valves on TTE. 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 May consider transfusion in the future. HTN - continue coreg and hydralizine HLD - continue home atorvastatin Hx of DMII Reports that he used to take insulin, but was recently told to that he no longer needed it Hbg A1C in Sep 2019 was 5 - SC insulin in place - hypoglycemic protocol in place Chronic Back Pain - home Tylenol 3 ordered - holding home tramadol PPx: Heparin, Protonix IVF: LR @ 120 mls/hr Diet: HH, CC, Renal Code: Chemical only PCP: Out of town Dispo as of 11/08: Following recommendations from general surgery, ID, Cardiology and Nephrology. Continue Abx, likely BENY Thursday 11/09, repeat cultures on 11/09 Will keep in mind that patient has dialysis via tunneled catheter and that given his bacteremia this will need to be addressed/changed. Addendum - Attending - Attending Attestation Date/Time: 11/10/19 1102 I personally evaluated the patient and discussed the management with Dr. Agustin. I agree with the History, Examination, Assessment and Plan documented above with any addition or exceptions noted below.
[2019-11-10] MEDS: Lorazepam 0.5 MG TAB PO PRN (08:49)
[2019-11-10] MEDS: Heparin 5,000 UNITS/ML VIAL SC SCH ×2 (08:49→20:32)
[2019-11-10] MEDS: Ferrous Sulfate 325 MG TAB PO SCH (08:50)
[2019-11-10] MEDS: Carvedilol 3.125 MG TAB PO SCH ×2 (08:50→17:19)
[2019-11-10] MEDS: hydrALAZINE 25 MG TAB PO SCH ×3 (08:50→20:33)
[2019-11-10] MEDS: Aspirin 81 mg Enteric Coated Tablet PO SCH (08:50)
[2019-11-10] MEDS: Acetaminophen 325 MG TAB PO PRN (08:51)
[2019-11-10] MEDS: MEROPENEM 1 GM/50 ML 1 GM in Premix Bag 1 BAG IVPB SCH (09:09)
--- NOTE | 2019-11-10 09:36 | PRG ---
DATE OF SERVICE: 11/10/2019 SUBJECTIVE: Mr. Rizvi is an 84-year-old white male with ESRD and currently on maintenance hemodialysis. He has been tolerating the current hemodialysis regimen. He was initially admitted for an exposed AV graft/contamination. He is also currently on empiric IV antibiotics and ID is following. The plan is for him to undergo transesophageal echocardiogram to rule out infective endocarditis. He voices no new complaints. He denies any chest pain or shortness of breath. The patient denies any chest pain or shortness of breath this morning. OBJECTIVE: VITAL SIGNS: Blood pressure 169/72, heart rate 77, respiratory rate 18, O2 saturation 100%, and temperature 97.8. GENERAL: The patient is awake, alert, comfortable, not in distress. SKIN: Adequate turgor. HEENT: Slightly pale conjunctivae. Anicteric sclerae. NECK: No neck mass. No carotid bruits. No JVD. CHEST: No deformities. LUNGS: Clear breath sounds. HEART: Normal sinus rhythm. No murmur. No gallops. No rubs. ABDOMEN: Globular, soft, and nontender. No masses. EXTREMITIES: No edema. No deformities. Positive for left forearm dressing with wound VAC. MEDICATIONS: Medications of November 10, 2019, reviewed. LABORATORY DATA: Laboratories of November 10, 2019, white count 5.1 and hemoglobin 7.9. Sodium 134, potassium 4.2, chloride 101, carbon dioxide 22, BUN 37, creatinine 3.94, glucose 143, calcium 8.1, AST 20, ALT 7, and albumin 2.6. ASSESSMENT AND PLAN: 1. Infected AV graft/fever and chills - currently on IV meropenem and IV Ancef. ID Service following the patient. 2. End-stage renal disease, stable. We will continue current Sunday, Sunday, and Sunday dialysis. He is tolerating the said dialysis treatment. Again, fluid removal only as tolerated by the patient. 3. Anemia, currently on weekly Epogen regimen. Job ID: [id number]
[2019-11-10] MEDS: CEFAZOLIN 3 GM in Sodium Chloride 0.9% 100 ML IVPB SCH (10:42)
[2019-11-10] MEDS ORDERED: Heparin 10,000 UNITS/ 10 ML VIAL ONE (12:23)
[2019-11-10] MEDS: Acetaminophen/Codeine 30-300mg Tablet PO PRN (15:40)
[2019-11-10 16:18] LABS: Hemoglobin 8.1 g/dL (14.0-18.0); Platelet Count 151 thou/uL (130-400)
--- NOTE | 2019-11-10 17:04 | PRG ---
DATE OF SERVICE: 11/10/2019 SUBJECTIVE: Feeling a little bit upset about being still in the hospital after so many days and feeling claustrophobic. No headaches. No shortness of breath. Minimal pain in the left upper extremity. No abdominal pain or diarrhea. Not having diarrhea again specifically. OBJECTIVE: VITAL SIGNS: Have been normal for the past few days except for slight tachypnea, O2 saturations are 98 on 1.5 nasal cannula O2 supplementation. BP 160/69. EXTREMITIES: The left arm dressing with negative pressure dressing over the AV graft exposed site. LUNGS: Clear. HEART: S1 and S2. Regular rate. EXTREMITIES: The hemodialysis catheter in a tunnel position, right side. ABDOMEN: Soft, not tender. Mildly distended. EXTREMITIES: Moves extremities equally. LABORATORY DATA: White cell count 5.1, hemoglobin 8.1, and platelets 134 with 58% neutrophils. Creatinine 3.94. AST 20, ALT 7, alkaline phosphatase 91, and albumin 2.6. Urinalysis normal. Two sets of blood cultures for Staph aureus from 11/03, there were 2 more pending sets. From 11/04, the arm specimen with methicillin-sensitive Staph aureus and Pseudomonas aeruginosa, the Pseudomonas with a broader resistant profile except for carbapenem. ASSESSMENT AND DISCUSSION: 1. Type 2 diabetes. 2. Hypertension. 3. End-stage renal disease, on hemodialysis. 4. Infected graft, left upper extremity, which has been treated with intention of salvage with wound negative pressure dressing and antimicrobial therapy. The Pseudomonas aeruginosa is in rare amounts and is probably not a true pathogen here and probably just colonization of the surface of the wound. My intention is to just treat the Staph aureus component with cefazolin and oral quinolone adjusted for renal function. Job ID: [id number]
[2019-11-10] MEDS: Warfarin Sodium 2 MG TAB PO SCH (17:19)
[2019-11-10] MEDS ORDERED: Labetalol HCl 100 MG/20 ML VIAL ONE (19:06)
[2019-11-10] MEDS: Atorvastatin Calcium 20 MG TAB PO SCH (20:33)
[2019-11-10] MEDS: Melatonin 3 MG TAB PO PRN (20:44)
[2019-11-11] MEDS: Acetaminophen/Codeine 30-300mg Tablet PO PRN ×2 (00:06→20:17)
[2019-11-11] MEDS: Lorazepam 0.5 MG TAB PO PRN (01:31)
[2019-11-11 04:45] LABS: Hemoglobin 7.3 g/dL (14.0-18.0); Platelet Count 161 thou/uL (130-400)
[2019-11-11 04:47] LABS: #Eosinphils 0.4 thou/uL (0.0-0.7); #Monocytes 0.6 thou/uL (0.11-0.59); #Neutrophils 4.1 thou/uL (1.40-6.50); %Basophils 0.2 % (0.0-1.0); %Eosinophils 6.8 % (0.0-10.0); %Lymphocytes 15.8 % (21.0-51.0); %Monocytes 10.5 % (0.0-10.0); %Neutrophils 66.7 % (42.0-75.0); Hemoglobin 7.4 g/dL (14.0-18.0); Mean Corpuscular HGB CONC 32.3 g/dL (32.0-36.0); Mean Corpuscular Hemoglobin 30.8 pg (27.0-31.0); Mean Corpuscular Volume 95.2 fL (78.0-98.0); Mean Platelet Volume 7.1 fL (7.4-10.4); Platelet Count 150 thou/uL (130-400); Red Blood Cell (RBC) Count 2.41 mill/uL (4.70-6.10); White Blood Cell (WBC) Count 6.1 thou/uL (4.8-10.8)
[2019-11-11 05:05] LABS: ALT (SGPT) Less than 7 U/L (8-55); AST (SGOT) 18 U/L (5-34); Albumin 2.5 g/dL (3.4-4.8); Alkaline Phosphatase 86 U/L (40-110); Anion Gap 12 mmol/L (10-20); BUN (Urea Nitrogen) 21 mg/dL (8.4-25.7); Bilirubin, Total 0.3 mg/dL (0.2-1.2); Calc. Creatinine Clearance 24 mL/min (70-130); Calcium 7.8 mg/dL (7.8-10.44); Carbon Dioxide 27 mmol/L (23-31); Chloride 102 mmol/L (98-107); Estimated GFR-MDRD 22; Globulin 2.8 g/dL (2.4-3.5); Glucose 158 mg/dL (83-110); Potassium 3.9 mmol/L (3.5-5.1); Protein, Total 5.3 g/dL (5.8-8.1); Sodium 137 mmol/L (136-145)
--- NOTE | 2019-11-11 06:02 | PDOC.FM ---
- Subjective Subjective: Mr. Rizvi is doing well today. He reports improvement in his anxiety but says he is hungry. - Objective Vital Signs & Weight: Vital Signs (12 hours) Temp Pulse Resp BP Pulse Ox 11/11/19 04:00 97.9 F 81 15 146/62 H 94 L 11/10/19 19:25 98.6 F 77 18 136/60 96 Weight Admit Weight 76.093 kg Weight 80.3 kg I&O: 11/09/19 11/10/19 11/11/19 06:59 06:59 06:59 Intake Total 1200 770 840 Output Total 70 440 500 Balance 1130 330 340 Result Diagrams: 11/11/19 04:22 11/11/19 04:22 Additional Labs: procal: 3.7 (14.53) EKG Reviewed by me: Yes (tele: SR, first degree AVB) Phys Exam - Physical Examination Constitutional: NAD HEENT: moist MMs, sclera anicteric Neck: full ROM Respiratory: no wheezing, clear to auscultation bilateral Cardiovascular: RRR, no significant murmur Gastrointestinal: soft, non-tender, no distention, positive bowel sounds Musculoskeletal: no edema, pulses present Neurological: non-focal, moves all 4 limbs Psychiatric: normal affect, A&O x 3 Dx/Plan - Plan Plan: Sepsis 2/2 to superficial skin ulceration 2/2 AV graft infection Recent left loop forearm AV graft by Dr. Guerrero on 09/17, reported drainage Presented tachycardic, tachypneic, febrile LA: 1.0, Procal: 0.5 > 14 (11/05) > 3.7 (11/09) WBC: 3>5.1>6.1 Bl cx: MSSA Wound clx: MSSA, Pseudomonas - Dr. Guerrero (gen surg) consulted: Exposed graft with attempted salvage with VAC dressing and antibiotics (11/06). Recommends bypass and excision if patient does not have significant tissue ingrowth within next 1-2 weeks. (11/10) - 11/06 Dr. Avila: Noted intention to only treat staph with cefazolin and quinolone. Orders still indicate receiving cefazolin and meropenem. Repeat cultures pending. - 11/[address] Guerra: increased Coreg - continued management Gen Surg and ID, Cards appreciate recs - am CBCs - Possible thickening of 1 of his valves on TTE. BENY 11/10 - will continue to monitor vitals Situational Anxiety Patient is anxious and feels "trapped" being in the hospital - prn ativan q6h - Consider prn hydroxyzine as well if anxiety persists and ativan is not sufficient - Instructed nursing patient is allowed to get out of bed and walk around. 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 Considering transfusion. Continue to monitor. HTN - continue coreg and hydralizine HLD - continue home atorvastatin Hx of DMII Reports that he used to take insulin, but was recently told to that he no longer needed it Hbg A1C in Sep 2019 was 5 - SC insulin in place - hypoglycemic protocol in place Chronic Back Pain - home Tylenol 3 ordered - holding home tramadol PPx: Heparin, Protonix IVF: LR @ 120 mls/hr Diet: HH, CC, Renal Code: Chemical only PCP: Out of town Dispo as of 11/08: Following recommendations from general surgery, ID, Cardiology and Nephrology. Continue Abx, BENY Friday 11/10. Will keep in mind that patient has dialysis via tunneled catheter and that given his bacteremia this will need to be addressed/changed. Addendum - Attending - Attending Attestation Date/Time: 11/11/19 1112 I personally evaluated the patient and discussed the management with Dr. Agustin. I agree with the History, Examination, Assessment and Plan documented above with any addition or exceptions noted below. Patient stable. Underwent BENY today. Awaiting final recommendations from general sugery, ID, and Cardiology, but hopeful to start discharge planning at this time.
[2019-11-11] MEDS ORDERED: PROPOFOL 20 ML ONE (07:40)
[2019-11-11] MEDS: Heparin 5,000 UNITS/ML VIAL SC SCH ×2 (08:22→20:20)
--- NOTE | 2019-11-11 08:33 | PDOC.GSPN ---
Surgery Progress Note: Subj - Subjective Narrative: Patient seen with wound care team yesterday afternoon. His wound was clean but with minimal granulation. VAC was replaced. If he does not have significant tissue ingrowth within the next week or 2 then we will likely need to do a bypass and excision. Surgery Progress Note: Obj - Vital signs Vital signs: Vital Signs - Most Recent Temp Pulse Resp BP Pulse Ox 98.1 F 70 20 145/65 H 93 L 11/11/19 07:32 11/11/19 07:32 11/11/19 07:32 11/11/19 07:32 11/11/19 07:32 Surgery Progress Note: Results - Labs Result Diagrams: 11/11/19 04:22 11/11/19 04:22 Lab results: Laboratory Results - last 12 hr 11/10/19 11/11/19 11/11/19 20:41 04:22 04:22 WBC 6.1 RBC 2.41 L Hgb 7.4 L Hct 22.9 L MCV 95.2 MCH 30.8 MCHC 32.3 RDW 13.0 Plt Count 150 MPV 7.1 L Neutrophils % 66.7 Lymphocytes % 15.8 L Monocytes % 10.5 H Eosinophils % 6.8 Basophils % 0.2 Neutrophils # 4.1 Lymphocytes # 1.0 L Monocytes # 0.6 H Eosinophils # 0.4 Basophils # 0.0 Sodium 137 Potassium 3.9 Chloride 102 Carbon Dioxide 27 Anion Gap 12 BUN 21 Creatinine 2.74 H Estimated GFR (MDRD) 22 Glucose 158 H POC Glucose 149 H Calcium 7.8 Total Bilirubin 0.3 AST 18 ALT Less than 7 L Alkaline Phosphatase 86 Serum Total Protein 5.3 L Albumin 2.5 L Globulin 2.8 Albumin/Globulin Ratio 0.9 L 11/11/19 11/11/19 04:22 05:52 WBC RBC Hgb 7.3 L Hct 22.4 L MCV MCH MCHC RDW Plt Count 161 MPV Neutrophils % Lymphocytes % Monocytes % Eosinophils % Basophils % Neutrophils # Lymphocytes # Monocytes # Eosinophils # Basophils # Sodium Potassium Chloride Carbon Dioxide Anion Gap BUN Creatinine Estimated GFR (MDRD) Glucose POC Glucose 213 H Calcium Total Bilirubin AST ALT Alkaline Phosphatase Serum Total Protein Albumin Globulin Albumin/Globulin Ratio
[2019-11-11] MEDS: Ferrous Sulfate 325 MG TAB PO SCH (09:04)
[2019-11-11] MEDS: Carvedilol 3.125 MG TAB PO SCH ×2 (09:04→15:19)
[2019-11-11] MEDS: Aspirin 81 mg Enteric Coated Tablet PO SCH (09:05)
[2019-11-11] MEDS: hydrALAZINE 25 MG TAB PO SCH ×3 (09:05→20:18)
[2019-11-11] MEDS: MEROPENEM 1 GM/50 ML 1 GM in Premix Bag 1 BAG IVPB SCH (09:05)
--- NOTE | 2019-11-11 10:01 | OP ---
DATE OF PROCEDURE: 11/11/2019 PRIMARY CARE PHYSICIAN: Reggie Jones MD PROCEDURE PERFORMED: Transesophageal echocardiogram. INDICATION: The patient is an 84-year-old gentleman with sepsis. DESCRIPTION OF PROCEDURE: The patient was taken to the PACU. The patient was sedated by Anesthesiology. A transesophageal probe was placed into the distal esophagus and stomach. Echocardiographic images were obtained. The transesophageal probe was removed. FINDINGS: 1. Mild decrease in left ventricular systolic function. 2. Left atrial enlargement. 3. 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 4. [id number] mitral regurgitation. 5. Moderate tricuspid regurgitation. 6. The aortic valve leaflets are thickened. 7. No obvious vegetations were noted on the aortic, mitral, or tricuspid valve. 8. Atherosclerotic debris in the descending aorta. IMPRESSION: No vegetations noted on the cardiac valves. Job ID: [id number] MTDD
[2019-11-11] MEDS ORDERED: PROPOFOL 200 MG/20 ML VIAL ONE (14:33)
[2019-11-11] MEDS: Warfarin Sodium 2 MG TAB PO SCH (15:19)
[2019-11-11 16:30] LABS: Prothrombin Time 13.7 sec (12.0-14.7)
[2019-11-11] MEDS: Atorvastatin Calcium 20 MG TAB PO SCH (20:17)
[2019-11-11] MEDS: Zolpidem Tartrate 5 MG TAB PO PRN (22:41)
[2019-11-12] MEDS: Lorazepam 0.5 MG TAB PO PRN (00:53)
[2019-11-12 04:14] LABS: #Eosinphils 0.4 thou/uL (0.0-0.7); #Lymphocytes 1.4 thou/uL (1.20-3.40); #Monocytes 0.7 thou/uL (0.11-0.59); #Neutrophils 4.6 thou/uL (1.40-6.50); %Basophils 0.1 % (0.0-1.0); %Eosinophils 6.3 % (0.0-10.0); %Lymphocytes 18.9 % (21.0-51.0); %Monocytes 10.2 % (0.0-10.0); %Neutrophils 64.5 % (42.0-75.0); Hemoglobin 8.5 g/dL (14.0-18.0); Mean Corpuscular Volume 93.8 fL (78.0-98.0); Mean Platelet Volume 7.4 fL (7.4-10.4); Platelet Count 176 thou/uL (130-400); RBC Distribution Width 13.1 % (11.5-14.5); Red Blood Cell (RBC) Count 2.74 mill/uL (4.70-6.10); White Blood Cell (WBC) Count 7.2 thou/uL (4.8-10.8)
[2019-11-12 04:24] LABS: INR-International Normal Ratio 1.1; Prothrombin Time 14.5 sec (12.0-14.7)
[2019-11-12 04:37] LABS: ALT (SGPT) Less than 7 U/L (8-55); AST (SGOT) 18 U/L (5-34); Albumin 2.5 g/dL (3.4-4.8); Alkaline Phosphatase 85 U/L (40-110); Anion Gap 13 mmol/L (10-20); BUN (Urea Nitrogen) 32 mg/dL (8.4-25.7); Bilirubin, Total 0.4 mg/dL (0.2-1.2); Calc. Creatinine Clearance 19 mL/min (70-130); Calcium 8.1 mg/dL (7.8-10.44); Carbon Dioxide 26 mmol/L (23-31); Chloride 101 mmol/L (98-107); Estimated GFR-MDRD 17; Glucose 130 mg/dL (83-110); Potassium 3.9 mmol/L (3.5-5.1); Protein, Total 5.5 g/dL (5.8-8.1); Sodium 136 mmol/L (136-145)
--- NOTE | 2019-11-12 06:06 | PDOC.FM ---
- Subjective Subjective: Mr. Rizvi is doing well this morning. He has no complaints. - Objective Vital Signs & Weight: Vital Signs (12 hours) Temp Pulse Resp BP BP Pulse Ox 11/12/19 03:43 98.5 F 75 20 144/67 H 97 11/12/19 00:52 80 143/65 H 11/11/19 20:18 154/64 H 11/11/19 20:00 98.7 F 84 18 154/64 H 96 Weight Admit Weight 76.093 kg Weight 78.5 kg I&O: 11/10/19 11/11/19 11/12/19 06:59 06:59 06:59 Intake Total 770 960 920 Output Total 440 650 400 Balance 330 310 520 Result Diagrams: 11/12/19 03:42 11/12/19 03:42 EKG Reviewed by me: Yes (tele: ) Phys Exam - Physical Examination Constitutional: NAD HEENT: moist MMs, sclera anicteric Neck: full ROM Respiratory: no wheezing, clear to auscultation bilateral Cardiovascular: RRR, no significant murmur Gastrointestinal: soft, non-tender, no distention, positive bowel sounds Musculoskeletal: no edema, pulses present Neurological: moves all 4 limbs Psychiatric: normal affect, A&O x 3 Deviation from normal: wound vac on L forearm Dx/Plan - Plan Plan: Sepsis 2/2 to superficial skin ulceration 2/2 AV graft infection Recent left loop forearm AV graft by Dr. Guerrero on 09/17, reported drainage Presented tachycardic, tachypneic, febrile LA: 1.0, Procal: 0.5 > 14 (11/05) > 3.7 (11/09) WBC: 3>5.1>6.1>6.8 Bl cx: MSSA Wound clx: MSSA, Pseudomonas - Dr. Guerrero (gen surg) consulted: Exposed graft with attempted salvage with VAC dressing and antibiotics (11/06). Recommends bypass and excision if patient does not have significant tissue ingrowth within next 1-2 weeks. (11/10) - 11/06 Dr. Avila: Noted intention to only treat staph with cefazolin and quinolone. Orders still indicate receiving cefazolin and meropenem. Repeat cultures preliminarily negative. - 11/[address] Guerra: increased Coreg - continued management Gen Surg and ID, Cards appreciate recs - am CBCs - Possible thickening of 1 of his valves on TTE. No vegetation on BENY. - will continue to monitor vitals Situational Anxiety Patient is anxious and feels "trapped" being in the hospital - prn ativan q6h - Consider prn hydroxyzine as well if anxiety persists and ativan is not sufficient - Instructed nursing patient is allowed to get out of bed and walk around. Patient's mood and anxiety have seemed improved the past 2 days. 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 Hgb 8.5 on 11/11. HTN - continue coreg and hydralizine HLD - continue home atorvastatin Hx of DMII Reports that he used to take insulin, but was recently told to that he no longer needed it Hbg A1C in Sep 2019 was 5 - SC insulin in place - hypoglycemic protocol in place Chronic Back Pain - home Tylenol 3 ordered - holding home tramadol PPx: Heparin, Protonix IVF: SL Diet: HH, CC, Renal Code: Chemical only PCP: Out of town Dispo as of 11/11: Following recommendations from general surgery, ID, Cardiology and Nephrology. Continue Abx. Will call CM today to begin setting up Home Health services for when patient is discharged for wound care, abx, etc. Will keep in mind that patient has dialysis via tunneled catheter and that given his bacteremia this will need to be addressed/changed. Addendum - Attending - Attending Attestation Date/Time: 11/12/19 1111 I personally evaluated the patient and discussed the management with Dr. Agustin. I agree with the History, Examination, Assessment and Plan documented above with any addition or exceptions noted below. Patient feeling well. We are working on clarifying his outpatient abx regimen with ID, and ensuring wound care and wound vac are set up for him.
--- NOTE | 2019-11-12 09:15 | PRG ---
DATE OF SERVICE: SUBJECTIVE: Mr. Rizvi is an 84-year-old white male with ESRD, followed up by the renal service for his maintenance hemodialysis as well as management of his ESRD. He was initially admitted for fever and chills. He was found to have a contaminated AV graft. He is on empiric IV antibiotics. A transesophageal echo was done yesterday, which showed no vegetation. Finding of a mild decreased ejection fraction was noted as well as [id number] mitral regurgitation. No new complaints today. No chest pain or shortness of breath. OBJECTIVE: VITAL SIGNS: Blood pressure 138/63, heart rate 77, respiratory rate 16, temperature 98.7, O2 sat 92%. GENERAL: The patient is awake, alert, comfortable, not in distress. SKIN: Adequate turgor. HEENT: Slightly pale conjunctivae. Anicteric sclerae. NECK: No neck mass. No carotid bruits. No JVD. CHEST: No deformities. LUNGS: Clear breath sounds. HEART: Normal sinus rhythm. No murmur. No gallops. No rubs. ABDOMEN: Globular, soft, nontender. No masses. EXTREMITIES: No edema. MEDICATIONS: Of November 12, 2019, reviewed. LABORATORIES: November 12, 2019; white count 7.2, hemoglobin 8.5, hematocrit 25.7. Sodium 136, potassium 3.9, chloride 101, carbon dioxide 26, BUN 32, creatinine 3.41, glucose 130, calcium 8.1, AST 18, ALT less than 7, albumin 2.5. ASSESSMENT AND PLAN: 1. End-stage renal disease, stable. We will continue current hemodialysis regimen. I have scheduled him for his regular Sunday, Sunday, and Sunday hemodialysis. We will plan a 3-hour hemodialysis. Fluid removal only as tolerated. 2. Anemia, stabilizing. Continue weekly Epogen. 3. Infected arteriovenous graft. Starting on empiric intravenous antibiotics. ID is following. Receiving currently at 3 g cefazolin every other day. 4. We will recheck CBC, basic met in a.m. Job ID: [id number]
[2019-11-12] MEDS: Aspirin 81 mg Enteric Coated Tablet PO SCH (09:28)
[2019-11-12] MEDS: Carvedilol 3.125 MG TAB PO SCH ×2 (09:28→16:40)
[2019-11-12] MEDS: Ferrous Sulfate 325 MG TAB PO SCH (09:28)
[2019-11-12] MEDS: hydrALAZINE 25 MG TAB PO SCH ×2 (09:29→16:40)
[2019-11-12] MEDS: CEFAZOLIN 3 GM in Sodium Chloride 0.9% 100 ML IVPB SCH (09:29)
[2019-11-12] MEDS: Heparin 5,000 UNITS/ML VIAL SC SCH (09:30)
[2019-11-12] MEDS: Acetaminophen/Codeine 30-300mg Tablet PO PRN (10:57)
[2019-11-12] MEDS: MEROPENEM 1 GM/50 ML 1 GM in Premix Bag 1 BAG IVPB SCH (11:14)
[2019-11-12] MEDS: EPOETIN ALFA-EPBX (ESRD) 4,000 UNIT/ML VIAL SC SCH (12:14)
[2019-11-12] MEDS ORDERED: Heparin 10,000 UNITS/ 10 ML VIAL ONE (13:12)
[2019-11-12 13:15] VITALS: BMI 25.5
--- NOTE | 2019-11-12 16:05 | PDOC.GSPN ---
Surgery Progress Note: Subj - Subjective Narrative: Patient is doing well. He denies any pain in his arm. Most recent blood cultures are no growth to date. His wound looks good and there is increasing granulation tissue with some early coverage of the graft. We are going to continue with the VAC. He is going to follow-up with me in the clinic if he is discharged home. Surgery Progress Note: Obj - Vital signs Vital signs: Vital Signs - Most Recent Temp Pulse Resp BP Pulse Ox 97.7 F 81 21 H 160/69 H 98 11/12/19 11:44 11/12/19 11:44 11/12/19 11:44 11/12/19 11:44 11/12/19 11:44 Surgery Progress Note: Results - Labs Result Diagrams: 11/12/19 03:42 11/12/19 03:42 Lab results: Laboratory Results - last 12 hr 11/12/19 11/12/19 11/12/19 03:42 03:42 03:42 WBC 7.2 RBC 2.74 L Hgb 8.5 L Hct 25.7 L MCV 93.8 MCH 31.0 MCHC 33.0 RDW 13.1 Plt Count 176 MPV 7.4 Neutrophils % 64.5 Lymphocytes % 18.9 L Monocytes % 10.2 H Eosinophils % 6.3 Basophils % 0.1 Neutrophils # 4.6 Lymphocytes # 1.4 Monocytes # 0.7 H Eosinophils # 0.4 Basophils # 0.0 PT 14.5 INR 1.1 Sodium 136 Potassium 3.9 Chloride 101 Carbon Dioxide 26 Anion Gap 13 BUN 32 H Creatinine 3.41 H Estimated GFR (MDRD) 17 Glucose 130 H POC Glucose Calcium 8.1 Total Bilirubin 0.4 AST 18 ALT Less than 7 L Alkaline Phosphatase 85 Serum Total Protein 5.5 L Albumin 2.5 L Globulin 3.0 Albumin/Globulin Ratio 0.8 L Procalcitonin 11/12/19 11/12/19 11/12/19 03:42 05:43 11:15 WBC RBC Hgb Hct MCV MCH MCHC RDW Plt Count MPV Neutrophils % Lymphocytes % Monocytes % Eosinophils % Basophils % Neutrophils # Lymphocytes # Monocytes # Eosinophils # Basophils # PT INR Sodium Potassium Chloride Carbon Dioxide Anion Gap BUN Creatinine Estimated GFR (MDRD) Glucose POC Glucose 167 H 208 H Calcium Total Bilirubin AST ALT Alkaline Phosphatase Serum Total Protein Albumin Globulin Albumin/Globulin Ratio Procalcitonin 1.40
[2019-11-12 16:40] VITALS: BP 137/63; TEMP 98.6
[2019-11-12] MEDS: Warfarin Sodium 2 MG TAB PO SCH (16:40)
--- NOTE | 2019-11-13 13:39 | DIS ---
DATE OF ADMISSION: 11/05/2019 DATE OF DISCHARGE: 11/12/2019 RESIDENT: Ashutosh Agustin MD ADMITTING ATTENDING: Reggie Jones MD DISCHARGE ATTENDING: Oscar Ramirez MD CONSULTATION: 1. Cardiology, Dr. Zimmerman. 2. Nephrology, Dr. Martinez. 3. Surgery, Dr. Guerrero. 4. Infectious disease, Dr. Maldonado. 5. PT, OT, and Case Management. PROCEDURES: Bedside debridement with wound VAC placed on November 04. PRIMARY DIAGNOSES: Sepsis secondary to superficial skin ulceration secondary to AV graft infection. SECONDARY DIAGNOSES: 1. Situational anxiety. 2. Qbq-[id number] myocardial infarction type 2. 3. End-stage renal disease. 4. Atrial flutter, status post ablation. 5. Coronary artery disease, status post stent. 6. Anemia. 7. Hypertension. 8. Hyperlipidemia. 9. History of diabetes type 2. 10. Chronic back pain. DISCHARGE MEDICATIONS: 1. Ambien 5 mg p.o. at night as needed. 2. Hydralazine 25 mg p.o. t.i.d. 3. Protonix 40 mg p.o. daily. 4. Ferrous sulfate 325 mg p.o. daily. 5. Carvedilol 3.125 mg p.o. b.i.d. 6. Warfarin 2 mg p.o. 7. Aspirin 81 mg p.o. daily. 8. Atorvastatin 20 mg p.o. 9. Epoetin 7500 units subcu every 7 days. 10. Melatonin 2 tablets p.o. 11. Cipro 250 mg p.o. every 12 hours. 12. Ancef 3 g IV Sunday, Sunday, and Sunday. 13. Acetaminophen 650 mg p.o. every 4 hours as needed. DISCONTINUED MEDICATIONS: None. HISTORY OF PRESENT ILLNESS/HOSPITAL COURSE: 84YOM with a PMH notable for ESRD on MWF HD, DMII, HTN, CAD s/p CABG, and a flutter s/p ablation who was transferred from [facility] after being determined to be septic 2/2 a RUE infection. Reports his fistula site that was placed on 09/[address] Guerrero started draining a few days ago while still in rehab. Was discharged home from rehab day prior to admission and spiked a fever of 102F so went to the ER for evaluation. Reports associated nausea and chills. No cough, congestion, diarrhea, constipation. Was found to be tachycardic, tachypneic and febrile in the ED and received cefepime and vanc and was admitted on cefazolin and levoquin. WBC 3 and trended upwards to 6.8 during hospital stay, lactic 1, procal 0.5 which increase to 14 the day after admission and decreased to 3.7 by the 5th. Blood culture revealed MSSA, wound culture revealed MSSA and pseudomonas and patients levoquin was switched to meropenem per Dr. Maldonado, infectious disease recommendation. On Nov 06, Dr. Guerrero exposed graft with attempted salvage with wound vac dressing. She continued to follow patient throughout hospital stay and recommended outpatient followup in 1-2 weeks after discharge. Patient was discharged on ancef MWF to be received after dialysis and ciprofloxazin. He is to be treated with these antibiotics until Dec 19. TTE suggested possible thickened of valve but BEYN revealed no vegetation. Of note, patient most likely experienced a NSTEMI type [address] with [address] elevation in III and aVF and troponins of 0.044, 0.052, 0.087. Cardiology was consulted and patient was treated with a heparin drip and eventually transitioned off. They did not desire a heart cath due to patients acutely ill status but did increase his coreg dose. Patient was discharged home on home health with approved wound vac and instructed to follow closely with Dr. Guerrero. DISPOSITION: Stable. DISCHARGE INSTRUCTIONS: 1. Location: Home. 2. Diet: Heart healthy. 3. Activity: As tolerated. 4. Followup with Dr. Guerrero in 2 weeks. Job ID: [id number] [facility]
--- NOTE | 2019-11-14 06:19 | PQF ---
CLINICAL DOCUMENTATION CLARIFICATION FORM: Dear : Kvng Guerrero Date / Time: 11/13/09615 Please exercise your independent, professional judgment in responding to the clarification form. Clinical indicators are provided on the bottom of this form for your review Please check appropriate box(es): Excisional Debridement: Depth / layer: (deepest layer of debridement): [ x ] Skin [ x ] Subcutaneous [ ] Fascia [ ] Muscle [ ] Tendon [ ] Bone [ ] Other procedure, please specify: [ ] Unable to determine Physician Signature: Date/Time: For continuity of documentation, please document condition throughout progress notes and discharge summary. Thank You. To be completed by CDI/Coding staff for physician review: Present Clinical Indicators - Signs / Symptoms / Labs Results and Location in Medical Record [X] The infected none healthy appearing fatty tissue in the wound was sharply excised with scissors Operative report Dr Guerrero 11/04 [X] The graft was incorporated inferiorly but exposed superiorly and there was a small amount of purulence from along the radial [place] of loop graft which was sent for gram stain and culture Operative report Dr Guerrero 11/04 [X] the skin incision was extended in this direction and all infected and unhealthy appearing tissue sharply excised Operative report Dr Guerrero 11/04 Present Risk Factors Results and Location in Medical Record [X] Infected exposed AV graft of left forearm Operative report Dr Guerrero 11/04 [X] 84 year-old H&P p1 Dr Moreau 11/04 [X] ESRD on HD H&P p1 Dr Moreau 11/04 [X] DM H&P p1 Dr Moreau 11/04 [X] Sepsis due to superficial skin ulceration H&P p1 Dr Moreau 11/04 Present Treatments Results and Location in Medical Record [X] Debridement open wound to left forearm Operative report Dr Guerrero 11/04 [X] IV Vancomycin 1.25 APR 13 [X] IV Cefepime 2 gm APR 13 [X] IV Cefazolin 3 gm APR 14 CDS/Deicer Tester Signature: Ange Starks Phone #: [phone] Date/Time: 11/14/201916 This is a permanent part of the Medical Record [facility]
== END 2019-11-12 17:55 | disposition home health service (06) | DRG 264 ==
LOC: ERS 01:47 → 2NO 02:48
PROVIDERS: ADMIT Family Medicine; ATTEND Family Medicine
PROC: 0JBH0ZZ Excision of Left Lower Arm Subcutaneous Tissue and Fascia, Open Approach (ICD-10-PCS; principal; 2019-11-05)
PROC: 5A1D70Z Performance of Urinary Filtration, Intermittent, Less than 6 Hours Per Day (ICD-10-PCS; 2019-11-05)
PROC: B24BZZ4 Ultrasonography of Heart with Aorta, Transesophageal (ICD-10-PCS; 2019-11-11)
PROC: 30233N1 Transfusion of Nonautologous Red Blood Cells into Peripheral Vein, Percutaneous Approach (ICD-10-PCS; 2019-11-11)
DX: T82.7XXA Infection and inflammatory reaction due to other cardiac and vascular devices, implants and grafts, initial encounter (principal); N18.6 End stage renal disease; A41.52 Sepsis due to Pseudomonas; A41.01 Sepsis due to Methicillin susceptible Staphylococcus aureus; I21.A1 Myocardial infarction type 2; I12.0 Hypertensive chronic kidney disease with stage 5 chronic kidney disease or end stage renal disease; I48.92 Unspecified atrial flutter; Z20.828 Contact with and (suspected) exposure to other viral communicable diseases; I25.10 Atherosclerotic heart disease of native coronary artery without angina pectoris; E78.00 Pure hypercholesterolemia, unspecified; G89.29 Other chronic pain; M54.9 Dorsalgia, unspecified; Z96.642 Presence of left artificial hip joint; E11.22 Type 2 diabetes mellitus with diabetic chronic kidney disease; E78.5 Hyperlipidemia, unspecified; D63.1 Anemia in chronic kidney disease; Y83.8 Other surgical procedures as the cause of abnormal reaction of the patient, or of later complication, without mention of misadventure at the time of the procedure; L98.499 Non-pressure chronic ulcer of skin of other sites with unspecified severity; I44.0 Atrioventricular block, first degree; I08.1 Rheumatic disorders of both mitral and tricuspid valves; I48.0 Paroxysmal atrial fibrillation; F41.9 Anxiety disorder, unspecified; Z90.49 Acquired absence of other specified parts of digestive tract; Z95.5 Presence of coronary angioplasty implant and graft; I25.2 Old myocardial infarction; Z95.0 Presence of cardiac pacemaker; Z99.2 Dependence on renal dialysis; Z95.1 Presence of aortocoronary bypass graft; Z79.899 Other long term (current) drug therapy; Z79.82 Long term (current) use of aspirin; Z79.01 Long term (current) use of anticoagulants; Z88.5 Allergy status to narcotic agent
CPT/HCPCS: 36415; 36416; 36430; 80053; 81003; 81015; 82553; 84134; 84145; 84484; 85014; 85018; 85025; 85049; 85610; 85730; 86850; 86900; 86901; 87040; 87070; 87077; 87086; 87186; 87205; 87340; 87635; 90935; 93005; 93306; 93312; 96374; 96375; 96376; G0257; J0690; J0692; J1644; J2185; J2704; J3490; P9016; U0003

== ENCOUNTER 2019-11-17 14:33 | Emergency (ER) | payer MEDICARE, OTHER ==
[2019-11-17] MEDS ORDERED: Fentanyl 100 MCG/2 ML VIAL ONE (15:08)
[2019-11-17] MEDS ORDERED: PROPOFOL 0 ML ONE (15:32)
[2019-11-17] MEDS ORDERED: PROPOFOL 20 ML ONE (16:44)
--- NOTE | 2019-11-17 17:55 | RAD ---
LEFT HIP TWO VIEWS: History: Post reduction Comparison: Earlier exam, same day. FINDINGS: The total hip prosthesis has been reduced. Acetabular cuff now lies within the acetabulum. IMPRESSION: Reduction of prosthesis dislocation. POS: OFF
[2019-11-17] MEDS ORDERED: hydrALAZINE 25 MG TAB ONE (18:15)
== END 2019-11-17 20:19 | disposition home or self-care (01) ==
LOC: ERS 14:33
DX: T84.021A Dislocation of internal left hip prosthesis, initial encounter (principal); I13.2 Hypertensive heart and chronic kidney disease with heart failure and with stage 5 chronic kidney disease, or end stage renal disease; I50.9 Heart failure, unspecified; N18.6 End stage renal disease; I48.91 Unspecified atrial fibrillation; E78.00 Pure hypercholesterolemia, unspecified; I25.10 Atherosclerotic heart disease of native coronary artery without angina pectoris; E11.22 Type 2 diabetes mellitus with diabetic chronic kidney disease; I48.92 Unspecified atrial flutter; Z95.1 Presence of aortocoronary bypass graft; F41.9 Anxiety disorder, unspecified; Z79.01 Long term (current) use of anticoagulants; Z79.82 Long term (current) use of aspirin; Z79.899 Other long term (current) drug therapy
CPT/HCPCS: 27265; 96374; 96375; 99152; 99153; J2704; J3010

== ENCOUNTER 2019-11-21 15:30 | Inpatient (IN) | payer MEDICARE, OTHER ==
[~2019-11-21 15:30] MED LIST changes: +CEFAZOLIN 1 GM VIAL IVPB SCH
[2019-11-21 17:28] LABS: SARS-CoV-2 NAA Rapid Test DETECTED (NotDetected)
--- NOTE | 2019-11-21 19:30 | PDOC.FPRHP ---
- Allergies/Adverse Reactions Allergies Allergy/AdvReac Type Severity Reaction Status Date / Time morphine Allergy Verified 11/05/19 15:32 - Home Medications Medication Instructions Recorded Confirmed Type Zolpidem Tartrate [Ambien] 5 mg PO HS PRN 07/24/19 11/05/19 History Pantoprazole [Protonix] 40 mg PO DAILY tab 08/09/19 11/05/19 Rx hydrALAZINE [Apresoline] 25 mg PO TID tab 08/09/19 11/05/19 Rx Carvedilol 3.125 mg PO BID-WM 09/16/19 11/05/19 History Ferrous Sulfate [Iron] 325 mg PO DAILY 09/16/19 11/05/19 History Warfarin Sodium [Coumadin] 2 mg PO 1700 tab 10/10/19 11/05/19 Rx Aspirin [Ecotrin Low Strength] 81 mg PO DAILY tab 10/23/19 11/05/19 Rx Atorvastatin Calcium [Lipitor] 20 mg PO HS 30 Days #30 tab 10/23/19 11/05/19 Rx Epoetin Rosalino-Epbx [Retacrit] 7,500 unit SC Q7D 30 Days #60 vial 10/23/19 11/05/19 Rx Melatonin 2 tab PO HS 11/05/19 11/05/19 History Acetaminophen [Tylenol Regular 650 mg PO Q4H PRN #30 tab 11/12/19 Rx Strength] Cefazolin [Ancef] 3 gm IVPB MWF #1 vial 11/12/19 Rx Cipro 250 mg PO Q12HR 39 Days #78 tab 11/12/19 Rx - History PMHx: PSHx: FHx: Social: - Vital signs BP: [] HR: [] RR: [] Tmax: [] Pox: []% on [] Wt: [] FMR H&P: Upper Level - Plan Date/Time: 11/21/190 I, [], have evaluated this patient and agree with findings/plan as outlined by international sourcing manager resident. Pertinent changes/additions are listed here.
[2019-11-21] MEDS ORDERED: Ondansetron PF 4 MG/2 ML Vial IVP PRN (20:45)
[2019-11-21] MEDS ORDERED: Acetaminophen 325 MG TAB PO PRN (20:45)
[2019-11-21] MEDS ORDERED: Ondansetron ODT 4 MG TAB SL PRN (20:45)
[2019-11-21 20:58] LABS: Troponin I 0.171 ng/mL (< 0.028)
[2019-11-21] MEDS ORDERED: Zolpidem Tartrate 5 MG TAB PO PRN (21:15)
--- NOTE | 2019-11-21 21:15 | PDOC.FPRHP ---
- History of Present Illness Chief Complaint: Hypoxia History of Present Illness: 84 yo M with PMH of CHF, CAD, Afib, ESRD on MWF dialysis, and chronic low back pain presents as a transfer from [facility] ED. Patient was visited by his home health nurse earlier today and he was hypoxic to the 60s% on RA. Nurse added BNC up to 3 liters, and could not get O2 saturations greater than 91%. Baseline is on 2L BNC at night per patient, and he wears O2 if he is exerting himself. Of note, his tested positive for covid and was hospitalized yesterday. Patient reports productive cough for the past 3-4 days that is worse when lying flat. He also reports SOB that he has had for the past month. Denies headache, fever/chills, chest pain/palpitations, nausea/vomiting, diarrhea/constipation or abnormal stools. ED [place]: satting well on 2L BNC ED Fili: Covid +, Hgb 6.8 - Allergies/Adverse Reactions Allergies Allergy/AdvReac Type Severity Reaction Status Date / Time morphine Allergy Verified 11/21/19 20:38 - Home Medications Medication Instructions Recorded Confirmed Type Zolpidem Tartrate [Ambien] 5 mg PO HS PRN 07/24/19 11/21/19 History Pantoprazole [Protonix] 40 mg PO DAILY tab 08/09/19 11/21/19 Rx hydrALAZINE [Apresoline] 25 mg PO TID tab 08/09/19 11/21/19 Rx Carvedilol 3.125 mg PO BID-WM 09/16/19 11/21/19 History Ferrous Sulfate [Iron] 325 mg PO DAILY 09/16/19 11/21/19 History Warfarin Sodium [Coumadin] 2 mg PO 1700 tab 10/10/19 11/21/19 Rx Aspirin [Ecotrin Low Strength] 81 mg PO DAILY tab 10/23/19 11/21/19 Rx Atorvastatin Calcium [Lipitor] 20 mg PO HS 30 Days #30 tab 10/23/19 11/21/19 Rx Epoetin Rosalino-Epbx [Retacrit] 7,500 unit SC Q7D 30 Days #60 vial 10/23/19 11/21/19 Rx Melatonin 2 tab PO HS 11/05/19 11/21/19 History Acetaminophen [Tylenol Regular 650 mg PO Q4H PRN #30 tab 11/12/19 11/21/19 Rx Strength] Cefazolin [Ancef] 3 gm IVPB MWF #1 vial 11/12/19 11/21/19 Rx Cipro 250 mg PO Q12HR 39 Days #78 tab 11/12/19 11/21/19 Rx ALPRAZolam 0.25 mg PO BID PRN 11/21/19 11/21/19 History HYDROcodone Bit/APAP [[place] 1 tab PO Q6HR PRN 11/21/19 11/21/19 History 325] - History PMHx: CHF, CAD s/p stent, A flutter s/p ablation, ESRD on MWF dialysis, chronic low back pain, anxiety, chronic anemia, HTN, HLD, Hx of T2DM PSHx: Appendectomy, L hip fx s/p ORIF and subsequent dislocation, pacemaker placement and subsequent removal, AV fistula placement, cardiac ablation, hernia repair, lumbar fusion, L rotator cuff repair FHx: non contributory Social: denies t/a/d use. Lives at home with in spring. FMR H&P: A/P - Plan Labs: WBC low at 2.6, Hgb low 6.8 (MCV 89), BNP 1389.6, Trop 0.147, FOBT neg, Covid +, CXR: cardiomegaly, median sternotomy, right sided dialysis catheter. Pulmonary vascular congestion with bilateral pleural effusions, L>R, L basilar infiltrate vs atelectasis. No pneumothorax Physical Exam: Vitals: 105/39, P 69, R 18, 100% O2 on 2L, General: Elderly male, sitting at side of bed, no acute distress Head: NCAT Eyes: PERRLA, EOMI Ears: + gross hearing loss bilat Cardiac: RRR, no murmurs Lungs: Decreased breath sounds bilateral lower bases, expiratory crackles bilaterally, no wheezing Abdomen: +BS, NTTP Extremities: Pulses 2+ upper extremities, 1+ BLE, 2+ pitting edema BLE Psych: AOx3, recent and remote memory intact A/P: #Acute hypoxic respiratory failure 2/2 Covid Pneumonia vs Acute CHF exacerbation -Hypoxic to the 60%s on RA at home. WBC low at 2.6, L shift; Vital signs stable -Hypoxia may be 2/2 to fluid overload as he is a dialysis patient and had pulmonary vascular congestion on CXR or may be 2/2 Covid -Keep O2 Sats > 92% -Further tx as below # Covid+ -WBC low at 2.6, Hypoxic to 60s%, requiring O2 supplementation -Covid labs: CRP, ESR, CK, D-dimer, LDH, Ferritin -Start dexamethasone, convalescent plasma -Remdesivir cannot be given until Erica consulted, plan to consult in AM #ESRD MWF dialysis #HFpEF -Fluid overloaded on exam, with BNP 1389.6 and CXR showing pulmonary vascular congestion -Dr. Martinez consulted from ED, appreciate recs -Dialysis tonight -Echo 11/06/19: EF 60-65%, grade 2/3 diastolic dysfunction, inferoseptal hypokinesis, mild concentric LVH, mod dil L and R atria; thickened anterior mitral valve leaflet, cannot r/o endocarditis, AV sclerosis, elevated RV systolic pressure estimate 58 mmHg, mild pulmonic regurge #Ind trop, suspect NSTEMI type 2 -Trop indeterminate at 0.147 -> 0.180 -Trend trops #Normocytic anemia -Hgb 6.8, baseline 7-8, on erythropoietin; transfusing 1 unit PRBCs -Recheck H/H 4 hour post infusion #Anion Gap Met acidosis -AG of 14, getting dialyzed -LA pending #Afib/flutter s/p ablation -INR 1.2, on coumadin 2 mg qd and not therapeutic; increase to 3 mg -INR not therapeutic, give heparin 5000 mg TID for DVT ppx -Daily PT/PTT/INR #HTN -resume home medications #AST elevation at 78 -Recheck on AM labs #HLD, CAD -continue home statin #Chronic back pain -home norco Diet: Renal DVT ppx: home warfarin, heparin GI ppx: protonix Code: DNAR PCP: Caitlin ZHU Dispo: Admit to tele inpt, LOS >48 hrs FMR H&P: Upper Level - Plan Date/Time: 11/21/192114 I, [], have evaluated this patient and agree with findings/plan as outlined by internal medicine veterinary technician resident. Pertinent changes/additions are listed here. Addendum - Attending - Attending Attestation Date/Time: 11/21/192128 I personally evaluated the patient and discussed the management with Dr. Shine I agree with the History, Examination, Assessment and Plan documented above with any addition or exceptions noted below. 84 yo male with cough and progressive SOB brought to ER found Covid positive and anemic with increased baseline oxygen requirement. Patient recently home from Rehab following left hip fracture. Patient spouse admitted few days ago with Covid. PMHX: CAD s/p CABG x 3,Back surgery,appendectomy, LTHR s/p femoral neck fx 10/07/19 fall and ant hip dislocation 11/17/19, 07/2014 SBO with partial SBR and lysis of adhesions DM2 HF HTN history of atrial fib/atrial flutter with SVR s/p ablation 10/20/19 Dr Kiser Hx of prior AICD with complication with infection ERSD on HD s/p recent AV graft placement 09/20/19 ESRD and admitted 11/04 with AV graft infection Hx DVT Patient COVID 19 PNA with HX CHF and ESRD on HD marked anemia with increased oxygen requirement HF oxygen as required, consider convalescent plasma and remdesivir candidacy, steroids check baseline inflammatory markers. Patient subtherapeutic on Vit K antagonist will rec heparin 5000 q 8HR Patient for HD and blood transfusion Nephrology notified and appreciate recommendation.
[2019-11-21] MEDS ORDERED: Warfarin Sodium 2 MG TAB PO SCH (21:45)
[2019-11-21] MEDS: Aspirin 81 mg Enteric Coated Tablet PO SCH (21:49)
[2019-11-21] MEDS: Cipro 250 MG TAB PO SCH ×2 (21:49→22:25)
[2019-11-21 21:58] LABS: Lactic Acid 0.9 mmol/L (0.5-2.2)
[2019-11-21] MEDS: Atorvastatin Calcium 20 MG TAB PO SCH (22:25)
[2019-11-21] MEDS ORDERED: Heparin 5,000 UNITS/ML VIAL SC SCH (22:30)
[2019-11-21] MEDS ORDERED: Warfarin Sodium 3 MG TAB PO SCH (22:30)
[2019-11-21] MEDS: HYDROcodone/Acetaminophen 10/325 mg Tablet PO PRN (22:41)
[2019-11-21] MEDS: Acetaminophen 325 MG TAB PO PRN (22:58)
[2019-11-21] MEDS ORDERED: diphenhydrAMINE 50 MG/ML VIAL IVP SCH (23:15)
[2019-11-22 00:06] LABS: CRP (Inflammatory) 21.2 mg/dL (= or < 0.5)
[2019-11-22 00:16] LABS: Troponin I 0.167 ng/mL (< 0.028)
[2019-11-22] MEDS ORDERED: Dextrose 5% in Water 1,000 ML IV PRN (02:17)
[2019-11-22] MEDS ORDERED: Dextrose 50% Abboject 50 ML SYRINGE SLOW IVP PRN (02:17)
[2019-11-22 04:28] LABS: PTT 58.7 sec (22.9-36.1)
[2019-11-22 04:33] LABS: INR-International Normal Ratio 1.1; Prothrombin Time 14.2 sec (12.0-14.7)
[2019-11-22 04:36] LABS: ALT (SGPT) Less than 7 U/L (8-55); AST (SGOT) 83 U/L (5-34); Albumin 3.1 g/dL (3.4-4.8); Alkaline Phosphatase 113 U/L (40-110); Anion Gap 17 mmol/L (10-20); BUN (Urea Nitrogen) 20 mg/dL (8.4-25.7); Calc. Creatinine Clearance 19 mL/min (70-130); Carbon Dioxide 26 mmol/L (23-31); Chloride 98 mmol/L (98-107); Estimated GFR-MDRD 18; Glucose 89 mg/dL (83-110); Potassium 4.2 mmol/L (3.5-5.1); Protein, Total 7.1 g/dL (5.8-8.1); Sodium 137 mmol/L (136-145)
[2019-11-22 05:01] LABS: Band 4 % (5-11); Lymphocytes 21 % (21-51); MDiff Complete? YES; Mean Corpuscular HGB CONC 31.5 g/dL (32.0-36.0); Mean Corpuscular Volume 95.3 fL (78.0-98.0); Metamyelocyte 1 % (0-0); Monocytes 7 % (0-10); Neutrophil 67 % (42-75); Platelet Count 138 thou/uL (130-400); Platelet Morphology Comment Appears Adequate; RBC Distribution Width 13.1 % (11.5-14.5); RBC Morphology Normal; Red Blood Cell (RBC) Count 3.34 mill/uL (4.70-6.10); White Blood Cell (WBC) Count 2.6 thou/uL (4.8-10.8)
--- NOTE | 2019-11-22 05:22 | PDOC.FM ---
- Subjective Subjective: Pt says he feels much better then yesterday and he is no longer short of breathe. He requires O2 during the night at home, but not during the day. He still produces urine. Spoke with the nurse and she states that the patient was shaking and had chills with dialysis and that apparently occurs every time. She also said that due to his renal function he would not be eligible for Remdesivir. He had a temperature of 100.2, but has not had any other problems overnight. - Objective MAR Reviewed: Yes Vital Signs & Weight: Vital Signs (12 hours) Temp Pulse Pulse Resp BP BP Pulse Ox 11/22/19 03:57 100.2 F H 96 22 H 144/67 H 93 L 11/22/19 00:00 98 11/21/19 23:55 98.0 F 11/21/19 23:40 98.6 F 11/21/19 23:15 98.6 F 11/21/19 22:30 99.3 F 11/21/19 22:19 98 11/21/19 22:15 98.3 F 94 22 H 131/40 L 87 L 11/21/19 20:22 98.0 F 79 22 H 149/67 H 97 11/21/19 20:00 97 Weight Weight 76.158 kg Most Recent Monitor Data Heart Rate from ECG 87 NIBP 98/36 Respiration from ECG 20 I&O: 11/20/19 11/21/19 11/22/19 06:59 06:59 06:59 Intake Total 940 Output Total 150 Balance 790 Result Diagrams: 11/22/19 04:05 11/22/19 04:05 Phys Exam - Physical Examination Constitutional: NAD HEENT: PERRLA, moist MMs, sclera anicteric Neck: no nodes, supple Respiratory: no wheezing, no rales, no rhonchi, clear to auscultation bilateral Cardiovascular: RRR, no significant murmur Gastrointestinal: soft, non-tender, positive bowel sounds Musculoskeletal: no edema, pulses present Neurological: moves all 4 limbs Lymphatic: no nodes Psychiatric: normal affect Skin: no rash, normal turgor Dx/Plan (1) COVID-19 Code(s): U07.1 - COVID-19 Status: Acute (2) CHF exacerbation Code(s): I50.9 - HEART FAILURE, UNSPECIFIED Status: Acute (3) HLD (hyperlipidemia) Code(s): E78.5 - HYPERLIPIDEMIA, UNSPECIFIED Status: Acute (4) Acute respiratory failure Code(s): J96.00 - ACUTE RESPIRATORY FAILURE, UNSP W HYPOXIA OR HYPERCAPNIA Status: Acute Qualifiers: Respiratory failure complication: hypoxia Qualified Code(s): J96.01 - Acute respiratory failure with hypoxia (5) Afib Code(s): I48.91 - UNSPECIFIED ATRIAL FIBRILLATION Status: Chronic Qualifiers: Atrial fibrillation type: paroxysmal Qualified Code(s): I48.0 - Paroxysmal atrial fibrillation (6) CAD (coronary artery disease) Code(s): I25.10 - ATHSCL HEART DISEASE OF [place] CORONARY ARTERY W/O ANG PCTRS Status: Chronic Qualifiers: Coronary Disease-Associated Artery/Lesion type: bypass graft [place] vs. transplanted heart: [place] heart Associated angina: without angina Qualified Code(s): I25.810 - Atherosclerosis of coronary artery bypass graft(s) without angina pectoris (7) CHF (congestive heart failure) Code(s): I50.9 - HEART FAILURE, UNSPECIFIED Status: Chronic (8) End stage chronic kidney disease Code(s): N18.6 - END STAGE RENAL DISEASE Status: Chronic (9) HTN (hypertension) Code(s): I10 - ESSENTIAL (PRIMARY) HYPERTENSION Status: Chronic Qualifiers: Hypertension type: essential hypertension Qualified Code(s): I10 - Essential (primary) hypertension - Plan Plan: 84 yo M with PMH of CHF, CAD, Afib, ESRD on MWF dialysis, and chronic low back pain presents as a transfer from [place] ED. 1. Acute hypoxic respiratory failure 2/2 Covid Pneumonia vs Acute CHF exacerbation -Hypoxic to the 60%s on RA at home. WBC low at 2.6, L shift; Vital signs stable -Hypoxia may be 2/2 to fluid overload as he is a dialysis patient and had pu lmonary vascular congestion on CXR or may be 2/2 Covid -Keep O2 Sats > 92% -Further tx as below 2. Covid+ -WBC low at 2.6, Hypoxic to 60s%, requiring O2 supplementation -Covid labs: * CRP: 21.20 * ESR: 95 * CK: 68 * D-dimer: 5.26 * LDH: 506 * Ferritin: 3126 -Start dexamethasone, convalescent plasma -Remdesivir cannot be given until Erica consulted, plan to consult this morning 2. ESRD MWF dialysis & HFpEF -Fluid overloaded on exam, with BNP 1389.6 and CXR showing pulmonary vascular congestion -Dr. Martinez consulted from ED, appreciate recs -Dialysis 11/20 -Echo 11/06/19: EF 60-65%, grade 2/3 diastolic dysfunction, inferoseptal hypokinesis, mild concentric LVH, mod dil L and R atria; thickened anterior mitral valve leaflet, cannot r/o endocarditis, AV sclerosis, elevated RV systolic pressure estimate 58 mmHg, mild pulmonic regurge -Will monitor fluid status 3. Ind trop, suspect NSTEMI type 2 -Trop indeterminate at 0.147 > 0.180 > 0.171 > 0.167 -Likely due to ESRD and demand ischemia 2/2 to COVID illnes 4. Normocytic anemia -Hgb 6.8 > 10.0, baseline 7-8, on erythropoietin; transfusing 1 unit PRBCs * Large jump is likely due to dialysis and diuresis -Will get basic labs, since it has not been evaluated since 2014 5. Anion Gap Met acidosis -AG of 14 > 13, getting dialyzed -LA: 0.9 -Last A1C: 5.0 (09/11/2019) -Will monitor likely 2/2 to volume contraction & lack of dialysis 6. Afib/flutter s/p ablation -INR 1.2 > 1.1, on coumadin 2 mg qd and not therapeutic; increased to 3 mg * Will monitor and adjust as needed -INR not therapeutic, give heparin 5000 mg TID for DVT ppx -Daily PT/PTT/INR 7. HTN -Resume home medications 8. AST elevation AST: 78 > 83 -Likely 2/2 to COVID -Will consider hepatic workup if not improved tomorrow 9. HLD, CAD -Continue home statin 10. Chronic back pain -Home norco Code Status: DNAR Diet: Renal DVT ppx: home warfarin, heparin GI ppx: protonix PCP: Caitlin ZHU Dispo: We verify he is not a candidate for Remdesivir. Monitor fluid status. Check labs and make INR therapeutic on Coumadin. Consider hepatitis work up if AST unimproved tomorrow, although likely 2/2 to COVID. Anemia- 1 U given, will monitor for now, component of ESRD. Will recheck labs, MCV 95. Anion gap will check monitor for now, likely volume contraction and acidosis 2/2 dialysis need, last A1C was 5. Addendum - Attending - Attending Attestation Date/Time: 11/22/19 3330 I personally evaluated the patient and discussed the management with Dr. Todd I agree with the History, Examination, Assessment and Plan documented above with any addition or exceptions noted below. Patient with marked improvement from admission . Note fever and chills with initiation blood transfusion in patient with Covid 19 acute infection verified appropriate transfusion and tolerated transfusion and HD well no further S/S of transfusion reaction. Note echocardiogram finding and appreciate remdesivir not indicated with ESRD
[2019-11-22] MEDS: Cipro 250 MG TAB PO SCH ×2 (08:27→21:51)
[2019-11-22] MEDS: Ferrous Sulfate 325 MG TAB PO SCH (08:27)
[2019-11-22] MEDS: hydrALAZINE 25 MG TAB PO SCH ×3 (08:27→21:51)
[2019-11-22] MEDS: Aspirin 81 mg Enteric Coated Tablet PO SCH (08:27)
[2019-11-22] MEDS: Heparin 5,000 UNITS/ML VIAL SC SCH ×3 (08:28→21:52)
[2019-11-22] MEDS: Carvedilol 3.125 MG TAB PO SCH ×2 (08:28→16:25)
[2019-11-22] MEDS: Dexamethasone 6 MG in Sodium Chloride 0.9% 50 ML IVPB SCH (08:28)
[2019-11-22 09:29] VITALS: BMI 24.7
[2019-11-22 09:34] LABS: Iron 14 ug/dL (65-175); Iron Binding Capacity, Total 149 mcg/dL (261-462)
--- NOTE | 2019-11-22 11:11 | PRG ---
DATE OF SERVICE: 11/22/2019 SUBJECTIVE: Mr. Rizvi is an 84-year-old white male with ESRD, was admitted due to hypoxemia and fever. He was found to have COVID-19 infection. Please note, his was recently diagnosed with COVID-19 infection several days ago. We are now following up this patient for his maintenance hemodialysis. He did undergo hemodialysis yesterday with 3 L fluid removal. No new complaints today. He tells me his breathing is better. OBJECTIVE: VITAL SIGNS: Blood pressure 144/67, temperature 100.2, heart rate 96, respiratory rate 22, O2 saturation 93%. GENERAL: The patient is awake, alert, comfortable, not in overt distress. SKIN: Adequate turgor. HEENT: Slightly pale conjunctivae. Anicteric sclerae. No neck mass. No carotid bruits. No JVD. CHEST: No deformities. LUNGS: Decreased breath sounds. HEART: Normal sinus rhythm. No murmurs, gallops, or rubs. ABDOMEN: Globular, soft, nontender. No masses. EXTREMITIES: No edema. No deformities. MEDICATIONS: Medications of November 22, 2019, were reviewed. LABORATORY DATA: Laboratories of November 22, 2019: White count 2.6, hemoglobin 10. Sodium 137, potassium 4.2, chloride 98, carbon dioxide 26, BUN 20, creatinine 3.31, calcium 8, iron 14. AST is 83, ALT less than 7, albumin 3.1. ASSESSMENT AND PLAN: 1. End-stage renal disease - the patient received hemodialysis yesterday with 3 L fluid removal. Continue Sunday, Sunday, and Sunday hemodialysis regimen. 2. COVID-19 infection - continuing supportive care. 3. Shortness of breath/combination of some degree of volume overload/CHF as well as possibility of COVID-19 pneumonia remains. 4. Anemia, on iron supplementation. Continue to observe, p.r.n. blood transfusion. Holding off Epogen for this week and we will resume next week. 5. Recheck CBC, basic met in a.m. Job ID: [id number]
[2019-11-22] MEDS: Warfarin Sodium 5 MG TAB PO SCH (16:26)
[2019-11-22] MEDS: Acetaminophen 325 MG TAB PO PRN (16:35)
[2019-11-22] MEDS ORDERED: Warfarin Sodium 3 MG TAB PO SCH (17:00)
[2019-11-22] MEDS ORDERED: Warfarin Sodium 2 MG TAB PO SCH (17:00)
[2019-11-22] MEDS: Atorvastatin Calcium 20 MG TAB PO SCH (21:51)
[2019-11-22] MEDS: Melatonin 3 MG TAB PO SCH (21:51)
[2019-11-22] MEDS: HumaLOG 300 UNITS/3 ML VIAL SC PRN (21:52)
[2019-11-23] MEDS: HYDROcodone/Acetaminophen 10/325 mg Tablet PO PRN (03:17)
--- NOTE | 2019-11-23 05:03 | PDOC.FM ---
- Subjective Subjective: Pt says he does not feel really changed. He was unable to sleep last night and he says he has problems sleeping when he comes into the hospital. He had a bowel movement last night. He does not complain of abdominal pain or shortness of breathe. - Objective MAR Reviewed: Yes Vital Signs & Weight: Vital Signs (12 hours) Temp Pulse Resp BP Pulse Ox 11/23/19 04:00 98.4 F 62 18 130/68 99 11/23/19 00:00 98.2 F 64 18 100/51 L 95 11/22/19 21:51 71 11/22/19 20:00 98.7 F 71 20 124/59 L 97 Weight Admit Weight 78.199 kg Weight 76.158 kg Most Recent Monitor Data Heart Rate from ECG 87 NIBP 98/36 Respiration from ECG 20 I&O: 11/21/19 11/22/19 11/23/19 06:59 06:59 06:59 Intake Total 940 720 Output Total 150 0 Balance 790 720 Result Diagrams: 11/23/19 05:16 11/23/19 06:30 EKG Reviewed by me: Yes (sinus rhythm with 1st degree AVB) Phys Exam - Physical Examination Constitutional: NAD HEENT: moist MMs, sclera anicteric Neck: no nodes, supple Respiratory: clear to auscultation bilateral Cardiovascular: RRR, no significant murmur, no rub Gastrointestinal: soft, non-tender, positive bowel sounds Musculoskeletal: no edema, pulses present Neurological: moves all 4 limbs Lymphatic: no nodes Psychiatric: normal affect Skin: no rash Dx/Plan (1) COVID-19 Code(s): U07.1 - COVID-19 Status: Acute (2) CHF exacerbation Code(s): I50.9 - HEART FAILURE, UNSPECIFIED Status: Acute (3) HLD (hyperlipidemia) Code(s): E78.5 - HYPERLIPIDEMIA, UNSPECIFIED Status: Acute (4) Acute respiratory failure Code(s): J96.00 - ACUTE RESPIRATORY FAILURE, UNSP W HYPOXIA OR HYPERCAPNIA Status: Acute Qualifiers: Respiratory failure complication: hypoxia Qualified Code(s): J96.01 - Acute respiratory failure with hypoxia (5) Afib Code(s): I48.91 - UNSPECIFIED ATRIAL FIBRILLATION Status: Chronic Qualifiers: Atrial fibrillation type: paroxysmal Qualified Code(s): I48.0 - Paroxysmal atrial fibrillation (6) CAD (coronary artery disease) Code(s): I25.10 - ATHSCL HEART DISEASE OF [place] CORONARY ARTERY W/O ANG PCTRS Status: Chronic Qualifiers: Coronary Disease-Associated Artery/Lesion type: bypass graft [place] vs. transplanted heart: [place] heart Associated angina: without angina Qualified Code(s): I25.810 - Atherosclerosis of coronary artery bypass graft(s) without angina pectoris (7) CHF (congestive heart failure) Code(s): I50.9 - HEART FAILURE, UNSPECIFIED Status: Chronic (8) End stage chronic kidney disease Code(s): N18.6 - END STAGE RENAL DISEASE Status: Chronic (9) HTN (hypertension) Code(s): I10 - ESSENTIAL (PRIMARY) HYPERTENSION Status: Chronic Qualifiers: Hypertension type: essential hypertension Qualified Code(s): I10 - Essential (primary) hypertension - Plan Plan: 84 yo M with PMH of CHF, CAD, Afib, ESRD on MWF dialysis, and chronic low back pain presents as a transfer from [facility]. 1. Acute hypoxic respiratory failure 2/2 Covid Pneumonia vs Acute CHF exacerbation -Hypoxic to the 60%s on RA at home. WBC low at 2.6, L shift; Vital signs stable -Hypoxia may be 2/2 to fluid overload as he is a dialysis patient and had pulmonary vascular congestion on CXR or may be 2/2 Covid -Keep O2 Sats > 92% -Further tx as below 2. Covid+ -WBC low at 2.6, Hypoxic to 60s%, requiring O2 supplementation -Covid labs: * CRP: 21.20 * ESR: 95 * CK: 68 * D-dimer: 5.26 * LDH: 506 * Ferritin: 3126 -Start dexamethasone, convalescent plasma -Remdesivir cannot be given until Erica consulted, plan to consult this morning 2. ESRD MWF dialysis & HFpEF -Fluid overloaded on exam, with BNP 1389.6 and CXR showing pulmonary vascular congestion -Dr. Martinez consulted from ED, appreciate recs -Dialysis 11/20 -Echo 11/06/19: EF 60-65%, grade 2/3 diastolic dysfunction, inferoseptal hypokinesis, mild concentric LVH, mod dil L and R atria; thickened anterior mitral valve leaflet, cannot r/o endocarditis, AV sclerosis, elevated RV systolic pressure estimate 58 mmHg, mild pulmonic regurge -Will monitor fluid status 3. Ind trop, suspect NSTEMI type 2 -Trop indeterminate at 0.147 > 0.180 > 0.171 > 0.167 -Likely due to ESRD and demand ischemia 2/2 to COVID illnes 4. Normocytic anemia -Hgb 6.8 > 10.0, baseline 7-8, on erythropoietin; transfusing 1 unit PRBCs * Large jump is likely due to dialysis and diuresis -Will get basic labs, since it has not been evaluated since 2014 5. Anion Gap Met acidosis -AG of 14 > 13, getting dialyzed -LA: 0.9 -Last A1C: 5.0 (09/11/2019) -Will monitor likely 2/2 to volume contraction & lack of dialysis 6. Afib/flutter s/p ablation -INR 1.2 > 1.1, on coumadin 2 mg qd and not therapeutic; increased to 3 mg * Will monitor and adjust as needed -INR not therapeutic, give heparin 5000 mg TID for DVT ppx -Daily PT/PTT/INR 7. HTN -Resume home medications 8. AST elevation AST: 78 > 83 -Likely 2/2 to COVID -Will consider hepatic workup if not improved tomorrow 9. HLD, CAD -Continue home statin 10. Chronic back pain -Home norco 11. Leukopenia WBC: 2.1 -Will get peripheral smear Code Status: DNAR Diet: Renal DVT ppx: home warfarin, heparin GI ppx: protonix PCP: Caitlin ZHU Dispo: White blood cell count down. Will get peripheral smear to look for possible causes. We will consider further workup. Awaiting CMP to see where to go for his anion gap and AST elevation. Labs obtained show Iron Deficiency Anemia and TSAT of 9% will give iron infusion. O2 sat dropped with weaning of oxygen. CM placed for re-ordering home O2. Addendum - Attending - Attending Attestation Date/Time: 11/23/19 2078 I personally evaluated the patient and discussed the management with Dr. Todd I agree with the History, Examination, Assessment and Plan documented above with any addition or exceptions noted below.
[2019-11-23 05:33] LABS: #Lymphocytes 0.4 thou/uL (1.20-3.40); #Monocytes 0.3 thou/uL (0.11-0.59); #Neutrophils 1.3 thou/uL (1.40-6.50); %Basophils 0.9 % (0.0-1.0); %Eosinophils 1.8 % (0.0-10.0); %Lymphocytes 19.6 % (21.0-51.0); %Neutrophils 64.8 % (42.0-75.0); Hemoglobin 9.2 g/dL (14.0-18.0); Mean Corpuscular HGB CONC 31.7 g/dL (32.0-36.0); Mean Corpuscular Hemoglobin 30.6 pg (27.0-31.0); Mean Corpuscular Volume 96.3 fL (78.0-98.0); Mean Platelet Volume 8.4 fL (7.4-10.4); Platelet Count 95 thou/uL (130-400); RBC Distribution Width 13.1 % (11.5-14.5); Red Blood Cell (RBC) Count 3.01 mill/uL (4.70-6.10); White Blood Cell (WBC) Count 2.1 thou/uL (4.8-10.8)
[2019-11-23 05:42] LABS: INR-International Normal Ratio 1.4; PTT 44.4 sec (22.9-36.1); Prothrombin Time 16.9 sec (12.0-14.7)
[2019-11-23] MEDS ORDERED: Iron, Sodium Ferric Gluconate 125 MG in Sodium Chloride 0.9% 100 ML IVPB SCH (07:00)
[2019-11-23 07:15] LABS: Band 4 % (5-11); Lymphocytes 10 % (21-51); Monocytes 8 % (0-10)
[2019-11-23 07:20] LABS: ALT (SGPT) Less than 7 U/L (8-55); AST (SGOT) 70 U/L (5-34); Albumin 2.4 g/dL (3.4-4.8); Alkaline Phosphatase 92 U/L (40-110); Anion Gap 19 mmol/L (10-20); BUN (Urea Nitrogen) 40 mg/dL (8.4-25.7); Bilirubin, Total 0.5 mg/dL (0.2-1.2); Calc. Creatinine Clearance 12 mL/min (70-130); Calcium 7.9 mg/dL (7.8-10.44); Carbon Dioxide 22 mmol/L (23-31); Chloride 99 mmol/L (98-107); Estimated GFR-MDRD 11; Globulin 3.5 g/dL (2.4-3.5); Glucose 186 mg/dL (83-110); Potassium 5.5 mmol/L (3.5-5.1); Protein, Total 5.9 g/dL (5.8-8.1); Sodium 134 mmol/L (136-145)
[2019-11-23] MEDS ORDERED: hydrOXYzine 10 MG TAB PO PRN (08:43)
[2019-11-23] MEDS: Aspirin 81 mg Enteric Coated Tablet PO SCH (09:09)
[2019-11-23] MEDS: Cipro 250 MG TAB PO SCH ×2 (09:10→20:59)
[2019-11-23] MEDS: Dexamethasone 6 MG in Sodium Chloride 0.9% 50 ML IVPB SCH (09:10)
[2019-11-23] MEDS: Ferrous Sulfate 325 MG TAB PO SCH (09:10)
[2019-11-23] MEDS: hydrALAZINE 25 MG TAB PO SCH ×3 (09:10→20:59)
[2019-11-23] MEDS: Carvedilol 3.125 MG TAB PO SCH ×2 (09:10→16:44)
[2019-11-23] MEDS: Heparin 5,000 UNITS/ML VIAL SC SCH (09:38)
[2019-11-23] MEDS: HumaLOG 300 UNITS/3 ML VIAL SC PRN ×2 (12:35→18:07)
[2019-11-23] MEDS: Warfarin Sodium 5 MG TAB PO SCH (16:44)
[2019-11-23] MEDS: Melatonin 3 MG TAB PO SCH (20:58)
[2019-11-23] MEDS: Atorvastatin Calcium 20 MG TAB PO SCH (20:58)
[2019-11-24 01:51] LABS: Actual Bicarbonate (HCO3a) 26.1 mEq/L (22-28); Base Excess (BEa) 0.6 mEq/L (-2.0 to +3.0); CO2 Tension 46.1 mmHg (35.0-45.0); Calcium, Ionized (arterial) 1.04 mmol/L (1.12-1.30); Carboxyhemoglobin (COHb) 0.2 gm% (0.0-3.0); Hemoglobin (Hb) 10.4 g/dL (14.0-18.0); Potassium - ABG Lab 5.27 mmol/L (3.70-5.30); pH, Arterial 7.37 (7.35-7.45)
[2019-11-24 01:59] LABS: O2 Tension (PaO2), arterial 48.6 mmHg (> 60.0); Puncture Site RRA
[2019-11-24 02:00] LABS: ALV-art Gradient 250.275 mmHg (0-20)
[2019-11-24] MEDS: HYDROcodone/Acetaminophen 10/325 mg Tablet PO PRN (02:45)
[2019-11-24 05:45] LABS: #Lymphocytes 0.4 thou/uL (1.20-3.40); #Monocytes 0.3 thou/uL (0.11-0.59); #Neutrophils 3.6 thou/uL (1.40-6.50); %Eosinophils 0.2 % (0.0-10.0); %Lymphocytes 9.8 % (21.0-51.0); %Monocytes 7.1 % (0.0-10.0); %Neutrophils 82.9 % (42.0-75.0); Hemoglobin 9.4 g/dL (14.0-18.0); Mean Corpuscular HGB CONC 32.7 g/dL (32.0-36.0); Mean Corpuscular Hemoglobin 31.2 pg (27.0-31.0); Mean Corpuscular Volume 95.4 fL (78.0-98.0); Mean Platelet Volume 8.5 fL (7.4-10.4); Platelet Count 144 thou/uL (130-400); RBC Distribution Width 13.4 % (11.5-14.5); Red Blood Cell (RBC) Count 3.01 mill/uL (4.70-6.10); White Blood Cell (WBC) Count 4.3 thou/uL (4.8-10.8)
[2019-11-24 05:57] LABS: INR-International Normal Ratio 1.9; Prothrombin Time 21.9 sec (12.0-14.7)
[2019-11-24 05:58] LABS: D-Dimer Test 2.82 *mcg/mL (0.27-0.43)
[2019-11-24 06:19] LABS: ALT (SGPT) Less than 7 U/L (8-55); AST (SGOT) 59 U/L (5-34); Albumin 2.4 g/dL (3.4-4.8); Alkaline Phosphatase 99 U/L (40-110); Anion Gap 19 mmol/L (10-20); BUN (Urea Nitrogen) 54 mg/dL (8.4-25.7); Bilirubin, Total 0.5 mg/dL (0.2-1.2); Calc. Creatinine Clearance 11 mL/min (70-130); Calcium 7.8 mg/dL (7.8-10.44); Carbon Dioxide 23 mmol/L (23-31); Chloride 96 mmol/L (98-107); Estimated GFR-MDRD 9; Globulin 3.7 g/dL (2.4-3.5); Glucose 202 mg/dL (83-110); Potassium 5.5 mmol/L (3.5-5.1); Protein, Total 6.1 g/dL (5.8-8.1); Sodium 132 mmol/L (136-145)
[2019-11-24] MEDS: HumaLOG 300 UNITS/3 ML VIAL SC PRN ×3 (06:24→16:46)
--- NOTE | 2019-11-24 06:58 | PDOC.FM ---
- Subjective Subjective: Pt is doing ok today. He is on high flow NC oxygen from 5 L yesterday. Nurse states he looks better now sitting in chair from lying flat. He was lying flat when switched to NC oxygen. He is scheduled for dialysis this afternoon. He does not want to intubated. - Objective Vital Signs & Weight: Vital Signs (12 hours) Temp Pulse Resp BP Pulse Ox 11/24/19 02:52 96 11/24/19 02:51 97.9 F 74 26 H 142/63 H 96 11/24/19 02:38 94 L 11/23/19 23:36 95 11/23/19 23:35 98.1 F 64 24 H 164/63 H 95 11/23/19 20:59 97.8 F 80 20 123/60 96 Weight Admit Weight 78.199 kg Weight 77.156 kg Most Recent Monitor Data Heart Rate from ECG 87 NIBP 98/36 Respiration from ECG 20 I&O: 11/22/19 11/23/19 11/24/19 06:59 06:59 06:59 Intake Total 940 1105 240 Output Total 150 0 Balance 790 1105 240 Result Diagrams: 11/24/19 05:02 11/24/19 05:02 Phys Exam - Physical Examination Constitutional: NAD HEENT: PERRLA, moist MMs Neck: no JVD Rales bilaterally more significant in bases than apex Cardiovascular: RRR, no significant murmur Gastrointestinal: soft, non-tender Musculoskeletal: no edema, pulses present Neurological: non-focal, moves all 4 limbs Psychiatric: normal affect, A&O x 3 Dx/Plan (1) CHF exacerbation Code(s): I50.9 - HEART FAILURE, UNSPECIFIED Status: Acute (2) COVID-19 Code(s): U07.1 - COVID-19 Status: Acute (3) Afib Code(s): I48.91 - UNSPECIFIED ATRIAL FIBRILLATION Status: Chronic Qualifiers: Atrial fibrillation type: paroxysmal Qualified Code(s): I48.0 - Paroxysmal atrial fibrillation (4) Anemia Code(s): D64.9 - ANEMIA, UNSPECIFIED Status: Chronic (5) End stage chronic kidney disease Code(s): N18.6 - END STAGE RENAL DISEASE Status: Chronic (6) HTN (hypertension) Code(s): I10 - ESSENTIAL (PRIMARY) HYPERTENSION Status: Chronic Qualifiers: Hypertension type: essential hypertension Qualified Code(s): I10 - Essential (primary) hypertension - Plan Plan: 84 yo M with PMH of CHF, CAD, Afib, ESRD on MWF dialysis, and chronic low back pain presents as a transfer from [place] ED. 1. Acute hypoxic respiratory failure 2/2 Covid Pneumonia vs Acute CHF exacerbation -Hypoxic to the 60%s on RA at home. WBC low at 2.6, L shift; Vital signs stable -Currently on high flow. Initiated overnight. Continue at this time. Hopefully will improve after dialysis, removal of fluid. Pt is DNAR. -Keep O2 Sats > 92% -Further tx as below 2. Covid+ -WBC low at 2.6, Hypoxic to 60s%, requiring O2 supplementation -Covid labs: * CRP: 21.20 * ESR: 95 * CK: 68 * D-dimer: 5.26 * LDH: 506 * Ferritin: 3126 -Cont dexamethasone; convalescent plasma given -Remdesivir cannot be given w/ ESRD 2. ESRD MWF dialysis & HFpEF -Fluid overloaded on exam, with BNP 1389.6 and CXR showing pulmonary vascular congestion -Dr. Martinez consulted from ED, appreciate recs -Echo 11/06/19: EF 60-65%, grade 2/3 diastolic dysfunction, inferoseptal hypokinesis, mild concentric LVH, mod dil L and R atria; thickened anterior mitral valve leaflet, cannot r/o endocarditis, AV sclerosis, elevated RV systolic pressure estimate 58 mmHg, mild pulmonic regurge 3. Ind trop, suspect NSTEMI type 2 - resolved -Trop indeterminate at 0.147 > 0.180 > 0.171 > 0.167 -Likely due to ESRD and demand ischemia 2/2 to COVID illness 4. Normocytic anemia - iron deficiency and ESRD -Hgb 6.8 > 10.0, baseline 7-8, on erythropoietin; transfusing 1 unit PRBCs * Large jump is likely due to dialysis and diuresis 5. Anion Gap Met acidosis - likely 2/2 ESRD; continue dialysis 6. Afib/flutter s/p ablation -INR 1.2 > 1.1, on coumadin 2 mg qd and not therapeutic; increased to 3 mg --> will adjust so he is receiving a 10-20% increase in dosage after receiving a 5 mg dose on 11/22 * Will monitor and adjust as needed -INR not therapeutic, give heparin 5000 mg TID for DVT ppx -Daily PT/PTT/INR 7. HTN -Resume home medications 8. AST elevation AST: 78 > 83 -Likely 2/2 to COVID -Will consider hepatic workup if not improved tomorrow 9. HLD, CAD -Continue home statin 10. Chronic back pain -Home norco 11. Leukopenia WBC: 2.1 -pending peripheral smear but likely 2/2 COVID Code Status: DNAR Diet: Renal DVT ppx: home warfarin, heparin GI ppx: protonix PCP: Caitlin ZHU Dispo: monitor respiratory status today - hopefully improve with dialysis. Consider Bipap in IMCU if he continues to decline as this seems to mixed heart failure and COVID pneumonia. Addendum - Attending - Attending Attestation Date/Time: 11/24/19 1038 I personally evaluated the patient and discussed the management with Dr. Stuart I agree with the History, Examination, Assessment and Plan documented above with any addition or exceptions noted below. Hypoxic resp. failure,secondary to [id number] CHF exacerbation, ESRD, A-fib, anemia, NSTEMI. Resp supportive care, HD, titrate HFNC as tolerated, not candidate for Remdiesivir. Getting Dex. for convalescent plasma.
--- NOTE | 2019-11-24 08:59 | PRG ---
DATE OF SERVICE: 11/24/2019 SUBJECTIVE: Mr. Rizvi is an 84-year-old white male with ESRD - on maintenance hemodialysis - was initially admitted for COVID-19 pneumonia. Currently being treated for the said COVID-19. Also, complaining of some hemoptysis. He has some mild shortness of breath. I have scheduled him for dialysis today. OBJECTIVE: VITAL SIGNS: Blood pressure is 167/75, heart rate 78, respiratory rate 24, temperature 97.7, O2 saturation 94% on high-flow oxygen. GENERAL: The patient is awake, sitting, not in overt distress. SKIN: Adequate turgor. HEENT: He has slightly pale conjunctivae. Anicteric sclerae. No neck mass. No carotid bruits. No JVD. CHEST: No deformities. LUNGS: bibasilar crackles. HEART: Normal sinus rhythm. No murmurs. No gallops. No rubs. ABDOMEN: Globular, soft, and nontender. No masses. EXTREMITIES: No edema. MEDICATIONS: November 24, 2019, were reviewed. LABORATORY DATA: November 24, 2019: White count 4.3, hemoglobin 9.4. Sodium 132, potassium 5.5, chloride 96, carbon dioxide 23, BUN 54, creatinine 5.88, glucose 202, calcium 7.8, AST 59, ALT 7, and albumin 2.4. Hemoglobin is 9.4. ASSESSMENT AND PLAN: 1. End-stage renal disease. We will continue current hemodialysis regimen. Attempt fluid removal as tolerated by this patient. We will max out fluid removal. 2. COVID-19 pneumonia - currently on supportive care, currently on dexamethasone, currently on high-flow oxygen. 3. Anemia. The patient currently on ferrous sulfate. We will recheck CBC and basic metabolic panel in a.m. Job ID: [id number]
[2019-11-24] MEDS ORDERED: CEFAZOLIN 3 GM, Admixture Fee 1 EACH in Sodium Chloride 0.9% 100 ML IVPB SCH (09:00)
--- NOTE | 2019-11-24 09:09 | RAD ---
PORTABLE CHEST: HISTORY: Increased shortness of breath. FINDINGS: Heart size is enlarged. There is some worsening of the interstitial alveolar lung changes as compare d to the prior examination, particularly the parahilar and right upper lobe change. IMPRESSION: Worsening interstitial alveolar lung change. POS: EVE
[2019-11-24] MEDS ORDERED: Heparin 10,000 UNITS/ 10 ML VIAL ONE (09:24)
[2019-11-24] MEDS: Carvedilol 3.125 MG TAB PO SCH ×2 (09:30→16:45)
[2019-11-24] MEDS: Ferrous Sulfate 325 MG TAB PO SCH (09:30)
[2019-11-24] MEDS: Aspirin 81 mg Enteric Coated Tablet PO SCH (09:30)
[2019-11-24] MEDS: hydrALAZINE 25 MG TAB PO SCH ×3 (09:30→20:08)
[2019-11-24] MEDS: Dexamethasone 6 MG in Sodium Chloride 0.9% 50 ML IVPB SCH ×2 (09:30→17:13)
[2019-11-24] MEDS: Cipro 250 MG TAB PO SCH ×2 (09:30→20:08)
[2019-11-24] MEDS: Warfarin Sodium 5 MG TAB PO SCH (16:45)
[2019-11-24] MEDS ORDERED: Dexamethasone 4 MG TAB PO SCH (18:00)
[2019-11-24] MEDS ORDERED: CEFAZOLIN 3 GM in Sodium Chloride 0.9% 100 ML IVPB SCH (20:00)
[2019-11-24] MEDS: Melatonin 3 MG TAB PO SCH (20:07)
[2019-11-24] MEDS: Atorvastatin Calcium 20 MG TAB PO SCH (20:08)
[2019-11-24] MEDS: hydrOXYzine 10 MG TAB PO PRN (20:08)
[2019-11-25] MEDS: hydrOXYzine 10 MG TAB PO PRN ×3 (02:12→18:47)
[2019-11-25 03:28] LABS: Actual Bicarbonate (HCO3a) 26.7 mEq/L (22-28); Base Excess (BEa) 1.5 mEq/L (-2.0 to +3.0); CO2 Tension 44.9 mmHg (35.0-45.0); O2 Tension (PaO2), arterial 75.2 mmHg (> 60.0); pH, Arterial 7.39 (7.35-7.45)
[2019-11-25 03:29] LABS: Calcium, Ionized (arterial) 1.07 mmol/L (1.12-1.30); Carboxyhemoglobin (COHb) 0.3 gm% (0.0-3.0); Hemoglobin (Hb) 10.3 g/dL (14.0-18.0); Potassium - ABG Lab 4.59 mmol/L (3.70-5.30)
[2019-11-25 03:30] LABS: ALV-art Gradient 517.505 mmHg (0-20); Puncture Site RRA
[2019-11-25 05:18] LABS: INR-International Normal Ratio 2.4; PTT 35.5 sec (22.9-36.1); Prothrombin Time 26.3 sec (12.0-14.7)
[2019-11-25 05:38] LABS: ALT (SGPT) Less than 7 U/L (8-55); AST (SGOT) 66 U/L (5-34); Albumin 2.6 g/dL (3.4-4.8); Alkaline Phosphatase 124 U/L (40-110); Anion Gap 21 mmol/L (10-20); BUN (Urea Nitrogen) 35 mg/dL (8.4-25.7); Bilirubin, Total 0.7 mg/dL (0.2-1.2); Calc. Creatinine Clearance 15 mL/min (70-130); Calcium 7.7 mg/dL (7.8-10.44); Carbon Dioxide 20 mmol/L (23-31); Chloride 98 mmol/L (98-107); Estimated GFR-MDRD 14; Globulin 4.6 g/dL (2.4-3.5); Glucose 239 mg/dL (83-110); Potassium 5.8 mmol/L (3.5-5.1); Protein, Total 7.2 g/dL (5.8-8.1); Sodium 133 mmol/L (136-145)
[2019-11-25 05:44] LABS: #Lymphocytes 0.3 thou/uL (1.20-3.40); #Monocytes 0.2 thou/uL (0.11-0.59); #Neutrophils 4.3 thou/uL (1.40-6.50); %Basophils 0.3 % (0.0-1.0); %Eosinophils 0.4 % (0.0-10.0); %Lymphocytes 5.3 % (21.0-51.0); %Monocytes 4.7 % (0.0-10.0); %Neutrophils 89.3 % (42.0-75.0); Hemoglobin 9.9 g/dL (14.0-18.0); Mean Corpuscular HGB CONC 31.5 g/dL (32.0-36.0); Mean Corpuscular Hemoglobin 29.6 pg (27.0-31.0); Mean Corpuscular Volume 94.2 fL (78.0-98.0); Mean Platelet Volume 9.8 fL (7.4-10.4); Platelet Count 75 thou/uL (130-400); Platelet Morphology Comment Appears Decreased; RBC Distribution Width 13.4 % (11.5-14.5); Red Blood Cell (RBC) Count 3.33 mill/uL (4.70-6.10); White Blood Cell (WBC) Count 4.8 thou/uL (4.8-10.8)
[2019-11-25] MEDS: HumaLOG 300 UNITS/3 ML VIAL SC PRN ×2 (06:05→10:42)
--- NOTE | 2019-11-25 06:26 | PDOC.FM ---
- Subjective Subjective: Pt is short of breath today. He states it is worse than yesterday. He is on maximum high flow NC. Discussed worsening respiratory status and pt confirmed again he does not want to be intubated. He had 2 L of fluid removed during dialysis. - Objective Vital Signs & Weight: Vital Signs (12 hours) Temp Pulse Resp BP Pulse Ox 11/25/19 03:45 98.5 F 82 24 H 159/68 H 96 11/25/19 00:53 91 L 11/25/19 00:18 85 L 11/24/19 22:53 97.9 F 81 21 H 131/62 94 L 11/24/19 20:08 99.5 F 86 26 H 126/62 94 L Weight Admit Weight 78.199 kg Weight 77.065 kg Most Recent Monitor Data Heart Rate from ECG 87 NIBP 98/36 Respiration from ECG 20 I&O: 11/23/19 11/24/19 11/25/19 06:59 06:59 06:59 Intake Total 1105 240 690 Output Total 0 Balance 1105 240 690 Result Diagrams: 11/25/19 04:53 11/25/19 04:53 Phys Exam - Physical Examination uncomfortable appearing HEENT: PERRLA, moist MMs, sclera anicteric Neck: no JVD, full ROM diffuse rales, crackles; increased work of breathing Cardiovascular: RRR, no significant murmur Gastrointestinal: soft, non-tender Musculoskeletal: no edema, pulses present Neurological: non-focal, moves all 4 limbs Psychiatric: normal affect, A&O x 3 Dx/Plan (1) CHF exacerbation Code(s): I50.9 - HEART FAILURE, UNSPECIFIED Status: Acute (2) COVID-19 Code(s): U07.1 - COVID-19 Status: Acute (3) Afib Code(s): I48.91 - UNSPECIFIED ATRIAL FIBRILLATION Status: Chronic Qualifiers: Atrial fibrillation type: paroxysmal Qualified Code(s): I48.0 - Paroxysmal atrial fibrillation (4) Anemia Code(s): D64.9 - ANEMIA, UNSPECIFIED Status: Chronic (5) End stage chronic kidney disease Code(s): N18.6 - END STAGE RENAL DISEASE Status: Chronic (6) HTN (hypertension) Code(s): I10 - ESSENTIAL (PRIMARY) HYPERTENSION Status: Chronic Qualifiers: Hypertension type: essential hypertension Qualified Code(s): I10 - E ssential (primary) hypertension - Plan Plan: 84 yo M with PMH of CHF, CAD, Afib, ESRD on MWF dialysis, and chronic low back pain presents as a transfer from [place] ED. 1. Acute hypoxic respiratory failure 2/2 Covid Pneumonia vs Acute CHF exacerbation -Pt did not improve with dialysis. Currently maxed on high flow. Will transfer to [facility]. If continues to deteriorate will start bipap. Pt is DNAR. -Keep O2 Sats > 92% -Further tx as below 2. Covid+ -as above -Cont dexamethasone; convalescent plasma given -Remdesivir cannot be given w/ ESRD 2. ESRD MWF dialysis & HFpEF -Dr. Martinez consulted from ED, appreciate recs -Echo 11/06/19: EF 60-65%, grade 2/3 diastolic dysfunction, inferoseptal hypokinesis, mild concentric LVH, mod dil L and R atria; thickened anterior mitral valve leaflet, cannot r/o endocarditis, AV sclerosis, elevated RV systolic pressure estimate 58 mmHg, mild pulmonic regurge 3. Ind trop, suspect NSTEMI type 2 - resolved -Likely due to ESRD and demand ischemia 2/2 to COVID illness 4. Normocytic anemia - iron deficiency and ESRD -Hgb 6.8 > 10.0, baseline 7-8, on erythropoietin; transfusing 1 unit PRBCs * Large jump is likely due to dialysis and diuresis 5. Anion Gap Met acidosis - resolved - likely 2/2 ESRD; continue dialysis 6. Afib/flutter s/p ablation -Received Warfarin 5 mg for three days. Will start Warfarin at 2.5 mg today for a 2-3 days. -Daily PT/PTT/INR 7. HTN -Resume home medications 8. AST elevation AST: 78 > 83 -Likely 2/2 to COVID 9. HLD, CAD -Continue home statin 10. Chronic back pain -Home norco 11. Leukopenia WBC: 2.1 - Likely 2/2 COVID Code Status: DNAR Diet: Renal DVT ppx: home warfarin GI ppx: protonix PCP: Caitlin ZHU Dispo: transfer to [facility] for worsening respiratory status.
[2019-11-25] MEDS: Dexamethasone 4 MG TAB PO SCH (09:11)
[2019-11-25] MEDS: hydrALAZINE 25 MG TAB PO SCH ×3 (09:11→20:54)
[2019-11-25] MEDS: Carvedilol 3.125 MG TAB PO SCH ×2 (09:12→18:47)
[2019-11-25] MEDS: Cipro 250 MG TAB PO SCH ×2 (09:12→20:54)
[2019-11-25] MEDS: Aspirin 81 mg Enteric Coated Tablet PO SCH (09:12)
[2019-11-25] MEDS: Ferrous Sulfate 325 MG TAB PO SCH (09:12)
--- NOTE | 2019-11-25 15:40 | PDOC.EVN ---
Event Note - Event Note Event Note: Discussed worsening respiratory status, progression of disease, and poor prognosis over the last 24 hours with patient. He understood at this time his respiratory status was declining even on high flow and the next progression of therapy would be Bipap. At this time he confirmed his DNR status. As of ~1300 on 11/24 pt notified he was considering revoking his DNR status. I discussed separately with his and daughter his poor prognosis in the setting of COVID pneumonia, ESRD, and HF. Ultimately the patient has decided he would like to revoke DNR status and is Chem-Intubate Only. He does not want chest compressions. Luis Stuart, DO 11/25/19 [id number]
[2019-11-25] MEDS ORDERED: EPINEPHrine 1 MG/10 ML Abboject SYRINGE ONE (15:49)
[2019-11-25] MEDS ORDERED: Warfarin Sodium 2 MG TAB PO SCH (17:00)
[2019-11-25] MEDS: Melatonin 3 MG TAB PO SCH (20:54)
[2019-11-25] MEDS: Atorvastatin Calcium 20 MG TAB PO SCH (20:54)
[2019-11-25] MEDS ORDERED: HumaLOG 300 UNITS/3 ML VIAL SC PRN (23:28)
[2019-11-26] MEDS: hydrOXYzine 10 MG TAB PO PRN ×2 (00:13→09:24)
[2019-11-26 03:52] LABS: PTT 53.7 sec (22.9-36.1)
[2019-11-26 03:53] LABS: Prothrombin Time 49.2 sec (12.0-14.7)
[2019-11-26 03:59] LABS: ALT (SGPT) Less than 7 U/L (8-55); AST (SGOT) 35 U/L (5-34); Albumin 2.6 g/dL (3.4-4.8); Alkaline Phosphatase 180 U/L (40-110); Anion Gap 22 mmol/L (10-20); BUN (Urea Nitrogen) 54 mg/dL (8.4-25.7); Bilirubin, Total 0.8 mg/dL (0.2-1.2); Calc. Creatinine Clearance 12 mL/min (70-130); Calcium 8.1 mg/dL (7.8-10.44); Carbon Dioxide 20 mmol/L (23-31); Chloride 96 mmol/L (98-107); Estimated GFR-MDRD 11; Globulin 3.8 g/dL (2.4-3.5); Glucose 327 mg/dL (83-110); Potassium 5.2 mmol/L (3.5-5.1); Protein, Total 6.4 g/dL (5.8-8.1); Sodium 133 mmol/L (136-145)
[2019-11-26 03:59] LABS: INR-International Normal Ratio 5.2
[2019-11-26 04:03] LABS: #Lymphocytes 0.2 thou/uL (1.20-3.40); #Monocytes 0.3 thou/uL (0.11-0.59); %Eosinophils 0.3 % (0.0-10.0); %Lymphocytes 3.9 % (21.0-51.0); %Monocytes 7.3 % (0.0-10.0); %Neutrophils 88.5 % (42.0-75.0); Hemoglobin 9.5 g/dL (14.0-18.0); Mean Corpuscular HGB CONC 31.4 g/dL (32.0-36.0); Mean Corpuscular Hemoglobin 30.3 pg (27.0-31.0); Mean Corpuscular Volume 96.6 fL (78.0-98.0); Mean Platelet Volume 9.1 fL (7.4-10.4); Platelet Count 97 thou/uL (130-400); RBC Distribution Width 13.6 % (11.5-14.5); Red Blood Cell (RBC) Count 3.15 mill/uL (4.70-6.10); White Blood Cell (WBC) Count 4.5 thou/uL (4.8-10.8)
[2019-11-26] MEDS: HumaLOG 300 UNITS/3 ML VIAL SC PRN (05:48)
--- NOTE | 2019-11-26 06:22 | PDOC.FM ---
- Subjective Subjective: Pt is short of breath and feels as though he is tiring out. He wants to know the next step if Bipap fails. Discussed with him the interventions including comfort care, intubation, or worsening status on Bipap. He did not make a decision but wanted follow up. - Objective Vital Signs & Weight: Vital Signs (12 hours) Temp Pulse Pulse Ox 11/26/19 02:23 84 11/26/19 00:00 97.6 F 11/25/19 22:46 82 11/25/19 20:54 90 11/25/19 20:00 96.8 F L 99 Weight Admit Weight 78.199 kg Weight 77.065 kg Most Recent Monitor Data Heart Rate from ECG 81 NIBP 141/65 NIBP BP-Mean 90 Respiration from ECG 34 SpO2 96 I&O: 11/24/19 11/25/19 11/26/19 06:59 06:59 06:59 Intake Total 240 690 Balance 240 690 Result Diagrams: 11/26/19 03:12 11/26/19 03:13 Phys Exam - Physical Examination pt was tired, increased work of breathing HEENT: PERRLA, sclera anicteric Neck: no JVD, full ROM bilateral rales, BiPap placed on pt Cardiovascular: RRR, no significant murmur Gastrointestinal: soft, non-tender Musculoskeletal: no edema, pulses present Psychiatric: A&O x 3 Deviation from normal: flat affect Dx/Plan (1) CHF exacerbation Code(s): I50.9 - HEART FAILURE, UNSPECIFIED Status: Acute (2) COVID-19 Code(s): U07.1 - COVID-19 Status: Acute (3) Afib Code(s): I48.91 - UNSPECIFIED ATRIAL FIBRILLATION Status: Chronic Qualifiers: Atrial fibrillation type: paroxysmal Qualified Code(s): I48.0 - Paroxysmal atrial fibrillation (4) Anemia Code(s): D64.9 - ANEMIA, UNSPECIFIED Status: Chronic (5) End stage chronic kidney disease Code(s): N18.6 - END STAGE RENAL DISEASE Status: Chronic (6) HTN (hypertension) Code(s): I10 - ESSENTIAL (PRIMARY) HYPERTENSION Status: Chronic Qualifiers: Hypertension type: essential hypertension Qualified Code(s): I10 - Essential (primary) hypertension - Plan Plan: 84 yo M with PMH of CHF, CAD, Afib, ESRD on MWF dialysis, and chronic low back pain presents as a transfer from [place] [facility]. 1. Acute hypoxic respiratory failure 2/2 Covid Pneumonia vs Acute CHF exacerbation -Pt did not improve with dialysis. Currently on bipap. -Keep O2 Sats > 92% -Further tx as below 2. Covid+ -as above -Cont dexamethasone; convalescent plasma given -Remdesivir cannot be given w/ ESRD 2. ESRD MWF dialysis & HFpEF -Dr. Martinez consulted from ED, appreciate recs -Echo 11/06/19: EF 60-65%, grade 2/3 diastolic dysfunction, inferoseptal hypokinesis, mild concentric LVH, mod dil L and R atria; thickened anterior mitral valve leaflet, cannot r/o endocarditis, AV sclerosis, elevated RV systolic pressure estimate 58 mmHg, mild pulmonic regurge 3. Ind trop, suspect NSTEMI type 2 - resolved -Likely due to ESRD and demand ischemia 2/2 to COVID illness 4. Normocytic anemia - iron deficiency and ESRD -Hgb 6.8 > 10.0, baseline 7-8, on erythropoietin; transfusing 1 unit PRBCs * Large jump is likely due to dialysis and diuresis 5. Anion Gap Met acidosis - resolved - likely 2/2 ESRD; continue dialysis 6. Afib/flutter s/p ablation -Received Warfarin 5 mg for three days. Will start Warfarin at 2.5 mg today for a 2-3 days. -Daily PT/PTT/INR 7. HTN -Resume home medications 8. AST elevation AST: 78 > 83 -Likely 2/2 to COVID 9. HLD, CAD -Continue home statin 10. Chronic back pain -Home norco 11. Leukopenia WBC: 2.1 - Likely 2/2 COVID Code Status: Intubate-Chem, no Compressions Diet: Renal DVT ppx: home warfarin GI ppx: protonix PCP: Caitlin ZHU Dispo: continue care in IMCU for worsening respiratory status and follow up Code status after discussion.
[2019-11-26] MEDS: Aspirin 81 mg Enteric Coated Tablet PO SCH (09:24)
[2019-11-26] MEDS: Ferrous Sulfate 325 MG TAB PO SCH (09:24)
[2019-11-26] MEDS: Carvedilol 3.125 MG TAB PO SCH (09:24)
[2019-11-26] MEDS: hydrALAZINE 25 MG TAB PO SCH (09:24)
[2019-11-26] MEDS: Dexamethasone 4 MG TAB PO SCH (09:26)
[2019-11-26] MEDS: Cipro 250 MG TAB PO SCH (09:26)
[2019-11-26 09:28] VITALS: BP 134/69
--- NOTE | 2019-11-26 09:40 | PRG ---
DATE OF SERVICE: 11/26/2019 SUBJECTIVE: Mr. Rizvi is an 84-year-old white male with ESRD and was admitted for COVID-19 pneumonia. Overnight, he had some acute respiratory distress. He was transferred to [facility]. Currently, he is on BiPAP. He has desired to be intubated if needed. OBJECTIVE: VITAL SIGNS: Blood pressure is 134/65, heart rate 89, O2 saturation 90% on BiPAP. GENERAL: The patient is awake, in mild respiratory distress. SKIN: Adequate turgor. HEENT: Slightly pale conjunctivae. Anicteric sclerae. NECK: No neck mass. No carotid bruits. No JVD. CHEST: No deformities. LUNGS: Decreased breath sounds. HEART: Normal sinus rhythm. No murmur, no gallops, no rubs. ABDOMEN: Globular, soft, nontender. EXTREMITIES: No edema. MEDICATIONS: Medications of November 26, 2019, was reviewed. LABORATORY DATA: Laboratories of November 26, 2019; white count 4.5, hemoglobin 9.5, sodium 133, potassium 5.2, chloride 96, carbon dioxide 20, BUN 54, creatinine 5.14, glucose 3-7, AST 35, ALT 7, albumin 2.6. ASSESSMENT AND PLAN: 1. COVID-19 pneumonia - the patient is in [id number] respiratory distress, currently on BiPAP. If needed, the patient may need to be intubated. Continue supportive care. 2. End stage renal disease, stable. We will continue current hemodialysis regimen on Sunday, Sunday, and Sunday. The patient is scheduled for 3-hour hemodialysis with fluid removal as tolerated. 3. Anemia. Continue supportive care. 4. Recheck CBC and basic metabolic panel in a.m. Job ID: [id number]
[2019-11-26 12:37] VITALS: TEMP 96
--- NOTE | 2019-11-26 20:00 | PDOC.EVN ---
Event Note - Event Note Event Note: Progress Note of : Pt is an 84 yo gentleman with multiple co-morbidities who over the previous few days decompensated secondary to COVID. His respiratory status continued to decline ultimately placing the patient on Bipap. Prior to Bipap he decided to reverse his DNR status to Chem-Intubation Only which was decided on 11/25/19. Upon interview today the patient was noticeably becoming tired and lethargic. Code status did not during interview. At this time we placed a femoral line for IV access as nursing staff was unable to place a peripheral line and due to ESRD unable to place mid line. As the procedure was finishing the patient began experiencing oxygen levels in 80's. He then became bradycardic, converted into ventricular fibrillation and ultimately became asystole. Pulse was not identified. Code blue was initiated. Bag valve mask was initiated and 2 doses of epinephrine were given. Patient remained asystole, no pulse for multiple minutes and ultimately it was decided to discontinue life saving measures. Time of 1147 on 11/26/19. PE: HEENT: Pupils fixed and dilated Cardiac: No pulse Resp: No spontaneous respirations Neuro: No withdrawal from painful stimuli TOD: 11/26/19 at 1147 Orders: 1. TOD 2. Ok to remove all lines See Summary for hospital course.
--- NOTE | 2019-11-27 14:55 | DIS ---
DATE OF ADMISSION: 11/21/2019 DATE OF DISCHARGE: 11/26/2019 DATE OF : 11/26/2019. TIME OF : 11:47. CAUSE OF : Acute hypoxic respiratory failure secondary to COVID. SECONDARY DIAGNOSES: 1. End-stage renal disease. 2. Congestive heart failure. 3. Indeterminate troponin, pno-[id number] myocardial infarction. 4. Normocytic anemia. 5. Atrial fibrillation. 6. Hypertension. 7. Hyperlipidemia. 8. History of coronary artery disease. 9. Chronic back pain. HOSPITAL COURSE: Titus Rizvi is an 84-year-old gentleman, who presented to the emergency department with cough and shortness of breath and subsequently found to be COVID positive on 11/21/2019. His was hospitalized the previous day due to the coronavirus infection. Mr. Titus Rizvi had multiple comorbidities including end-stage renal disease, requiring hemodialysis. The patient was started on dexamethasone and received convalescent plasma. He did not qualify for remdesivir. Initially, the patient tolerated COVID well, requiring nasal cannula oxygen, but through his stay, he subsequently began requiring high-flow oxygen. On 11/25/2019, the patient was on max dose of high-flow oxygen, did not feel well, and was very tachypneic. He endorsed severe dyspnea. At this time, he remained AAO x3 and voiced to me that he would like to reverse his DNR status to intubation only. Due to this, we transferred him to the IMCU. In the IMCU, the patient's respiratory status continued to deteriorate. On 11/26/2019, it was decided the patient will need a central line as he did not have IV access and it could not be placed as a midline due to his end-stage renal disease. After the central line was placed, the patient became bradycardic and subsequently went into ventricular fibrillation and then asystole. Two rounds of epinephrine were given and he received oxygen by bag valve mask. We did not do chest compressions out of respect for the patient's wishes and subsequently, the code was called as the patient did not have a heart beat and resuscitative measures would have been futile. Time of was pronounced on 11/26/2019 at 11:47. His had just been discharged that day and was waiting to see him. We then allowed the in the room to be with her after he passed. Zackery ID: [id number]
[2019-11-30] MEDS ORDERED: Warfarin Sodium 3 MG TAB PO SCH (13:38)
== END 2019-11-26 11:47 | disposition expired ==
LOC: ERS 15:30 → 2SW 17:15 → INTOOBSV 17:15 → OBSVTOIN 22:52 → IMCU/EMU 11-25 16:15
PROVIDERS: ADMIT Family Medicine; ATTEND Family Medicine
PROC: 5A1D70Z Performance of Urinary Filtration, Intermittent, Less than 6 Hours Per Day (ICD-10-PCS; principal; 2019-11-21)
PROC: 30233N1 Transfusion of Nonautologous Red Blood Cells into Peripheral Vein, Percutaneous Approach (ICD-10-PCS; 2019-11-21)
PROC: XW13325 Transfusion of Convalescent Plasma (Nonautologous) into Peripheral Vein, Percutaneous Approach, New Technology Group 5 (ICD-10-PCS; 2019-11-21)
PROC: 5A1D70Z Performance of Urinary Filtration, Intermittent, Less than 6 Hours Per Day (ICD-10-PCS; 2019-11-24)
PROC: 5A0945A Assistance with Respiratory Ventilation, 24-96 Consecutive Hours, High Flow/Velocity Cannula (ICD-10-PCS; 2019-11-24)
PROC: 5A09357 Assistance with Respiratory Ventilation, Less than 24 Consecutive Hours, Continuous Positive Airway Pressure (ICD-10-PCS; 2019-11-25)
DX: I13.2 Hypertensive heart and chronic kidney disease with heart failure and with stage 5 chronic kidney disease, or end stage renal disease (principal); U07.1 COVID-19; I21.4 Non-ST elevation (NSTEMI) myocardial infarction; N18.6 End stage renal disease; J96.01 Acute respiratory failure with hypoxia; J12.89 Other viral pneumonia; I50.33 Acute on chronic diastolic (congestive) heart failure; E87.2 Acidosis; R04.2 Hemoptysis; I48.92 Unspecified atrial flutter; I25.10 Atherosclerotic heart disease of native coronary artery without angina pectoris; G89.29 Other chronic pain; M54.9 Dorsalgia, unspecified; Z66 Do not resuscitate; D72.819 Decreased white blood cell count, unspecified; E11.22 Type 2 diabetes mellitus with diabetic chronic kidney disease; E78.00 Pure hypercholesterolemia, unspecified; Z95.5 Presence of coronary angioplasty implant and graft; I25.2 Old myocardial infarction; Z99.2 Dependence on renal dialysis; Z95.0 Presence of cardiac pacemaker; Z95.1 Presence of aortocoronary bypass graft; Z88.6 Allergy status to analgesic agent; Z79.01 Long term (current) use of anticoagulants; Z79.82 Long term (current) use of aspirin; Z79.899 Other long term (current) drug therapy; D63.1 Anemia in chronic kidney disease; D50.9 Iron deficiency anemia, unspecified; I46.9 Cardiac arrest, cause unspecified; I48.0 Paroxysmal atrial fibrillation; M54.5 Low back pain; Z86.718 Personal history of other venous thrombosis and embolism
CPT/HCPCS: 36415; 36416; 36430; 71045; 80053; 82550; 82607; 82728; 82746; 82805; 83540; 83550; 83605; 83615; 84145; 85025; 85060; 85379; 85610; 85652; 85730; 86140; 86850; 86900; 86901; 90935; 93005; 94660; G0257; G0378; J0171; J0690; J1100; J1200; J1644; J2916; J3490; J8540; P9016; P9017; U0002